=== PATIENT | male | born 1935 | race Caucasian/White ===

== ENCOUNTER → 2017-06-13 | Outpatient (RCR) | payer MEDICARE, OTHER | LOC: M PT 05-28 08:37 | PROVIDERS: ATTEND Orthopaedic Surgery | DX: M75.51 Bursitis of right shoulder (principal) | CPT/HCPCS: 97110; 97140; 97162; G8984; G8985 ==

== ENCOUNTER 2017-06-18 07:17 | Outpatient (RCR) | payer MEDICARE, OTHER | END 2017-07-14 | LOC: M PT 07:17 | DX: Z51.89 Encounter for other specified aftercare (principal); M75.51 Bursitis of right shoulder | CPT/HCPCS: 97110 ==

== ENCOUNTER 2017-07-10 11:36 | Emergency (ER) | payer MEDICARE, OTHER ==
[2017-07-10] MEDS: ONDANSETRON 4 MG ORAL DISINTEGRATING TAB (S0181) PO (12:18)
[2017-07-10] MEDS: ADACEL/BOOSTRIX VACCINE (DIPHTH/PERTUSS/ACELL/TETANUS)0.5ML SYR (90715) IM (12:19)
== END 2017-07-10 13:34 | disposition home or self-care (01) ==
LOC: M ED 11:36
DX: S00.93XA Contusion of unspecified part of head, initial encounter (principal); S00.91XA Abrasion of unspecified part of head, initial encounter; W10.9XXA Fall (on) (from) unspecified stairs and steps, initial encounter; Y92.099 Unspecified place in other non-institutional residence as the place of occurrence of the external cause; Y93.9 Activity, unspecified; I10 Essential (primary) hypertension; Z87.891 Personal history of nicotine dependence; Z79.899 Other long term (current) drug therapy; Z88.8 Allergy status to other drugs, medicaments and biological substances
CPT/HCPCS: 90715

== ENCOUNTER 2017-07-18 07:10 | Outpatient (RCR) | payer MEDICARE, OTHER | END 2017-08-14 | LOC: M PT 07:10 | DX: Z51.89 Encounter for other specified aftercare (principal); M75.51 Bursitis of right shoulder | CPT/HCPCS: 97110 ==

== ENCOUNTER 2017-08-15 07:21 | Outpatient (RCR) | payer MEDICARE, OTHER | END 2017-09-11 | LOC: M PT 07:21 | DX: M75.51 Bursitis of right shoulder (principal) | CPT/HCPCS: 97110 ==

== ENCOUNTER 2017-08-21 08:24 | Outpatient (RCR) | payer MEDICARE, OTHER | END 2017-09-11 | LOC: M PT 08:24 | DX: M75.41 Impingement syndrome of right shoulder (principal); M75.01 Adhesive capsulitis of right shoulder ==

== ENCOUNTER 2017-09-12 08:57 | Outpatient (RCR) | payer MEDICARE, OTHER | END 2017-10-12 | LOC: M PT 09-16 07:56 | DX: M75.41 Impingement syndrome of right shoulder (principal); M75.31 Calcific tendinitis of right shoulder | CPT/HCPCS: 97110 ==

== ENCOUNTER 2017-10-14 07:22 | Outpatient (RCR) | payer MEDICARE, OTHER | END 2017-11-11 | LOC: M PT 07:22 | DX: M75.41 Impingement syndrome of right shoulder (principal) | CPT/HCPCS: 97110 ==

== ENCOUNTER 2018-06-04 13:09 | Emergency (ER) | payer MEDICARE, OTHER ==
[2018-06-04] MEDS ORDERED: MORPHINE 2 MG/ML 1ML SYRINGE (J2270) IV (14:00)
[2018-06-04 14:44] LABS: KETONE, URINE AUTO RFX TRACE mg/dL (NEGATIVE); LEUKOCYTE ESTERASE UR AUTO RFX NEGATIVE (NEGATIVE); MUCUS, URINE RFX SMALL (NEGATIVE); NITRITE, URINE AUTO RFX NEGATIVE (NEGATIVE); RBC, URINE AUTO RFX 2 /HPF (0-3); SPECIFIC GRAVITY UR AUTO RFX 1.018 (1.002-1.035); SQUAM EPITHELIAL CELL UR AURFX 0 /HPF (0-6); WBC, URINE AUTO RFX 1 /HPF (0-3)
[2018-06-04] MEDS: NS 1,000 ML IV (15:12)
[2018-06-04] MEDS: GASTROGRAFIN SOLUTION 30ML PO ×2 (15:12→15:50)
[2018-06-04] MEDS: ONDANSETRON 4MG/2ML VIAL (J2405) IV (15:12)
[2018-06-04 15:17] LABS: BASO % 0.4 % (0.0-1.0); EOS # 0.1 10^3/uL (0.0-0.50); EOS % 1.3 % (0.0-3.0); HEMATOCRIT 42.7 % (42.0-52.0); HEMOGLOBIN 15.6 g/dl (13.5-17.5); LYMPH # 1.1 10^3/uL (1.5-4.5); MEAN CORPUSCULAR HEMOGLOBIN 35.5 pg (27.0-33.0); MEAN CORPUSCULAR HGB CONC 36.5 g/dl (32.0-36.5); MEAN CORPUSCULAR VOLUME 97.3 fl (80.0-96.0); MONO # 0.7 10^3/uL (0.0-0.8); MONO % 6.7 % (0.0-5.0); NEUTROPHILS # 7.9 10^3/uL (1.8-7.7); NEUTROPHILS % 79.6 % (36.0-66.0); PLATELET COUNT, AUTOMATED 274 10^3/uL (150-450); RED BLOOD COUNT 4.39 10^6/uL (4.30-6.10); RED CELL DISTRIBUTION WIDTH 11.5 % (11.5-14.5); WHITE BLOOD COUNT 9.9 10^3/uL (4.0-10.0)
[2018-06-04 15:44] LABS: LACTIC ACID SEPSIS PROTOCOL 1.3 MMOL/L (0.4-2.0)
[2018-06-04 15:46] LABS: ALBUMIN 3.4 GM/DL (3.2-5.2); ALBUMIN/GLOBULIN RATIO 0.83 (1.00-1.93); ALKALINE PHOSPHATASE 55 U/L (45-117); ALT/SGPT 21 U/L (12-78); ANION GAP 10 MEQ/L (8-16); AST/SGOT 18 U/L (7-37); BILIRUBIN,DIRECT 0.5 MG/DL (0.0-0.2); BILIRUBIN,TOTAL 1.2 MG/DL (0.2-1.0); BLOOD UREA NITROGEN 30 MG/DL (7-18); CALCIUM LEVEL 8.5 MG/DL (8.8-10.2); CARBON DIOXIDE LEVEL 23 MEQ/L (21-32); CHLORIDE LEVEL 100 MEQ/L (98-107); CREATININE FOR GFR 1.14 MG/DL (0.70-1.30); GLOMERULAR FILTRATION RATE > 60.0 (>35); GLUCOSE, FASTING 76 MG/DL (70-100); POTASSIUM SERUM 4.2 MEQ/L (3.5-5.1); SODIUM LEVEL 133 MEQ/L (136-145); TOTAL PROTEIN 7.5 GM/DL (6.4-8.2)
[2018-06-04] MEDS ORDERED: ISOVUE-370 76% 100ML VIAL (Q9967) As Ordered (15:51)
== END 2018-06-04 19:06 | disposition home or self-care (01) ==
LOC: M ED 13:09
DX: R33.9 Retention of urine, unspecified (principal); N40.1 Benign prostatic hyperplasia with lower urinary tract symptoms; I25.10 Atherosclerotic heart disease of native coronary artery without angina pectoris; I10 Essential (primary) hypertension; J44.9 Chronic obstructive pulmonary disease, unspecified; G89.29 Other chronic pain; M54.5 Low back pain; Z95.5 Presence of coronary angioplasty implant and graft; Z87.891 Personal history of nicotine dependence; K57.00 Diverticulitis of small intestine with perforation and abscess without bleeding; K76.9 Liver disease, unspecified; N28.9 Disorder of kidney and ureter, unspecified; K82.9 Disease of gallbladder, unspecified; Z79.82 Long term (current) use of aspirin; Z79.899 Other long term (current) drug therapy; Z88.8 Allergy status to other drugs, medicaments and biological substances
CPT/HCPCS: Q9963

== ENCOUNTER 2018-06-17 09:53 | Inpatient (IN) | payer MEDICARE, OTHER ==
[2018-06-17 11:14] LABS: HEMATOCRIT 43.7 % (42.0-52.0); HEMOGLOBIN 15.3 g/dl (13.5-17.5); MEAN CORPUSCULAR HEMOGLOBIN 34.3 pg (27.0-33.0); PLATELET COUNT, AUTOMATED 191 10^3/uL (150-450); RED BLOOD COUNT 4.46 10^6/uL (4.30-6.10); RED CELL DISTRIBUTION WIDTH 11.6 % (11.5-14.5); WHITE BLOOD COUNT 9.6 10^3/uL (4.0-10.0)
[2018-06-17 11:30] LABS: LACTIC ACID SEPSIS PROTOCOL 1.1 MMOL/L (0.4-2.0)
[2018-06-17 11:42] LABS: ALKALINE PHOSPHATASE 66 U/L (45-117); ALT/SGPT 22 U/L (12-78); AST/SGOT 17 U/L (7-37); BILIRUBIN,DIRECT 0.2 MG/DL (0.0-0.2); BILIRUBIN,TOTAL 0.6 MG/DL (0.2-1.0); TOTAL PROTEIN 7.7 GM/DL (6.4-8.2)
[2018-06-17 11:43] LABS: ALBUMIN 3.3 GM/DL (3.2-5.2); ALBUMIN/GLOBULIN RATIO 0.75 (1.00-1.93)
[2018-06-17 11:51] LABS: ANION GAP 10 MEQ/L (8-16); BLOOD UREA NITROGEN 19 MG/DL (7-18); CALCIUM LEVEL 8.2 MG/DL (8.8-10.2); CARBON DIOXIDE LEVEL 24 MEQ/L (21-32); CHLORIDE LEVEL 104 MEQ/L (98-107); CK-MB VALUE MASS < 1.0 NG/ML (<3.6); CPK CREATINE PHOSPHOKINASE 22 U/L (39-308); CREATININE FOR GFR 1.07 MG/DL (0.70-1.30); GLOMERULAR FILTRATION RATE > 60.0 (>35); GLUCOSE, FASTING 93 MG/DL (70-100); MB/CK RELATIVE INDEX 4.55 (< OR =4); POTASSIUM SERUM 3.9 MEQ/L (3.5-5.1); SODIUM LEVEL 138 MEQ/L (136-145); THYROID STIMULATING HORMONE 0.884 uIU/ML (0.358-3.740); TROPONIN I < 0.02 NG/ML (< 0.10)
[2018-06-17 12:11] LABS: OSMOLALITY SERUM 287 MOSM/KG (280-301)
[2018-06-17] MEDS: NS 500 ML IV (12:12)
[2018-06-17 12:26] LABS: VENOUS BASE EXCESS -0.1 (-2.0-2.0); VENOUS HCO3 25.1 MEQ/L (23.0-27.0); VENOUS O2 SATURATION 55.6 % (60.0-80.0); VENOUS PARTIAL PRESSURE CO2 42.6 mmHg (38.0-50.0); VENOUS PARTIAL PRESSURE O2 29.8 mmHg (30.0-50.0); VENOUS PH 7.388 UNITS (7.330-7.430); VENOUS STANDARD HCO3 23.3 MEQ/L; VENOUS TOTAL CO2 26.4 MEQ/L (24.0-28.0)
[2018-06-17 12:30] LABS: KETONE, URINE AUTO RFX NEGATIVE (NEGATIVE); MUCUS, URINE RFX SMALL (NEGATIVE); RBC, URINE AUTO RFX 14 /HPF (0-3); SPECIFIC GRAVITY UR AUTO RFX 1.011 (1.002-1.035); SQUAM EPITHELIAL CELL UR AURFX 0 /HPF (0-6)
[2018-06-17 12:31] LABS: LEUKOCYTE ESTERASE UR AUTO RFX 1+ (NEGATIVE); NITRITE, URINE AUTO RFX POSITIVE (NEGATIVE); WBC, URINE AUTO RFX 13 /HPF (0-3)
[2018-06-17 12:53] LABS: AMMONIA 16 uMOL/L (<32)
[2018-06-17] MEDS: cefTRIAXone SOD 1 GM in D5W MINI-BAG PLUS 50 ML IV (15:04)
[2018-06-17] MEDS ORDERED: ACETAMINOPHEN 325 MG TAB PO (20:45)
[2018-06-18 05:49] LABS: HEMATOCRIT 38.5 % (42.0-52.0); HEMOGLOBIN 13.5 g/dl (13.5-17.5); MEAN CORPUSCULAR HEMOGLOBIN 34.3 pg (27.0-33.0); MEAN CORPUSCULAR HGB CONC 35.1 g/dl (32.0-36.5); MEAN CORPUSCULAR VOLUME 97.7 fl (80.0-96.0); PLATELET COUNT, AUTOMATED 168 10^3/uL (150-450); RED BLOOD COUNT 3.94 10^6/uL (4.30-6.10); RED CELL DISTRIBUTION WIDTH 11.6 % (11.5-14.5); WHITE BLOOD COUNT 8.1 10^3/uL (4.0-10.0)
[2018-06-18] MEDS: HEPARIN SOD (PORCINE) 5000 UNITS/ML VIAL SC ×3 (05:50→21:34)
[2018-06-18 06:19] LABS: ANION GAP 7 MEQ/L (8-16); BLOOD UREA NITROGEN 15 MG/DL (7-18); CALCIUM LEVEL 8.5 MG/DL (8.8-10.2); CARBON DIOXIDE LEVEL 26 MEQ/L (21-32); CHLORIDE LEVEL 106 MEQ/L (98-107); CREATININE FOR GFR 1.02 MG/DL (0.70-1.30); GLOMERULAR FILTRATION RATE > 60.0 (>35); GLUCOSE, FASTING 89 MG/DL (70-100); SODIUM LEVEL 139 MEQ/L (136-145)
[2018-06-18] MEDS: FUROSEMIDE 20 MG TAB PO (09:14)
[2018-06-18] MEDS: VITAMIN D 1,000 INTERNATIONAL UNITS TABLET PO (09:14)
[2018-06-18] MEDS: MULTIVITAMINS/MINERALS THERAP 1 TAB PO (09:14)
[2018-06-18] MEDS: OMEPRAZOLE 20 MG CAP PO (09:14)
[2018-06-18] MEDS: ASPIRIN 81 MG ENTERIC TAB PO (09:14)
[2018-06-18] MEDS: ALLOPURINOL 100 MG TAB PO (09:14)
[2018-06-18] MEDS: TAMSULOSIN 0.4 MG CAP PO (09:14)
[2018-06-18] MEDS: amLODIPine 10 MG TAB PO (09:15)
[2018-06-18] MEDS ORDERED: ISOVUE-370 76% 100ML VIAL (Q9967) As Ordered (13:14)
[2018-06-18] MEDS: GASTROGRAFIN SOLUTION 30ML PO ×2 (13:50→14:06)
[2018-06-18] MEDS: cefTRIAXone SOD 1 GM in D5W MINI-BAG PLUS 50 ML IV (14:07)
[2018-06-18] MEDS: SENNA 8.6 MG TAB (SENOKOT) PO ×2 (14:31→21:34)
[2018-06-18] MEDS: NS 1,500 ML IV (17:30)
[2018-06-19] MEDS: HEPARIN SOD (PORCINE) 5000 UNITS/ML VIAL SC ×3 (05:16→20:16)
[2018-06-19] MEDS: NS 1,500 ML IV (05:30)
[2018-06-19 06:54] LABS: HEMATOCRIT 38.3 % (42.0-52.0); HEMOGLOBIN 13.4 g/dl (13.5-17.5); MEAN CORPUSCULAR HEMOGLOBIN 34.4 pg (27.0-33.0); MEAN CORPUSCULAR VOLUME 98.5 fl (80.0-96.0); PLATELET COUNT, AUTOMATED 165 10^3/uL (150-450); RED BLOOD COUNT 3.89 10^6/uL (4.30-6.10); RED CELL DISTRIBUTION WIDTH 11.9 % (11.5-14.5); WHITE BLOOD COUNT 7.4 10^3/uL (4.0-10.0)
[2018-06-19 07:20] LABS: ANION GAP 6 MEQ/L (8-16); BLOOD UREA NITROGEN 15 MG/DL (7-18); CARBON DIOXIDE LEVEL 26 MEQ/L (21-32); CHLORIDE LEVEL 108 MEQ/L (98-107); CREATININE FOR GFR 1.03 MG/DL (0.70-1.30); GLOMERULAR FILTRATION RATE > 60.0 (>35); GLUCOSE, FASTING 86 MG/DL (70-100); POTASSIUM SERUM 4.1 MEQ/L (3.5-5.1); SODIUM LEVEL 140 MEQ/L (136-145)
[2018-06-19] MEDS: OMEPRAZOLE 20 MG CAP PO (08:31)
[2018-06-19] MEDS: TAMSULOSIN 0.4 MG CAP PO (08:31)
[2018-06-19] MEDS: ALLOPURINOL 100 MG TAB PO (08:31)
[2018-06-19] MEDS: MULTIVITAMINS/MINERALS THERAP 1 TAB PO (08:31)
[2018-06-19] MEDS: VITAMIN D 1,000 INTERNATIONAL UNITS TABLET PO (08:31)
[2018-06-19] MEDS: ASPIRIN 81 MG ENTERIC TAB PO (08:31)
[2018-06-19] MEDS: SENNA 8.6 MG TAB (SENOKOT) PO ×2 (08:31→20:16)
[2018-06-19] MEDS: amLODIPine 10 MG TAB PO (08:32)
[2018-06-19 14:16] LABS: PSA TOTAL 1.3 ng/mL (0.0-4.0)
[2018-06-19] MEDS: cefTRIAXone SOD 1 GM in D5W MINI-BAG PLUS 50 ML IV (14:27)
[2018-06-20] MEDS: HEPARIN SOD (PORCINE) 5000 UNITS/ML VIAL SC ×3 (05:25→21:05)
[2018-06-20 06:45] LABS: HEMATOCRIT 39.4 % (42.0-52.0); HEMOGLOBIN 13.6 g/dl (13.5-17.5); MEAN CORPUSCULAR HEMOGLOBIN 33.7 pg (27.0-33.0); MEAN CORPUSCULAR HGB CONC 34.5 g/dl (32.0-36.5); MEAN CORPUSCULAR VOLUME 97.8 fl (80.0-96.0); PLATELET COUNT, AUTOMATED 175 10^3/uL (150-450); RED BLOOD COUNT 4.03 10^6/uL (4.30-6.10); RED CELL DISTRIBUTION WIDTH 11.9 % (11.5-14.5); WHITE BLOOD COUNT 7.5 10^3/uL (4.0-10.0)
[2018-06-20 07:03] LABS: ANION GAP 8 MEQ/L (8-16); BLOOD UREA NITROGEN 14 MG/DL (7-18); CALCIUM LEVEL 8.3 MG/DL (8.8-10.2); CARBON DIOXIDE LEVEL 24 MEQ/L (21-32); CHLORIDE LEVEL 107 MEQ/L (98-107); CREATININE FOR GFR 1.01 MG/DL (0.70-1.30); GLOMERULAR FILTRATION RATE > 60.0 (>35); GLUCOSE, FASTING 87 MG/DL (70-100); SODIUM LEVEL 139 MEQ/L (136-145)
[2018-06-20] MEDS: SENNA 8.6 MG TAB (SENOKOT) PO ×2 (08:49→21:04)
[2018-06-20] MEDS: ALLOPURINOL 100 MG TAB PO (08:49)
[2018-06-20] MEDS: MULTIVITAMINS/MINERALS THERAP 1 TAB PO (08:49)
[2018-06-20] MEDS: ASPIRIN 81 MG ENTERIC TAB PO (08:49)
[2018-06-20] MEDS: VITAMIN D 1,000 INTERNATIONAL UNITS TABLET PO (08:49)
[2018-06-20] MEDS: FUROSEMIDE 20 MG TAB PO (08:49)
[2018-06-20] MEDS: OMEPRAZOLE 20 MG CAP PO (08:49)
[2018-06-20] MEDS: TAMSULOSIN 0.4 MG CAP PO (08:49)
[2018-06-20] MEDS: amLODIPine 10 MG TAB PO (08:50)
[2018-06-20] MEDS: SENOKOT S TAB PO ×2 (11:33→21:02)
[2018-06-20] MEDS: cefTRIAXone SOD 1 GM in D5W MINI-BAG PLUS 50 ML IV (14:24)
[2018-06-21] MEDS: HEPARIN SOD (PORCINE) 5000 UNITS/ML VIAL SC ×3 (05:54→21:42)
[2018-06-21 06:48] LABS: HEMATOCRIT 39.6 % (42.0-52.0); HEMOGLOBIN 13.6 g/dl (13.5-17.5); MEAN CORPUSCULAR HEMOGLOBIN 34.3 pg (27.0-33.0); MEAN CORPUSCULAR HGB CONC 34.3 g/dl (32.0-36.5); MEAN CORPUSCULAR VOLUME 99.7 fl (80.0-96.0); PLATELET COUNT, AUTOMATED 174 10^3/uL (150-450); RED BLOOD COUNT 3.97 10^6/uL (4.30-6.10); WHITE BLOOD COUNT 7.4 10^3/uL (4.0-10.0)
[2018-06-21 07:07] LABS: ANION GAP 8 MEQ/L (8-16); BLOOD UREA NITROGEN 14 MG/DL (7-18); CALCIUM LEVEL 8.8 MG/DL (8.8-10.2); CARBON DIOXIDE LEVEL 24 MEQ/L (21-32); CHLORIDE LEVEL 107 MEQ/L (98-107); CREATININE FOR GFR 1.05 MG/DL (0.70-1.30); GLOMERULAR FILTRATION RATE > 60.0 (>35); GLUCOSE, FASTING 90 MG/DL (70-100); POTASSIUM SERUM 4.1 MEQ/L (3.5-5.1); SODIUM LEVEL 139 MEQ/L (136-145)
[2018-06-21] MEDS: FUROSEMIDE 20 MG TAB PO (08:23)
[2018-06-21] MEDS: ALLOPURINOL 100 MG TAB PO (08:23)
[2018-06-21] MEDS: TAMSULOSIN 0.4 MG CAP PO (08:23)
[2018-06-21] MEDS: VITAMIN D 1,000 INTERNATIONAL UNITS TABLET PO (08:23)
[2018-06-21] MEDS: MULTIVITAMINS/MINERALS THERAP 1 TAB PO (08:24)
[2018-06-21] MEDS: SENOKOT S TAB PO ×2 (08:24→21:41)
[2018-06-21] MEDS: SENNA 8.6 MG TAB (SENOKOT) PO ×2 (08:24→21:41)
[2018-06-21] MEDS: ASPIRIN 81 MG ENTERIC TAB PO (08:24)
[2018-06-21] MEDS: amLODIPine 10 MG TAB PO (08:24)
[2018-06-21] MEDS: OMEPRAZOLE 20 MG CAP PO (08:26)
[2018-06-21] MEDS: MOM 30ML SUSPENSION UDC PO ×2 (08:45→18:07)
[2018-06-21] MEDS: cefTRIAXone SOD 1 GM in D5W MINI-BAG PLUS 50 ML IV (14:19)
[2018-06-22] MEDS: HEPARIN SOD (PORCINE) 5000 UNITS/ML VIAL SC ×3 (06:07→21:10)
[2018-06-22 06:13] LABS: HEMATOCRIT 38.6 % (42.0-52.0); HEMOGLOBIN 13.2 g/dl (13.5-17.5); MEAN CORPUSCULAR HEMOGLOBIN 34.2 pg (27.0-33.0); MEAN CORPUSCULAR HGB CONC 34.2 g/dl (32.0-36.5); PLATELET COUNT, AUTOMATED 182 10^3/uL (150-450); RED BLOOD COUNT 3.86 10^6/uL (4.30-6.10); RED CELL DISTRIBUTION WIDTH 12.2 % (11.5-14.5); WHITE BLOOD COUNT 7.3 10^3/uL (4.0-10.0)
[2018-06-22 06:38] LABS: ANION GAP 7 MEQ/L (8-16); BLOOD UREA NITROGEN 15 MG/DL (7-18); CALCIUM LEVEL 8.2 MG/DL (8.8-10.2); CARBON DIOXIDE LEVEL 25 MEQ/L (21-32); CHLORIDE LEVEL 108 MEQ/L (98-107); GLOMERULAR FILTRATION RATE > 60.0 (>35); GLUCOSE, FASTING 80 MG/DL (70-100); SODIUM LEVEL 140 MEQ/L (136-145)
[2018-06-22] MEDS: VITAMIN D 1,000 INTERNATIONAL UNITS TABLET PO (08:41)
[2018-06-22] MEDS: OMEPRAZOLE 20 MG CAP PO (08:41)
[2018-06-22] MEDS: amLODIPine 10 MG TAB PO (08:43)
[2018-06-22] MEDS: ALLOPURINOL 100 MG TAB PO (08:43)
[2018-06-22] MEDS: TAMSULOSIN 0.4 MG CAP PO (08:44)
[2018-06-22] MEDS: FUROSEMIDE 20 MG TAB PO (08:44)
[2018-06-22] MEDS: MULTIVITAMINS/MINERALS THERAP 1 TAB PO (08:44)
[2018-06-22] MEDS: SENOKOT S TAB PO ×2 (08:44→21:11)
[2018-06-22] MEDS: SENNA 8.6 MG TAB (SENOKOT) PO ×2 (08:45→21:10)
[2018-06-22] MEDS: ASPIRIN 81 MG ENTERIC TAB PO (08:45)
[2018-06-22] MEDS: cefTRIAXone SOD 1 GM in D5W MINI-BAG PLUS 50 ML IV (15:41)
[2018-06-23 07:09] LABS: HEMATOCRIT 38.5 % (42.0-52.0); MEAN CORPUSCULAR HEMOGLOBIN 34.1 pg (27.0-33.0); MEAN CORPUSCULAR HGB CONC 33.8 g/dl (32.0-36.5); PLATELET COUNT, AUTOMATED 186 10^3/uL (150-450); RED BLOOD COUNT 3.81 10^6/uL (4.30-6.10); RED CELL DISTRIBUTION WIDTH 12.4 % (11.5-14.5); WHITE BLOOD COUNT 6.8 10^3/uL (4.0-10.0)
[2018-06-23 07:33] LABS: ANION GAP 7 MEQ/L (8-16); BLOOD UREA NITROGEN 14 MG/DL (7-18); CALCIUM LEVEL 8.2 MG/DL (8.8-10.2); CARBON DIOXIDE LEVEL 25 MEQ/L (21-32); CHLORIDE LEVEL 107 MEQ/L (98-107); CREATININE FOR GFR 1.08 MG/DL (0.70-1.30); GLOMERULAR FILTRATION RATE > 60.0 (>35); GLUCOSE, FASTING 84 MG/DL (70-100); POTASSIUM SERUM 4.1 MEQ/L (3.5-5.1); SODIUM LEVEL 139 MEQ/L (136-145)
[2018-06-23] MEDS: TAMSULOSIN 0.4 MG CAP PO (08:15)
[2018-06-23] MEDS: VITAMIN D 1,000 INTERNATIONAL UNITS TABLET PO (08:15)
[2018-06-23] MEDS: SENOKOT S TAB PO ×2 (08:15→20:02)
[2018-06-23] MEDS: ALLOPURINOL 100 MG TAB PO (08:15)
[2018-06-23] MEDS: amLODIPine 10 MG TAB PO (08:15)
[2018-06-23] MEDS: ASPIRIN 81 MG ENTERIC TAB PO (08:15)
[2018-06-23] MEDS: MULTIVITAMINS/MINERALS THERAP 1 TAB PO (08:15)
[2018-06-23] MEDS: OMEPRAZOLE 20 MG CAP PO (08:15)
[2018-06-23] MEDS: SENNA 8.6 MG TAB (SENOKOT) PO ×2 (08:15→20:02)
[2018-06-23] MEDS ORDERED: GENTAMICIN SULF INJ 80MG/2ML VIAL (J1580) IP (13:00)
[2018-06-23] MEDS: cefTRIAXone SOD 1 GM in D5W MINI-BAG PLUS 50 ML IV (15:30)
[2018-06-23 16:33] LABS: KETONE, URINE AUTO RFX NEGATIVE (NEGATIVE); LEUKOCYTE ESTERASE UR AUTO RFX NEGATIVE (NEGATIVE); MUCUS, URINE RFX SMALL (NEGATIVE); NITRITE, URINE AUTO RFX NEGATIVE (NEGATIVE); RBC, URINE AUTO RFX 10 /HPF (0-3); SPECIFIC GRAVITY UR AUTO RFX 1.015 (1.002-1.035); SQUAM EPITHELIAL CELL UR AURFX 0 /HPF (0-6); WBC, URINE AUTO RFX 2 /HPF (0-3)
[2018-06-24] MEDS: GENTAMICIN 80 MG in APPROPRIATE DILUENT 1 EA IV (06:24)
[2018-06-24 06:44] LABS: HEMATOCRIT 39.3 % (42.0-52.0); HEMOGLOBIN 13.6 g/dl (13.5-17.5); MEAN CORPUSCULAR HEMOGLOBIN 34.4 pg (27.0-33.0); MEAN CORPUSCULAR HGB CONC 34.6 g/dl (32.0-36.5); MEAN CORPUSCULAR VOLUME 99.5 fl (80.0-96.0); PLATELET COUNT, AUTOMATED 183 10^3/uL (150-450); RED BLOOD COUNT 3.95 10^6/uL (4.30-6.10); RED CELL DISTRIBUTION WIDTH 12.2 % (11.5-14.5); WHITE BLOOD COUNT 7.3 10^3/uL (4.0-10.0)
[2018-06-24 07:03] LABS: ANION GAP 8 MEQ/L (8-16); BLOOD UREA NITROGEN 12 MG/DL (7-18); CALCIUM LEVEL 8.4 MG/DL (8.8-10.2); CARBON DIOXIDE LEVEL 24 MEQ/L (21-32); CHLORIDE LEVEL 106 MEQ/L (98-107); CREATININE FOR GFR 0.98 MG/DL (0.70-1.30); GLOMERULAR FILTRATION RATE > 60.0 (>35); GLUCOSE, FASTING 87 MG/DL (70-100); POTASSIUM SERUM 4.3 MEQ/L (3.5-5.1); SODIUM LEVEL 138 MEQ/L (136-145)
[2018-06-24] MEDS: VITAMIN D 1,000 INTERNATIONAL UNITS TABLET PO (08:48)
[2018-06-24] MEDS: TAMSULOSIN 0.4 MG CAP PO (08:48)
[2018-06-24] MEDS: SENOKOT S TAB PO ×2 (08:48→20:13)
[2018-06-24] MEDS: MULTIVITAMINS/MINERALS THERAP 1 TAB PO (08:48)
[2018-06-24] MEDS: FUROSEMIDE 20 MG TAB PO (08:48)
[2018-06-24] MEDS: OMEPRAZOLE 20 MG CAP PO (08:48)
[2018-06-24] MEDS: ALLOPURINOL 100 MG TAB PO (08:48)
[2018-06-24] MEDS: SENNA 8.6 MG TAB (SENOKOT) PO ×2 (08:49→20:13)
[2018-06-24] MEDS: amLODIPine 10 MG TAB PO (08:49)
[2018-06-24] MEDS: ASPIRIN 81 MG ENTERIC TAB PO (08:49)
[2018-06-24] MEDS: cefTRIAXone SOD 1 GM in D5W MINI-BAG PLUS 50 ML IV (15:24)
[2018-06-24] MEDS: GENTAMICIN SULF INJ 80MG/2ML VIAL (J1580) As Ordered (17:33)
[2018-06-24] MEDS ORDERED: PROPOFOL 200 MG/20 ML VIAL As Ordered (17:53)
[2018-06-24] MEDS ORDERED: fentaNYL 100 MCG/2 ML INJECTION (J3010) As Ordered (17:53)
[2018-06-24] MEDS ORDERED: MIDAZOLAM INJ 2 MG/2 ML VIAL (J2250) As Ordered (17:53)
[2018-06-24] MEDS ORDERED: ONDANSETRON 4MG/2ML VIAL (J2405) As Ordered (17:53)
[2018-06-24] MEDS ORDERED: LIDOCAINE 2% INJ 100 MG/5 ML SDV (FOR ANES.) As Ordered (17:53)
[2018-06-24] MEDS ORDERED: fentaNYL 100 MCG/2 ML INJECTION (J3010) IV (18:30)
[2018-06-24] MEDS ORDERED: ONDANSETRON 4MG/2ML VIAL (J2405) IV (18:30)
[2018-06-24] MEDS: LR 1,000 ML IV (18:30)
[2018-06-24] MEDS ORDERED: NORCO, ANEXSIA 5/325MG TABLET (HYDROcodone/ACETAMINOPHEN) As Ordered (18:47)
[2018-06-24] MEDS: NORCO, ANEXSIA 5/325MG TABLET (HYDROcodone/ACETAMINOPHEN) PO (18:48)
[2018-06-25] MEDS: PERCOCET 5MG/325MG TAB PO ×2 (01:18→19:38)
[2018-06-25 09:11] LABS: HEMATOCRIT 37.2 % (42.0-52.0); HEMOGLOBIN 13.1 g/dl (13.5-17.5); MEAN CORPUSCULAR HEMOGLOBIN 34.7 pg (27.0-33.0); MEAN CORPUSCULAR HGB CONC 35.2 g/dl (32.0-36.5); MEAN CORPUSCULAR VOLUME 98.7 fl (80.0-96.0); PLATELET COUNT, AUTOMATED 181 10^3/uL (150-450); RED BLOOD COUNT 3.77 10^6/uL (4.30-6.10); RED CELL DISTRIBUTION WIDTH 12.5 % (11.5-14.5); WHITE BLOOD COUNT 8.4 10^3/uL (4.0-10.0)
[2018-06-25] MEDS: ASPIRIN 81 MG ENTERIC TAB PO (09:16)
[2018-06-25] MEDS: OMEPRAZOLE 20 MG CAP PO (09:17)
[2018-06-25] MEDS: MULTIVITAMINS/MINERALS THERAP 1 TAB PO (09:17)
[2018-06-25] MEDS: FUROSEMIDE 20 MG TAB PO (09:17)
[2018-06-25] MEDS: ALLOPURINOL 100 MG TAB PO (09:17)
[2018-06-25] MEDS: VITAMIN D 1,000 INTERNATIONAL UNITS TABLET PO (09:17)
[2018-06-25] MEDS: SENNA 8.6 MG TAB (SENOKOT) PO ×2 (09:17→20:59)
[2018-06-25] MEDS: amLODIPine 10 MG TAB PO (09:17)
[2018-06-25] MEDS: SENOKOT S TAB PO ×2 (09:18→21:00)
[2018-06-25] MEDS: TAMSULOSIN 0.4 MG CAP PO (09:18)
[2018-06-25 09:31] LABS: ANION GAP 8 MEQ/L (8-16); BLOOD UREA NITROGEN 14 MG/DL (7-18); CALCIUM LEVEL 8.6 MG/DL (8.8-10.2); CARBON DIOXIDE LEVEL 26 MEQ/L (21-32); CHLORIDE LEVEL 100 MEQ/L (98-107); CREATININE FOR GFR 1.16 MG/DL (0.70-1.30); GLOMERULAR FILTRATION RATE > 60.0 (>35); GLUCOSE, FASTING 116 MG/DL (70-100); POTASSIUM SERUM 4.2 MEQ/L (3.5-5.1); SODIUM LEVEL 134 MEQ/L (136-145)
[2018-06-25] MEDS: MOM 30ML SUSPENSION UDC PO (15:42)
[2018-06-26] MEDS: PERCOCET 5MG/325MG TAB PO ×3 (01:49→21:39)
[2018-06-26 06:04] LABS: HEMOGLOBIN 12.4 g/dl (13.5-17.5); MEAN CORPUSCULAR HEMOGLOBIN 33.8 pg (27.0-33.0); MEAN CORPUSCULAR HGB CONC 33.5 g/dl (32.0-36.5); MEAN CORPUSCULAR VOLUME 100.8 fl (80.0-96.0); PLATELET COUNT, AUTOMATED 163 10^3/uL (150-450); RED BLOOD COUNT 3.67 10^6/uL (4.30-6.10); RED CELL DISTRIBUTION WIDTH 12.4 % (11.5-14.5); WHITE BLOOD COUNT 7.4 10^3/uL (4.0-10.0)
[2018-06-26 06:31] LABS: ANION GAP 6 MEQ/L (8-16); BLOOD UREA NITROGEN 16 MG/DL (7-18); CALCIUM LEVEL 8.3 MG/DL (8.8-10.2); CARBON DIOXIDE LEVEL 28 MEQ/L (21-32); CHLORIDE LEVEL 103 MEQ/L (98-107); CREATININE FOR GFR 1.07 MG/DL (0.70-1.30); GLOMERULAR FILTRATION RATE > 60.0 (>35); GLUCOSE, FASTING 90 MG/DL (70-100); POTASSIUM SERUM 4.1 MEQ/L (3.5-5.1); SODIUM LEVEL 137 MEQ/L (136-145)
[2018-06-26] MEDS: FUROSEMIDE 20 MG TAB PO (08:56)
[2018-06-26] MEDS: ALLOPURINOL 100 MG TAB PO (08:56)
[2018-06-26] MEDS: SENNA 8.6 MG TAB (SENOKOT) PO ×2 (08:56→20:44)
[2018-06-26] MEDS: ASPIRIN 81 MG ENTERIC TAB PO (08:56)
[2018-06-26] MEDS: OMEPRAZOLE 20 MG CAP PO (08:57)
[2018-06-26] MEDS: MULTIVITAMINS/MINERALS THERAP 1 TAB PO (08:57)
[2018-06-26] MEDS: VITAMIN D 1,000 INTERNATIONAL UNITS TABLET PO (08:57)
[2018-06-26] MEDS: TAMSULOSIN 0.4 MG CAP PO (08:57)
[2018-06-26] MEDS: SENOKOT S TAB PO ×2 (08:57→20:44)
[2018-06-26] MEDS: amLODIPine 10 MG TAB PO (08:59)
[2018-06-27 06:57] LABS: HEMATOCRIT 38.7 % (42.0-52.0); HEMOGLOBIN 13.2 g/dl (13.5-17.5); MEAN CORPUSCULAR HEMOGLOBIN 33.9 pg (27.0-33.0); MEAN CORPUSCULAR HGB CONC 34.1 g/dl (32.0-36.5); MEAN CORPUSCULAR VOLUME 99.5 fl (80.0-96.0); PLATELET COUNT, AUTOMATED 191 10^3/uL (150-450); RED BLOOD COUNT 3.89 10^6/uL (4.30-6.10); RED CELL DISTRIBUTION WIDTH 12.6 % (11.5-14.5); WHITE BLOOD COUNT 7.3 10^3/uL (4.0-10.0)
[2018-06-27 07:15] LABS: ANION GAP 6 MEQ/L (8-16); BLOOD UREA NITROGEN 13 MG/DL (7-18); CALCIUM LEVEL 8.7 MG/DL (8.8-10.2); CARBON DIOXIDE LEVEL 27 MEQ/L (21-32); CHLORIDE LEVEL 103 MEQ/L (98-107); CREATININE FOR GFR 1.07 MG/DL (0.70-1.30); GLOMERULAR FILTRATION RATE > 60.0 (>35); GLUCOSE, FASTING 91 MG/DL (70-100); POTASSIUM SERUM 4.2 MEQ/L (3.5-5.1); SODIUM LEVEL 136 MEQ/L (136-145)
[2018-06-27] MEDS: amLODIPine 10 MG TAB PO (08:18)
[2018-06-27] MEDS: FUROSEMIDE 20 MG TAB PO (08:18)
[2018-06-27] MEDS: MULTIVITAMINS/MINERALS THERAP 1 TAB PO (08:18)
[2018-06-27] MEDS: MOM 30ML SUSPENSION UDC PO (08:18)
[2018-06-27] MEDS: OMEPRAZOLE 20 MG CAP PO (08:18)
[2018-06-27] MEDS: VITAMIN D 1,000 INTERNATIONAL UNITS TABLET PO (08:19)
[2018-06-27] MEDS: SENNA 8.6 MG TAB (SENOKOT) PO (08:19)
[2018-06-27] MEDS: TAMSULOSIN 0.4 MG CAP PO (08:19)
[2018-06-27] MEDS: ASPIRIN 81 MG ENTERIC TAB PO (08:19)
[2018-06-27] MEDS: ALLOPURINOL 100 MG TAB PO (08:19)
[2018-06-27] MEDS: SENOKOT S TAB PO (08:19)
[2018-06-27] MEDS: PERCOCET 5MG/325MG TAB PO (08:36)
== END 2018-06-27 16:10 | disposition home or self-care (01) | DRG 666 ==
LOC: M MS4PR 06-18 09:35 → M ED 09:53 → M ED INP 20:30
PROC: 0VT08ZZ Resection of Prostate, Via Natural or Artificial Opening Endoscopic (ICD-10-PCS; principal; 2018-06-24 17:22)
DX: N39.0 Urinary tract infection, site not specified (principal); J98.11 Atelectasis; N40.0 Benign prostatic hyperplasia without lower urinary tract symptoms; K21.9 Gastro-esophageal reflux disease without esophagitis; J44.9 Chronic obstructive pulmonary disease, unspecified; I25.10 Atherosclerotic heart disease of native coronary artery without angina pectoris; I10 Essential (primary) hypertension; M10.9 Gout, unspecified; B96.1 Klebsiella pneumoniae [K. pneumoniae] as the cause of diseases classified elsewhere; Z79.82 Long term (current) use of aspirin; Z79.899 Other long term (current) drug therapy; Z88.8 Allergy status to other drugs, medicaments and biological substances; J84.10 Pulmonary fibrosis, unspecified; E86.0 Dehydration; N28.1 Cyst of kidney, acquired; K76.89 Other specified diseases of liver; K80.20 Calculus of gallbladder without cholecystitis without obstruction; R33.9 Retention of urine, unspecified

== ENCOUNTER 2018-07-06 10:01 | Emergency (ER) | payer MEDICARE, OTHER ==
[~2018-07-06] VITALS: Ht 177.8 cm; Wt 89.1 kg
[~2018-07-06 10:01] MED LIST: ACET1TAB55 PO; ALLO100T PO; ASPI81TA85 PO; CELE1CAP4; DOK100TA PO; FELO10TA PO; FLOM0.4C39 PO; FURO20TA2 PO; GABA-843 PO; GUAIPOW; HYDR1CRE TOP; LIDO5DIS41 TD; OMEP20CA3 PO; PROAAER10 INH; SORE15LO MT; TRAM50TA2; VITA100066 PO; VITMTA PO
[2018-07-06 11:05] LABS: HEMATOCRIT 41.6 % (42.0-52.0); HEMOGLOBIN 14.4 g/dl (13.5-17.5); MEAN CORPUSCULAR HEMOGLOBIN 34.4 pg (27.0-33.0); MEAN CORPUSCULAR HGB CONC 34.6 g/dl (32.0-36.5); MEAN CORPUSCULAR VOLUME 99.3 fl (80.0-96.0); PLATELET COUNT, AUTOMATED 248 10^3/uL (150-450); RED BLOOD COUNT 4.19 10^6/uL (4.30-6.10)
[2018-07-06 11:25] LABS: BLOOD UREA NITROGEN 15 MG/DL (7-18); CALCIUM LEVEL 8.7 MG/DL (8.8-10.2); CARBON DIOXIDE LEVEL 23 MEQ/L (21-32); CHLORIDE LEVEL 104 MEQ/L (98-107); CREATININE FOR GFR 1.05 MG/DL (0.70-1.30); GLOMERULAR FILTRATION RATE > 60.0 (>35); GLUCOSE, FASTING 92 MG/DL (70-100); POTASSIUM SERUM 4.3 MEQ/L (3.5-5.1); SODIUM LEVEL 137 MEQ/L (136-145)
[2018-07-06] MEDS ORDERED: KEFL500C17 PO (12:42)
[2018-07-06 12:50] VITALS: BP 137/68
== END 2018-07-06 12:51 | disposition home or self-care (01) ==
LOC: M ED 10:01
DX: R31.9 Hematuria, unspecified (principal); K21.9 Gastro-esophageal reflux disease without esophagitis; Z79.899 Other long term (current) drug therapy; Z79.82 Long term (current) use of aspirin; Z88.8 Allergy status to other drugs, medicaments and biological substances; Z87.891 Personal history of nicotine dependence

== ENCOUNTER → 2018-07-11 | Outpatient (REF) | payer MEDICARE, OTHER ==
[~2018-07-11] MED LIST changes: +KEFL500C17 PO
[2018-07-11 13:26] LABS: APPEARANCE, URINE HAZY (CLEAR); BACTERIA, URINE AUTO NEGATIVE (NEGATIVE); BILIRUBIN, URINE AUTO NEGATIVE (NEGATIVE); BLOOD, URINE BLOOD 3+ (NEGATIVE); COLOR, URINE YELLOW (YELLOW); GLUCOSE, URINE (UA) AUTO NEGATIVE (NEGATIVE); KETONE, URINE AUTO NEGATIVE (NEGATIVE); LEUKOCYTE ESTERASE, URINE AUTO NEGATIVE (NEGATIVE); NITRITE, URINE AUTO NEGATIVE (NEGATIVE); PROTEIN, URINE AUTO NEGATIVE (NEGATIVE); RBC, URINE AUTO TNTC /HPF (0-3); SPECIFIC GRAVITY URINE AUTO 1.008 (1.002-1.035); SQUAMOUS EPITHELIAL CELL UR AU 0 /HPF (0-6); UROBILINOGEN, URINE AUTO 0.2 mg/dL (0.0-2.0); WBC, URINE AUTO 5 /HPF (0-3)
== END ==
LOC: M SMT 12:56
PROVIDERS: ATTEND Nurse Practitioner Women's Health
DX: N40.1 Benign prostatic hyperplasia with lower urinary tract symptoms (principal)

== ENCOUNTER 2018-08-12 07:42 | Outpatient (RCR) | payer MEDICARE, OTHER | END 2018-08-14 | LOC: M PT 07:42 | PROVIDERS: ATTEND Physician Assistant | DX: R53.1 Weakness (principal) | CPT/HCPCS: 97110; 97162; G8978; G8979 ==

== ENCOUNTER 2018-09-02 07:45 | Outpatient (RCR) | payer MEDICARE, OTHER | END 2018-09-11 | LOC: M PT 07:45 | PROVIDERS: ATTEND Physician Assistant | DX: R53.1 Weakness (principal) ==

== ENCOUNTER 2018-10-01 16:04 | Emergency (ER) | payer MEDICARE, OTHER ==
[~2018-10-01] VITALS: Ht 180.3 cm; Wt 91.8 kg
[2018-10-01] MEDS ORDERED: FURO20TA2 PO (16:12)
[2018-10-01] MEDS ORDERED: NS 1,000 ML IV ONE (16:45)
[2018-10-01] MEDS ORDERED: ACETAMINOPHEN TAB 650MG DOSE (2X325MG) PO ONE (16:45)
[2018-10-01] MEDS ORDERED: dexameTHASONE 20 MG/5 ML VIAL (J1100) IV ONE (16:45)
[2018-10-01] MEDS ORDERED: IPRATROPIUM 0.5MG/ALBUTEROL 2.5MG INH SOL UD 3ML (DUONEB)(J7620) NEB ONE (16:45)
[2018-10-01 16:53] LABS: BASO % 0.4 % (0.0-1.0); EOS # 0.1 10^3/uL (0.0-0.50); EOS % 1.2 % (0.0-3.0); HEMATOCRIT 42.5 % (42.0-52.0); HEMOGLOBIN 14.7 g/dl (13.5-17.5); LYMPH # 1.5 10^3/uL (1.5-4.5); LYMPH % 18.3 % (24.0-44.0); MEAN CORPUSCULAR HEMOGLOBIN 34.3 pg (27.0-33.0); MEAN CORPUSCULAR HGB CONC 34.6 g/dl (32.0-36.5); MEAN CORPUSCULAR VOLUME 99.1 fl (80.0-96.0); MONO # 0.9 10^3/uL (0.0-0.8); MONO % 10.8 % (0.0-5.0); NEUTROPHILS # 5.8 10^3/uL (1.8-7.7); NEUTROPHILS % 68.6 % (36.0-66.0); PLATELET COUNT, AUTOMATED 183 10^3/uL (150-450); RED BLOOD COUNT 4.29 10^6/uL (4.30-6.10); WHITE BLOOD COUNT 8.4 10^3/uL (4.0-10.0)
--- NOTE | 2018-10-01 16:58 | REP ---
CT Head without contrast HISTORY: Fall COMPARISON: 07/10/2017 Areas of decreased attenuation are present in the periventricular and subcortical white matter. This represents small-vessel ischemic list There is no intraparenchymal hemorrhage, acute infarct, mass or midline shift. The ventricular system and cortical sulci are dilated consistent with mild volume loss. There is no extra cerebral collection. There is no fracture. Mucosal thickening is present in the ethmoid sinuses. IMPRESSION: 1. Small vessel ischemic disease. 2. Mild volume loss. Electronically Signed by Leobardo Adames MD 10/01/2018 04:49 P
--- NOTE | 2018-10-01 17:05 | REP ---
Chest one-view HISTORY: Cough Comparison: 06/17/2018 An increase in interstitial markings is present in the lower lobes consistent with chronic interstitial fibrosis. Patchy density is present in the right lower lobe consistent with atelectasis or infiltrate. The heart is normal in size. The pulmonary vasculature is normal in appearance. Impression: 1. Chronic interstitial fibrosis. 2. Right lower lobe atelectasis or infiltrate. Electronically Signed by Leobardo Adames MD 10/01/2018 04:55 P
--- NOTE | 2018-10-01 17:08 | REP ---
Right ankle four views History: Pain There is a nondisplaced oblique fracture of the distal fibula. There is no dislocation. The joint space is normal in appearance. Soft tissue swelling is present. Impression: Nondisplaced fracture of the distal fibula. Electronically Signed by Leobardo Adames MD 10/01/2018 04:59 P
[2018-10-01 17:20] LABS: BLOOD UREA NITROGEN 25 MG/DL (7-18); CALCIUM LEVEL 8.6 MG/DL (8.8-10.2); CARBON DIOXIDE LEVEL 25 MEQ/L (21-32); CHLORIDE LEVEL 104 MEQ/L (98-107); CPK CREATINE PHOSPHOKINASE 42 U/L (39-308); CREATININE FOR GFR 1.37 MG/DL (0.70-1.30); GLOMERULAR FILTRATION RATE 52.7 (>35); GLUCOSE, FASTING 99 MG/DL (70-100); MB/CK RELATIVE INDEX 4.52 (< OR =4); POTASSIUM SERUM 4.5 MEQ/L (3.5-5.1); SODIUM LEVEL 136 MEQ/L (136-145); TROPONIN I < 0.02 NG/ML (< 0.10)
[2018-10-01 17:26] LABS: INFLUENZA A AMPLIFICATION NEGATIVE (NEGATIVE); INFLUENZA B AMPLIFICATION NEGATIVE (NEGATIVE)
[2018-10-01] MEDS ORDERED: LEVA1TAB2 PO (17:48)
[2018-10-01] MEDS ORDERED: MEDR4PAK PO (17:48)
[2018-10-01] MEDS ORDERED: LevoFLOXacin IV 500 MG in APPROPRIATE DILUENT 1 EA IV ONE (18:00)
[2018-10-01 18:45] VITALS: BP 148/72
--- NOTE | 2018-10-03 06:08 | ECGEPIP ---
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
== END 2018-10-01 19:05 | disposition home or self-care (01) ==
LOC: M ED 16:04
DX: S82.831A Other fracture of upper and lower end of right fibula, initial encounter for closed fracture (principal); Y92.018 Other place in single-family (private) house as the place of occurrence of the external cause; W18.39XA Other fall on same level, initial encounter; J18.9 Pneumonia, unspecified organism; E86.0 Dehydration; I10 Essential (primary) hypertension; J44.9 Chronic obstructive pulmonary disease, unspecified; M10.9 Gout, unspecified; K21.9 Gastro-esophageal reflux disease without esophagitis; I25.10 Atherosclerotic heart disease of native coronary artery without angina pectoris; N40.0 Benign prostatic hyperplasia without lower urinary tract symptoms; Z79.899 Other long term (current) drug therapy; Z79.82 Long term (current) use of aspirin; Z79.01 Long term (current) use of anticoagulants; Z88.8 Allergy status to other drugs, medicaments and biological substances; Z87.891 Personal history of nicotine dependence
CPT/HCPCS: 70450; 71045; 73610; 80048; 81001; 82550; 82553; 83605; 84484; 85025; 87040; 87077; 87502; 93005; 93041; 94640; 94760; 96374; 96375; 99285; J1100; J1956

== ENCOUNTER 2018-10-06 22:08 | Inpatient (IN) | payer MEDICARE, OTHER ==
[~2018-10-06] VITALS: Ht 177.8 cm; Wt 90.0 kg
[2018-10-06] MEDS: SENOKOT S TAB PO SCH (21:00)
[~2018-10-06 22:08] MED LIST changes: +LEVA1TAB2 PO; +MEDR4PAK PO
[2018-10-06] MEDS ORDERED: NS 1,000 ML IV SCH (22:45)
[2018-10-06] MEDS ORDERED: ONDANSETRON 4MG/2ML VIAL (J2405) IV ONE (22:45)
[2018-10-06] MEDS ORDERED: MORPHINE 4 MG/ML 1ML VIAL/SYRINGE (J2270) IV ONE ×2 (22:45→23:30)
[2018-10-06 23:33] LABS: HEMATOCRIT 43.4 % (42.0-52.0); HEMOGLOBIN 14.6 g/dl (13.5-17.5); MEAN CORPUSCULAR HEMOGLOBIN 33.6 pg (27.0-33.0); MEAN CORPUSCULAR HGB CONC 33.6 g/dl (32.0-36.5); PLATELET COUNT, AUTOMATED 223 10^3/uL (150-450); RED BLOOD COUNT 4.34 10^6/uL (4.30-6.10); WHITE BLOOD COUNT 11.8 10^3/uL (4.0-10.0)
[2018-10-06 23:55] LABS: INR 1.06; PROTHROMBIN TIME 13.9 SECONDS (12.1-14.4)
[2018-10-07 00:01] LABS: ALBUMIN 3.4 GM/DL (3.2-5.2); BILIRUBIN,DIRECT 0.1 MG/DL (0.0-0.2); BILIRUBIN,TOTAL 0.5 MG/DL (0.2-1.0); CALCIUM LEVEL 8.4 MG/DL (8.8-10.2); CREATININE FOR GFR 1.6 MG/DL (0.70-1.30); GLOMERULAR FILTRATION RATE 44.1 (>35); POTASSIUM SERUM 4.8 MEQ/L (3.5-5.1); TOTAL PROTEIN 7.1 GM/DL (6.4-8.2)
[2018-10-07] MEDS ORDERED: LEVA1TAB2 PO (00:24)
[2018-10-07] MEDS ORDERED: DOCU100C16 PO (00:24)
[2018-10-07] MEDS ORDERED: ALBU83IN INH (00:24)
[2018-10-07] MEDS ORDERED: ALLO10TA PO (00:24)
[2018-10-07] MEDS ORDERED: PROAAER10 INH (00:24)
[2018-10-07] MEDS ORDERED: MEDR4PAK PO (00:24)
[2018-10-07] MEDS: NS 1,000 ML IV SCH ×2 (00:46→10:46)
[2018-10-07] MEDS ORDERED: ONDANSETRON 4 MG TAB (S0181) PO PRN (01:00)
[2018-10-07 02:33] VITALS: BP 165/76
--- NOTE | 2018-10-07 03:09 | HPE ---
DATE OF PATIENT ENCOUNTER/ADMISSION: 10/07/2018 HISTORY OF PRESENT ILLNESS: The patient is an 83-year-old male who presented to the emergency room today after a fall at home. The patient says he became dizzy and fell in the shower on October 01, 2018 and came to the emergency room where he was diagnosed with a fractured right ankle as well as pneumonia. He was walking with the walking boot as instructed by orthopedic surgery. When he was walking to bed tonight he tripped over his pet dog and fell to the ground where he landed on his left side. The patient said he has been in excruciating pain ever since and he was brought to the emergency room. In the emergency room x-rays were performed and he was diagnosed with a left hip fracture. A CT has been ordered and orthopedic surgery had been contacted. The hospitalist service was called for admission onto our service as well as medical management and preoperative evaluation and optimization for the patient. In talking with the patient other than the left hip pain the patient is feeling otherwise well. He says his breathing has improved since his emergency room visit where he was diagnosed with pneumonia six days ago. The patient says he is otherwise feeling fine. PAST MEDICAL HISTORY: 1. Gout. 2. Acid reflux. 3. Hypertension. 4. The patient has coronary artery disease with stenting back in 2008. 5. The patient has a history of benign prostatic hyperplasia (BPH). PAST SURGICAL HISTORY: 1. Appendectomy. 2. Back surgery. 3. Cardiac stent placement in 2008. ALLERGIES: PROPOXYPHENE and TAMSULOSIN. HOME MEDICATIONS: - aspirin 81 mg daily - albuterol inhaler - albuterol nebulizers - allopurinol 100 mg - vitamin D 1000 units - docusate sodium 100 mg daily - felodipine ER 10 mg daily - levofloxacin 500 mg daily for pneumonia diagnosed on 10/01/2018 - Medrol Dosepak - this patient has one more dose remaining - multivitamin - omeprazole - furosemide FAMILY HISTORY: The patient says his mom had a history of hypertension. SOCIAL HISTORY: The patient is a former smoker. The patient drinks about 3 to 4 beers a week. Denies any drug use. The patient lives at home with his , daughter and granddaughter as well as their pet dog. 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 REVIEW OF SYSTEMS: GENERAL: The patient denies fevers and chills. HEENT: Patient denies headache. CARDIOVASCULAR: Patient denies any chest pain. RESPIRATORY: Patient denies shortness of breath or worsening cough. The patient does have a cough which he says is actually getting better. GASTROINTESTINAL (GI): The patient denies any abdominal pain, nausea, vomiting or diarrhea. GENITOURINARY (): Patient denies any pain or difficulty with urination. EXTREMITIES: The patient does have pain in his left hip and right ankle due to fractures in both of these places. NEUROLOGICAL: The patient denies any numbness or tingling in his extremities. DERMATOLOGIC: Patient denies any rashes. LYMPHATIC: Patient denies any new lumps or bumps in his neck, axilla, or groin. PHYSICAL EXAMINATION: VITAL SIGNS: Temperature of 97.3, pulse of 65, respiratory rate 18, blood pressure (BP) 118/59, pulse oximetry 94% on room air. GENERAL: Patient is an alert and oriented male who is lying very still in bed who did not appear to be in any acute distress while motionless. The patient would grimace in pain when he would move. HEENT: Normocephalic, atraumatic. Anicteric sclerae with moist mucous membranes. NECK: Supple. No lymphadenopathy. CARDIOVASCULAR: Regular rate and rhythm with no murmurs, rubs or gallops with a normal S1 and normal S2. RESPIRATORY: Clear to auscultation bilaterally. ABDOMEN: Soft, nontender to palpation with normoactive bowel sounds times four quadrants. EXTREMITIES: There was ecchymosis and swelling around the right ankle. There was no ecchymosis in the area of the left hip. The left hip was very tender to the touch as well as the right ankle. Pulses were 2/4 bilaterally in upper and lower extremities. NEUROLOGICAL: The patient was able to wiggle his toes on command and he had reports good sensation in his lower extremities bilaterally. The patient was able to move upper extremities without issue. The patient's cranial nerves III-XII are grossly intact bilaterally. LABORATORY DATA: White blood cell (WBC) 11.8, hemoglobin 14.6, hematocrit 43.4, platelet count 233. A comprehensive metabolic panel (CMP) shows a sodium 135, potassium 4.8, chloride 103, bicarbonate 26, BUN 28, creatinine 1.60, fasting glucose 107, calcium 8.4. Bilirubin 0.5, direct bilirubin 0.1, AST 21, ALT 21, alkaline phosphatase 78, total protein 7.1, albumin 3.4. PT 13.9 with an INR of 1.06. IMAGING: A chest x-ray, a left femur x-ray and a left hip and pelvis x-ray were performed. Reads by radiology are pending. Examining the studies myself the chest x-ray appears normal with no obvious infiltrates present. In talking with both the emergency room provider and the orthopedic surgeon there is a fracture and there is shortening of the femoral neck on the left side. A CT has been ordered and is pending to see how much displacement there is. ASSESSMENT AND PLAN: The patient is an 83-year-old male who presents after a fall at home with a fractured left femur who will be admitted into the hospital. 1. Left femur fracture. Orthopedic surgery has been consulted and I have personally spoken with Dr. Garcia. He has seen the patient in the emergency room and he will sign out to his colleague who will be covering the orthopedic service tomorrow about the patient. The patient has been medically optimized for surgical procedure. The patient will be held nothing by mouth. The patient's medications have been optimized with his diuretic being held for tomorrow. For hypotension I have spoke with Dr. Garcia and he said that it is okay to continue his 81 mg of aspirin. I will also continue his allopurinol as well as change his felodipine to amlodipine and we will continue to monitor the patient. The patient has morphine 2 mg every 2 hours as needed for the pain and the patient should be taken for surgery tomorrow. Based on the patient's risk factors the patient's Revised Cardiac Risk Index (RCRI), the patient's risk factor of history of ischemic heart disease gives the patient a 6.0% thirty-day risk for , myocardial infarction or cardiac arrest. The patient says he has not been diagnosed with sleep apnea and according to his STOP-Bang questionnaire he is only positive for his age being greater than 50 and his gender being a male. He is at lower risk for obstructive sleep apnea (SHANTANU). In talking with the the patient's says that she does not notice him snoring or have ever had apneic periods. I believe that the patient is a moderate risk for an adverse cardiac event during surgery; however, the patient did recently have a transurethral resection of the prostate (TURP) performed in June of 2018 and did fine with that procedure. 2. Hypertension. We can continue the patient's amlodipine preoperatively and postoperatively. The patient was on felodipine and I personally spoke with pharmacy who says the conversion should be 1-to-1 because felodipine ER is not on our hospital formulary here. 3. Pneumonia. We will continue the patient's levofloxacin; however, due to the patient's current creatinine clearance the dose would need to be changed to 500 mg every 48 hours. This was chosen over 250 mg every 24 hours because as the patient gets fluid resuscitation his creatinine clearance may improve to the point where he will need a 500 dose every 24 hours and this can be easily changed as we do not want a lapse in treatment for the patient's pneumonia. The patient will also be receiving one last dose of his Medrol Dosepak tomorrow morning. 4. Gastroesophageal reflux disease (GERD). The patient will be placed on omeprazole. We will continue his omeprazole daily. 5. Gout. We will continue with the patient's allopurinol. 6. Cardiovascular disease. We will continue with the patient's aspirin. 7. Right ankle fracture. In speaking with Dr. Garcia of orthopedic surgery he says that after his surgery the patient can be weight bearing as tolerated with the walking boot that he had been given previously on his right ankle. 8 Deep vein thrombosis (DVT) prophylaxis. Thromboembolic deterrent stockings (TEDs) and sequentials. Postoperatively the patient will most likely be placed on Xarelto by orthopedic surgery. 9. CODE STATUS: I spoke with the patient and the patient would like to be a FULL CODE. My preceptor for the patient encounter was Dr. Melinda Mcghee. The preceptor was physically present in the building during the encounter and was fully available as needed. All aspects of the patient interview, examination, medical decision-making process, and medical care plan development were reviewed and approved by the preceptor. The preceptor is aware and concurs with the plan as stated in the body of this note and will attest to such by his/her co-signature. DORIAN
[2018-10-07] MEDS: MORPHINE 4 MG/ML 1ML VIAL/SYRINGE (J2270) IV PRN ×4 (03:21→20:21)
--- NOTE | 2018-10-07 04:00 | REPVR ---
EXAM: CT Left Lower Extremity Without Contrast. Hip EXAM DATE/TIME: 10/07/2018 1:14 AM CLINICAL HISTORY: 83 years old, male; Injury or trauma; Fall; Initial encounter; Fracture, traumatic; Closed fracture; Hip; Left; Additional info: Left hip FX, ortho request TECHNIQUE: Imaging protocol: CT of the Left lower extremity without contrast was performed. Exam focused on the hip. Coronal and sagittal reformatted images were created and reviewed. Radiation optimization: All CT scans at this facility use at least one of these dose optimization techniques: automated exposure control; mA and/or kV adjustment per patient size (includes targeted exams where dose is matched to clinical indication); or iterative reconstruction. COMPARISON: CR Hip,AP,LAT to include Pelvis LEFT 10/06/2018 10:[address] ABD/PEL W/IV ORAL CONTRAS 06/04/2018 4:52:51 PM FINDINGS: Bones/joints: Fracture of the left femoral neck is identified with impaction and angulation of fracture fragments. This is new compared to the prior CT. Osteopenia. No dislocation of the left hip. Mild degenerative spurring of the left greater trochanter. Soft tissues: Soft tissue swelling/hematoma lateral to the left hip. CT is suboptimal for the evaluation of ligaments, tendons, and labrum. Vasculature: Atherosclerotic changes are visualized. Bowel: Colonic diverticula are visualized. Reproductive: The prostate is incompletely visualized. IMPRESSION: 1. Fracture of the left femoral neck with impaction and angulation of fracture fragments. This is new compared to the prior CT. 2. Soft tissue swelling/hematoma lateral to the left hip. 3. Additional findings described above. Electronically signed by: Ronaldo Mathis On 10/07/2018 03:59:37 AM
[2018-10-07 06:00] VITALS: BP 158/73
--- NOTE | 2018-10-07 06:51 | ECGEPIP ---
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
[2018-10-07] MEDS ORDERED: methylPREDNISolone 4 MG TAB PO ONE (09:00)
--- NOTE | 2018-10-07 09:15 | CR ---
DATE OF CONSULTATION: 10/07/2018 REASON FOR CONSULTATION: Left hip and right ankle fracture. CHIEF COMPLAINT: Left hip and right ankle pain. HISTORY OF PRESENT ILLNESS: Jeremy Mcmillan is an 83-year-old community ambulator with no assistive devices who has a significant recent history of a syncopal fall 5 days ago where he was discovered to have pneumonia and sustained a stable lateral malleolar fracture and was treated with weightbearing as tolerated and CAM boot. His pneumonia has been treated with Levaquin and he has been weightbearing as tolerated in his boot, however earlier today he sustained a mechanical fall while trying to step over his dog while wearing the CAM boot resulting in immediate left hip pain and an inability to bear weight. He presented to the emergency department, was found to have a subcapital femoral neck fracture. Orthopedics was consulted for further management. The patient localizes pain to the left hip. He denies any numbness, tingling or burning sensations distally about his left lower extremity and has no acute complaints. PAST MEDICAL HISTORY: Gastroesophageal reflux disease. Gout. Benign prostatic hypertrophy (BPH). ALLERGIES: 1. TAMSULOSIN. MEDICATIONS: Colace, felodipine, omeprazole, allopurinol, furosemide, baby aspirin daily, vitamin D supplementation, and multivitamin. PAST SURGICAL HISTORY: Cardiac stents placed approximately 10 years ago. FAMILY HISTORY: Noncontributory. 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 He does not smoke or use illicit drugs. He lives independently with his and is independent in all activities of daily living. REVIEW OF SYSTEMS: 14-point review of systems reviewed and is unremarkable. PHYSICAL EXAMINATION: Vital signs: Heart rate 65, respiratory rate 18, blood pressure 180/59, pulse oximetry 94% on room air. General: This is a well-nourished male, appears his stated age, in no acute distress. Neurologic: He is awake and oriented to person, place and time. He has intact sensory and motor function in the bilateral lower extremity femoral tibial, sural, saphenous, superficial peroneal, deep peroneal nerve distributions. Cardiovascular: He has a bilateral 2+ DP and PT pulses. Brisk capillary refill all digits of bilateral lower extremities. Musculoskeletal: Exam of the right lower extremity demonstrates diffuse ecchymosis about the right ankle and foot with minimal soft tissue swelling. The patient is able to actively dorsiflex and plantar flex the ankle. He has 5/5 motor strength with ankle plantar flexion, dorsiflexion, inversion and eversion. He is maximally tender about the distal fibula. Examination of the left lower extremity demonstrates no open wounds or abrasions. At the left hip there is maximal tenderness about the left hip. There is no knee, ankle or foot tenderness. The patient is sensory and motor intact in the left lower extremity femoral tibial, sural, saphenous, superficial and deep peroneal nerve distributions. He has 2+ DP/PT pulses and brisk capillary refill of all digits of the left lower extremity. RADIOGRAPHS: Plain radiographs of the right ankle demonstrate a minimally displaced distal fibula fracture with no significant medial clear space widening. Plain radiographs of the hip and pelvis demonstrate a minimally displaced subcapital femoral neck fracture. ASSESSMENT: This is a 83-year-old male with a stable right ankle fracture and a minimally displaced subcapital femoral neck fracture. PLAN: I discussed with the patient the nature of his injuries. Given that he is ambulatory on his right ankle for last 5 days and there is no evidence of further displacement or medial clear space widening, this appears to be a stable fracture pattern and likely does not require surgical management. He may continue with weightbearing as tolerated in the CAM walker boot and transition to an ankle brace as he feels comfortable, as the CAM walker boot may increase fall risk. Regarding the left hip, I would like to obtain a CT scan to evaluate whether or not the fracture pattern would be more amenable to percutaneous screw fixation versus hemiarthroplasty. This was explained to the patient. He will remain n.p.o., receive CT scan and likely will proceed to the operating room when there is time available. I discussed the patient's case with the hospitalist. The patient appears to be medically optimized for surgery. The patient expressed understanding and agreed with the plan. All questions were answered. DORIAN
--- NOTE | 2018-10-07 09:27 | REP ---
CHEST, SINGLE VIEW: Single view of the chest is performed and compared to prior study of 10/01/2018. There is no acute infiltrate. Cardiac silhouette is slightly prominent. There is calcification of the thoracic aorta. Mediastinal silhouette is unchanged. There are degenerative changes of the spine. IMPRESSION: No acute infiltrate. Electronically Signed by Oswald Larson MD 10/08/2018 10:03 A
--- NOTE | 2018-10-07 09:29 | REP ---
PELVIS AND LEFT HIP: AP view of the pelvis and AP and cross table lateral views of the left hip are performed. There is an impacted fracture of the left femoral neck. I see no other evidence of acute fracture or dislocation. There are scattered vascular calcifications and phleboliths in the pelvis. IMPRESSION: Impacted fracture left femoral neck. Electronically Signed by Oswald Larson MD 10/08/2018 10:03 A
[2018-10-07] MEDS: VITAMIN D 1,000 INTERNATIONAL UNITS TABLET PO SCH (09:30)
[2018-10-07] MEDS: OMEPRAZOLE 20 MG CAP PO SCH (09:30)
[2018-10-07] MEDS: ALLOPURINOL 100 MG TAB PO SCH (09:30)
[2018-10-07] MEDS: amLODIPine 10 MG TAB PO SCH (09:31)
--- NOTE | 2018-10-07 09:31 | REP ---
LEFT FEMUR, AP AND LATERAL: AP and lateral views of the left femur were performed. There is an impacted fracture of the left femoral neck. No other fracture of the left femoral neck. No other fracture or dislocation is seen. There are diffuse vascular calcifications in the soft tissues. IMPRESSION: Impacted fracture of the left femoral neck. Electronically Signed by Oswald Larson MD 10/08/2018 10:03 A
[2018-10-07] MEDS: DOCUSATE SODIUM 100 MG CAP PO SCH (09:38)
[2018-10-07] MEDS: SENOKOT S TAB PO SCH ×2 (09:38→20:21)
[2018-10-07] MEDS: MULTIVITAMINS/MINERALS THERAP 1 TAB PO SCH (09:38)
[2018-10-07] MEDS: ASPIRIN 81 MG ENTERIC TAB PO SCH (09:38)
[2018-10-07] MEDS ORDERED: ceFAZolin 1GM INJ (J0690 PER 500MG) As Ordered ONE (13:40)
[2018-10-07 14:00] VITALS: BP 154/79
[2018-10-07] MEDS ORDERED: MIDAZOLAM INJ 2 MG/2 ML VIAL (J2250) As Ordered ONE (14:33)
[2018-10-07] MEDS ORDERED: PROPOFOL 200 MG/20 ML VIAL As Ordered ONE (14:33)
[2018-10-07] MEDS ORDERED: fentaNYL 100 MCG/2 ML INJECTION (J3010) As Ordered ONE (14:34)
[2018-10-07 16:08] LABS: ABG BASE EXCESS -2.1 (-2.0-2.0); ABG HCO3 21.5 MEQ/L (22.0-26.0); ABG O2 SATURATION 96.7 % (95.0-99.0); ABG PARTIAL PRESSURE CO2 33.3 mmHg (35.0-45.0); ABG PARTIAL PRESSURE O2 88.2 mmHg (75.0-100.0); ABG STANDARD HCO3 22.8 MEQ/L (22.0-26.0); ABG TOTAL CO2 22.5 MEQ/L (23.0-31.0); ABG pH (ARTERIAL) 7.427 UNITS (7.350-7.450)
[2018-10-07] MEDS ORDERED: ONDANSETRON 4MG/2ML VIAL (J2405) As Ordered ONE (16:17)
[2018-10-07 16:26] LABS: HEMATOCRIT 41.3 % (42.0-52.0); HEMOGLOBIN 14.1 g/dl (13.5-17.5); MEAN CORPUSCULAR HEMOGLOBIN 34.6 pg (27.0-33.0); MEAN CORPUSCULAR HGB CONC 34.1 g/dl (32.0-36.5); MEAN CORPUSCULAR VOLUME 101.5 fl (80.0-96.0); PLATELET COUNT, AUTOMATED 205 10^3/uL (150-450); RED BLOOD COUNT 4.07 10^6/uL (4.30-6.10); WHITE BLOOD COUNT 11.7 10^3/uL (4.0-10.0)
[2018-10-07 16:52] LABS: BLOOD UREA NITROGEN 28 MG/DL (7-18); C REACTIVE PROTEIN QUANTITATIV 5.26 MG/DL (0.00-0.30); CALCIUM LEVEL 8.2 MG/DL (8.8-10.2); CARBON DIOXIDE LEVEL 24 MEQ/L (21-32); CHLORIDE LEVEL 105 MEQ/L (98-107); GLOMERULAR FILTRATION RATE > 60.0 (>35); GLUCOSE, FASTING 99 MG/DL (70-100); MAGNESIUM LEVEL 2.2 MG/DL (1.8-2.4); NT-PRO BNP 867 PG/ML (<450); POTASSIUM SERUM 5.1 MEQ/L (3.5-5.1); SODIUM LEVEL 133 MEQ/L (136-145)
[2018-10-07] MEDS ORDERED: ISOVUE-370 76% 125ML VIAL (Q9967 PER ML) As Ordered ONE (17:17)
[2018-10-07 17:23] LABS: ERYTHROCYTE SEDIMENTATION RATE 1 mm/hr (0-20)
--- NOTE | 2018-10-07 17:51 | REP ---
Clinical: Acute respiratory distress. Technique: Axial contrast enhanced images from the thoracic inlet to the upper abdomen using 100 ml Isovue 370 intravenous contrast material with coronal and sagittal re-formations. Findings: Satisfactory enhancement of the pulmonary vasculature is achieved and no filling defects are identified to suggest pulmonary embolus. Lung christensen demonstrate chronic COPD/emphysematous changes. Superimposed bibasilar atelectasis and small areas of consolidation are appreciated. No effusion. No pneumothorax. Tracheobronchial tree is patent. No significant adenopathy. Extensive atherosclerotic changes to the thoracic aorta and coronary arteries noted without aortic aneurysm or significant cardiomegaly. No pericardial effusion. Osseous structures demonstrate age-related degenerative changes along with old compression deformity at L1. Impression: 1. No pulmonary embolus. 2. Moderate bibasilar atelectasis and small areas of consolidation. 3. Chronic COPD/emphysematous changes. Electronically Signed by Noah Stoddard MD 10/07/2018 05:43 P
--- NOTE | 2018-10-07 21:10 | IPN ---
DATE: 10/07/2018 SUBJECTIVE: The patient is seen and examined in the room multiple times today. Today, the patient is seen preoperatively in his room. The patient denies any acute complaints. Denies any fevers or chills. Denies any shortness of breath or chest pain. While the patient was waiting in the preoperative area, the patient was noted to have oxygen saturations around 80% so surgery was canceled and the patient was moved back to his room. The patient was placed on the nonrebreather. The patient does have a history of chronic obstructive pulmonary disease (COPD), but at baseline does not use any oxygen. The patient denies any history of congestive heart failure (CHF). He has a history of cardiac stent placement. According to the patient and family, a few days ago the patient seemed to have productive sputum and intermittent cough. PHYSICAL EXAMINATION: VITAL SIGNS: Temperature is 98.5, pulse 82, respirations 19, blood pressure 154/79, pulse oximetry is 95% on room air. GENERAL: The patient is alert and awake, mild distress secondary to persistent shortness of breath. HEENT: Normocephalic, atraumatic. Extraocular movements are grossly intact. CARDIOVASCULAR: Positive S1, S2. Regular rate. LUNGS: Positive crackles in the right lower base. No significant wheeze appreciated. ABDOMEN: Soft, nontender, nondistended. Bowel sounds present. EXTREMITIES: Ecchymosis noted on the right ankle area. Mild discomfort to palpation. LABORATORY DATA: WBC is 11.8, hemoglobin 14.6, hematocrit 43.4, platelet count is 223. Sodium is 135, potassium 4.8, chloride 103, carbon dioxide 26, BUN 28, creatinine 1.6, GFR is 44.1, fasting glucose 107, calcium 8.4, total bilirubin 0.5, direct bilirubin 0.1, AST 21, ALT 21, alkaline phosphatase 178, total protein 7.1, albumin 3.4. ASSESSMENT AND PLAN: 1. Acute respiratory distress before surgery. Surgery was canceled. We will look for a reason for the patient's respiratory distress. On admission, the patient did have a chest x-ray that demonstrated no acute infiltrate. Follow with CT angiogram of the chest. Followup with new laboratories. The patient does have a history of chronic obstructive pulmonary disease (COPD). The patient does not seem to have COPD exacerbation. The patient's previous imaging was reviewed. On the prior chest x-ray, the patient is noted to have chronic interstitial fibrosis. Previously, the patient was also diagnosed with community acquired pneumonia. Followup with repeat imaging studies. The patient is currently on empiric antibiotic. Follow with sputum cultures. 2. Left hip fracture. Currently, we will try to address the patient's respiratory distress. Hip replacement is on hold. 3. Gout. On allopurinol. 4. Hypertension. On Norvasc. 5. Coronary artery disease, status post cardiac stent in 2008. On aspirin. 6. History of right ankle fracture. The patient has a walking boot. 7. Deep vein thrombosis (DVT) prophylaxis. On thromboembolic compression stockings (TEDS) and compressions.
[2018-10-07 22:00] VITALS: BP 150/73
[2018-10-08] MEDS: MORPHINE 4 MG/ML 1ML VIAL/SYRINGE (J2270) IV PRN ×3 (01:17→21:13)
[2018-10-08 06:00] VITALS: BP 126/77
[2018-10-08] MEDS ORDERED: ceFAZolin SOD 1 GM in D5W MINI-BAG PLUS 50 ML IV ONE (06:00)
[2018-10-08 07:17] LABS: BASO # 0.1 10^3/uL (0.0-0.2); BASO % 0.5 % (0.0-1.0); EOS # 0.7 10^3/uL (0.0-0.50); HEMATOCRIT 38.2 % (42.0-52.0); LYMPH # 0.9 10^3/uL (1.5-4.5); LYMPH % 8.2 % (24.0-44.0); NEUTROPHILS # 7.6 10^3/uL (1.8-7.7); NEUTROPHILS % 73.2 % (36.0-66.0); PLATELET COUNT, AUTOMATED 187 10^3/uL (150-450); RED BLOOD COUNT 3.82 10^6/uL (4.30-6.10); WHITE BLOOD COUNT 10.4 10^3/uL (4.0-10.0)
[2018-10-08 07:42] LABS: BLOOD UREA NITROGEN 24 MG/DL (7-18); CARBON DIOXIDE LEVEL 26 MEQ/L (21-32); CHLORIDE LEVEL 105 MEQ/L (98-107); CREATININE FOR GFR 1.04 MG/DL (0.70-1.30); GLOMERULAR FILTRATION RATE > 60.0 (>35); GLUCOSE, FASTING 87 MG/DL (70-100); MAGNESIUM LEVEL 2.2 MG/DL (1.8-2.4); POTASSIUM SERUM 4.3 MEQ/L (3.5-5.1); SODIUM LEVEL 135 MEQ/L (136-145)
[2018-10-08 08:03] LABS: NT-PRO BNP 857 PG/ML (<450)
[2018-10-08] MEDS: ASPIRIN 81 MG ENTERIC TAB PO SCH (10:09)
[2018-10-08] MEDS: ACETAMINOPHEN TAB 650MG DOSE (2X325MG) PO PRN ×2 (10:09→21:14)
[2018-10-08] MEDS: amLODIPine 10 MG TAB PO SCH (10:14)
[2018-10-08] MEDS: VITAMIN D 1,000 INTERNATIONAL UNITS TABLET PO SCH (10:14)
[2018-10-08] MEDS: DOCUSATE SODIUM 100 MG CAP PO SCH (10:14)
[2018-10-08] MEDS: OMEPRAZOLE 20 MG CAP PO SCH (10:14)
[2018-10-08] MEDS: LevoFLOXacin 500 MG TABLET PO SCH (10:14)
[2018-10-08] MEDS: SENOKOT S TAB PO SCH ×2 (10:14→21:14)
[2018-10-08] MEDS: ALLOPURINOL 100 MG TAB PO SCH (10:14)
[2018-10-08] MEDS: MULTIVITAMINS/MINERALS THERAP 1 TAB PO SCH (10:14)
[2018-10-08] MEDS: NS 1,000 ML IV SCH ×2 (11:17→11:20)
[2018-10-08 14:00] VITALS: BP 130/60
[2018-10-08] MEDS: ALBUTEROL SULFATE 2.5 MG/0.5 ML INH NEB SOLN INH PRN (16:17)
--- NOTE | 2018-10-08 18:13 | IPNPDOC ---
Text Note Date of Service The patient was seen on 10/08/18. NOTE SUBJECTIVE: The patient states is seen and examined in the room. He feels his breathing may be improving. He has intermittent cough with sputum production. No wheeze. No fever or chill. PHYSICAL EXAMINATION: VITAL SIGNS: Listed below. GENERAL: The patient is alert and awake, mild distress secondary to persistent shortness of breath. HEENT: Normocephalic, atraumatic. Extraocular movements are grossly intact. CARDIOVASCULAR: Positive S1, S2. Regular rate. LUNGS: Positive crackles in the right lower base. No significant wheeze appreciated. ABDOMEN: Soft, nontender, nondistended. Bowel sounds present. EXTREMITIES: Ecchymosis noted on the right ankle area. Mild discomfort to palpation. LABORATORY DATA: Listed below. ASSESSMENT AND PLAN: #. Acute respiratory distress before surgery. - ABG reviewed. CT angiogram demonstrates moderate bibasilar atelectasis and small areas of consolidation. Chronic COPD/emphysematous changes. No PE. - Follow up sputum culture. On empirical antibiotics. EzPAP for atelectasis. #. Left hip fracture. - Currently, we are continuing to optimize pulmonary function. Hip replacement is on hold. #. Gout. On allopurinol. #. Hypertension. On Norvasc. #. Coronary artery disease, status post cardiac stent in 2008. On aspirin. #. History of right ankle fracture. The patient has a walking boot. #. Deep vein thrombosis (DVT) prophylaxis. - On thromboembolic compression stockings (TEDS) and compressions. VS,Fishbone, I+O VS, Fishbone, I+O Laboratory Tests 10/08/18 06:53 Red Blood Count 3.82 L, Mean Corpuscular Volume 100.0 H, Mean Corpuscular Hemoglobin 34.0 H, Mean Corpuscular Hemoglobin Concent 34.0, Red Cell Distribution Width 12.1, Neutrophils (%) (Auto) 73.2 H, Lymphocytes (%) (Auto) 8.2 L, Monocytes (%) (Auto) 10.0 H, Eosinophils (%) (Auto) 7.0 H, Basophils (%) (Auto) 0.5, Neutrophils # (Auto) 7.6, Lymphocytes # (Auto) 0.9 L, Monocytes # (Auto) 1.0 H, Eosinophils # (Auto) 0.7 H, Basophils # (Auto) 0.1, Calcium Level 8.0 L Vital Signs Date Time Temp Pulse Resp B/P (MAP) Pulse Ox O2 Delivery O2 Flow Rate FiO2 10/08/18 14:00 100.1 87 24 130/60 (83) 90 6.0 10/07/18 02:27 Room Air I&O- Last 24 Hours up to 6 AM 10/08/18 06:00 Intake Total 120 ml Output Total 1850 ml Balance -1730 ml VONDA CARSON DO Oct 08, 2018 18:12
[2018-10-08 22:00] VITALS: BP 149/77
[2018-10-09] VITALS (8 sets, daily range): BP systolic 143–161; BP diastolic 70–85
--- NOTE | 2018-10-09 06:31 | ECHO ---
DATE OF PROCEDURE: 10/08/2018 DATE OF : 1935 AGE: 83. REFERRING PROVIDER: Dr. Albina Rendon PATIENT LOCATION: Room 5743 REASON FOR THE ECHOCARDIOGRAM: Shortness of breath. 2D MEASUREMENTS: IVS: 1.1 cm LV: 4.6 cm LVPW: 1.1 cm LA: 3.5 cm Aorta: 3.2 cm IVC: 2.5 cm DOPPLER MEASUREMENTS: Peak velocity across the aortic valve: 0.98 m/s Peak velocity across the LVOT: 0.98 m/s Mitral E: 0.65 Mitral A: 1.1 Ratio: 0.6 Maximum tricuspid valve velocity: 2.5 m/s 2D COMMENTS: 1. Normal left ventricular size, wall thickness and normal global left ventricular systolic function. The estimated left ventricular systolic ejection fraction is 60-65%. 2. Normal left atrium. The right atrium appeared to be mildly enlarged in limited views. The right ventricle appeared to be mildly enlarged, but was romero well. 3. The atrial septum was not well visualized, but appeared to be normal without evidence of defect or shunt. 4. Normal aortic root. 5. No pericardial effusion seen. 6. Mildly calcified aortic valve with normal leaflet excursion. Mildly calcified mitral annulus with normal anterior mitral valve leaflet motion. Normal tricuspid valve. The pulmonic valve and proximal pulmonary artery branches were not well visualized. 7. The inferior vena cava was mildly enlarged, central venous pressure might be elevated. DOPPLER: It detects mild to moderate tricuspid regurgitation. The calculated pulmonary artery systolic pressure varied between 40-50 mmHg. Abnormal relaxation pattern was noted across the mitral valve leaflet as well as the mitral valve annulus consistent with a delayed relaxation. IMPRESSION: 1. Normal global left ventricular systolic function. There are some features of left ventricular diastolic dysfunction, grade 1. 2. Aortic valve sclerosis without stenosis or aortic regurgitation. 3. mitral annulus calcification. No evidence of mitral regurgitation or mitral stenosis. 4. Moderate tricuspid regurgitation with moderate pulmonary hypertension and the right atrium appeared to be mildly enlarged. 5. There are features of elevated central venous pressure, the inferior vena cava was mildly enlarged. 6. Not mentioned above, the study was technically limited due to poor acoustic window.
[2018-10-09 06:51] LABS: BASO # 0.1 10^3/uL (0.0-0.2); BASO % 0.5 % (0.0-1.0); EOS # 0.8 10^3/uL (0.0-0.50); EOS % 8.2 % (0.0-3.0); HEMATOCRIT 37.6 % (42.0-52.0); LYMPH % 10.3 % (24.0-44.0); MEAN CORPUSCULAR HEMOGLOBIN 33.9 pg (27.0-33.0); MEAN CORPUSCULAR HGB CONC 34.6 g/dl (32.0-36.5); MEAN CORPUSCULAR VOLUME 97.9 fl (80.0-96.0); MONO # 1.2 10^3/uL (0.0-0.8); MONO % 12.3 % (0.0-5.0); NEUTROPHILS # 6.4 10^3/uL (1.8-7.7); NEUTROPHILS % 67.7 % (36.0-66.0); PLATELET COUNT, AUTOMATED 176 10^3/uL (150-450); RED BLOOD COUNT 3.84 10^6/uL (4.30-6.10); WHITE BLOOD COUNT 9.4 10^3/uL (4.0-10.0)
[2018-10-09 07:26] LABS: BLOOD UREA NITROGEN 19 MG/DL (7-18); CALCIUM LEVEL 8.2 MG/DL (8.8-10.2); CARBON DIOXIDE LEVEL 24 MEQ/L (21-32); CHLORIDE LEVEL 105 MEQ/L (98-107); CREATININE FOR GFR 0.93 MG/DL (0.70-1.30); GLOMERULAR FILTRATION RATE > 60.0 (>35); GLUCOSE, FASTING 88 MG/DL (70-100); NT-PRO BNP 806 PG/ML (<450); SODIUM LEVEL 137 MEQ/L (136-145)
[2018-10-09] MEDS: ALBUTEROL SULFATE 2.5 MG/0.5 ML INH NEB SOLN NEB SCH ×2 (08:14→14:54)
[2018-10-09] MEDS: MORPHINE 4 MG/ML 1ML VIAL/SYRINGE (J2270) IV PRN ×3 (08:38→21:24)
[2018-10-09] MEDS: DOCUSATE SODIUM 100 MG CAP PO SCH (08:56)
[2018-10-09] MEDS: ASPIRIN 81 MG ENTERIC TAB PO SCH (08:56)
[2018-10-09] MEDS: OMEPRAZOLE 20 MG CAP PO SCH (08:57)
[2018-10-09] MEDS: VITAMIN D 1,000 INTERNATIONAL UNITS TABLET PO SCH (08:57)
[2018-10-09] MEDS: amLODIPine 10 MG TAB PO SCH (08:57)
[2018-10-09] MEDS: MULTIVITAMINS/MINERALS THERAP 1 TAB PO SCH (08:57)
[2018-10-09] MEDS: SENOKOT S TAB PO SCH ×2 (08:57→19:59)
[2018-10-09] MEDS: ALLOPURINOL 100 MG TAB PO SCH (08:57)
[2018-10-09] MEDS ORDERED: ceFAZolin 1GM INJ (J0690 PER 500MG) As Ordered ONE (14:58)
[2018-10-09] MEDS ORDERED: EPINEPHrine INJ 1 MG/ML 1ML AMP As Ordered ONE (15:06)
[2018-10-09] MEDS ORDERED: ceFAZolin 2 GM/D5W 50 ML IV BAG (J0690 PER 500MG) As Ordered ONE (15:33)
[2018-10-09] MEDS ORDERED: fentaNYL 100 MCG/2 ML INJECTION (J3010) As Ordered ONE (17:35)
[2018-10-09] MEDS ORDERED: MIDAZOLAM INJ 2 MG/2 ML VIAL (J2250) As Ordered ONE (17:35)
[2018-10-09] MEDS ORDERED: LIDOCAINE 2% INJ 100 MG/5 ML SDV (FOR ANES.) As Ordered ONE (17:35)
[2018-10-09] MEDS ORDERED: KETAMINE HCL 200 MG/20 ML VIAL As Ordered ONE (17:35)
[2018-10-09] MEDS ORDERED: PROPOFOL 200 MG/20 ML VIAL As Ordered ONE (17:35)
[2018-10-09] MEDS ORDERED: PHENYLephrine HCL 500 MCG/5 ML (100MCG/ML) SYRINGE (J2370) As Ordered ONE (17:35)
[2018-10-09] MEDS ORDERED: ONDANSETRON 4MG/2ML VIAL (J2405) As Ordered ONE (17:35)
[2018-10-09] MEDS ORDERED: ePHEDrine SULFATE 25 MG/5 ML(5MG/ML) SYRINGE As Ordered ONE (17:35)
[2018-10-09] MEDS ORDERED: MORPHINE 10 MG/ML 1ML VIAL (J2270) IV PRN (18:15)
[2018-10-09] MEDS ORDERED: ONDANSETRON 4MG/2ML VIAL (J2405) IV PRN (18:15)
[2018-10-09] MEDS ORDERED: fentaNYL 100 MCG/2 ML INJECTION (J3010) IV PRN (18:15)
[2018-10-09] MEDS: ACETAMINOPHEN TAB 650MG DOSE (2X325MG) PO PRN (18:56)
[2018-10-09] MEDS: LR 1,000 ML IV SCH (19:00)
--- NOTE | 2018-10-09 19:31 | REP ---
Clinical: Trauma. Technique: AP, lateral, bilateral oblique views of the right ankle. Findings: Subtle nondisplaced oblique fracture of the distal fibular metaphysis is appreciated with overlying soft tissue swelling. Underlying chronic age-related degenerative changes and peripheral vascular disease noted. Impression: Subtle nondisplaced oblique fracture of the distal fibular metaphysis. Electronically Signed by Noah Stoddard MD 10/09/2018 07:23 P
--- NOTE | 2018-10-09 19:33 | REP ---
Clinical: Status post arthroplasty. Technique: AP and cross-table lateral views. Findings: The patient is status post left hip replacement with normal positioning and appearance to the femoral and acetabular components. Overlying postsurgical changes appreciated. Impression: Satisfactory left hip replacement radiographs. Electronically Signed by Noah Stoddard MD 10/09/2018 07:25 P
[2018-10-09] MEDS: ALBUTEROL SULFATE 2.5 MG/0.5 ML INH NEB SOLN INH PRN (19:59)
--- NOTE | 2018-10-09 21:41 | IPN ---
DATE: 10/09/2018 SUBJECTIVE: The patient is seen and examined multiples times in the room today. Patient stated his breathing has been improving. He refilled the EzPAP and incentive spirometry has been helping with his shortness of breath. Denies any fever or chills. OBJECTIVE: VITAL SIGNS: Temperature 97.9, pulse is 77, respirations 22, blood pressure is 134/63, pulse oximetry is 92% with three liters nasal cannula. GENERAL: Patient is alert and awake, comfortable. HEENT: Normocephalic, atraumatic. Extraocular motor grossly intact. CARDIOVASCULAR: Positive S1, S2, regular rate. LUNGS: Positive crackles right lower lobe. No significant wheeze is appreciated. Decreased breath sounds. ABDOMEN: Soft, nontender, nondistended. Bowel sounds present. EXTREMITIES: Ecchymosis noted on the right ankle area, improving. No significant lower extremity edema appreciated. LABORATORY DATA: WBC is 9.4, hemoglobin 13, hematocrit 37.6, platelet count is 176. Sodium is 137, potassium 4, chloride is 105, carbon dioxide 24, BUN 19, creatinine 0.93, GFR greater than 60, fasting glucose is 88, calcium 8.2, magnesium 2, pro-BNP is 806, procalcitonin is 0.07. ASSESSMENT AND PLAN: 1. Acute respiratory distress. Previously the patient was found to have desaturation while the patient was waiting in the preop area; then, imaging study and diagnostic workup performed. Patient was found to have moderate bibasilar atelectasis and small area of consolidation. Since admission, the patient has been on antibiotics. Patient was given EzPAP and incentive spirometry for the atelectasis. Patient's respiratory status has been improving. At baseline, patient has chronic obstructive pulmonary disease (COPD)/emphysematous change and also interstitial . At this moment, patient's respiratory status has been improving. The patient is medically optimized for the surgery. Patient will have a hip replacement on 10/09/2018. Prior to surgery, risks and benefits were explained to the patient and patient's family members. They are aware of the potential risks and they agreed to proceed with surgery. 2. Left hip fracture. Hip replacement on 10/09/2018. Patient has been nothing by mouth. 3. Chronic obstructive pulmonary disease. At baseline, patient does not require any oxygen. No significant wheeze is appreciated during physical exam. Continue the breathing treatments. 4. Hypertension. Continue Norvasc. 5. Coronary artery disease, status post cardiac stent in 2008. On aspirin. 6. History of right ankle fracture. Orthopedics consulted. 7. Deep vein thrombosis (DVT) prophylaxis. On thromboembolism deterrent (ALEXANDER) compression.
[2018-10-10] MEDS: ACETAMINOPHEN TAB 650MG DOSE (2X325MG) PO PRN (02:13)
[2018-10-10] MEDS: MORPHINE 4 MG/ML 1ML VIAL/SYRINGE (J2270) IV PRN (02:14)
[2018-10-10 06:00] VITALS: BP 148/79
[2018-10-10] MEDS ORDERED: traMADol 50 MG TAB PO PRN ×2 (06:00→09:15)
[2018-10-10 06:10] LABS: BASO % 0.3 % (0.0-1.0); EOS # 0.3 10^3/uL (0.0-0.50); HEMATOCRIT 33.2 % (42.0-52.0); HEMOGLOBIN 11.4 g/dl (13.5-17.5); LYMPH # 0.8 10^3/uL (1.5-4.5); LYMPH % 9.5 % (24.0-44.0); MEAN CORPUSCULAR HEMOGLOBIN 33.9 pg (27.0-33.0); MEAN CORPUSCULAR HGB CONC 34.3 g/dl (32.0-36.5); MEAN CORPUSCULAR VOLUME 98.8 fl (80.0-96.0); MONO # 1.1 10^3/uL (0.0-0.8); NEUTROPHILS # 6.5 10^3/uL (1.8-7.7); NEUTROPHILS % 73.4 % (36.0-66.0); PLATELET COUNT, AUTOMATED 185 10^3/uL (150-450); RED BLOOD COUNT 3.36 10^6/uL (4.30-6.10); WHITE BLOOD COUNT 8.8 10^3/uL (4.0-10.0)
[2018-10-10] MEDS: ACETAMINOPHEN 500 MG TAB PO SCH ×2 (06:22→13:49)
[2018-10-10 06:34] LABS: BLOOD UREA NITROGEN 23 MG/DL (7-18); CALCIUM LEVEL 7.9 MG/DL (8.8-10.2); CARBON DIOXIDE LEVEL 24 MEQ/L (21-32); CHLORIDE LEVEL 103 MEQ/L (98-107); CREATININE FOR GFR 1.02 MG/DL (0.70-1.30); GLOMERULAR FILTRATION RATE > 60.0 (>35); GLUCOSE, FASTING 89 MG/DL (70-100); MAGNESIUM LEVEL 2.2 MG/DL (1.8-2.4); POTASSIUM SERUM 4.4 MEQ/L (3.5-5.1); SODIUM LEVEL 136 MEQ/L (136-145)
[2018-10-10] MEDS: ALBUTEROL SULFATE 2.5 MG/0.5 ML INH NEB SOLN NEB SCH ×2 (07:51)
[2018-10-10] MEDS ORDERED: RIVAROXABAN 10 MG TAB (XARELTO) PO SCH ×2 (08:00→18:00)
[2018-10-10] MEDS: MULTIVITAMINS/MINERALS THERAP 1 TAB PO SCH (08:23)
[2018-10-10] MEDS: ASPIRIN 81 MG ENTERIC TAB PO SCH (08:23)
[2018-10-10] MEDS: SENOKOT S TAB PO SCH (08:23)
[2018-10-10] MEDS: ALLOPURINOL 100 MG TAB PO SCH (08:23)
[2018-10-10] MEDS: LevoFLOXacin 500 MG TABLET PO SCH (08:23)
[2018-10-10] MEDS: OMEPRAZOLE 20 MG CAP PO SCH (08:23)
[2018-10-10 08:26] VITALS: BP 143/70
[2018-10-10] MEDS: amLODIPine 10 MG TAB PO SCH (08:26)
[2018-10-10] MEDS: DOCUSATE SODIUM 100 MG CAP PO SCH (08:27)
[2018-10-10] MEDS: VITAMIN D 1,000 INTERNATIONAL UNITS TABLET PO SCH (08:30)
[2018-10-10] MEDS: LR 1,000 ML IV SCH (08:31)
[2018-10-10] MEDS ORDERED: MIRALAX *UNIT DOSE* 17GM PACKET PO SCH (09:00)
[2018-10-10] MEDS ORDERED: traMADol 50 MG TAB PO ONE (09:15)
[2018-10-10 10:00] VITALS: BP 147/65
[2018-10-10] MEDS ORDERED: XARE10TA PO (13:11)
[2018-10-10] MEDS ORDERED: TRAM50TA2 PO (13:11)
--- NOTE | 2018-10-10 13:16 | RO ---
DATE OF PROCEDURE: 10/09/2018 PREPROCEDURE DIAGNOSIS: Left femoral neck fracture. POSTPROCEDURE DIAGNOSIS: Left femoral neck fracture. PROCEDURE: Left hip hemiarthroplasty using size 8 Bethel standard off-set stem with a -3 neck and a 51 mm head. SURGEON: Dr. Humble Jacob. MACHINE TAILER: Dr. Alex Sequeira, ANESTHESIA: Spinal ESTIMATED BLOOD LOSS: 150 mL. SPECIMEN: Femoral head and fracture site. COMPLICATIONS: None. FINDINGS: He had a high proximal femoral neck fracture was quite comminuted. DESCRIPTION OF PROCEDURE: Antibiotics were given intravenously preoperatively. Then a successful spinal anesthetic was induced. He was transferred to the operating room table and Dunn Loring hip positioner was utilized and the left hip area was carefully prepped and draped in the usual sterile fashion after a Cary catheter had been placed. After an appropriate time-out, a longitudinal incision was made for a direct anterolateral approach to the hip. Bovie cautery was used to coagulate the crossing vessels. Noteworthy, there was a significant subdermal hematoma tissue grape jelly in consistency and it did also extend down under the tensor fascia. We split the gluteus medius, anterior one-third, posterior two-third junction divided the underlying gluteus minimus and anterior hip capsule and carefully dissected distally reflecting tissues anteriorly as we externally rotated the hip and eventually, we were able to dislocate the hip anteriorly along with the fracture. The fracture was noted to be very comminuted and very proximal. It was likely it would not have been amenable to screw fixation. The starter reamer was placed in the pyriformis fossa followed by the canal finding reamer and we began reaming eventually to a size 8. It is noteworthy that a very capacious or widened proximal metaphysis of the femur. There was some retroversion of his femoral neck and head. The template was placed and we did do a saw osteotomy and the entire fracture site and the rest of the femoral neck was removed. We then began broaching up to a size 8 broach. He had very good distal fixation. Proximally, the metaphyseal flare showed some gaping around the stem but there was excellent rotational stability. The calcar planar was utilized. We copiously pulsatile lavaged irrigated off the canal site. The head sizer was utilized to measure for between a 51 and 52 erred on the of small, so we trialled with a 51. The -3 was placed because we were using the Bethel stem for a better uncemented fixation. because he appeared on radiographs preoperatively to have excellent cortices, we felt he would be an excellent candidate for uncemented fixation. The canal was placed and prior to reducing, we dis remove the excess bony debris within the depths of the acetabulum carefully. Palpated and irrigated to be sure there was no remaining bony fracture fragments. Then a large portion of the anterior capsule was reflected out of the way with a Jessie to allow us to reduce the hip. It reduced nicely and it was very stable to flexion, internal rotation, and extension external rotation. There was no telescoping. Thus we felt this would be the appropriate size for him. Thus we dislocated the hip, removed the trial components, copiously irrigated out both the acetabulum and the femoral canal. We placed the real #8 Bethel standard off-set stem, dried the trunion, placed the -3 neck, collar and then the 51 ball, then reduced the hip again after irrigating. Again he was very stable to flexion, internal rotation and extension and external rotation. We then closed the wound by first closing the gluteus minimus back anatomically to its tendon insertion over the base of the trochanter. We then closed the gluteus medius back with several interrupted #1 PDS sutures, irrigating between layers. Then we closed the tensor fascia with a combination of #1 PDS sutures in a running Stratafix. Subdermal tissues were closed with interrupted #2-0 Vicryl and then antonietta and a skin covered by an Optifoam dry sterile bulky dressing. He was then turned supine on the table and transferred to the his bed and to the recovery room in stable condition. The Cary catheter was removed at the end of the case. Dr. Sequeira was very critical to the success of this difficult surgery with helping with appropriate soft tissue retraction, helping to manipulate the wound and helped to close the incisions, dislocate and relocate the hip several times throughout the operating amongst many other tasks. ADDENDUM: The acetabulum and femoral head showed no evidence of any osteoarthritis. edited: 10/12/2018 1440 tkf MTDD
[2018-10-10] MEDS ORDERED: oxyCODONE 10 MG CR TAB PO ONE (14:00)
--- NOTE | 2018-10-10 21:36 | DSES ---
DATE OF ADMISSION: 10/07/2018 DATE OF DISCHARGE: 10/10/2018 CONSULTANTS: Orthopedic surgery. PROCEDURES: Left femora neck fracture repair. DISCHARGE DIAGNOSES: 1. Acute respiratory distress. 2. Left lower lobe pneumonia. 3. Moderate atelectasis. 4. Left femoral neck fracture, status post repair. 5. Chronic obstructive pulmonary disease (COPD). 6. Hypertension. 7. Coronary artery disease. 8. History of right ankle fracture. HOSPITALIZATION COURSE: Patient is 83-year-old male presented to [facility] on October 07, 2018 after a fall. Patient was found to have new femoral neck fracture. Prior to admission, patient had a fall on September 2018. Patient was found to have a right ankle fracture as well as pneumonia. Orthopedic team consulted. When patient was waiting in the preoperative area October 07, 2018, the patient was found to have oxygen saturation around 80s and surgery was cancelled. Further workup initiated. Patient was found to have moderate basilar atelectasis and small area of consolidation. Patient's antibiotics has been continued since admission. Patient's breathing treatments also started for the patient with incentive spirometry and EzPAP and continued antibiotic treatment. Patient demonstrated improvement of the respiratory status. Later patient is optimized for surgery and patient had a left femoral neck fracture repair on October 09, 2018. Patient tolerated the surgery and patient monitored closely after surgery. Patient is being evaluated by physical therapy. On October 10, 2018, patient determined medically stable and patient is transferred to acute rehabilitation unit to continue rehabilitation. OBJECTIVE: VITAL SIGNS ON DAY OF DISCHARGE: Temperature 98.9, pulse is 79, respirations 18, blood pressure 147/65, pulse ox is 92% with liter oxygen. LABORATORY DATA ON THE DAY OF DISCHARGE: WBC 8.8, hemoglobin 11.4, hematocrit 33.2, platelet count is 185. Sodium is 136, potassium 4.4, chloride is 103, carbon dioxide 24, BUN 23, creatinine 1.02. GFR is greater than 60, fasting glucose 89. Calcium is 7.9. Magnesium 2.2. Microbiology: Sputum culture from October 08, 2018 showed normal andrea (patient has started on the antibiotics prior to admission. Will interpret sputum culture result with caution). Blood culture from October 10, 2018 shows on growth after 24 hours times two sets. IMAGING STUDIES: Left hip x-ray demonstrating impacted fracture left femoral neck. Chest x-ray October 06, 2018 showed no acute infiltrate. CT of the left hip without contrast on October 07, 2018 demonstrated fracture of the left femoral neck with impaction and angulation of the fracture fragments. Soft tissue swelling/hematoma lateral to the left hip. CT angiogram of the chest on October 07, 2018 showed no pulmonary embolism. Moderate bibasilar atelectasis and small area of consolidation. Chronic COPD/emphysematous changes. DISCHARGE MEDICATIONS; - Xarelto 10 mg by mouth every daily - tramadol 50 mg by mouth every 6 hours as needed - albuterol 2 puffs inhalation every 4 hour as needed - allopurinol 100 mg by mouth daily - aspirin 81 mg by mouth daily - vitamin D 1000 units by mouth daily - docusate sodium 100 mg by mouth daily - felodipine 10 mg by mouth daily - Lasix 20 mg by mouth daily - Levaquin 500 mg by mouth daily - Medrol Dosepak - multivitamin 1 tablet by mouth daily - omeprazole 20 mg by mouth daily DISCHARGE INSTRUCTIONS: Discontinue lines. Discharge patient to acute rehabilitation unit. Activity per rehabilitation instructions. Low salt diet as tolerated. Patient should continue using incentive spirometry as tolerated. Patient should finish course of antibiotics. DISCHARGE TIME: Greater than 30 minutes. DISCHARGE CONDITION: Fair.
== END 2018-10-10 14:45 | DRG 469 ==
LOC: EDBD 22:08 → M ED 22:08 → M ED INP 10-07 01:25 → M MS5PR 10-07 02:40
PROVIDERS: ADMIT Internal Medicine; ATTEND Internal Medicine
PROC: 0SRS0JA Replacement of Left Hip Joint, Femoral Surface with Synthetic Substitute, Uncemented, Open Approach (ICD-10-PCS; principal; 2018-10-09 08:09)
DX: S72.002A Fracture of unspecified part of neck of left femur, initial encounter for closed fracture (principal); J18.9 Pneumonia, unspecified organism; J44.0 Chronic obstructive pulmonary disease with (acute) lower respiratory infection; J98.11 Atelectasis; S82.61XA Displaced fracture of lateral malleolus of right fibula, initial encounter for closed fracture; I10 Essential (primary) hypertension; I25.10 Atherosclerotic heart disease of native coronary artery without angina pectoris; W18.30XA Fall on same level, unspecified, initial encounter; Y92.009 Unspecified place in unspecified non-institutional (private) residence as the place of occurrence of the external cause; Z79.82 Long term (current) use of aspirin; Z79.899 Other long term (current) drug therapy; M10.9 Gout, unspecified; K21.9 Gastro-esophageal reflux disease without esophagitis; Z95.2 Presence of prosthetic heart valve; Z88.8 Allergy status to other drugs, medicaments and biological substances; N40.0 Benign prostatic hyperplasia without lower urinary tract symptoms; R06.03 Acute respiratory distress

== ENCOUNTER 2018-10-10 14:50 | Inpatient (IN) | payer MEDICARE, OTHER ==
[~2018-10-10] VITALS: Ht 177.8 cm; Wt 89.7 kg
[~2018-10-10 14:50] MED LIST changes: +ALBU83IN INH; +ALLO10TA PO; +DOCU100C16 PO; +TRAM50TA2 PO; +XARE10TA PO
[2018-10-10 15:00] VITALS: BP 136/65
[2018-10-10] MEDS ORDERED: ONDANSETRON 4 MG TAB (S0181) PO PRN (17:45)
[2018-10-10] MEDS ORDERED: ALBUTEROL SULFATE 2.5 MG/0.5 ML INH NEB SOLN NEB PRN (17:45)
[2018-10-10] MEDS ORDERED: BISACODYL 10 MG SUPP PR PRN (17:45)
[2018-10-10] MEDS ORDERED: ACETAMINOPHEN TAB 650MG DOSE (2X325MG) PO PRN (17:45)
--- NOTE | 2018-10-10 18:07 | HPEPDOC ---
[employer] Position Clerk Note DATE OF ADMISSION: Oct 10, 2018 at 14:50 SOURCE OF ADMISSION INFORMATION: patient and [facility] records CHIEF COMPLAINT: left hip fracture HISTORY OF PRESENT ILLNESS: 83 pmh HTN, CAD s/p stenting 2009, GERD, BPH, gout who fell at home on the 10/01/18 onto his right side who fractured his right ankle and returned home with a boot when he then proceeded to trip over his dog and fell onto his left side, presenting to [facility] ED on 10/06/18 complaining of left lower extremity pain. Hip X-ray showed, Impacted fracture left femoral neck and CT lower extremity showed, . Fracture of the left femoral neck with impaction and angulation of fracture fragments Soft tissue swelling/hematoma lateral to the left hip. He had an episode of acute respiratory distress on 10/07/18 for which CTA Chest showed, No pulmonary embolus Moderate bibasilar atelectasis and small areas of consolidationChronic COPD/emphysematous changes. He was started on empiric antibiotics for presumed pneumonia and underwent an ECHO on 10/08/18 showing, Normal global left ventricular systolic function. There are some features of left ventricular diastolic dysfunction, grade 1 and moderate pulmonary hypertension. His breathing improved and he underwent a left hip hemiarthroplasty on 10/09/18 without complication. He was found to have gait and ADL deficits and deemed medically appropriate for discharge to ARU on 10/10/18. REVIEW OF SYSTEMS: The following is a completed review of systems and has been reviewed. Review of systems otherwise unremarkable. PAIN: Patient self reports no pain at rest EYES: Negative for recent vision changes EARS, NOSE, & THROAT: denied dysphagia, rhinorrhea, or throat pain CARDIOVASCULAR: denies chest pin or palpitations PULMONARY: Negative. Denies shortness of breath, +cough GASTROINTESTINAL: Negative for diarrhea/constipation GENITOURINARY: Negative for dysuria MUSCULOSKELETAL: right ankle fracture and left hip fracture NEUROLOGICAL: no tremor or seizure activity HEMATOLOGICAL: Negative SKIN: left hip incision PSYCHIATRIC: Unremarkable All other review of systems found to be negative. PAST MEDICAL HISTORY: as per HPI PAST SURGICAL HISTORY: Appendectomy, Back surgery, Cardiac stent placement in 2008. ALLERGIES: Please see below. MEDICATIONS: Please see below. 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 GENERAL: Pleasant and cooperative. No acute distress. HEENT: PERRL. Extraocular movements intact. Clear conjunctiva CARDIOVASCULAR: Regular rate and rhythm. No murmurs, rubs, or gallops LUNGS: mostly clear to auscultation bilaterally. No wheezes. scattered rhonchi ABDOMEN: Soft, nontender, nondistended. Positive bowel sounds. NEUROLOGICAL: Alert and oriented times three. Cranial nerves II through XII grossly intact. Sensation grossly intact EXTREMITIES: 5\5 strength bilateral upper extremities. 5\5 strength right lower extremity. 5/5 strength in left ankle DH and EHL (limited due to surgery) negative Milli's bilat SKIN: left hip incision c/d/i IMAGING: Imaging documentation personally reviewed by record FUNCTIONAL STATUS: Premorbid: Independent with all activities of daily life as well as mobility On Admission: Max assist for functional transfers, min assist for stairs, total assist for lower body dressing GOALS: Mod-I for ambulation with RW community distances, Mod-I stairs, dressing, bathing, toileting, medical optimization, pain control, family training, assess for DMEs. ASSESSMENT:83-year-old M with past medical history of HTN who presents status post fall with left hip fracture in setting of recent right ankle fracture and pneumonia. PLAN: 1. Rehab: PT/OT, [employer] assess for DMEs 2. Ortho: s/p left hip beto-arthroplasty WBAt with hip precautions, recent right ankle fracture c/u boot and PWB-ortho consulted 3. CArdio: pmh HTN c/u amlodipine, pmh AD with stent c/u ASA 4. resp: recent pneumonia in setting of COPD c/u Levaquin and breathing treatments, encourage incentive spirometry 5. Rheum: pmh gout- c/u Allopurinol 6. GI ppx: omperazole 7. DVT ppx: Xarelto 8. Pain: long acting oxycontin 10 mg BID and oxycodone q4h prn, tylenol, will attempt to taper opiods prior to discharge 9. : f/u admission UA and Ucx, monitor PVRs POST ADMISSION PHYSICIAN EVALUATION: Medical and functional status: Description of medical status, medical assessment: As above. Rehabilitation diagnosis and current and prior cold morbid medical conditions as above. Risk of complications and plans to mitigate them as above. Description of functional status current status is as above. Prior status as above. Status compared to preadmission: There are no clinically significant differences between the patient's current status and the information described on the pread mission screening document. Treatment plan anticipated: Treatment plan is as described above. Required disciplines including physical therapy, occupational therapy, others as noted above Intensity of services: 3 hours a day, 6 days a week. Special considerations: There are no specific special or safety considerations that would likely preclude immediate implementation of an intensive rehabilitation program or subsequently influence the plan of care. ATTESTATION: Considering all the information above, it is my best judgment that this patient requires intensive rehabilitation therapy as described above and an inpatient hospital environment due to the complexity of nursing, medical, and rehabilitation needs required by the patient. Furthermore, this patient can reasonably be expected to participate in an benefit from an inpatient rehabilitation stay with an interdisciplinary team approach to the delivery of rehabilitation care under the direction and supervision of rehabilitation physician. PROGNOSIS: Excellent ESTIMATED LENGTH OF STAY:14-18 days. PROJECTED DISCHARGE DESTINATION: Home with family support and any durable medical equipment required to increase functional safety and mobility. TIME SPENT COUNSELING AND COORDINATING INITIAL CARE: Greater than 70 minutes. Vital Signs Vital Sign - Last 24 Hours 10/10/18 15:00 Temp 99.1 Pulse 94 Resp 18 B/P (MAP) 136/65 (88) Pulse Ox 93 O2 Flow Rate 3.0 Home Medications Scheduled Allopurinol (Allopurinol) 100 Mg Tab, 100 MG PO DAILY, (Reported) Aspirin (Aspir-81) 81 Mg Tab, 81 MG PO DAILY, (Reported) Cholecalciferol (Vitamin D) 1,000 Unit Tab, 1,000 UNIT PO DAILY, (Reported) Docusate Sodium (Docusate Sodium) 100 Mg Cap, 100 MG PO DAILY, (Reported) Felodipine (Felodipine ER) 10 Mg Tab, 10 MG PO DAILY, (Reported) Furosemide (Furosemide) 20 Mg Tab, 20 MG PO DAILY, (Reported) Levofloxacin Hemihydrate (Levaquin) 500 Mg Tab, 500 MG PO DAILY, (Reported) Methylprednisolone (Medrol Dosepak) 4 Mg Adan, 4 MG PO ASDIRECTED, (Reported) NEXT DOSE IS THE FINAL DOSE: 1 TABLET BEFORE BREAKFAST Multivitamins *[facility] STOCKED* (Thera M Plus *[facility] STOCKED*) 1 Tab Tab, 1 TAB PO DAILY, (Reported) Omeprazole (Omeprazole) 20 Mg Cap, 20 MG PO DAILY, (Reported) Rivaroxaban (Xarelto) 10 Mg Tab, 10 MG PO DAILY@1800 Scheduled PRN Albuterol Sulfate (Proair Hfa) 108 Mcg/Act Aer, 2 PUFF INH Q4H PRN for SHORTNESS OF BREATH, (Reported) Albuterol Sulfate (Albuterol Sulfate) 2.5 Mg/3 Ml Nebu, 2.5 MG INH QID PRN for SHORTNESS OF BREATH, (Reported) Tramadol HCl (Tramadol HCl) 50 Mg Tab, 50 MG PO Q6HP PRN for MODERATE PAIN (PS 5-7) Allergies Coded Allergies: tamsulosin (Verified Allergy, Mild, Rash, 10/08/18) propoxyphene (Verified Allergy, Unknown, 10/08/18) ELVA MCKENNA MD Oct 10, 2018 18:07
[2018-10-10] MEDS: RIVAROXABAN 10 MG TAB (XARELTO) PO SCH (19:01)
[2018-10-10 20:00] VITALS: BP 157/74
[2018-10-10] MEDS: oxyCODONE 10 MG CR TAB PO SCH (20:55)
[2018-10-10] MEDS: SENNA 8.6 MG TAB (SENOKOT) PO SCH (20:56)
[2018-10-10] MEDS: ACETAMINOPHEN 500 MG TAB PO SCH (20:56)
[2018-10-10] MEDS: DOCUSATE SODIUM 100 MG CAP PO SCH (20:56)
[2018-10-10 21:35] LABS: AMORPHOUS SEDIMENT SMALL (NEGATIVE); APPEARANCE, URINE HAZY (CLEAR); BACTERIA, URINE AUTO NEGATIVE (NEGATIVE); BILIRUBIN, URINE AUTO NEGATIVE (NEGATIVE); BLOOD, URINE BLOOD 1+ (NEGATIVE); COLOR, URINE AMBER (YELLOW); GLUCOSE, URINE (UA) AUTO NEGATIVE (NEGATIVE); KETONE, URINE AUTO TRACE mg/dL (NEGATIVE); LEUKOCYTE ESTERASE, URINE AUTO NEGATIVE (NEGATIVE); MUCUS, URINE SMALL (NEGATIVE); NITRITE, URINE AUTO NEGATIVE (NEGATIVE); PROTEIN, URINE AUTO 1+ mg/dL (NEGATIVE); RBC, URINE AUTO 15 /HPF (0-3); SPECIFIC GRAVITY URINE AUTO 1.031 (1.002-1.035); SQUAMOUS EPITHELIAL CELL UR AU 0 /HPF (0-6); WBC, URINE AUTO 4 /HPF (0-3)
[2018-10-11 06:00] VITALS: BP 155/72
[2018-10-11 07:13] LABS: BASO % 0.3 % (0.0-1.0); EOS # 0.5 10^3/uL (0.0-0.50); EOS % 4.8 % (0.0-3.0); HEMATOCRIT 33.4 % (42.0-52.0); HEMOGLOBIN 11.3 g/dl (13.5-17.5); LYMPH # 0.7 10^3/uL (1.5-4.5); LYMPH % 6.6 % (24.0-44.0); MEAN CORPUSCULAR HEMOGLOBIN 34.7 pg (27.0-33.0); MEAN CORPUSCULAR HGB CONC 33.8 g/dl (32.0-36.5); MEAN CORPUSCULAR VOLUME 102.5 fl (80.0-96.0); MONO # 1.2 10^3/uL (0.0-0.8); NEUTROPHILS # 7.6 10^3/uL (1.8-7.7); NEUTROPHILS % 75.3 % (36.0-66.0); PLATELET COUNT, AUTOMATED 188 10^3/uL (150-450); RED BLOOD COUNT 3.26 10^6/uL (4.30-6.10); WHITE BLOOD COUNT 10.1 10^3/uL (4.0-10.0)
[2018-10-11 07:34] LABS: ALBUMIN 2.4 GM/DL (3.2-5.2); ALT/SGPT 14 U/L (12-78); BILIRUBIN,TOTAL 0.9 MG/DL (0.2-1.0); BLOOD UREA NITROGEN 28 MG/DL (7-18); CALCIUM LEVEL 8.1 MG/DL (8.8-10.2); CARBON DIOXIDE LEVEL 25 MEQ/L (21-32); CHLORIDE LEVEL 103 MEQ/L (98-107); CREATININE FOR GFR 1.09 MG/DL (0.70-1.30); GLOMERULAR FILTRATION RATE > 60.0 (>35); GLUCOSE, FASTING 81 MG/DL (70-100); POTASSIUM SERUM 4.2 MEQ/L (3.5-5.1); SODIUM LEVEL 136 MEQ/L (136-145); TOTAL PROTEIN 6.9 GM/DL (6.4-8.2)
[2018-10-11] MEDS: ALBUTEROL SULFATE 2.5 MG/0.5 ML INH NEB SOLN NEB SCH ×4 (07:50→23:04)
[2018-10-11] MEDS: VITAMIN D 1,000 INTERNATIONAL UNITS TABLET PO SCH (09:03)
[2018-10-11] MEDS: DOCUSATE SODIUM 100 MG CAP PO SCH ×2 (09:03→20:00)
[2018-10-11] MEDS: MULTIVITAMINS/MINERALS THERAP 1 TAB PO SCH (09:03)
[2018-10-11] MEDS: ALLOPURINOL 100 MG TAB PO SCH (09:03)
[2018-10-11] MEDS: ASPIRIN 81 MG CHEW TABLET PO SCH (09:04)
[2018-10-11] MEDS: amLODIPine 10 MG TAB PO SCH (09:04)
[2018-10-11] MEDS: oxyCODONE 10 MG CR TAB PO SCH ×2 (09:04→20:01)
[2018-10-11] MEDS: OMEPRAZOLE 20 MG CAP PO SCH (09:04)
[2018-10-11] MEDS: ACETAMINOPHEN 500 MG TAB PO SCH ×3 (09:05→20:01)
[2018-10-11 14:00] VITALS: BP 138/65
--- NOTE | 2018-10-11 15:33 | IPNPDOC ---
Text Note Date of Service The patient was seen on 10/11/18. NOTE SUBJECTIVE: The patient is seen and examined in the room today. Patient denies worsening of breathing or cough. Patient denies fever or chill. OBJECTIVE: VITAL SIGNS: Listed below. GENERAL: Alert, awake and comfortable. HEENT: Normocephalic, atraumatic. Extraocular motor grossly intact. CARDIOVASCULAR: Positive S1, S2, regular rate. LUNGS: Mild positive crackles right lower lobe. No significant wheeze is appreciated. Decreased breath sounds. ABDOMEN: Soft, nontender, nondistended. Bowel sounds present. EXTREMITIES: No significant lower extremity edema appreciated. LABORATORY DATA: Listed below. ASSESSMENT AND PLAN: #. Left hip fracture and right ankle fracture. - CT hip on 10/07/18 demonstrated fracture of the left femoral neck with impaction and angulation of fracture fragments. Right ankle XR on 10/01/18 demonstrated Nondisplaced fracture of the distal fibula. - Hip replacement on 10/09/2018. Activity level per ARU instructions. #. Acute respiratory distress. - CT chest on 10/07/18 demonstrated moderate bibasilar atelectasis and small areas of consolidation. At baseline, patient has COPD. - On antibiotic for PNA. On incentive spirometry for atelectasis. Trial of EzPAP. #. Chronic obstructive pulmonary disease. - At baseline, patient does not require any oxygen. Continue PRN breathing treatment. #. Hypertension. - Continue Norvasc. #. Coronary artery disease, - status post cardiac stent in 2008. On aspirin. #. Deep vein thrombosis (DVT) prophylaxis. Anticoagulation per ARU. VS,Fishbone, I+O VS, Fishbone, I+O Laboratory Tests 10/11/18 06:57 Red Blood Count 3.26 L, Mean Corpuscular Volume 102.5 H, Mean Corpuscular Hemoglobin 34.7 H, Mean Corpuscular Hemoglobin Concent 33.8, Red Cell Dis tribution Width 12.2, Neutrophils (%) (Auto) 75.3 H, Lymphocytes (%) (Auto) 6.6 L, Monocytes (%) (Auto) 12.0 H, Eosinophils (%) (Auto) 4.8 H, Basophils (%) (Auto) 0.3, Neutrophils # (Auto) 7.6, Lymphocytes # (Auto) 0.7 L, Monocytes # (Auto) 1.2 H, Eosinophils # (Auto) 0.5, Basophils # (Auto) 0.0, Calcium Level 8.1 L, Aspartate Amino Transf (AST/SGOT) 25, Alanine Aminotransferase (ALT/SGPT) 14, Alkaline Phosphatase 61, Total Bilirubin 0.9, Total Protein 6.9, Albumin 2.4 L Vital Signs Date Time Temp Pulse Resp B/P (MAP) Pulse Ox O2 Delivery O2 Flow Rate FiO2 10/11/18 14:00 97.8 82 18 138/65 (89) 92 3.0 I&O- Last 24 Hours up to 6 AM 10/11/18 06:00 Intake Total 120 ml Output Total 450 ml Balance -330 ml VONDA CARSON DO Oct 11, 2018 15:33
[2018-10-11] MEDS: RIVAROXABAN 10 MG TAB (XARELTO) PO SCH (17:57)
[2018-10-11 20:00] VITALS: BP 145/66
[2018-10-11] MEDS: SENNA 8.6 MG TAB (SENOKOT) PO SCH (20:00)
[2018-10-12] MEDS: oxyCODONE 5MG TAB PO PRN (02:29)
[2018-10-12] MEDS: LevoFLOXacin 500 MG TABLET PO SCH (05:17)
[2018-10-12 06:00] VITALS: BP 158/72
[2018-10-12] MEDS: MOM 30ML SUSPENSION UDC PO PRN (06:08)
[2018-10-12] MEDS: ALBUTEROL SULFATE 2.5 MG/0.5 ML INH NEB SOLN NEB SCH ×3 (08:01→23:53)
[2018-10-12] MEDS: ASPIRIN 81 MG CHEW TABLET PO SCH (09:43)
[2018-10-12] MEDS: DOCUSATE SODIUM 100 MG CAP PO SCH ×2 (09:43→20:54)
[2018-10-12] MEDS: ALLOPURINOL 100 MG TAB PO SCH (09:44)
[2018-10-12] MEDS: MULTIVITAMINS/MINERALS THERAP 1 TAB PO SCH (09:44)
[2018-10-12] MEDS: ACETAMINOPHEN 500 MG TAB PO SCH ×3 (09:44→20:54)
[2018-10-12] MEDS: VITAMIN D 1,000 INTERNATIONAL UNITS TABLET PO SCH (09:44)
[2018-10-12] MEDS: amLODIPine 10 MG TAB PO SCH (09:45)
[2018-10-12] MEDS: OMEPRAZOLE 20 MG CAP PO SCH (09:46)
[2018-10-12] MEDS: oxyCODONE 10 MG CR TAB PO SCH ×2 (09:46→20:55)
[2018-10-12 14:00] VITALS: BP 120/59
[2018-10-12] MEDS: RIVAROXABAN 10 MG TAB (XARELTO) PO SCH (18:13)
--- NOTE | 2018-10-12 18:17 | IPNPDOC ---
Text Note Date of Service The patient was seen on 10/12/18. NOTE SUBJECTIVE: The patient is seen and examined in the room today. Patient states his breathing is improving. He continues using incentive spirometry twice daily. Patient denies fever or chill. OBJECTIVE: VITAL SIGNS: Listed below. GENERAL: Alert, awake and comfortable. HEENT: Normocephalic, atraumatic. Extraocular motor grossly intact. CARDIOVASCULAR: Positive S1, S2, regular rate. LUNGS: Mild positive crackles right lower lobe. No significant wheeze is appreciated. Decreased breath sounds. ABDOMEN: Soft, nontender, nondistended. Bowel sounds present. EXTREMITIES: No significant lower extremity edema appreciated. LABORATORY DATA: Listed below. ASSESSMENT AND PLAN: #. Left hip fracture and right ankle fracture. - CT hip on 10/07/18 demonstrated fracture of the left femoral neck with impaction and angulation of fracture fragments. Right ankle XR on 10/01/18 demonstrated Nondisplaced fracture of the distal fibula. - Hip replacement on 10/09/2018. Activity level per ARU instructions. #. Acute respiratory distress. - CT chest on 10/07/18 demonstrated moderate bibasilar atelectasis and small areas of consolidation. At baseline, patient has COPD. - On antibiotic for PNA. On incentive spirometry for atelectasis. Trial of EzPAP. Breathing is improving. #. Chronic obstructive pulmonary disease. - At baseline, patient does not require any oxygen. Continue PRN breathing treatment. #. Hypertension. - Continue Norvasc. #. Coronary artery disease, - status post cardiac stent in 2008. On aspirin. #. Deep vein thrombosis (DVT) prophylaxis. Anticoagulation per ARU. VS,Fishbone, I+O VS, Fishbone, I+O Vital Signs Date Time Temp Pulse Resp B/P (MAP) Pulse Ox O2 Delivery O2 Flow Rate FiO2 10/12/18 14:00 98.1 90 20 120/59 (79) 95 2.0 I&O- Last 24 Hours up to 6 AM 10/12/18 06:00 Intake Total 960 ml Output Total 775 ml Balance 185 ml VONDA CARSON DO Oct 12, 2018 18:17
[2018-10-12 20:13] VITALS: BP 143/65
[2018-10-12] MEDS: SENNA 8.6 MG TAB (SENOKOT) PO SCH (20:54)
[2018-10-13 06:00] VITALS: BP 155/70
[2018-10-13 07:02] LABS: HEMATOCRIT 27.6 % (42.0-52.0); HEMOGLOBIN 9.5 g/dl (13.5-17.5); MEAN CORPUSCULAR HEMOGLOBIN 34.1 pg (27.0-33.0); MEAN CORPUSCULAR HGB CONC 34.4 g/dl (32.0-36.5); MEAN CORPUSCULAR VOLUME 98.9 fl (80.0-96.0); PLATELET COUNT, AUTOMATED 220 10^3/uL (150-450); RED BLOOD COUNT 2.79 10^6/uL (4.30-6.10)
[2018-10-13 07:26] LABS: BLOOD UREA NITROGEN 31 MG/DL (7-18); CALCIUM LEVEL 7.6 MG/DL (8.8-10.2); CARBON DIOXIDE LEVEL 25 MEQ/L (21-32); CHLORIDE LEVEL 103 MEQ/L (98-107); CREATININE FOR GFR 0.93 MG/DL (0.70-1.30); GLOMERULAR FILTRATION RATE > 60.0 (>35); GLUCOSE, FASTING 84 MG/DL (70-100); POTASSIUM SERUM 4.3 MEQ/L (3.5-5.1); SODIUM LEVEL 135 MEQ/L (136-145)
[2018-10-13] MEDS: ALBUTEROL SULFATE 2.5 MG/0.5 ML INH NEB SOLN NEB SCH ×2 (08:10→16:19)
[2018-10-13] MEDS: ACETAMINOPHEN 500 MG TAB PO SCH ×3 (09:13→20:21)
[2018-10-13] MEDS: MULTIVITAMINS/MINERALS THERAP 1 TAB PO SCH (09:13)
[2018-10-13] MEDS: DOCUSATE SODIUM 100 MG CAP PO SCH ×2 (09:13→20:20)
[2018-10-13] MEDS: VITAMIN D 1,000 INTERNATIONAL UNITS TABLET PO SCH (09:13)
[2018-10-13] MEDS: OMEPRAZOLE 20 MG CAP PO SCH (09:13)
[2018-10-13] MEDS: ASPIRIN 81 MG CHEW TABLET PO SCH (09:13)
[2018-10-13] MEDS: ALLOPURINOL 100 MG TAB PO SCH (09:13)
[2018-10-13] MEDS: oxyCODONE 10 MG CR TAB PO SCH ×2 (09:14→20:22)
[2018-10-13] MEDS: amLODIPine 10 MG TAB PO SCH (09:14)
--- NOTE | 2018-10-13 12:10 | NUR ---
Pt oropharyngeal swallow fxn appears wnl on bedside exam. Recommend regular solids, thin liquids. No dysphagia tx. Addendum: 10/13/18 at 1211 by [facility] Amended: Links added.
[2018-10-13 14:00] VITALS: BP 159/68
--- NOTE | 2018-10-13 14:06 | NUR ---
Pt w/ mild cognitive impairment. However, this is his baseline status per family. Pt's cognition is not limiting OT/PT progress. Therefore, cognitive tx not recommended at this time. Please contact CONTACT CENTER DIRECTOR w/ any future questions/concerns. Addendum: 10/13/[address] [facility] Amended: Links added.
[2018-10-13] MEDS: FUROSEMIDE 20 MG TAB PO SCH (14:08)
--- NOTE | 2018-10-13 15:07 | IPNPDOC ---
PM&R Progress Note DATE OF SERVICE: Oct 13, 2018 [employer] Floor[employer] Progress Note Subjective: Patient reports he has been coughing, but unable to expectorate and has been irritated by this. Otherwise he denies significant pain in his limbs and is tole rating therapy. REVIEW OF SYSTEMS: The following is a completed review of systems and has been reviewed. Review of systems otherwise unremarkable. PAIN: Patient self reports no pain at rest EYES: Negative for recent vision changes EARS, NOSE, & THROAT: denied dysphagia, rhinorrhea, or throat pain CARDIOVASCULAR: denies chest pin or palpitations PULMONARY: Negative. Denies shortness of breath, +cough GASTROINTESTINAL: Negative for diarrhea/constipation GENITOURINARY: Negative for dysuria MUSCULOSKELETAL: right ankle fracture and left hip fracture NEUROLOGICAL: no tremor or seizure activity HEMATOLOGICAL: Negative SKIN: left hip incision PSYCHIATRIC: Unremarkable All other review of systems found to be negative. PHYSICAL EXAMINATION: VITAL SIGNS: Please see below. GENERAL: Pleasant and cooperative. No acute distress. HEENT: PERRL. Extraocular movements intact. Clear conjunctiva CARDIOVASCULAR: Regular rate and rhythm. No murmurs, rubs, or gallops LUNGS: mostly clear to auscultation bilaterally. No wheezes. ABDOMEN: Soft, nontender, nondistended. Positive bowel sounds. NEUROLOGICAL: Alert and oriented times three. Cranial nerves II through XII grossly intact. Sensation grossly intact EXTREMITIES: 5\5 strength bilateral upper extremities. 5\5 strength right lower extremity. 5/5 strength in left ankle DH and EHL (limited due to surgery) negative Milli's bilat SKIN: left hip incision c/d/i ASSESSMENT:83-year-old M with past medical history of HTN who presents status post fall with left hip fracture in setting of recent right ankle fracture and pneumonia. PLAN: 1. Rehab: PT/OT, BUTT TRIMMER assess for DMEs 2. Ortho: s/p left hip beto-arthroplasty WBAt with hip precautions, recent right ankle fracture c/u boot and PWB-ortho consulted 3. CArdio: pmh HTN c/u amlodipine, pmh AD with stent c/u ASA, c/u lasix-medicine consulted 4. resp: recent pneumonia in setting of COPD c/u Levaquin and breathing treatments, encourage incentive spirometry, will add back home dose of lasix and start Guaifenaisin 5. Rheum: pmh gout- c/u Allopurinol 6. GI ppx: omperazole 7. DVT ppx: Xarelto 8. Pain: will taper long acting oxycontin from 10 to 5mg BID and oxycodone q4h prn, tylenol, will attempt to taper opiods prior to discharge 9. :admission UA and Ucx negative, monitor PVRs 10. Dispo: TBD 11. DNR Allergies Coded Allergies: tamsulosin (Verified Allergy, Mild, Rash, 10/08/18) propoxyphene (Verified Allergy, Unknown, 10/08/18) Vital Signs Vital Signs Date Time Temp Pulse Resp B/P (MAP) Pulse Ox O2 Delivery O2 Flow Rate FiO2 10/13/18 14:00 98.4 88 20 159/68 (98) 95 10/13/18 09:00 1.0 Laboratory Data CBC/BMP Laboratory Tests 10/13/18 06:43 Red Blood Count 2.79 L, Mean Corpuscular Volume 98.9 H, Mean Corpuscular Hemoglobin 34.1 H, Mean Corpuscular Hemoglobin Concent 34.4, Red Cell Distribution Width 11.9, Calcium Level 7.6 L Labs 24H Laboratory Tests 2 10/13/18 06:43: Nucleated Red Blood Cells % (auto) 0.0, Anion Gap 7L, Glomerular Filtration Rate > 60.0, Blood Urea Nitrogen 31H, Creatinine 0.93, Sodium Level 135L, Potassium Level 4.3, Chloride Level 103, Carbon Dioxide Level 25, Calcium Level 7.6L Microbiology Microbiology 10/10/18 Urine Culture - Final, Complete Current Medications Current Medications Current Medications Acetaminophen (Tylenol Tab) 650 mg DAILYPRN PRN PO fever/MILD PAIN (PS 1-4); Start 10/10/18 at 17:45 Acetaminophen (Tylenol Tab) 1,000 mg TID PO Last administered on 10/13/18at 09:13; Start 10/10/18 at 21:00 Albuterol Sulfate (Proventil Neb) 2.5 mg Q4HP PRN NEB SOB/WHEEZING; Start 10/10/18 at 17:45 Albuterol Sulfate (Proventil Neb) 2.5 mg RQ8H NEB Last administered on 10/13/18at 08:10; Start 10/11/18 at 00:00 Allopurinol (Zyloprim) 100 mg DAILY PO Last administered on 10/13/18 09:13; Start 10/11/18 at 09:00 Amlodipine Besylate (Norvasc) 10 mg DAILY PO Last administered on 10/13/18 09:14; Start 10/11/18 at 09:00 Aspirin (Aspirin Chewable) 81 mg DAILY PO Last administered on 10/13/18 09:13; Start 10/11/18 at 09:00 Bisacodyl (Dulcolax Suppository) 10 mg DAILYPRN PRN [place] CONSTIPATION; Start 10/10/18 at 17:45 Docusate Sodium (Colace) 100 mg BID PO Last administered on 10/13/18 09:13; Start 10/10/18 at 21:00 Furosemide (Lasix) 20 mg DAILY PO Last administered on 10/13/18 14:08; Start 10/13/18 at 09:00 Guaifenesin (Robitussin Tab) 400 mg TID PO ; Start 10/13/18 at 16:00 Levofloxacin (Levaquin) 500 mg Q48H PO Last administered on 10/12/18 05:17; Start 10/12/18 at 06:00; Stop 10/19/18 at 05:59 Magnesium Hydroxide (Milk Of Magnesia) 30 ml DAILYPRN PRN [place] CONSTIPATION Last administered on 10/12/18 06:08; Start 10/10/18 at 17:45 Multivitamins (Theragram-M) 1 tab DAILY PO Last administered on 10/13/18 09:13; Start 10/11/18 at 09:00 Omeprazole (PriLOSEC) 20 mg DAILY PO Last administered on 10/13/18 09:13; Start 10/11/18 at 09:00 Ondansetron HCl (Zofran) 4 mg Q6HP PRN PO NAUSEA; Start 10/10/18 at 17:45 Oxycodone HCl (OxyCONTIN) 10 mg BID PO Last administered on 10/13/18 09:14; Start 10/10/18 at 21:00 Oxycodone HCl (Roxicodone, Oxyir) 5 mg Q4HP PRN PO PAIN Last administered on 10/12/18 02:29; Start 10/10/18 at 17:45 Rivaroxaban (Xarelto) 10 mg DAILY@18 PO Last administered on 10/12/18at 18:13; Start 10/10/18 at 18:00 Senna (Senokot) 1 tab QHS PO Last administered on 10/12/18at 20:54; Start 10/10/18 at 21:00 Vitamin D (Vitamin D) 1,000 units DAILY PO Last administered on 10/13/18at 09:13; Start 10/11/18 at 09:00 ELVA MCKENNA MD Oct 13, 2018 15:07
--- NOTE | 2018-10-13 16:54 | IPNPDOC ---
Text Note Date of Service The patient was seen on 10/13/18. NOTE SUBJECTIVE: The patient is seen and examined in the room today. Patient states his breathing is improving. He feels he may not need oxygen anymore. OBJECTIVE: VITAL SIGNS: Listed below. GENERAL: Alert, awake and comfortable. HEENT: Normocephalic, atraumatic. Extraocular motor grossly intact. CARDIOVASCULAR: Positive S1, S2, regular rate. LUNGS: Mild positive crackles right lower lobe. No significant wheeze is appreciated. Decreased breath sounds. ABDOMEN: Soft, nontender, nondistended. Bowel sounds present. EXTREMITIES: No significant lower extremity edema appreciated. LABORATORY DATA: Listed below. ASSESSMENT AND PLAN: #. Left hip fracture and right ankle fracture. - CT hip on 10/07/18 demonstrated fracture of the left femoral neck with impaction and angulation of fracture fragments. Right ankle XR on 10/01/18 demonstrated Nondisplaced fracture of the distal fibula. - Hip replacement on 10/09/2018. Activity level per ARU instructions. #. Acute respiratory distress. - CT chest on 10/07/18 demonstrated moderate bibasilar atelectasis and small areas of consolidation. At baseline, patient has COPD. - On antibiotic for PNA. On incentive spirometry for atelectasis. Trial of EzPAP. Titrating oxygen as tolerated. #. Chronic obstructive pulmonary disease. - At baseline, patient does not require any oxygen. Continue PRN breathing treatment. Continue PNA treatment. #. Hypertension. - Continue Norvasc. #. Coronary artery disease, - status post cardiac stent in 2008. On aspirin. #. Deep vein thrombosis (DVT) prophylaxis. Anticoagulation per ARU. VS,Fishbone, I+O VS, Fishbone, I+O Laboratory Tests 10/13/18 06:43 Red Blood Count 2.79 L, Mean Corpuscular Volume 98.9 H, Mean Corpuscular Hemoglobin 34.1 H, Mean Corpuscular Hemoglobin Concent 34.4, Red Cell Distribution Width 11.9, Calcium Level 7.6 L Vital Signs Date Time Temp Pulse Resp B/P (MAP) Pulse Ox O2 Delivery O2 Flow Rate FiO2 10/13/18 14:00 98.4 88 20 159/68 (98) 95 10/13/18 09:00 1.0 I&O- Last 24 Hours up to 6 AM 10/13/18 06:00 Intake Total 780 ml Output Total 1075 ml Balance -295 ml VONDA CARSON DO Oct 13, 2018 16:54
[2018-10-13] MEDS: RIVAROXABAN 10 MG TAB (XARELTO) PO SCH (17:39)
[2018-10-13] MEDS: guaiFENesin 200 MG TAB PO SCH ×2 (17:39→20:21)
[2018-10-13 20:00] VITALS: BP 136/63
[2018-10-13] MEDS: SENNA 8.6 MG TAB (SENOKOT) PO SCH (20:21)
[2018-10-14] MEDS: LevoFLOXacin 500 MG TABLET PO SCH (05:10)
[2018-10-14 06:00] VITALS: BP 164/72
[2018-10-14] MEDS: ALBUTEROL SULFATE 2.5 MG/0.5 ML INH NEB SOLN NEB SCH ×3 (07:39→15:36)
[2018-10-14] MEDS: DOCUSATE SODIUM 100 MG CAP PO SCH ×2 (08:52→20:13)
[2018-10-14] MEDS: MULTIVITAMINS/MINERALS THERAP 1 TAB PO SCH (08:52)
[2018-10-14] MEDS: FUROSEMIDE 20 MG TAB PO SCH (08:53)
[2018-10-14] MEDS: ALLOPURINOL 100 MG TAB PO SCH (08:53)
[2018-10-14] MEDS: VITAMIN D 1,000 INTERNATIONAL UNITS TABLET PO SCH (08:53)
[2018-10-14] MEDS: ASPIRIN 81 MG CHEW TABLET PO SCH (08:53)
[2018-10-14] MEDS: amLODIPine 10 MG TAB PO SCH (08:53)
[2018-10-14] MEDS: ACETAMINOPHEN 500 MG TAB PO SCH ×3 (08:53→20:17)
[2018-10-14] MEDS: OMEPRAZOLE 20 MG CAP PO SCH (08:54)
[2018-10-14] MEDS: oxyCODONE 10 MG CR TAB PO SCH ×2 (08:54→20:16)
[2018-10-14] MEDS: guaiFENesin 200 MG TAB PO SCH ×3 (08:54→20:14)
--- NOTE | 2018-10-14 10:38 | IPNPDOC ---
PM&R Progress Note DATE OF SERVICE: Oct 14, 2018 [employer] Progress Note Subjective: Patient reports his coughing is a little better, denies fever or chills, had a bowel movement. REVIEW OF SYSTEMS: The following is a completed review of systems and has been reviewed. Review of systems otherwise unremarkable. PAIN: Patient self reports no pain at rest EYES: Negative for recent vision changes EARS, NOSE, & THROAT: denied dysphagia, rhinorrhea, or throat pain CARDIOVASCULAR: denies chest pin or palpitations PULMONARY: Negative. Denies shortness of breath, +cough GASTROINTESTINAL: Negative for diarrhea/constipation GENITOURINARY: Negative for dysuria MUSCULOSKELETAL: right ankle fracture and left hip fracture NEUROLOGICAL: no tremor or seizure activity HEMATOLOGICAL: Negative SKIN: left hip incision PSYCHIATRIC: Unremarkable All other review of systems found to be negative. PHYSICAL EXAMINATION: VITAL SIGNS: Please see below. GENERAL: Pleasant and cooperative. No acute distress. HEENT: PERRL. Extraocular movements intact. Clear conjunctiva CARDIOVASCULAR: Regular rate and rhythm. No murmurs, rubs, or gallops LUNGS: mostly clear to auscultation bilaterally. No wheezes. ABDOMEN: Soft, nontender, nondistended. Positive bowel sounds. NEUROLOGICAL: Alert and oriented times three. Cranial nerves II through XII grossly intact. Sensation grossly intact EXTREMITIES: 5\5 strength bilateral upper extremities. 5\5 strength right lower extremity. 5/5 strength in left ankle DH and EHL (limited due to surgery) negative Milli's bilat SKIN: left hip incision c/d/i ASSESSMENT:83-year-old M with past medical history of HTN who presents status post fall with left hip fracture in setting of recent right ankle fracture and pneumonia. PLAN: 1. Rehab: PT/OT, HEMATOLOGIST ONCOLOGIST assess for DMEs 2. Ortho: s/p left hip beto-arthroplasty WBAt with hip precautions, recent right ankle fracture c/u boot and PWB-ortho consulted 3. CArdio: pmh HTN c/u amlodipine, pmh AD with stent c/u ASA, c/u lasix-medicine consulted 4. resp: recent pneumonia in setting of COPD c/u Levaquin and breathing treatments, encourage incentive spirometry, will add back home dose of lasix and c c/u Guaifenaisin 5. Rheum: pmh gout- c/u Allopurinol 6. GI ppx: omperazole, FOBT negative 7. DVT ppx: Xarelto 8. Pain: will taper long acting oxycontin from 10 to 5mg BID and oxycodone q4h prn, tylenol, will attempt to taper opiods prior to discharge 9. Heme: blood loss anemia, will transfuse if Hgb <8, FOT negative, will start i jia 9. :admission UA and Ucx negative, monitor PVRs 10. Dispo: TBD 11. DNR Allergies Coded Allergies: tamsulosin (Verified Allergy, Mild, Rash, 10/08/18) propoxyphene (Verified Allergy, Unknown, 10/08/18) Vital Signs Vital Signs Date Time Temp Pulse Resp B/P (MAP) Pulse Ox O2 Delivery O2 Flow Rate FiO2 10/14/18 09:00 1.0 10/14/18 08:54 18 10/14/18 08:53 87 164/72 10/14/18 06:00 98.8 92 Microbiology Microbiology 10/13/18 Stool Occult Blood ([facility]) - Final, Complete 10/10/18 Urine Culture - Final, Complete Current Medications Current Medications Current Medications Acetaminophen (Tylenol Tab) 650 mg DAILYPRN PRN PO fever/MILD PAIN (PS 1-4); Start 10/10/18 at 17:45 Acetaminophen (Tylenol Tab) 1,000 mg TID PO Last administered on 10/14/18 08:53; Start 10/10/18 at 21:00 Albuterol Sulfate (Proventil Neb) 2.5 mg Q4HP PRN NEB SOB/WHEEZING; Start 10/10/18 at 17:45 Albuterol Sulfate (Proventil Neb) 2.5 mg RQ8H NEB Last administered on 10/14/18at 07:39; Start 10/11/18 at 00:00 Allopurinol (Zyloprim) 100 mg DAILY PO Last administered on 10/14/18 08:53; Start 10/11/18 at 09:00 Amlodipine Besylate (Norvasc) 10 mg DAILY PO Last administered on 10/14/18 08:53; Start 10/11/18 at 09:00 Aspirin (Aspirin Chewable) 81 mg DAILY PO Last administered on 10/14/18 08:53; Start 10/11/18 at 09:00 Bisacodyl (Dulcolax Suppository) 10 mg DAILYPRN PRN [place] CONSTIPATION; Start 10/10/18 at 17:45 Docusate Sodium (Colace) 100 mg BID PO Last administered on 10/14/18 08:52; Start 10/10/18 at 21:00 Furosemide (Lasix) 20 mg DAILY PO Last administered on 10/14/18 08:53; Start 10/13/18 at 09:00 Guaifenesin (Robitussin Tab) 400 mg TID PO Last administered on 10/14/18 08:54; Start 10/13/18 at 16:00 Levofloxacin (Levaquin) 500 mg Q48H PO Last administered on 10/14/18 05:10; Start 10/12/18 at 06:00; Stop 10/19/18 at 05:59 Magnesium Hydroxide (Milk Of Magnesia) 30 ml DAILYPRN PRN PO CONSTIPATION Last administered on 10/12/18 06:08; Start 10/10/18 at 17:45 Multivitamins (Theragram-M) 1 tab DAILY PO Last administered on 10/14/18 08:52; Start 10/11/18 at 09:00 Omeprazole (PriLOSEC) 20 mg DAILY PO Last administered on 10/14/18 08:54; Start 10/11/18 at 09:00 Ondansetron HCl (Zofran) 4 mg Q6HP PRN PO NAUSEA; Start 10/10/18 at 17:45 Oxycodone HCl (OxyCONTIN) 10 mg BID PO Last administered on 10/14/18 08:54; Start 10/10/18 at 21:00 Oxycodone HCl (Roxicodone, Oxyir) 5 mg Q4HP PRN PO PAIN Last administered on 10/12/18 02:29; Start 10/10/18 at 17:45 Rivaroxaban (Xarelto) 10 mg DAILY@18 PO Last administered on 10/13/18 17:39; Start 10/10/18 at 18:00 Senna (Senokot) 1 tab QHS PO Last administered on 10/13/18 20:21; Start 10/10/18 at 21:00 Vitamin D (Vitamin D) 1,000 units DAILY PO Last administered on 10/14/18 08:53; Start 10/11/18 at 09:00 ELVA MCKENNA MD Oct 14, 2018 10:38
[2018-10-14 11:09] LABS: BASO % 0.3 % (0.0-1.0); EOS # 0.1 10^3/uL (0.0-0.50); EOS % 0.8 % (0.0-3.0); HEMATOCRIT 27.7 % (42.0-52.0); HEMOGLOBIN 9.4 g/dl (13.5-17.5); LYMPH # 0.5 10^3/uL (1.5-4.5); LYMPH % 4.5 % (24.0-44.0); MEAN CORPUSCULAR HEMOGLOBIN 34.1 pg (27.0-33.0); MEAN CORPUSCULAR HGB CONC 33.9 g/dl (32.0-36.5); MEAN CORPUSCULAR VOLUME 100.4 fl (80.0-96.0); MONO # 0.9 10^3/uL (0.0-0.8); MONO % 7.7 % (0.0-5.0); NEUTROPHILS # 10.4 10^3/uL (1.8-7.7); PLATELET COUNT, AUTOMATED 232 10^3/uL (150-450); RED BLOOD COUNT 2.76 10^6/uL (4.30-6.10); WHITE BLOOD COUNT 12.1 10^3/uL (4.0-10.0)
[2018-10-14 11:35] LABS: BLOOD UREA NITROGEN 28 MG/DL (7-18); CALCIUM LEVEL 7.3 MG/DL (8.8-10.2); CARBON DIOXIDE LEVEL 23 MEQ/L (21-32); CHLORIDE LEVEL 106 MEQ/L (98-107); CREATININE FOR GFR 0.97 MG/DL (0.70-1.30); GLOMERULAR FILTRATION RATE > 60.0 (>35); GLUCOSE, FASTING 93 MG/DL (70-100); POTASSIUM SERUM 4.7 MEQ/L (3.5-5.1); SODIUM LEVEL 137 MEQ/L (136-145)
[2018-10-14 14:00] VITALS: BP 130/63
[2018-10-14] MEDS: RIVAROXABAN 10 MG TAB (XARELTO) PO SCH (18:07)
--- NOTE | 2018-10-14 18:55 | IPNPDOC ---
Subjective Date Seen The patient was seen on 10/14/18. Subjective Chief Complaint/HPI Left hip fracture and right ankle fracture Events since last encounter The patient reports that his appetite has not been good 700 with a sodium restriction and his diet. He has been able to work with therapydoes continue to have some left hip and right ankle pain but the pain appears controlled on oral pain meds. Denies impulsive chest pain or shortness of breath. No nausea or vomiting. Denies any constipationhad good bowel movements yesterday. Denies any problems with urination. Objective Physical Examination General Exam: Positive: Alert, Cooperative, No Acute Distress Chest Exam: Positive: Clear to auscultation Heart Exam: Positive: Other (S1, S2 heard, no rubs or gallops.) Abdomen Exam: Positive: Soft, Other (nontender) Neuro Exam: Positive: Other (Awake, alert, oriented. ) Assessment /Plan Assessment Left hip and right ankle fracture status post hip replacement on 10/09/18: -Continue PT/OT -When necessary pain meds Acute respiratory distress in setting of COPD and possible pneumonia: -Continue levofloxacin - to end 10/19/18 -Encouraged incentive spirometry -Currently on 1 L/min by [place] Acute blood loss anemia secondary to postoperative blood loss: -Monitor -No indication for transfusion COPD, not in exacerbation: -Continue when necessary nebs Hypertension: -Ct Norvasc CAD: -Ct ASA DVT prophylaxis: -Rivaroxaban Plan/VTE VTE Prophylaxis Ordered?: Yes VS, I&O, 24H, Fishbone Vital Signs/I&O Vital Signs Date Time Temp Pulse Resp B/P (MAP) Pulse Ox O2 Delivery O2 Flow Rate FiO2 10/14/18 14:00 97.7 86 20 130/63 (85) 95 1.0 I&O- Last 24 Hours up to 6 AM 10/14/18 06:00 Intake Total 940 ml Output Total 200 ml Balance 740 ml Laboratory Data 24H LABS Laboratory Tests 2 10/14/18 10:48: Immature Granulocyte % (Auto) 0.7, White Blood Count 12.1H, Red Blood Count 2.76L, Hemoglobin 9.4L, Hematocrit 27.7L, Mean Corpuscular Volume 100.4H, Mean C orpuscular Hemoglobin 34.1H, Mean Corpuscular Hemoglobin Concent 33.9, Red Cell Distribution Width 12.2, Platelet Count 232, Neutrophils (%) (Auto) 86.0H, Lymphocytes (%) (Auto) 4.5L, Monocytes (%) (Auto) 7.7H, Eosinophils (%) (Auto) 0.8, Basophils (%) (Auto) 0.3, Neutrophils # (Auto) 10.4H, Lymphocytes # (Auto) 0.5L, Monocytes # (Auto) 0.9H, Eosinophils # (Auto) 0.1, Basophils # (Auto) 0.0, Nucleated Red Blood Cells % (auto) 0.0, Anion Gap 8, Glomerular Filtration Rate > 60.0, Blood Urea Nitrogen 28H, Creatinine 0.97, Sodium Level 137, Potassium Level 4.7, Chloride Level 106, Carbon Dioxide Level 23, Calcium Level 7.3L CBC/BMP Laboratory Tests 10/14/18 10:48 Red Blood Count 2.76 L, Mean Corpuscular Volume 100.4 H, Mean Corpuscular Hemoglobin 34.1 H, Mean Corpuscular Hemoglobin Concent 33.9, Red Cell Distribution Width 12.2, Neutrophils (%) (Auto) 86.0 H, Lymphocytes (%) (Auto) 4.5 L, Monocytes (%) (Auto) 7.7 H, Eosinophils (%) (Auto) 0.8, Basophils (%) (Auto) 0.3, Neutrophils # (Auto) 10.4 H, Lymphocytes # (Auto) 0.5 L, Monocytes # (Auto) 0.9 H, Eosinophils # (Auto) 0.1, Basophils # (Auto) 0.0, Calcium Level 7.3 L Microbiology Microbiology 10/13/18 Stool Occult Blood ([facility]) - Final, Complete 10/10/18 Urine Culture - Final, Complete PABLO HART MD Oct 14, 2018 18:55
[2018-10-14 20:00] VITALS: BP 136/61
[2018-10-14] MEDS: SENNA 8.6 MG TAB (SENOKOT) PO SCH (20:13)
[2018-10-15 06:00] VITALS: BP 138/65
[2018-10-15] MEDS: oxyCODONE 5MG TAB PO PRN (07:53)
[2018-10-15] MEDS: FUROSEMIDE 20 MG TAB PO SCH (08:53)
[2018-10-15] MEDS: guaiFENesin 200 MG TAB PO SCH ×3 (08:53→20:14)
[2018-10-15] MEDS: oxyCODONE 10 MG CR TAB PO SCH ×2 (08:53→20:14)
[2018-10-15] MEDS: MULTIVITAMINS/MINERALS THERAP 1 TAB PO SCH (08:53)
[2018-10-15] MEDS: ALLOPURINOL 100 MG TAB PO SCH (08:53)
[2018-10-15] MEDS: VITAMIN D 1,000 INTERNATIONAL UNITS TABLET PO SCH (08:53)
[2018-10-15] MEDS: ASPIRIN 81 MG CHEW TABLET PO SCH (08:53)
[2018-10-15] MEDS: DOCUSATE SODIUM 100 MG CAP PO SCH ×2 (08:53→20:15)
[2018-10-15] MEDS: ACETAMINOPHEN 500 MG TAB PO SCH ×3 (08:54→20:14)
[2018-10-15] MEDS: OMEPRAZOLE 20 MG CAP PO SCH (08:54)
[2018-10-15] MEDS: amLODIPine 10 MG TAB PO SCH (08:57)
[2018-10-15] MEDS: ALBUTEROL SULFATE 2.5 MG/0.5 ML INH NEB SOLN NEB SCH ×4 (09:36→23:31)
--- NOTE | 2018-10-15 12:46 | IPNPDOC ---
PM&R Progress Note DATE OF SERVICE: Oct 15, 2018 [employer] Progress Note Subjective: Patient found to have serous drainage from left hip incision. REVIEW OF SYSTEMS: The following is a completed review of systems and has been reviewed. Review of systems otherwise unremarkable. PAIN: Patient self reports no pain at rest EYES: Negative for recent vision changes EARS, NOSE, & THROAT: denied dysphagia, rhinorrhea, or throat pain CARDIOVASCULAR: denies chest pin or palpitations PULMONARY: Negative. Denies shortness of breath, +cough GASTROINTESTINAL: Negative for diarrhea/constipation GENITOURINARY: Negative for dysuria MUSCULOSKELETAL: right ankle fracture and left hip fracture NEUROLOGICAL: no tremor or seizure activity HEMATOLOGICAL: Negative SKIN: left hip incision PSYCHIATRIC: Unremarkable All other review of systems found to be negative. PHYSICAL EXAMINATION: VITAL SIGNS: Please see below. GENERAL: Pleasant and cooperative. No acute distress. HEENT: PERRL. Extraocular movements intact. Clear conjunctiva CARDIOVASCULAR: Regular rate and rhythm. No murmurs, rubs, or gallops LUNGS: mostly clear to auscultation bilaterally. No wheezes. ABDOMEN: Soft, nontender, nondistended. Positive bowel sounds. NEUROLOGICAL: Alert and oriented times three. Cranial nerves II through XII grossly intact. Sensation grossly intact EXTREMITIES: 5\5 strength bilateral upper extremities. 5\5 strength right lower extremity. 5/5 strength in left ankle DH and EHL (limited due to surgery) negative Milli's bilat SKIN: left hip incision with serous drainage, +ecchymosis ASSESSMENT:83-year-old M with past medical history of HTN who presents status post fall with left hip fracture in setting of recent right ankle fracture and pneumonia. PLAN: 1. 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 Ortho: s/p left hip beto-arthroplasty WBAt with hip precautions, recent right ankle fracture c/u boot and PWB-ortho consulted 3. CArdio: pmh HTN c/u amlodipine, pmh AD with stent c/u ASA, c/u lasix-medicine consulted 4. resp: recent pneumonia in setting of COPD c/u Levaquin and breathing treat ments, encourage incentive spirometry, will add back home dose of lasix and c c/u Guaifenaisin 5. Rheum: pmh gout- c/u Allopurinol 6. GI ppx: omperazole, FOBT negative 7. DVT ppx: Xarelto 8. Pain: will taper long acting oxycontin from 10 to 5mg BID and oxycodone q4h prn, tylenol, will attempt to taper opiods prior to discharge 9. Heme: blood loss anemia, will transfuse if Hgb <8, FOT negative, will start iron 9. :admission UA and Ucx negative, monitor PVRs 10. Skin: will change dressing to silver optifoam 10. Dispo: TBD 11. DNR Allergies Coded Allergies: tamsulosin (Verified Allergy, Mild, Rash, 10/08/18) propoxyphene (Verified Allergy, Unknown, 10/08/18) Vital Signs Vital Signs Date Time Temp Pulse Resp B/P (MAP) Pulse Ox O2 Delivery O2 Flow Rate FiO2 10/15/18 09:00 1.0 10/15/18 08:57 85 142/65 10/15/18 08:53 18 10/15/18 06:00 98.0 94 Microbiology Microbiology 10/13/18 Stool Occult Blood ([facility]) - Final, Complete 10/10/18 Urine Culture - Final, Complete Current Medications Current Medications Current Medications Acetaminophen (Tylenol Tab) 650 mg DAILYPRN PRN PO fever/MILD PAIN (PS 1-4); Start 10/10/18 at 17:45 Acetaminophen (Tylenol Tab) 1,000 mg TID PO Last administered on 10/15/18 08:54; Start 10/10/18 at 21:00 Albuterol Sulfate (Proventil Neb) 2.5 mg Q4HP PRN NEB SOB/WHEEZING; Start 10/10/18 at 17:45 Albuterol Sulfate (Proventil Neb) 2.5 mg RQ8H NEB Last administered on 10/14/18 15:36; Start 10/11/18 at 00:00 Allopurinol (Zyloprim) 100 mg DAILY PO Last administered on 10/15/18 08:53; Start 10/11/18 at 09:00 Amlodipine Besylate (Norvasc) 10 mg DAILY PO Last administered on 10/15/18 08:57; Start 10/11/18 at 09:00 Aspirin (Aspirin Chewable) 81 mg DAILY PO Last administered on 10/15/18 08:53; Start 10/11/18 at 09:00 Bisacodyl (Dulcolax Suppository) 10 mg DAILYPRN PRN [place] CONSTIPATION; Start 10/10/18 at 17:45 Docusate Sodium (Colace) 100 mg BID PO Last administered on 10/15/18 08:53; Start 10/10/18 at 21:00 Furosemide (Lasix) 20 mg DAILY PO Last administered on 10/15/18 08:53; Start 10/13/18 at 09:00 Guaifenesin (Robitussin Tab) 400 mg TID PO Last administered on 10/15/18 08:53; Start 10/13/18 at 16:00 Levofloxacin (Levaquin) 500 mg Q48H PO Last administered on 10/14/18 05:10; Start 10/12/18 at 06:00; Stop 10/19/18 at 05:59 Magnesium Hydroxide (Milk Of Magnesia) 30 ml DAILYPRN PRN PO CONSTIPATION Last administered on 10/12/18 06:08; Start 10/10/18 at 17:45 Multivitamins (Theragram-M) 1 tab DAILY PO Last administered on 10/15/18 08:53; Start 10/11/18 at 09:00 Omeprazole (PriLOSEC) 20 mg DAILY PO Last administered on 10/15/18 08:54; Start 10/11/18 at 09:00 Ondansetron HCl (Zofran) 4 mg Q6HP PRN PO NAUSEA; Start 10/10/18 at 17:45 Oxycodone HCl (OxyCONTIN) 10 mg BID PO Last administered on 10/15/18 08:53; Start 10/10/18 at 21:00 Oxycodone HCl (Roxicodone, Oxyir) 5 mg Q4HP PRN PO PAIN Last administered on 10/15/18 07:53; Start 10/10/18 at 17:45 Rivaroxaban (Xarelto) 10 mg DAILY@18 PO Last administered on 10/14/18 18:07; Start 10/10/18 at 18:00 Senna (Senokot) 1 tab QHS PO Last administered on 10/14/18 20:13; Start 10/10/18 at 21:00 Vitamin D (Vitamin D) 1,000 units DAILY PO Last administered on 10/15/18at 08:53; Start 10/11/18 at 09:00 ELVA MCKENNA MD Oct 15, 2018 12:46
[2018-10-15] MEDS: FERROUS SULFATE 325MG TAB PO SCH ×2 (13:04→20:14)
[2018-10-15 14:00] VITALS: BP 140/63
[2018-10-15] MEDS: BOUDREAUX'S BUTT PASTE 4OZ TOP SCH ×2 (16:06→20:15)
[2018-10-15] MEDS: RIVAROXABAN 10 MG TAB (XARELTO) PO SCH (17:18)
--- NOTE | 2018-10-15 18:51 | IPNPDOC ---
Subjective Date Seen The patient was seen on 10/15/18. Subjective Chief Complaint/HPI Left hip and right ankle fracture Events since last encounter The patient reports his appetite is bettertolerating oral intake well. No nausea or vomiting. Denies any chest pain or shortness of breath. No abdominal pain. Denies any problems with his bladder/bowel habits. Objective Physical Examination General Exam: Positive: Alert, No Acute Distress, Other (lying in bed) Chest Exam: Positive: Clear to auscultation; Negative: Rales, Rhonchi, Wheezing Heart Exam: Positive: Other (S1, S2 heard, no rubs or gallops.) Abdomen Exam: Positive: Soft, Other (nontender) Neuro Exam: Positive: Other (Awake, alert, oriented. Answering questions appropriately) Assessment /Plan Assessment Left hip and right ankle fracture status post hip replacement on 10/09/18: -Continue PT/OT -When necessary pain meds Acute respiratory distress in setting of COPD and possible pneumonia: -Continue levofloxacin - to end 10/19/18 -Encouraged incentive spirometry -Currently on 1 L/min by [place] Acute blood loss anemia secondary to postoperative blood loss: -Monitor -No indication for transfusion - hemoglobin 9.4 today COPD, not in exacerbation: -Continue when necessary nebs Hypertension: -Ct Norvasc CAD: -Ct ASA DVT prophylaxis: -Rivaroxaban Plan/VTE VTE Prophylaxis Ordered?: Yes VS, I&O, 24H, Fishbone Vital Signs/I&O Vital Signs Date Time Temp Pulse Resp B/P (MAP) Pulse Ox O2 Delivery O2 Flow Rate FiO2 10/15/18 14:00 97.5 75 18 140/63 (88) 95 1.0 I&O- Last 24 Hours up to 6 AM 10/15/18 06:00 Intake Total 1080 ml Output Total 875 ml Balance 205 ml Laboratory Data Microbiology Microbiology 10/13/18 Stool Occult Blood ([facility]) - Final, Complete 10/10/18 Urine Culture - Final, Complete PABLO HART MD Oct 15, 2018 18:51
[2018-10-15 20:00] VITALS: BP 147/66
[2018-10-15] MEDS: SENNA 8.6 MG TAB (SENOKOT) PO SCH (20:14)
[2018-10-16 06:00] VITALS: BP 151/68
[2018-10-16] MEDS: LevoFLOXacin 500 MG TABLET PO SCH (06:03)
[2018-10-16] MEDS: oxyCODONE 5MG TAB PO PRN ×2 (06:03→20:37)
[2018-10-16 07:32] LABS: BASO # 0.1 10^3/uL (0.0-0.2); BASO % 0.6 % (0.0-1.0); EOS # 0.6 10^3/uL (0.0-0.50); EOS % 8.1 % (0.0-3.0); HEMATOCRIT 29.4 % (42.0-52.0); HEMOGLOBIN 9.7 g/dl (13.5-17.5); LYMPH # 0.8 10^3/uL (1.5-4.5); LYMPH % 10.1 % (24.0-44.0); MEAN CORPUSCULAR HEMOGLOBIN 33.6 pg (27.0-33.0); MEAN CORPUSCULAR VOLUME 101.7 fl (80.0-96.0); MONO # 0.7 10^3/uL (0.0-0.8); MONO % 8.8 % (0.0-5.0); NEUTROPHILS # 5.7 10^3/uL (1.8-7.7); NEUTROPHILS % 71.5 % (36.0-66.0); PLATELET COUNT, AUTOMATED 313 10^3/uL (150-450); RED BLOOD COUNT 2.89 10^6/uL (4.30-6.10); WHITE BLOOD COUNT 7.9 10^3/uL (4.0-10.0)
[2018-10-16 07:54] LABS: BLOOD UREA NITROGEN 20 MG/DL (7-18); CALCIUM LEVEL 8.1 MG/DL (8.8-10.2); CARBON DIOXIDE LEVEL 25 MEQ/L (21-32); CHLORIDE LEVEL 105 MEQ/L (98-107); CREATININE FOR GFR 0.88 MG/DL (0.70-1.30); GLOMERULAR FILTRATION RATE > 60.0 (>35); GLUCOSE, FASTING 89 MG/DL (70-100); MAGNESIUM LEVEL 2.3 MG/DL (1.8-2.4); PHOSPHORUS LEVEL 3.1 MG/DL (2.5-4.9); SODIUM LEVEL 137 MEQ/L (136-145)
[2018-10-16] MEDS: ALBUTEROL SULFATE 2.5 MG/0.5 ML INH NEB SOLN NEB SCH ×2 (08:00→15:58)
[2018-10-16] MEDS: BOUDREAUX'S BUTT PASTE 4OZ TOP SCH ×3 (09:00→20:38)
[2018-10-16] MEDS: VITAMIN D 1,000 INTERNATIONAL UNITS TABLET PO SCH (09:01)
[2018-10-16] MEDS: ASPIRIN 81 MG CHEW TABLET PO SCH (09:01)
[2018-10-16] MEDS: OMEPRAZOLE 20 MG CAP PO SCH ×2 (09:01→20:38)
[2018-10-16] MEDS: DOCUSATE SODIUM 100 MG CAP PO SCH ×2 (09:01→20:37)
[2018-10-16] MEDS: FERROUS SULFATE 325MG TAB PO SCH ×2 (09:01→20:38)
[2018-10-16] MEDS: amLODIPine 10 MG TAB PO SCH (09:02)
[2018-10-16] MEDS: ALLOPURINOL 100 MG TAB PO SCH (09:02)
[2018-10-16] MEDS: FUROSEMIDE 20 MG TAB PO SCH (09:02)
[2018-10-16] MEDS: guaiFENesin 200 MG TAB PO SCH ×3 (09:02→20:37)
[2018-10-16] MEDS: MULTIVITAMINS/MINERALS THERAP 1 TAB PO SCH (09:02)
[2018-10-16] MEDS: oxyCODONE 10 MG CR TAB PO SCH (09:03)
[2018-10-16] MEDS: ACETAMINOPHEN 500 MG TAB PO SCH ×3 (09:03→20:38)
--- NOTE | 2018-10-16 12:48 | IPNPDOC ---
PM&R Progress Note DATE OF SERVICE: Oct 16, 2018 [employer] Progress Note Subjective: Patient complaining of left ankle swelling, no pain, or recent injury. He is irritated that he still has a cough and would like to try a steroid taper. REVIEW OF SYSTEMS: The following is a completed review of systems and has been reviewed. Review of systems otherwise unremarkable. PAIN: Patient self reports no pain at rest EYES: Negative for recent vision changes EARS, NOSE, & THROAT: denied dysphagia, rhinorrhea, or throat pain CARDIOVASCULAR: denies chest pin or palpitations PULMONARY: Negative. Denies shortness of breath, +cough GASTROINTESTINAL: Negative for diarrhea/constipation GENITOURINARY: Negative for dysuria MUSCULOSKELETAL: right ankle fracture and left hip fracture NEUROLOGICAL: no tremor or seizure activity HEMATOLOGICAL: Negative SKIN: left hip incision PSYCHIATRIC: Unremarkable All other review of systems found to be negative. PHYSICAL EXAMINATION: VITAL SIGNS: Please see below. GENERAL: Pleasant and cooperative. No acute distress. HEENT: PERRL. Extraocular movements intact. Clear conjunctiva CARDIOVASCULAR: Regular rate and rhythm. No murmurs, rubs, or gallops LUNGS: clear to auscultation bilaterally. No wheezes/rhonchi ABDOMEN: Soft, nontender, nondistended. Positive bowel sounds. NEUROLOGICAL: Alert and oriented times three. Cranial nerves II through XII grossly intact. Sensation grossly intact EXTREMITIES: 5\5 strength bilateral upper extremities. 5\5 strength right lower extremity. 5/5 strength in left ankle DH and EHL (limited due to surgery) negative Milli's bilat SKIN: left hip incision with serous drainage, +ecchymosis, left annkle swelling (appears dependent) ASSESSMENT:83-year-old M with past medical history of HTN who presents status post fall with left hip fracture in setting of recent right ankle fracture and pneumonia. PLAN: 1. 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 Ortho: s/p left hip beto-arthroplasty WBAt with hip precautions, recent right ankle fracture c/u boot and PWB-ortho consulted 3. CArdio: pmh HTN c/u amlodipine, pmh AD with stent c/u ASA, c/u lasix-medicine consulted 4. resp: recent pneumonia in setting of COPD c/u Levaquin and breathing treatments, encourage incentive spirometry, c/u home dose of lasix and c c/u Guaifenaisin -will start Medrol dose pack 5. Rheum: pmh gout- c/u Allopurinol 6. GI ppx: omperazole, FOBT negative 7. DVT ppx: Xarelto 8. Pain: c/u long acting oxycontin 5mg BID and oxycodone q4h prn, tylenol, will c/u to taper opioids prior to discharge 9. Heme: blood loss anemia, will transfuse if Hgb <8, FOT negative, c/u iron 9. :admission UA and Ucx negative, monitor PVRs 10. Skin: will change dressing to optilock for better absorption, acewrap to left ankle and elevate when in bed 10. Dispo: 10/31/18 to home 11. DNR Allergies Coded Allergies: tamsulosin (Verified Allergy, Mild, Rash, 10/08/18) propoxyphene (Verified Allergy, Unknown, 10/08/18) Vital Signs Vital Signs Date Time Temp Pulse Resp B/P (MAP) Pulse Ox O2 Delivery O2 Flow Rate FiO2 10/16/18 09:03 16 10/16/18 09:02 73 151/68 10/16/18 09:00 1.0 10/16/18 06:00 98.5 93 Laboratory Data CBC/BMP Laboratory Tests 10/16/18 07:02 Red Blood Count 2.89 L, Mean Corpuscular Volume 101.7 H, Mean Corpuscular Hemoglobin 33.6 H, Mean Corpuscular Hemoglobin Concent 33.0, Red Cell Distribution Width 12.1, Neutrophils (%) (Auto) 71.5 H, Lymphocytes (%) (Auto) 10.1 L, Monocytes (%) (Auto) 8.8 H, Eosinophils (%) (Auto) 8.1 H, Basophils (%) (Auto) 0.6, Neutrophils # (Auto) 5.7, Lymphocytes # (Auto) 0.8 L, Monocytes # (Auto) 0.7, Eosinophils # (Auto) 0.6 H, Basophils # (Auto) 0.1, Calcium Level 8.1 L Labs 24H Laboratory Tests 2 10/16/18 07:02: Immature Granulocyte % (Auto) 0.9, White Blood Count 7.9, Red Blood Count 2.89L, Hemoglobin 9.7L, Hematocrit 29.4L, Mean Corpuscular Volume 101.7H, Mean Corpuscular Hemoglobin 33.6H, Mean Corpuscular Hemoglobin Concent 33.0, Red Cell Distribution Width 12.1, Platelet Count 313, Neutrophils (%) (Auto) 71.5H, Lymphocytes (%) (Auto) 10.1L, Monocytes (%) (Auto) 8.8H, Eosinophils (%) (Auto) 8.1H, Basophils (%) (Auto) 0.6, Neutrophils # (Auto) 5.7, Lymphocytes # (Auto) 0.8L, Monocytes # (Auto) 0.7, Eosinophils # (Auto) 0.6H, Basophils # (Auto) 0.1, Nucleated Red Blood Cells % (auto) 0.0, Anion Gap 7L, Glomerular Filtration Rate > 60.0, Blood Urea Nitrogen 20H, Creatinine 0.88, Sodium Level 137, Potassium Level 4.0, Chloride Level 105, Carbon Dioxide Level 25, Calcium Level 8.1L, Phosphorus Level 3.1, Magnesium Level 2.3 Microbiology Microbiology 10/13/18 Stool Occult Blood ([facility]) - Final, Complete 10/10/18 Urine Culture - Final, Complete Current Medications Current Medications Current Medications Acetaminophen (Tylenol Tab) 650 mg DAILYPRN PRN PO fever/MILD PAIN (PS 1-4); Start 10/10/18 at 17:45 Acetaminophen (Tylenol Tab) 1,000 mg TID PO Last administered on 10/16/18 09:03; Start 10/10/18 at 21:00 Albuterol Sulfate (Proventil Neb) 2.5 mg Q4HP PRN NEB SOB/WHEEZING; Start 10/10/18 at 17:45 Albuterol Sulfate (Proventil Neb) 2.5 mg RQ8H NEB Last administered on 10/15/18 15:13; Start 10/11/18 at 00:00 Allopurinol (Zyloprim) 100 mg DAILY PO Last administered on 10/16/18 09:02; Start 10/11/18 at 09:00 Amlodipine Besylate (Norvasc) 10 mg DAILY PO Last administered on 10/16/18 09:02; Start 10/11/18 at 09:00 Aspirin (Aspirin Chewable) 81 mg DAILY PO Last administered on 10/16/18 09:01; Start 10/11/18 at 09:00 Bisacodyl (Dulcolax Suppository) 10 mg DAILYPRN PRN [place] CONSTIPATION; Start 10/10/18 at 17:45 Docusate Sodium (Colace) 100 mg BID PO Last administered on 10/16/18 09:01; Start 10/10/18 at 21:00 Ferrous Sulfate (Ferrous Sulfate) 325 mg BID PO Last administered on 10/16/18 09:01; Start 10/15/18 at 09:00 Furosemide (Lasix) 20 mg DAILY PO Last administered on 10/16/18 09:02; Start 10/13/18 at 09:00 Guaifenesin (Robitussin Tab) 400 mg TID PO Last administered on 10/16/18 09:02; Start 10/13/18 at 16:00 Levofloxacin (Levaquin) 500 mg Q48H PO Last administered on 10/16/18 06:03; Start 10/12/18 at 06:00; Stop 10/19/18 at 05:59 Magnesium Hydroxide (Milk Of Magnesia) 30 ml DAILYPRN PRN PO CONSTIPATION Last administered on 10/12/18 06:08; Start 10/10/18 at 17:45 Multivitamins (Theragram-M) 1 tab DAILY PO Last administered on 10/16/18 09:02; Start 10/11/18 at 09:00 Omeprazole (PriLOSEC) 20 mg DAILY PO Last administered on 10/16/18 09:01; Start 10/11/18 at 09:00 Ondansetron HCl (Zofran) 4 mg Q6HP PRN PO NAUSEA; Start 10/10/18 at 17:45 Oxycodone HCl (OxyCONTIN) 10 mg BID PO Last administered on 10/16/18 09:03; Start 10/10/18 at 21:00 Oxycodone HCl (Roxicodone, Oxyir) 5 mg Q4HP PRN PO PAIN Last administered on 10/16/18 06:03; Start 10/10/18 at 17:45 Rivaroxaban (Xarelto) 10 mg DAILY@18 PO Last administered on 10/15/18 17:18; Start 10/10/18 at 18:00 Senna (Senokot) 1 tab QHS PO Last administered on 10/15/18at 20:14; Start 09/13 04/02 at 21:00 Vitamin D (Vitamin D) 1,000 units DAILY PO Last administered on 10/16/18 09:01; Start 10/11/18 at 09:00 Zinc Oxide (Boudreauxs Butt Paste) 1 oz TID TOP Last administered on 10/16/18 09:00; Start 10/15/18 at 16:00 ELVA MCKENNA MD Oct 16, 2018 12:48
[2018-10-16 14:00] VITALS: BP 159/70
[2018-10-16] MEDS: methylPREDNISolone 4 MG TAB PO SCH ×2 (15:20→20:38)
[2018-10-16] MEDS: RIVAROXABAN 10 MG TAB (XARELTO) PO SCH (17:17)
[2018-10-16 20:00] VITALS: BP 134/64
--- NOTE | 2018-10-16 20:26 | IPNPDOC ---
Subjective Date Seen The patient was seen on 10/16/18. Subjective Chief Complaint/HPI Left hip and right ankle fracture Events since last encounter Reports the left hip is bothering him a little bit today. Reports some slight cough. No associated chest pain/fevers/chills or sweats. No nausea or vomiting. Tolerating oral intake. No problems of bladder/bowel habits Objective Physical Examination General Exam: Positive: Alert, No Acute Distress, Other (sitting up in chair) Chest Exam: Positive: Clear to auscultation; Negative: Rales, Rhonchi, Wheezing Heart Exam: Positive: Other (S1, S2 heard, no rubs or gallops.) Abdomen Exam: Positive: Soft, Other (nontender) Neuro Exam: Positive: Other (Awake, alert, oriented. Answering questions appropriately) Assessment /Plan Assessment Left hip and right ankle fracture status post hip replacement on 10/09/18: -Continue PT/OT -Oxycontin + prn oxycodone Acute respiratory distress in setting of COPD and possible pneumonia: -Continue levofloxacin - to end 10/19/18 -Clinically, pneumonia has improvedlungs sound clear. -Encouraged incentive spirometry -Currently on 1 L/min by [place] Acute blood loss anemia secondary to postoperative blood loss: -Monitor -No indication for transfusion - hemoglobin 9.7 today COPD, not in exacerbation: -Continue when necessary nebs Hypertension: -Ct Norvasc CAD: -Ct ASA DVT prophylaxis: -Rivaroxaban Plan/VTE VTE Prophylaxis Ordered?: Yes VS, I&O, 24H, Fishbone Vital Signs/I&O Vital Signs Date Time Temp Pulse Resp B/P (MAP) Pulse Ox O2 Delivery O2 Flow Rate FiO2 10/16/18 14:00 98.5 74 18 159/70 (99) 96 1.0 I&O- Last 24 Hours up to 6 AM 10/16/18 06:00 Intake Total 1440 ml Output Total 850 ml Balance 590 ml Laboratory Data 24H LABS Laboratory Tests 2 10/16/18 07:02: Immature Granulocyte % (Auto) 0.9, White Blood Count 7.9, Red Blood Count 2.89L, Hemoglobin 9.7L, Hematocrit 29.4L, Mean Corpuscular Volume 101.7H, Mean Corpuscular Hemoglobin 33.6H, Mean Corpuscular Hemoglobin Concent 33.0, Red Cell Distribution Width 12.1, Platelet Count 313, Neutrophils (%) (Auto) 71.5H, Lymphocytes (%) (Auto) 10.1L, Monocytes (%) (Auto) 8.8H, Eosinophils (%) (Auto) 8.1H, Basophils (%) (Auto) 0.6, Neutrophils # (Auto) 5.7, Lymphocytes # (Auto) 0.8L, Monocytes # (Auto) 0.7, Eosinophils # (Auto) 0.6H, Basophils # (Auto) 0.1, Nucleated Red Blood Cells % (auto) 0.0, Anion Gap 7L, Glomerular Filtration Rate > 60.0, Blood Urea Nitrogen 20H, Creatinine 0.88, Sodium Level 137, Potassium Level 4.0, Chloride Level 105, Carbon Dioxide Level 25, Calcium Level 8.1L, Phosphorus Level 3.1, Magnesium Level 2.3 CBC/BMP Laboratory Tests 10/16/18 07:02 Red Blood Count 2.89 L, Mean Corpuscular Volume 101.7 H, Mean Corpuscular Hemoglobin 33.6 H, Mean Corpuscular Hemoglobin Concent 33.0, Red Cell Distribution Width 12.1, Neutrophils (%) (Auto) 71.5 H, Lymphocytes (%) (Auto) 10.1 L, Monocytes (%) (Auto) 8.8 H, Eosinophils (%) (Auto) 8.1 H, Basophils (%) (Auto) 0.6, Neutrophils # (Auto) 5.7, Lymphocytes # (Auto) 0.8 L, Monocytes # (Auto) 0.7, Eosinophils # (Auto) 0.6 H, Basophils # (Auto) 0.1, Calcium Level 8.1 L Microbiology Microbiology 10/13/18 Stool Occult Blood ([facility]) - Final, Complete 10/10/18 Urine Culture - Final, Complete PABLO HART MD Oct 16, 2018 20:26
[2018-10-16] MEDS: SENNA 8.6 MG TAB (SENOKOT) PO SCH (20:37)
[2018-10-17] MEDS: oxyCODONE 5MG TAB PO PRN ×2 (05:42→13:46)
[2018-10-17 06:08] VITALS: BP 161/75
[2018-10-17 06:54] LABS: BASO % 0.1 % (0.0-1.0); HEMATOCRIT 28.6 % (42.0-52.0); HEMOGLOBIN 9.6 g/dl (13.5-17.5); LYMPH # 0.7 10^3/uL (1.5-4.5); LYMPH % 9.6 % (24.0-44.0); MEAN CORPUSCULAR HEMOGLOBIN 33.8 pg (27.0-33.0); MEAN CORPUSCULAR HGB CONC 33.6 g/dl (32.0-36.5); MEAN CORPUSCULAR VOLUME 100.7 fl (80.0-96.0); MONO # 0.5 10^3/uL (0.0-0.8); MONO % 6.4 % (0.0-5.0); NEUTROPHILS # 5.9 10^3/uL (1.8-7.7); NEUTROPHILS % 82.6 % (36.0-66.0); PLATELET COUNT, AUTOMATED 322 10^3/uL (150-450); RED BLOOD COUNT 2.84 10^6/uL (4.30-6.10); WHITE BLOOD COUNT 7.2 10^3/uL (4.0-10.0)
[2018-10-17 07:27] LABS: BLOOD UREA NITROGEN 19 MG/DL (7-18); CALCIUM LEVEL 8.3 MG/DL (8.8-10.2); CARBON DIOXIDE LEVEL 24 MEQ/L (21-32); CHLORIDE LEVEL 106 MEQ/L (98-107); CREATININE FOR GFR 0.83 MG/DL (0.70-1.30); GLOMERULAR FILTRATION RATE > 60.0 (>35); GLUCOSE, FASTING 113 MG/DL (70-100); POTASSIUM SERUM 4.5 MEQ/L (3.5-5.1); SODIUM LEVEL 136 MEQ/L (136-145)
[2018-10-17] MEDS: ALBUTEROL SULFATE 2.5 MG/0.5 ML INH NEB SOLN NEB SCH ×3 (08:49→23:11)
[2018-10-17] MEDS: BOUDREAUX'S BUTT PASTE 4OZ TOP SCH ×3 (09:00→20:04)
[2018-10-17] MEDS: methylPREDNISolone 4 MG TAB PO SCH ×2 (09:06→20:01)
[2018-10-17] MEDS: MULTIVITAMINS/MINERALS THERAP 1 TAB PO SCH (09:06)
[2018-10-17] MEDS: guaiFENesin 200 MG TAB PO SCH ×3 (09:06→20:01)
[2018-10-17] MEDS: ACETAMINOPHEN 500 MG TAB PO SCH ×3 (09:06→20:02)
[2018-10-17] MEDS: OMEPRAZOLE 20 MG CAP PO SCH ×2 (09:06→20:02)
[2018-10-17] MEDS: DOCUSATE SODIUM 100 MG CAP PO SCH ×2 (09:06→20:01)
[2018-10-17] MEDS: VITAMIN D 1,000 INTERNATIONAL UNITS TABLET PO SCH (09:07)
[2018-10-17] MEDS: FUROSEMIDE 20 MG TAB PO SCH (09:07)
[2018-10-17] MEDS: FERROUS SULFATE 325MG TAB PO SCH ×2 (09:07→20:02)
[2018-10-17] MEDS: ALLOPURINOL 100 MG TAB PO SCH (09:07)
[2018-10-17] MEDS: ASPIRIN 81 MG CHEW TABLET PO SCH (09:07)
[2018-10-17] MEDS: amLODIPine 10 MG TAB PO SCH (09:07)
[2018-10-17 14:00] VITALS: BP 145/67
--- NOTE | 2018-10-17 15:22 | IPNPDOC ---
Subjective Date Seen The patient was seen on 10/17/18. Subjective Chief Complaint/HPI Left hip fracture and right ankle fracture Events since last encounter Reports the pain in his left hip is better today. Not much pain in his right ankle. Denies any problems with chest pain or shortness of breath. Slight cough. No associated fevers/chills/sweats. No nausea or vomiting. Tolerating oral intake. Bowel movements okay and urinating. Objective Physical Examination General Exam: Positive: Alert, No Acute Distress, Other Chest Exam: Positive: Clear to auscultation Heart Exam: Positive: Other (S1, S2 heard, no rubs or gallops.) Abdomen Exam: Positive: Soft, Other (nontender) Neuro Exam: Positive: Other (awake, alert, answering questions appropriately) Assessment /Plan Assessment Left hip and right ankle fracture status post hip replacement on 10/09/18: -Continue PT/OT -Ct Oxycontin + prn oxycodone Acute respiratory distress in setting of COPD and possible pneumonia: -Continue levofloxacin - to end 10/19/18 -Encouraged incentive spirometry -On room air today Acute blood loss anemia secondary to postoperative blood loss: -Monitor -No indication for transfusion - hemoglobin 9.6 today COPD, not in exacerbation: -Continue when necessary nebs Hypertension: -Ct Norvasc CAD: -Ct ASA DVT prophylaxis: -Rivaroxaban Plan/VTE VTE Prophylaxis Ordered?: Yes VS, I&O, 24H, Fishbone Vital Signs/I&O Vital Signs Date Time Temp Pulse Resp B/P (MAP) Pulse Ox O2 Delivery O2 Flow Rate FiO2 10/17/18 14:16 20 10/17/18 14:00 98.2 73 145/67 (93) 86 10/17/18 09:00 1.0 I&O- Last 24 Hours up to 6 AM 10/17/18 06:00 Intake Total 1720 ml Output Total 700 ml Balance 1020 ml Laboratory Data 24H LABS Laboratory Tests 2 10/17/18 06:45: Immature Granulocyte % (Auto) 1.3, White Blood Count 7.2, Red Blood Count 2.84L, Hemoglobin 9.6L, Hematocrit 28.6L, Mean Corpuscular Volume 100.7H, Mean Corpuscular Hemoglobin 33.8H, Mean Corpuscular Hemoglobin Concent 33.6, Red Cell Distribution Width 12.1, Platelet Count 322, Neutrophils (%) (Auto) 82.6H, Lymp hocytes (%) (Auto) 9.6L, Monocytes (%) (Auto) 6.4H, Eosinophils (%) (Auto) 0.0, Basophils (%) (Auto) 0.1, Neutrophils # (Auto) 5.9, Lymphocytes # (Auto) 0.7L, Monocytes # (Auto) 0.5, Eosinophils # (Auto) 0.0, Basophils # (Auto) 0.0, Nucleated Red Blood Cells % (auto) 0.0, Anion Gap 6L, Glomerular Filtration Rate > 60.0, Blood Urea Nitrogen 19H, Creatinine 0.83, Sodium Level 136, Potassium Level 4.5, Chloride Level 106, Carbon Dioxide Level 24, Calcium Level 8.3L CBC/BMP Laboratory Tests 10/17/18 06:45 Red Blood Count 2.84 L, Mean Corpuscular Volume 100.7 H, Mean Corpuscular Hemoglobin 33.8 H, Mean Corpuscular Hemoglobin Concent 33.6, Red Cell Distribution Width 12.1, Neutrophils (%) (Auto) 82.6 H, Lymphocytes (%) (Auto) 9.6 L, Monocytes (%) (Auto) 6.4 H, Eosinophils (%) (Auto) 0.0, Basophils (%) (Auto) 0.1, Neutrophils # (Auto) 5.9, Lymphocytes # (Auto) 0.7 L, Monocytes # (Auto) 0.5, Eosinophils # (Auto) 0.0, Basophils # (Auto) 0.0, Calcium Level 8.3 L Microbiology Microbiology 10/13/18 Stool Occult Blood ([facility]) - Final, Complete 10/10/18 Urine Culture - Final, Complete PABLO HART MD Oct 17, 2018 15:22
[2018-10-17] MEDS: RIVAROXABAN 10 MG TAB (XARELTO) PO SCH (17:23)
[2018-10-17 20:00] VITALS: BP 132/63
[2018-10-17] MEDS: MOM 30ML SUSPENSION UDC PO PRN (20:01)
[2018-10-17] MEDS: SENNA 8.6 MG TAB (SENOKOT) PO SCH (20:01)
[2018-10-18] MEDS: LevoFLOXacin 500 MG TABLET PO SCH (05:37)
[2018-10-18 06:00] VITALS: BP 152/73
[2018-10-18] MEDS: ALBUTEROL SULFATE 2.5 MG/0.5 ML INH NEB SOLN NEB SCH ×2 (07:54→15:21)
[2018-10-18] MEDS: DOCUSATE SODIUM 100 MG CAP PO SCH ×2 (08:53→20:27)
[2018-10-18] MEDS: ALLOPURINOL 100 MG TAB PO SCH (08:53)
[2018-10-18] MEDS: ASPIRIN 81 MG CHEW TABLET PO SCH (08:53)
[2018-10-18] MEDS: VITAMIN D 1,000 INTERNATIONAL UNITS TABLET PO SCH (08:54)
[2018-10-18] MEDS: amLODIPine 10 MG TAB PO SCH (08:54)
[2018-10-18] MEDS: ACETAMINOPHEN 500 MG TAB PO SCH ×3 (08:54→20:28)
[2018-10-18] MEDS: OMEPRAZOLE 20 MG CAP PO SCH ×2 (08:54→20:27)
[2018-10-18] MEDS: FERROUS SULFATE 325MG TAB PO SCH ×2 (08:54→20:27)
[2018-10-18] MEDS: FUROSEMIDE 20 MG TAB PO SCH (08:54)
[2018-10-18] MEDS: MULTIVITAMINS/MINERALS THERAP 1 TAB PO SCH (08:54)
[2018-10-18] MEDS: methylPREDNISolone 4 MG TAB PO SCH ×2 (08:55→20:27)
[2018-10-18] MEDS: BOUDREAUX'S BUTT PASTE 4OZ TOP SCH ×3 (08:55→20:30)
[2018-10-18] MEDS: guaiFENesin 200 MG TAB PO SCH ×3 (08:55→20:27)
[2018-10-18] MEDS: oxyCODONE 5MG TAB PO PRN (12:33)
[2018-10-18 14:00] VITALS: BP 140/68
--- NOTE | 2018-10-18 16:57 | IPNPDOC ---
Subjective Date Seen The patient was seen on 10/18/18. Subjective Chief Complaint/HPI Patient seen and examined at the bedside. Denies any acute complaints at this time. Continues to progress with physical therapy. Objective Physical Examination General Exam: Positive: Alert, Cooperative, No Acute Distress ENT Exam: Positive: Atraumatic, Mucous membr. moist/pink Neck Exam: Negative: JVD Chest Exam: Positive: Diminished Heart Exam: Positive: Rate Normal, Normal S1, Normal S2 Abdomen Exam: Positive: Soft; Negative: Tenderness Extremity Exam: Positive: Other (Left Hip joint with some limited ROM 2/2 recent surgery. Extremity neurovascularly intact distally.); Negative: Swelling Neuro Exam: Positive: Other (awake, alert, answering questions appropriately) Psych Exam: Positive: Oriented x 3 Assessment /Plan Plan/VTE VTE Prophylaxis Ordered?: Yes Plan Left hip fracture 2/2 Mechanical Fall Status post hip replacement on 10/09/18 Continue PT/OT as per ARU Right ankle minimally displaced distal fibula fracture Cont conservative treatment as per Ortho Acute respiratory distress in setting of COPD and possible pneumonia: s/p completion of levofloxacin course Patient on a tapering dose of Medrol Cont Albuterol as ordered We will cont to monitor Acute blood loss anemia secondary to postoperative blood loss: No indication for transfusion - H&H remains stable Diastolic Congestive Heart Failure, compensated Grade 1 DD noted on ECHO from 10/08/2018 Cont Lasix Gout Continue Allopurinol HTN Continue Amlodipine CAD s/p stents: Continue ASA GERD Cont PPI DVT Prophylaxis On Xarelto as per Ortho VS, I&O, 24H, Fishbone Vital Signs/I&O Vital Signs Date Time Temp Pulse Resp B/P (MAP) Pulse Ox O2 Delivery O2 Flow Rate FiO2 10/18/18 14:00 98.0 73 18 140/68 (92) 92 10/18/18 09:00 1.0 I&O- Last 24 Hours up to 6 AM 10/18/18 06:00 Intake Total 1560 ml Output Total 2100 ml Balance -540 ml Laboratory Data Microbiology Microbiology 10/13/18 Stool Occult Blood ([facility]) - Final, Complete 10/10/18 Urine Culture - Final, Complete UCHE MARTIN MD Oct 18, 2018 16:57
[2018-10-18] MEDS: RIVAROXABAN 10 MG TAB (XARELTO) PO SCH (17:46)
[2018-10-18 20:00] VITALS: BP 158/67
[2018-10-18] MEDS: SENNA 8.6 MG TAB (SENOKOT) PO SCH (20:27)
[2018-10-19 06:00] VITALS: BP 167/78
[2018-10-19] MEDS: ALBUTEROL SULFATE 2.5 MG/0.5 ML INH NEB SOLN NEB SCH ×3 (07:50→23:46)
[2018-10-19] MEDS: ASPIRIN 81 MG CHEW TABLET PO SCH (08:36)
[2018-10-19] MEDS: oxyCODONE 5MG TAB PO PRN ×2 (08:36→20:21)
[2018-10-19] MEDS: FERROUS SULFATE 325MG TAB PO SCH ×2 (08:37→20:21)
[2018-10-19] MEDS: FUROSEMIDE 20 MG TAB PO SCH (08:37)
[2018-10-19] MEDS: OMEPRAZOLE 20 MG CAP PO SCH ×2 (08:37→20:22)
[2018-10-19] MEDS: methylPREDNISolone 4 MG TAB PO SCH (08:37)
[2018-10-19] MEDS: MULTIVITAMINS/MINERALS THERAP 1 TAB PO SCH (08:37)
[2018-10-19] MEDS: DOCUSATE SODIUM 100 MG CAP PO SCH ×2 (08:37→20:21)
[2018-10-19] MEDS: ACETAMINOPHEN 500 MG TAB PO SCH ×3 (08:37→20:22)
[2018-10-19] MEDS: VITAMIN D 1,000 INTERNATIONAL UNITS TABLET PO SCH (08:38)
[2018-10-19] MEDS: BOUDREAUX'S BUTT PASTE 4OZ TOP SCH ×3 (08:38→20:22)
[2018-10-19] MEDS: ALLOPURINOL 100 MG TAB PO SCH (08:38)
[2018-10-19] MEDS: amLODIPine 10 MG TAB PO SCH (08:38)
[2018-10-19] MEDS: guaiFENesin 200 MG TAB PO SCH ×3 (08:38→20:21)
[2018-10-19 14:00] VITALS: BP 156/72
--- NOTE | 2018-10-19 16:53 | IPNPDOC ---
Subjective Date Seen The patient was seen on 10/19/18. Subjective Chief Complaint/HPI Patient seen and examined at the bedside. States that he has not had a bowel movement in several days. He denies any nausea/vomiting or any complaints of abdominal pain. Reports that he is passing flatus. He endorses that he has a bowel movement every 2-3 days at baseline. His bowel care regimen has been optimized. Objective Physical Examination General Exam: Positive: Alert, Cooperative, No Acute Distress ENT Exam: Positive: Atraumatic, Mucous membr. moist/pink Neck Exam: Negative: JVD Chest Exam: Positive: Diminished Heart Exam: Positive: Rate Normal, Normal S1, Normal S2 Abdomen Exam: Positive: Soft; Negative: Tenderness Extremity Exam: Positive: Other (Left Hip joint with some limited ROM 2/2 recent surgery. Extremity neurovascularly intact distally.); Negative: Swelling Neuro Exam: Positive: Other (awake, alert, answering questions appropriately) Psych Exam: Positive: Oriented x 3 Assessment /Plan Plan/VTE VTE Prophylaxis Ordered?: Yes Plan Left hip fracture 2/2 Mechanical Fall Status post hip replacement on 10/09/18 Continue PT/OT as per ARU Right ankle minimally displaced distal fibula fracture Cont conservative treatment as per Ortho Constipation Patient reports that he has not had a BM in several days Denies abdominal pain, reports passing flatus Bowel regimen optimized We will continue to monitor Acute respiratory distress in setting of COPD and possible pneumonia: s/p completion of levofloxacin course Patient on a tapering dose of Medrol Cont Albuterol as ordered We will cont to monitor Acute blood loss anemia secondary to postoperative blood loss: No indication for transfusion - H&H remains stable Diastolic Congestive Heart Failure, compensated Grade 1 DD noted on ECHO from 10/08/2018 Cont Lasix Gout Continue Allopurinol HTN Continue Amlodipine CAD s/p stents: Continue ASA GERD Cont PPI DVT Prophylaxis On Xarelto as per Ortho VS, I&O, 24H, Fishbone Vital Signs/I&O Vital Signs Date Time Temp Pulse Resp B/P (MAP) Pulse Ox O2 Delivery O2 Flow Rate FiO2 10/19/18 14:00 97.4 75 18 156/72 (100) 95 10/18/18 09:00 1.0 I&O- Last 24 Hours up to 6 AM 10/19/18 06:00 Intake Total 1200 ml Output Total 2300 ml Balance -1100 ml Laboratory Data Microbiology Microbiology 10/13/18 Stool Occult Blood ([facility]) - Final, Complete 10/10/18 Urine Culture - Final, Complete UCHE MARTIN MD Oct 19, 2018 16:53
[2018-10-19] MEDS: RIVAROXABAN 10 MG TAB (XARELTO) PO SCH (17:15)
[2018-10-19] MEDS ORDERED: MAGNESIUM CITRATE 300 ML BTL PO ONE (18:00)
[2018-10-19 20:00] VITALS: BP 147/67
[2018-10-19] MEDS: SENNA 8.6 MG TAB (SENOKOT) PO SCH (20:21)
[2018-10-20 06:00] VITALS: BP 151/67
[2018-10-20 06:30] LABS: BASO # 0.1 10^3/uL (0.0-0.2); BASO % 0.6 % (0.0-1.0); EOS # 0.5 10^3/uL (0.0-0.50); HEMATOCRIT 30.2 % (42.0-52.0); HEMOGLOBIN 9.9 g/dl (13.5-17.5); LYMPH # 1.5 10^3/uL (1.5-4.5); LYMPH % 18.7 % (24.0-44.0); MEAN CORPUSCULAR HEMOGLOBIN 33.7 pg (27.0-33.0); MEAN CORPUSCULAR HGB CONC 32.8 g/dl (32.0-36.5); MEAN CORPUSCULAR VOLUME 102.7 fl (80.0-96.0); MONO # 0.9 10^3/uL (0.0-0.8); NEUTROPHILS # 4.9 10^3/uL (1.8-7.7); NEUTROPHILS % 61.2 % (36.0-66.0); PLATELET COUNT, AUTOMATED 417 10^3/uL (150-450); RED BLOOD COUNT 2.94 10^6/uL (4.30-6.10)
[2018-10-20 06:56] LABS: BLOOD UREA NITROGEN 27 MG/DL (7-18); CALCIUM LEVEL 8.2 MG/DL (8.8-10.2); CARBON DIOXIDE LEVEL 26 MEQ/L (21-32); CHLORIDE LEVEL 109 MEQ/L (98-107); CREATININE FOR GFR 0.96 MG/DL (0.70-1.30); GLOMERULAR FILTRATION RATE > 60.0 (>35); GLUCOSE, FASTING 94 MG/DL (70-100); POTASSIUM SERUM 4.1 MEQ/L (3.5-5.1); SODIUM LEVEL 140 MEQ/L (136-145)
[2018-10-20] MEDS: ALBUTEROL SULFATE 2.5 MG/0.5 ML INH NEB SOLN NEB SCH ×3 (07:39→23:54)
[2018-10-20] MEDS: ALLOPURINOL 100 MG TAB PO SCH (08:44)
[2018-10-20] MEDS: methylPREDNISolone 4 MG TAB PO SCH (08:44)
[2018-10-20] MEDS: ACETAMINOPHEN 500 MG TAB PO SCH ×3 (08:44→20:23)
[2018-10-20] MEDS: MOM 30ML SUSPENSION UDC PO PRN (08:44)
[2018-10-20] MEDS: ASPIRIN 81 MG CHEW TABLET PO SCH (08:44)
[2018-10-20] MEDS: VITAMIN D 1,000 INTERNATIONAL UNITS TABLET PO SCH (08:44)
[2018-10-20] MEDS: FERROUS SULFATE 325MG TAB PO SCH ×2 (08:44→20:23)
[2018-10-20] MEDS: amLODIPine 10 MG TAB PO SCH (08:44)
[2018-10-20] MEDS: guaiFENesin 200 MG TAB PO SCH ×3 (08:44→20:23)
[2018-10-20] MEDS: OMEPRAZOLE 20 MG CAP PO SCH ×2 (08:45→20:22)
[2018-10-20] MEDS: MULTIVITAMINS/MINERALS THERAP 1 TAB PO SCH (08:45)
[2018-10-20] MEDS: BOUDREAUX'S BUTT PASTE 4OZ TOP SCH ×3 (08:45→20:23)
[2018-10-20] MEDS: FUROSEMIDE 20 MG TAB PO SCH (08:45)
[2018-10-20] MEDS: DOCUSATE SODIUM 100 MG CAP PO SCH ×2 (08:45→20:22)
[2018-10-20] MEDS ORDERED: FLEET ENEMA PR PRN (11:30)
--- NOTE | 2018-10-20 13:44 | IPNPDOC ---
Subjective Date Seen The patient was seen on 10/20/18. Subjective Chief Complaint/HPI Patient seen and examined at the bedside today. States that he has still yet to have a bowel movement. He does endorse some crampy abdominal pain which is alleviated by passing flatus. Denies any nausea or vomiting. Denies any other acute complaints at this time. Objective Physical Examination General Exam: Positive: Alert, Cooperative, No Acute Distress ENT Exam: Positive: Atraumatic, Mucous membr. moist/pink Neck Exam: Negative: JVD Chest Exam: Positive: Diminished Heart Exam: Positive: Rate Normal, Normal S1, Normal S2 Abdomen Exam: Positive: Soft, Tenderness (mild tenderness to deep palpation in the lower abdominal quadrants. No rebound tenderness, guarding, or rigidity. Bowel sounds positive.) Extremity Exam: Positive: Other (Left Hip joint with some limited ROM 2/2 recent surgery. Extremity neurovascularly intact distally.); Negative: Swelling Neuro Exam: Positive: Other (awake, alert, answering questions appropriately) Psych Exam: Positive: Oriented x 3 Assessment /Plan Plan/VTE VTE Prophylaxis Ordered?: Yes Plan Left hip fracture 2/2 Mechanical Fall Status post hip replacement on 10/09/18 Continue PT/OT as per ARU Right ankle minimally displaced distal fibula fracture Cont conservative treatment as per Ortho Constipation Patient reports that he has not had a BM in several days Reports passing flatus Bowel regimen optimized--we will add a fleet enema this morning We will continue to monitor Acute respiratory distress in setting of COPD and possible pneumonia: s/p completion of levofloxacin course Patient on a tapering dose of Medrol Cont Albuterol as ordered We will cont to monitor Acute blood loss anemia secondary to postoperative blood loss: No indication for transfusion - H&H remains stable Diastolic Congestive Heart Failure, compensated Grade 1 DD noted on ECHO from 10/08/2018 Cont Lasix Gout Continue Allopurinol HTN Continue Amlodipine CAD s/p stents: Continue ASA GERD Cont PPI DVT Prophylaxis On Xarelto as per Ortho VS, I&O, 24H, Fishbone Vital Signs/I&O Vital Signs Date Time Temp Pulse Resp B/P (MAP) Pulse Ox O2 Delivery O2 Flow Rate FiO2 10/20/18 08:44 69 151/67 10/20/18 06:00 97.5 19 97 1.0 I&O- Last 24 Hours up to 6 AM 10/20/18 06:00 Intake Total 1560 ml Output Total 1525 ml Balance 35 ml Laboratory Data 24H LABS Laboratory Tests 2 10/20/18 06:13: Immature Granulocyte % (Auto) 2.5, White Blood Count 8.0, Red Blood Count 2.94L, Hemoglobin 9.9L, Hematocrit 30.2L, Mean Corpuscular Volume 102.7H, Mean Corpuscular Hemoglobin 33.7H, Mean Corpuscular Hemoglobin Concent 32.8, Red Cell Distribution Width 13.1, Platelet Count 417, Neutrophils (%) (Auto) 61.2, Lymphocytes (%) (Auto) 18.7L, Monocytes (%) (Auto) 11.0H, Eosinophils (%) (Auto) 6.0H, Basophils (%) (Auto) 0.6, Neutrophils # (Auto) 4.9, Lymphocytes # (Auto) 1.5, Monocytes # (Auto) 0.9H, Eosinophils # (Auto) 0.5, Basophils # (Auto) 0.1, Nucleated Red Blood Cells % (auto) 0.0, Anion Gap 5L, Glomerular Filtration Rate > 60.0, Blood Urea Nitrogen 27H, Creatinine 0.96, Sodium Level 140, Potassium Level 4.1, Chloride Level 109H, Carbon Dioxide Level 26, Calcium Level 8.2L CBC/BMP Laboratory Tests 10/20/18 06:13 Red Blood Count 2.94 L, Mean Corpuscular Volume 102.7 H, Mean Corpuscular Hemoglobin 33.7 H, Mean Corpuscular Hemoglobin Concent 32.8, Red Cell Distribution Width 13.1, Neutrophils (%) (Auto) 61.2, Lymphocytes (%) (Auto) 18.7 L, Monocytes (%) (Auto) 11.0 H, Eosinophils (%) (Auto) 6.0 H, Basophils (%) (Auto) 0.6, Neutrophils # (Auto) 4.9, Lymphocytes # (Auto) 1.5, Monocytes # (Auto) 0.9 H, Eosinophils # (Auto) 0.5, Basophils # (Auto) 0.1, Calcium Level 8.2 L Microbiology Microbiology 10/13/18 Stool Occult Blood ([facility]) - Final, Complete 10/10/18 Urine Culture - Final, Complete UCHE MARTIN MD Oct 20, 2018 13:44
[2018-10-20 14:00] VITALS: BP 140/64
[2018-10-20] MEDS: RIVAROXABAN 10 MG TAB (XARELTO) PO SCH (17:29)
[2018-10-20 20:00] VITALS: BP 143/65
--- NOTE | 2018-10-20 20:12 | IPNPDOC ---
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 He had a bowel movement tonight. REVIEW OF SYSTEMS: The following is a completed review of systems and has been reviewed. Review of systems otherwise unremarkable. PAIN: Patient self reports no pain at rest EYES: Negative for recent vision changes EARS, NOSE, & THROAT: denied dysphagia, rhinorrhea, or throat pain CARDIOVASCULAR: denies chest pin or palpitations PULMONARY: Negative. Denies shortness of breath, +cough (improving) GASTROINTESTINAL: Negative for diarrhea/constipation GENITOURINARY: Negative for dysuria MUSCULOSKELETAL: right ankle fracture and left hip fracture NEUROLOGICAL: no tremor or seizure activity HEMATOLOGICAL: Negative SKIN: left hip incision PSYCHIATRIC: Unremarkable All other review of systems found to be negative. PHYSICAL EXAMINATION: VITAL SIGNS: Please see below. GENERAL: Pleasant and cooperative. No acute distress. HEENT: PERRL. Extraocular movements intact. Clear conjunctiva CARDIOVASCULAR: Regular rate and rhythm. No murmurs, rubs, or gallops LUNGS: clear to auscultation bilaterally. No wheezes/rhonchi ABDOMEN: Soft, nontender, nondistended. Positive bowel sounds. NEUROLOGICAL: Alert and oriented times three. Cranial nerves II through XII grossly intact. Sensation grossly intact EXTREMITIES: 5\5 strength bilateral upper extremities. 5\5 strength right lower extremity. 5/5 strength in left ankle DH and EHL (limited due to surgery) negative Milli's bilat SKIN: left hip incision without drainage, +ecchymosis, left ankle swelling improved ASSESSMENT:83-year-old M with past medical history of HTN who presents status post fall with left hip fracture in setting of recent right ankle fracture and pneumonia. PLAN: 1. 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 Ortho: s/p left hip beto-arthroplasty WBAt with hip precautions, recent right ankle fracture c/u boot and PWB-ortho consulted 3. CArdio: pmh HTN c/u amlodipine, pmh AD with stent c/u ASA, c/u lasix-medicine consulted 4. resp: recent pneumonia in setting of COPD c/u Levaquin and breathing stephanie atments, encourage incentive spirometry, c/u home dose of lasix and c c/u Guaifenaisin -c/u Medrol taper 5. Rheum: pmh gout- c/u Allopurinol 6. GI ppx: omperazole, FOBT negative 7. DVT ppx: c/u Xarelto 8. Pain: c/u long acting oxycontin 5mg BID and oxycodone q4h prn, tylenol, will c/u to taper opioids prior to discharge 9. Heme: blood loss anemia, will transfuse if Hgb <8, FOT negative, c/u iron 9. :admission UA and Ucx negative, monitor PVRs 10. Skin: will change dressing to optilock for better absorption, acewrap to left ankle and elevate when in bed-swelling improving 10. Dispo: 10/28/18 to home 11. DNR Allergies Coded Allergies: tamsulosin (Verified Allergy, Mild, Rash, 10/08/18) propoxyphene (Verified Allergy, Unknown, 10/08/18) Vital Signs Vital Signs Date Time Temp Pulse Resp B/P (MAP) Pulse Ox O2 Delivery O2 Flow Rate FiO2 10/20/18 14:00 97.6 80 20 140/64 (89) 95 10/20/18 06:00 1.0 Laboratory Data CBC/BMP Laboratory Tests 10/20/18 06:13 Red Blood Count 2.94 L, Mean Corpuscular Volume 102.7 H, Mean Corpuscular Hemoglobin 33.7 H, Mean Corpuscular Hemoglobin Concent 32.8, Red Cell Distribution Width 13.1, Neutrophils (%) (Auto) 61.2, Lymphocytes (%) (Auto) 18.7 L, Monocytes (%) (Auto) 11.0 H, Eosinophils (%) (Auto) 6.0 H, Basophils (%) (Auto) 0.6, Neutrophils # (Auto) 4.9, Lymphocytes # (Auto) 1.5, Monocytes # (Auto) 0.9 H, Eosinophils # (Auto) 0.5, Basophils # (Auto) 0.1, Calcium Level 8.2 L Labs 24H Laboratory Tests 2 10/20/18 06:13: Immature Granulocyte % (Auto) 2.5, White Blood Count 8.0, Red Blood Count 2.94L, Hemoglobin 9.9L, Hematocrit 30.2L, Mean Corpuscular Volume 102.7H, Mean Corpuscular Hemoglobin 33.7H, Mean Corpuscular Hemoglobin Concent 32.8, Red Cell Distribution Width 13.1, Platelet Count 417, Neutrophils (%) (Auto) 61.2, Lymphocytes (%) (Auto) 18.7L, Monocytes (%) (Auto) 11.0H, Eosinophils (%) (Auto) 6.0H, Basophils (%) (Auto) 0.6, Neutrophils # (Auto) 4.9, Lymphocytes # (Auto) 1.5, Monocytes # (Auto) 0.9H, Eosinophils # (Auto) 0.5, Basophils # (Auto) 0.1, Nucleated Red Blood Cells % (auto) 0.0, Anion Gap 5L, Glomerular Filtration Rate > 60.0, Blood Urea Nitrogen 27H, Creatinine 0.96, Sodium Level 140, Potassium Level 4.1, Chloride Level 109H, Carbon Dioxide Level 26, Calcium Level 8.2L Microbiology Microbiology 10/13/18 Stool Occult Blood ([facility]) - Final, Complete 10/10/18 Urine Culture - Final, Complete Current Medications Current Medications Current Medications Acetaminophen (Tylenol Tab) 650 mg DAILYPRN PRN PO fever/MILD PAIN (PS 1-4); Start 10/10/18 at 17:45 Acetaminophen (Tylenol Tab) 1,000 mg TID PO Last administered on 10/20/18 16:05; Start 10/10/18 at 21:00 Albuterol Sulfate (Proventil Neb) 2.5 mg Q4HP PRN NEB SOB/WHEEZING; Start 10/10/18 at 17:45 Albuterol Sulfate (Proventil Neb) 2.5 mg RQ8H NEB Last administered on 10/20/18at 16:48; Start 10/11/18 at 00:00 Allopurinol (Zyloprim) 100 mg DAILY PO Last administered on 10/20/18 08:44; Start 10/11/18 at 09:00 Amlodipine Besylate (Norvasc) 10 mg DAILY PO Last administered on 10/20/18 08:44; Start 10/11/18 at 09:00 Aspirin (Aspirin Chewable) 81 mg DAILY PO Last administered on 10/20/18 08:44; Start 10/11/18 at 09:00 Bisacodyl (Dulcolax Suppository) 10 mg DAILYPRN PRN [place] CONSTIPATION Last administered on 10/20/18 08:44; Start 10/10/18 at 17:45 Docusate Sodium (Colace) 100 mg BID PO Last administered on 10/20/18 08:45; Start 10/10/18 at 21:00 Ferrous Sulfate (Ferrous Sulfate) 325 mg BID PO Last administered on 10/20/18 08:44; Start 10/15/18 at 09:00 Furosemide (Lasix) 20 mg DAILY PO Last administered on 10/20/18 08:45; Start 10/13/18 at 09:00 Guaifenesin (Robitussin Tab) 400 mg TID PO Last administered on 10/20/18 16:05; Start 10/13/18 at 16:00 Levofloxacin (Levaquin) 500 mg Q48H PO Last administered on 10/18/18 05:37; Start 10/12/18 at 06:00; Stop 10/19/18 at 05:59; Status DC Magnesium Hydroxide (Milk Of Magnesia) 30 ml DAILYPRN PRN PO CONSTIPATION Last administered on 10/20/18 08:44; Start 10/10/18 at 17:45 Methylprednisolone (Medrol) 4 mg DAILY PO ; Start 10/22/18 at 09:00; Stop 10/24/18 at 23:00 Methylprednisolone (Medrol) 8 mg BID PO Last administered on 10/18/18 20:27; Start 10/16/18 at 13:00; Stop 10/18/18 at 23:00; Status DC Methylprednisolone (Medrol) 8 mg DAILY PO Last administered on 10/20/18 08:44; Start 10/19/18 at 09:00; Stop 10/21/18 at 23:00 Multivitamins (Theragram-M) 1 tab DAILY PO Last administered on 10/20/18 08:45; Start 10/11/18 at 09:00 Omeprazole (PriLOSEC) 20 mg BID PO Last administered on 10/20/18 08:45; Start 10/16/18 at 21:00 Omeprazole (PriLOSEC) 20 mg DAILY PO Last administered on 10/16/18 09:01; Start 10/11/18 at 09:00; Stop 10/16/18 at 12:50; Status DC Ondansetron HCl (Zofran) 4 mg Q6HP PRN PO NAUSEA; Start 10/10/18 at 17:45 Oxycodone HCl (OxyCONTIN) 10 mg BID PO Last administered on 10/16/18 09:03; Start 10/10/18 at 21:00; Stop 10/16/18 at 12:49; Status DC Oxycodone HCl (Roxicodone, Oxyir) 5 mg Q4HP PRN PO PAIN Last administered on 10/19/18 20:21; Start 10/10/18 at 17:45 Rivaroxaban (Xarelto) 10 mg DAILY@18 PO Last administered on 10/20/18 17:29; Start 10/10/18 at 18:00 Senna (Senokot) 1 tab QHS PO Last administered on 10/19/18 20:21; Start 10/10/18 at 21:00 Sodium Biphosphate/ Sodium Phosphate (Fleet Enema) 1 ea DAILYPRN PRN [place] CONSTIPATION Last administered on 10/20/18 12:07; Start 10/20/18 at 11:30 Vitamin D (Vitamin D) 1,000 units DAILY PO Last administered on 10/20/18 08:44; Start 10/11/18 at 09:00 Zinc Oxide (Boudreauxs Butt Paste) 1 oz TID TOP Last administered on 10/20/18 16:06; Start 10/15/18 at 16:00 ELVA MCKENNA MD Oct 20, 2018 20:12
[2018-10-20] MEDS: SENNA 8.6 MG TAB (SENOKOT) PO SCH (20:22)
[2018-10-20] MEDS: oxyCODONE 5MG TAB PO PRN (20:23)
[2018-10-21 06:00] VITALS: BP 145/65
[2018-10-21] MEDS: ALBUTEROL SULFATE 2.5 MG/0.5 ML INH NEB SOLN NEB SCH ×3 (07:17→23:30)
[2018-10-21] MEDS: OMEPRAZOLE 20 MG CAP PO SCH ×2 (08:57→20:13)
[2018-10-21] MEDS: guaiFENesin 200 MG TAB PO SCH ×3 (08:57→20:14)
[2018-10-21] MEDS: ACETAMINOPHEN 500 MG TAB PO SCH ×3 (08:58→20:14)
[2018-10-21] MEDS: MULTIVITAMINS/MINERALS THERAP 1 TAB PO SCH (08:58)
[2018-10-21] MEDS: DOCUSATE SODIUM 100 MG CAP PO SCH ×2 (08:58→20:13)
[2018-10-21] MEDS: ASPIRIN 81 MG CHEW TABLET PO SCH (08:58)
[2018-10-21] MEDS: methylPREDNISolone 4 MG TAB PO SCH (08:58)
[2018-10-21] MEDS: FERROUS SULFATE 325MG TAB PO SCH ×2 (08:58→20:13)
[2018-10-21] MEDS: VITAMIN D 1,000 INTERNATIONAL UNITS TABLET PO SCH (08:58)
[2018-10-21] MEDS: FUROSEMIDE 20 MG TAB PO SCH (08:58)
[2018-10-21] MEDS: ALLOPURINOL 100 MG TAB PO SCH (08:58)
[2018-10-21] MEDS: amLODIPine 10 MG TAB PO SCH (08:59)
[2018-10-21] MEDS: BOUDREAUX'S BUTT PASTE 4OZ TOP SCH ×3 (08:59→20:16)
[2018-10-21 14:00] VITALS: BP 150/66
--- NOTE | 2018-10-21 14:13 | IPNPDOC ---
PM&R Progress Note DATE OF SERVICE: Oct 21, 2018 Etl Analyst Progress Note Subjective: Patient reports he is feeling much better after having a bowel movement and is ready to go home sooner than anticipated. REVIEW OF SYSTEMS: The following is a completed review of systems and has been reviewed. Review of systems otherwise unremarkable. PAIN: Patient self reports no pain at rest EYES: Negative for recent vision changes EARS, NOSE, & THROAT: denied dysphagia, rhinorrhea, or throat pain CARDIOVASCULAR: denies chest pin or palpitations PULMONARY: Negative. Denies shortness of breath, +cough GASTROINTESTINAL: Negative for diarrhea/constipation GENITOURINARY: Negative for dysuria MUSCULOSKELETAL: right ankle fracture and left hip fracture NEUROLOGICAL: no tremor or seizure activity HEMATOLOGICAL: Negative SKIN: left hip incision PSYCHIATRIC: Unremarkable All other review of systems found to be negative. PHYSICAL EXAMINATION: VITAL SIGNS: Please see below. GENERAL: Pleasant and cooperative. No acute distress. HEENT: PERRL. Extraocular movements intact. Clear conjunctiva CARDIOVASCULAR: Regular rate and rhythm. No murmurs, rubs, or gallops LUNGS: clear to auscultation bilaterally. No wheezes/rhonchi ABDOMEN: Soft, nontender, nondistended. Positive bowel sounds. NEUROLOGICAL: Alert and oriented times three. Cranial nerves II through XII grossly intact. Sensation grossly intact EXTREMITIES: 5\5 strength bilateral upper extremities. 5\5 strength right lower extremity. 5/5 strength in left ankle DH and EHL (limited due to surgery) negative Milli's bilat SKIN: left hip incision without drainage, +ecchymosis, left ankle swelling improved ASSESSMENT:83-year-old M with past medical history of HTN who presents status post fall with left hip fracture in setting of recent right ankle fracture and pneumonia. PLAN: 1. 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 Ortho: s/p left hip beto-arthroplasty WBAt with hip precautions, recent right ankle fracture c/u boot and PWB-ortho consulted 3. CArdio: pmh HTN c/u amlodipine, pmh AD with stent c/u ASA, c/u lasix-medicine consulted 4. resp: recent pneumonia in setting of COPD c/u Levaquin and breathing treatments, encourage incentive spirometry, c/u home dose of lasix and c c/u Guaifenaisin -c/u Medrol taper 5. Rheum: pmh gout- c/u Allopurinol 6. GI ppx: c/u increased omperazole to 20mg BID while on XArelto and steroids, FOBT negative 7. DVT ppx: c/u Xarelto 8. Pain: c/u oxycodone q4h prn, tylenol, will c/u to tapered off the long-acting 9. Heme: blood loss anemia, will transfuse if Hgb <8, FOT negative, c/u iron- stable 9. :admission UA and Ucx negative, monitor PVRs 10. Skin: will change dressing to optilock for better absorption, acewrap to left ankle and elevate when in bed-swelling improving 10. Dispo: 10/28/18 to home, quickly progressing towards goals 11. DNR Allergies Coded Allergies: tamsulosin (Verified Allergy, Mild, Rash, 10/08/18) propoxyphene (Verified Allergy, Unknown, 10/08/18) Vital Signs Vital Signs Date Time Temp Pulse Resp B/P (MAP) Pulse Ox O2 Delivery O2 Flow Rate FiO2 10/21/18 08:59 71 145/65 10/21/18 06:00 97.9 18 92 10/20/18 21:00 0.0 Microbiology Microbiology 10/13/18 Stool Occult Blood ([facility]) - Final, Complete Current Medications Current Medications Current Medications Acetaminophen (Tylenol Tab) 650 mg DAILYPRN PRN PO fever/MILD PAIN (PS 1-4); Start 10/10/18 at 17:45 Acetaminophen (Tylenol Tab) 1,000 mg TID PO Last administered on 10/21/18at 08:58; Start 10/10/18 at 21:00 Albuterol Sulfate (Proventil Neb) 2.5 mg Q4HP PRN NEB SOB/WHEEZING; Start 10/10/18 at 17:45 Albuterol Sulfate (Proventil Neb) 2.5 mg RQ8H NEB Last administered on 10/20/18at 23:54; Start 10/11/18 at 00:00 Allopurinol (Zyloprim) 100 mg DAILY PO Last administered on 10/21/18at 08:58; S tart 10/11/18 at 09:00 Amlodipine Besylate (Norvasc) 10 mg DAILY PO Last administered on 10/21/18 08:59; Start 10/11/18 at 09:00 Aspirin (Aspirin Chewable) 81 mg DAILY PO Last administered on 10/21/18 08:58; Start 10/11/18 at 09:00 Bisacodyl (Dulcolax Suppository) 10 mg DAILYPRN PRN [place] CONSTIPATION Last administered on 10/20/18 08:44; Start 10/10/18 at 17:45 Docusate Sodium (Colace) 100 mg BID PO Last administered on 10/21/18 08:58; Start 10/10/18 at 21:00 Ferrous Sulfate (Ferrous Sulfate) 325 mg BID PO Last administered on 10/21/18 08:58; Start 10/15/18 at 09:00 Furosemide (Lasix) 20 mg DAILY PO Last administered on 10/21/18 08:58; Start 10/13/18 at 09:00 Guaifenesin (Robitussin Tab) 400 mg TID PO Last administered on 10/21/18 08:57; Start 10/13/18 at 16:00 Levofloxacin (Levaquin) 500 mg Q48H PO Last administered on 10/18/18 05:37; Start 10/12/18 at 06:00; Stop 10/19/18 at 05:59; Status DC Magnesium Hydroxide (Milk Of Magnesia) 30 ml DAILYPRN PRN PO CONSTIPATION Last administered on 10/20/18 08:44; Start 10/10/18 at 17:45 Methylprednisolone (Medrol) 4 mg DAILY PO ; Start 10/22/18 at 09:00; Stop 10/24/18 at 23:00 Methylprednisolone (Medrol) 8 mg BID PO Last administered on 10/18/18 20:27; Start 10/16/18 at 13:00; Stop 10/18/18 at 23:00; Status DC Methylprednisolone (Medrol) 8 mg DAILY PO Last administered on 10/21/18 08:58; Start 10/19/18 at 09:00; Stop 10/21/18 at 23:00 Multivitamins (Theragram-M) 1 tab DAILY PO Last administered on 10/21/18 08:58; Start 10/11/18 at 09:00 Omeprazole (PriLOSEC) 20 mg BID PO Last administered on 10/21/18 08:57; Start 10/16/18 at 21:00 Omeprazole (PriLOSEC) 20 mg DAILY PO Last administered on 10/16/18 09:01; Start 10/11/18 at 09:00; Stop 10/16/18 at 12:50; Status DC Ondansetron HCl (Zofran) 4 mg Q6HP PRN PO NAUSEA; Start 10/10/18 at 17:45 Oxycodone HCl (OxyCONTIN) 10 mg BID PO Last administered on 10/16/18 09:03; Start 10/10/18 at 21:00; Stop 10/16/18 at 12:49; Status DC Oxycodone HCl (Roxicodone, Oxyir) 5 mg Q4HP PRN PO PAIN Last administered on 10/20/18 20:23; Start 10/10/18 at 17:45 Rivaroxaban (Xarelto) 10 mg DAILY@18 PO Last administered on 10/20/18 17:29; Start 10/10/18 at 18:00 Senna (Senokot) 1 tab QHS PO Last administered on 10/20/18 20:22; Start 10/10/18 at 21:00 Sodium Biphosphate/ Sodium Phosphate (Fleet Enema) 1 ea DAILYPRN PRN [place] CONSTIPATION Last administered on 10/20/18 12:07; Start 10/20/18 at 11:30 Vitamin D (Vitamin D) 1,000 units DAILY PO Last administered on 10/21/18 08:58; Start 10/11/18 at 09:00 Zinc Oxide (Boudreauxs Butt Paste) 1 oz TID TOP Last administered on 10/21/18 08:59; Start 10/15/18 at 16:00 ELVA MCKENNA MD Oct 21, 2018 14:13
--- NOTE | 2018-10-21 16:30 | IPN ---
DATE: 10/21/2018 SUBJECTIVE: The patient is seen and examined in the room today. The patient denies any acute complaints. The patient denies respiratory distress. OBJECTIVE: VITAL SIGNS: Temperature is 97.9, pulse is 71, respiratory rate 18, blood pressure 145/65, pulse oximetry is 92% in room air. GENERAL: The patient is alert and awake, comfortable. HEENT: Normocephalic, atraumatic. Extraocular motor grossly intact. CARDIOVASCULAR: Positive S1, S2, regular rate. LUNGS: Clear to auscultation bilaterally. ABDOMEN: Soft. Mild discomfort to palpation of the lower abdomen. Bowel sounds present. EXTREMITIES: No significant lower extremity swelling. LABORATORY DATA: From 10/20/2018, showed WBC 8, hemoglobin 9.9, hematocrit 30.2, platelet count is 417. Sodium is 140, potassium 4.1, chloride 109, carbon dioxide 26, BUN 27, creatinine is 0.96, GFR greater than 60, fasting glucose 94, calcium 8.2. ASSESSMENT AND PLAN: 1. Left hip fracture, status post left hip replacement on 10/09/2018. The patient is continued with physical therapy (PT) and occupational therapy (OT) per acute rehabilitation unit (ARU) instruction. Refer the diet, activity level and anticoagulation per ARU. 2. Distal fibula fracture. Continue with physical therapy. 3. Acute respiratory distress. Previously, the patient was treated for a pneumonia, atelectasis, and chronic obstructive pulmonary disease (COPD) exacerbation. The patient is on a tapering dose of steroids. Finish the course of Levaquin. Continue nebulizer as needed. 4. Constipation. The patient has magnesium citrate and Fleet enema. The patient had a bowel movement in the last 24 hours. Continue to monitor. 5. Diastolic dysfunction. Echocardiogram performed on 10/08/2018. Continue to monitor fluid status. No sign of gross overload, on Lasix. 6. Gout, on allopurinol. 7. Hypertension, on Norvasc and Lasix. 8. Coronary artery disease, status post stent placement, on aspirin. 9. Gastroesophageal reflux disease, on Prilosec. 10. Deep vein thrombosis (DVT) prophylaxis, on Xarelto per orthopedics.
[2018-10-21] MEDS: RIVAROXABAN 10 MG TAB (XARELTO) PO SCH (17:49)
[2018-10-21 20:00] VITALS: BP 159/73
[2018-10-21] MEDS: SENNA 8.6 MG TAB (SENOKOT) PO SCH (20:13)
[2018-10-21] MEDS: oxyCODONE 5MG TAB PO PRN (20:13)
[2018-10-22 06:00] VITALS: BP 161/72
[2018-10-22] MEDS: ALBUTEROL SULFATE 2.5 MG/0.5 ML INH NEB SOLN NEB SCH ×2 (07:27→23:54)
[2018-10-22] MEDS: MULTIVITAMINS/MINERALS THERAP 1 TAB PO SCH (09:05)
[2018-10-22] MEDS: ASPIRIN 81 MG CHEW TABLET PO SCH (09:05)
[2018-10-22] MEDS: VITAMIN D 1,000 INTERNATIONAL UNITS TABLET PO SCH (09:05)
[2018-10-22] MEDS: guaiFENesin 200 MG TAB PO SCH ×3 (09:05→20:37)
[2018-10-22] MEDS: OMEPRAZOLE 20 MG CAP PO SCH ×2 (09:05→20:37)
[2018-10-22] MEDS: FERROUS SULFATE 325MG TAB PO SCH ×2 (09:05→20:37)
[2018-10-22] MEDS: methylPREDNISolone 4 MG TAB PO SCH (09:06)
[2018-10-22] MEDS: ACETAMINOPHEN 500 MG TAB PO SCH ×3 (09:06→20:38)
[2018-10-22] MEDS: ALLOPURINOL 100 MG TAB PO SCH (09:06)
[2018-10-22] MEDS: FUROSEMIDE 20 MG TAB PO SCH (09:06)
[2018-10-22] MEDS: amLODIPine 10 MG TAB PO SCH (09:06)
[2018-10-22] MEDS: BOUDREAUX'S BUTT PASTE 4OZ TOP SCH ×3 (09:07→20:38)
[2018-10-22] MEDS: DOCUSATE SODIUM 100 MG CAP PO SCH ×2 (09:09→20:37)
[2018-10-22 14:00] VITALS: BP 148/65
[2018-10-22] MEDS: RIVAROXABAN 10 MG TAB (XARELTO) PO SCH (17:25)
--- NOTE | 2018-10-22 17:39 | IPNPDOC ---
Text Note Date of Service The patient was seen on 10/22/18. NOTE SUBJECTIVE: The patient is seen and examined in the room today. The patient is resting comfortably in bed before the encounter. Denies shortness of breath. Denies any acute complaint. OBJECTIVE: VITAL SIGNS: Listed below. GENERAL: The patient is alert and awake, comfortable. HEENT: Normocephalic, atraumatic. Extraocular motor grossly intact. CARDIOVASCULAR: Positive S1, S2, regular rate. LUNGS: Clear to auscultation bilaterally. ABDOMEN: Soft. Bowel sounds present. EXTREMITIES: Mild left lower extremity swelling. LABORATORY DATA: From 10/20/2018, showed WBC 8, hemoglobin 9.9, hematocrit 30.2, platelet count is 417. Sodium is 140, potassium 4.1, chloride 109, carbon dioxide 26, BUN 27, creatinine is 0.96, GFR greater than 60, fasting glucose 94, calcium 8.2. ASSESSMENT AND PLAN: #. Left hip fracture, - status post left hip replacement on 10/09/2018. The patient is continued with physical therapy (PT) and occupational therapy (OT) per acute rehabilitation unit (ARU) instruction. Refer the diet, activity level and anticoagulation per ARU. #. Distal fibula fracture. - Continue ankle brace during ambulation. Continue with physical therapy. Follow up with orthopedic team at scheduled time. #. Acute respiratory distress. - S/P treatment for pneumonia, atelectasis, and chronic obstructive pulmonary disease (COPD) exacerbation. The patient is on a tapering dose of steroids. Finish the course of Levaquin. Continue nebulizer as needed. #. Constipation. - The patient had a bowel movement in the last 24 hours. Continue to monitor. #. Diastolic dysfunction. - Echocardiogram performed on 10/08/2018. Continue to monitor fluid status. No sign of gross overload, on Lasix. #. Gout, on allopurinol. #. Hypertension, on Norvasc and Lasix. #. Coronary artery disease, status post stent placement, on aspirin. #. Gastroesophageal reflux disease, on Prilosec. #. Deep vein thrombosis (DVT) prophylaxis, on Xarelto per orthopedics. VS,Fishbone, I+O VS, Fishbone, I+O Vital Signs Date Time Temp Pulse Resp B/P (MAP) Pulse Ox O2 Delivery O2 Flow Rate FiO2 10/22/18 14:00 98.7 75 20 148/65 (04) 19 95.0 I&O- Last 24 Hours up to 6 AM 10/22/18 06:00 Intake Total 1080 ml Output Total 1100 ml Balance -20 ml VONDA CARSON DO Oct 22, 2018 17:39
[2018-10-22 20:00] VITALS: BP 152/73
[2018-10-22] MEDS: SENNA 8.6 MG TAB (SENOKOT) PO SCH (20:37)
[2018-10-23 06:00] VITALS: BP 158/72
[2018-10-23 06:37] LABS: BASO # 0.1 10^3/uL (0.0-0.2); BASO % 0.6 % (0.0-1.0); EOS # 0.7 10^3/uL (0.0-0.50); EOS % 8.6 % (0.0-3.0); HEMATOCRIT 32.7 % (42.0-52.0); HEMOGLOBIN 10.7 g/dl (13.5-17.5); LYMPH # 1.4 10^3/uL (1.5-4.5); LYMPH % 17.3 % (24.0-44.0); MEAN CORPUSCULAR HGB CONC 32.7 g/dl (32.0-36.5); MEAN CORPUSCULAR VOLUME 100.9 fl (80.0-96.0); MONO # 0.7 10^3/uL (0.0-0.8); MONO % 8.7 % (0.0-5.0); NEUTROPHILS % 62.9 % (36.0-66.0); PLATELET COUNT, AUTOMATED 427 10^3/uL (150-450); RED BLOOD COUNT 3.24 10^6/uL (4.30-6.10); WHITE BLOOD COUNT 7.9 10^3/uL (4.0-10.0)
[2018-10-23 07:02] LABS: BLOOD UREA NITROGEN 19 MG/DL (7-18); CALCIUM LEVEL 8.4 MG/DL (8.8-10.2); CARBON DIOXIDE LEVEL 24 MEQ/L (21-32); CHLORIDE LEVEL 108 MEQ/L (98-107); GLOMERULAR FILTRATION RATE > 60.0 (>35); GLUCOSE, FASTING 85 MG/DL (70-100); POTASSIUM SERUM 4.2 MEQ/L (3.5-5.1); SODIUM LEVEL 137 MEQ/L (136-145)
[2018-10-23] MEDS: ALBUTEROL SULFATE 2.5 MG/0.5 ML INH NEB SOLN NEB SCH ×3 (08:00→23:32)
[2018-10-23] MEDS: BOUDREAUX'S BUTT PASTE 4OZ TOP SCH ×3 (09:00→21:04)
[2018-10-23] MEDS: guaiFENesin 200 MG TAB PO SCH ×3 (09:00→21:04)
[2018-10-23] MEDS: FUROSEMIDE 20 MG TAB PO SCH (09:20)
[2018-10-23] MEDS: amLODIPine 10 MG TAB PO SCH (09:20)
[2018-10-23] MEDS: FERROUS SULFATE 325MG TAB PO SCH ×2 (09:20→21:03)
[2018-10-23] MEDS: VITAMIN D 1,000 INTERNATIONAL UNITS TABLET PO SCH (09:20)
[2018-10-23] MEDS: ASPIRIN 81 MG CHEW TABLET PO SCH (09:21)
[2018-10-23] MEDS: MULTIVITAMINS/MINERALS THERAP 1 TAB PO SCH (09:21)
[2018-10-23] MEDS: OMEPRAZOLE 20 MG CAP PO SCH ×2 (09:21→21:03)
[2018-10-23] MEDS: ALLOPURINOL 100 MG TAB PO SCH (09:22)
[2018-10-23] MEDS: methylPREDNISolone 4 MG TAB PO SCH (09:22)
[2018-10-23] MEDS: DOCUSATE SODIUM 100 MG CAP PO SCH ×2 (09:22→21:03)
[2018-10-23] MEDS: ACETAMINOPHEN 500 MG TAB PO SCH ×3 (09:22→21:04)
--- NOTE | 2018-10-23 11:36 | IPNPDOC ---
PM&R Progress Note DATE OF SERVICE: Oct 23, 2018 Manager Protein Progress Note Subjective: Patient ready for discharge tomorrow and would like to manage his pain at home only on Tylenol. REVIEW OF SYSTEMS: The following is a completed review of systems and has been reviewed. Review of systems otherwise unremarkable. PAIN: Patient self reports no pain at rest EYES: Negative for recent vision changes EARS, NOSE, & THROAT: denied dysphagia, rhinorrhea, or throat pain CARDIOVASCULAR: denies chest pin or palpitations PULMONARY: Negative. Denies shortness of breath, +cough GASTROINTESTINAL: Negative for diarrhea/constipation GENITOURINARY: Negative for dysuria MUSCULOSKELETAL: right ankle fracture and left hip fracture NEUROLOGICAL: no tremor or seizure activity HEMATOLOGICAL: Negative SKIN: left hip incision PSYCHIATRIC: Unremarkable All other review of systems found to be negative. PHYSICAL EXAMINATION: VITAL SIGNS: Please see below. GENERAL: Pleasant and cooperative. No acute distress. HEENT: PERRL. Extraocular movements intact. Clear conjunctiva CARDIOVASCULAR: Regular rate and rhythm. No murmurs, rubs, or gallops LUNGS: clear to auscultation bilaterally. No wheezes/rhonchi ABDOMEN: Soft, nontender, nondistended. Positive bowel sounds. NEUROLOGICAL: Alert and oriented times three. Cranial nerves II through XII grossly intact. Sensation grossly intact EXTREMITIES: 5\5 strength bilateral upper extremities. 5\5 strength right lower extremity. 5/5 strength in left ankle DH and EHL (limited due to surgery) negative Milli's bilat SKIN: left hip incision without drainage, +ecchymosis, left ankle swelling improved ASSESSMENT:83-year-old M with past medical history of HTN who presents status post fall with left hip fracture in setting of recent right ankle fracture and pneumonia. PLAN: 1. 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 Ortho: s/p left hip beto-arthroplasty WBAt with hip precautions, recent right ankle fracture c/u boot and PWB-ortho consulted, antonietta to be removed tomorrow 3. CArdio: pmh HTN c/u amlodipine, pmh AD with stent c/u ASA, c/u lasix-medicine consulted 4. resp: recent pneumonia in setting of COPD c/u Levaquin and breathing treatments, encourage incentive spirometry, c/u home dose of lasix and c c/u Guaifenaisin -c/u Medrol taper 5. Rheum: pmh gout- c/u Allopurinol 6. GI ppx: c/u increased omperazole to 20mg BID while on XArelto and steroids, FOBT negative 7. DVT ppx: c/u Xarelto 8. Pain: c/u oxycodone q4h prn, tylenol, will c/u to tapered off the [id number] reporting he will not take oxycodone at home, so will not write script 9. Heme: blood loss anemia, will transfuse if Hgb <8, FOT negative, c/u iron- stable 9. :admission UA and Ucx negative, monitor PVRs 10. Skin: will change dressing to optilock for better absorption, acewrap to left ankle and elevate when in bed-swelling improving 10. Dispo: 10/24/18 to home, quickly progressing towards goals 11. DNR Allergies Coded Allergies: tamsulosin (Verified Allergy, Mild, Rash, 10/08/18) propoxyphene (Verified Allergy, Unknown, 10/08/18) Vital Signs Vital Signs Date Time Temp Pulse Resp B/P (MAP) Pulse Ox O2 Delivery O2 Flow Rate FiO2 10/23/18 09:20 72 158/72 10/23/18 06:00 97.6 18 92 10/22/18 14:00 95.0 Laboratory Data CBC/BMP Laboratory Tests 10/23/18 06:13 Red Blood Count 3.24 L, Mean Corpuscular Volume 100.9 H, Mean Corpuscular Hemoglobin 33.0, Mean Corpuscular Hemoglobin Concent 32.7, Red Cell Distribution Width 13.3, Neutrophils (%) (Auto) 62.9, Lymphocytes (%) (Auto) 17.3 L, Monocytes (%) (Auto) 8.7 H, Eosinophils (%) (Auto) 8.6 H, Basophils (%) (Auto) 0.6, Neutrophils # (Auto) 5.0, Lymphocytes # (Auto) 1.4 L, Monocytes # (Auto) 0.7, Eosinophils # (Auto) 0.7 H, Basophils # (Auto) 0.1, Calcium Level 8.4 L Labs 24H Laboratory Tests 2 10/23/18 06:13: Immature Granulocyte % (Auto) 1.9, White Blood Count 7.9, Red Blood Count 3.24L, Hemoglobin 10.7L, Hematocrit 32.7L, Mean Corpuscular Volume 100.9H, Mean Corpuscular Hemoglobin 33.0, Mean Corpuscular Hemoglobin Concent 32.7, Red Cell Distribution Width 13.3, Platelet Count 427, Neutrophils (%) (Auto) 62.9, Lymphocytes (%) (Auto) 17.3L, Monocytes (%) (Auto) 8.7H, Eosinophils (%) (Auto) 8.6H, Basophils (%) (Auto) 0.6, Neutrophils # (Auto) 5.0, Lymphocytes # (Auto) 1.4L, Monocytes # (Auto) 0.7, Eosinophils # (Auto) 0.7H, Basophils # (Auto) 0.1, Nucleated Red Blood Cells % (auto) 0.0, Anion Gap 5L, Glomerular Filtration Rate > 60.0, Blood Urea Nitrogen 19H, Creatinine 1.00, Sodium Level 137, Potassium Level 4.2, Chloride Level 108H, Carbon Dioxide Level 24, Calcium Level 8.4L Microbiology Microbiology 10/13/18 Stool Occult Blood ([facility]) - Final, Complete Current Medications Current Medications Current Medications Acetaminophen (Tylenol Tab) 650 mg DAILYPRN PRN PO fever/MILD PAIN (PS 1-4); Start 10/10/18 at 17:45 Acetaminophen (Tylenol Tab) 1,000 mg TID PO Last administered on 10/23/18 09:22; Start 10/10/18 at 21:00 Albuterol Sulfate (Proventil Neb) 2.5 mg Q4HP PRN NEB SOB/WHEEZING; Start at 17:45 Albuterol Sulfate (Proventil Neb) 2.5 mg RQ8H NEB Last administered on 10/22/18at 23:54; Start 10/11/18 at 00:00 Allopurinol (Zyloprim) 100 mg DAILY PO Last administered on 10/23/18 09:22; Start 10/11/18 at 09:00 Amlodipine Besylate (Norvasc) 10 mg DAILY PO Last administered on 10/23/18 09:20; Start 10/11/18 at 09:00 Aspirin (Aspirin Chewable) 81 mg DAILY PO Last administered on 10/23/18 09:21; Start 10/11/18 at 09:00 Bisacodyl (Dulcolax Suppository) 10 mg DAILYPRN PRN [place] CONSTIPATION Last administered on 10/20/18 08:44; Start 10/10/18 at 17:45 Docusate Sodium (Colace) 100 mg BID PO Last administered on 10/23/18 09:22; Start 10/10/18 at 21:00 Ferrous Sulfate (Ferrous Sulfate) 325 mg BID PO Last administered on 10/23/18 09:20; Start 10/15/18 at 09:00 Furosemide (Lasix) 20 mg DAILY PO Last administered on 10/23/18 09:20; Start 10/13/18 at 09:00 Guaifenesin (Robitussin Tab) 400 mg TID PO Last administered on 10/22/18 20:37; Start 10/13/18 at 16:00 Levofloxacin (Levaquin) 500 mg Q48H PO Last administered on 10/18/18 05:37; Start 10/12/18 at 06:00; Stop 10/19/18 at 05:59; Status DC Magnesium Hydroxide (Milk Of Magnesia) 30 ml DAILYPRN PRN PO CONSTIPATION Last administered on 10/20/18 08:44; Start 10/10/18 at 17:45 Methylprednisolone (Medrol) 4 mg DAILY PO Last administered on 10/23/18 09:22; Start 10/22/18 at 09:00; Stop 10/24/18 at 23:00 Methylprednisolone (Medrol) 8 mg BID PO Last administered on 10/18/18 20:27; Start 10/16/18 at 13:00; Stop 10/18/18 at 23:00; Status DC Methylprednisolone (Medrol) 8 mg DAILY PO Last administered on 10/21/18 08:58; Start 10/19/18 at 09:00; Stop 10/21/18 at 23:00; Status DC Miscellaneous (Unresolved Clarification Entry) SEE LABEL COMMENTS DAILY XX ; Start 10/22/18 at 09:00; Stop 10/22/18 at 14:23; Status DC Multivitamins (Theragram-M) 1 tab DAILY PO Last administered on 10/23/18 09:21; Start 10/11/18 at 09:00 Omeprazole (PriLOSEC) 20 mg BID PO Last administered on 10/23/18 09:21; Start 10/16/18 at 21:00 Omeprazole (PriLOSEC) 20 mg DAILY PO Last administered on 10/16/18 09:01; Start 10/11/18 at 09:00; Stop 10/16/18 at 12:50; Status DC Ondansetron HCl (Zofran) 4 mg Q6HP PRN PO NAUSEA; Start 10/10/18 at 17:45 Oxycodone HCl (OxyCONTIN) 10 mg BID PO Last administered on 10/16/18 09:03; Start 10/10/18 at 21:00; Stop 10/16/18 at 12:49; Status DC Oxycodone HCl (Roxicodone, Oxyir) 5 mg Q4HP PRN PO PAIN Last administered on 10/21/18 20:13; Start 10/10/18 at 17:45 Rivaroxaban (Xarelto) 10 mg DAILY@18 PO Last administered on 10/22/18 17:25; Start 10/10/18 at 18:00 Senna (Senokot) 1 tab QHS PO Last administered on 10/22/18 20:37; Start 10/10/18 at 21:00 Sodium Biphosphate/ Sodium Phosphate (Fleet Enema) 1 ea DAILYPRN PRN [place] CONSTIPATION Last administered on 10/20/18 12:07; Start 10/20/18 at 11:30 Vitamin D (Vitamin D) 1,000 units DAILY PO Last administered on 10/23/18 09:20; Start 10/11/18 at 09:00 Zinc Oxide (Boudreauxs Butt Paste) 1 oz TID TOP Last administered on 10/23/18 09:00; Start 10/15/18 at 16:00 ELVA MCKENNA MD Oct 23, 2018 11:36
--- NOTE | 2018-10-23 11:36 | IPNPDOC ---
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 REVIEW OF SYSTEMS: The following is a completed review of systems and has been reviewed. Review of systems otherwise unremarkable. PAIN: Patient self reports no pain at rest EYES: Negative for recent vision changes EARS, NOSE, & THROAT: denied dysphagia, rhinorrhea, or throat pain CARDIOVASCULAR: denies chest pin or palpitations PULMONARY: Negative. Denies shortness of breath, +cough GASTROINTESTINAL: Negative for diarrhea/constipation GENITOURINARY: Negative for dysuria MUSCULOSKELETAL: right ankle fracture and left hip fracture NEUROLOGICAL: no tremor or seizure activity HEMATOLOGICAL: Negative SKIN: left hip incision PSYCHIATRIC: Unremarkable All other review of systems found to be negative. PHYSICAL EXAMINATION: VITAL SIGNS: Please see below. GENERAL: Pleasant and cooperative. No acute distress. HEENT: PERRL. Extraocular movements intact. Clear conjunctiva CARDIOVASCULAR: Regular rate and rhythm. No murmurs, rubs, or gallops LUNGS: clear to auscultation bilaterally. No wheezes/rhonchi ABDOMEN: Soft, nontender, nondistended. Positive bowel sounds. NEUROLOGICAL: Alert and oriented times three. Cranial nerves II through XII grossly intact. Sensation grossly intact EXTREMITIES: 5\5 strength bilateral upper extremities. 5\5 strength right lower extremity. 5/5 strength in left ankle DH and EHL (limited due to surgery) negative Milli's bilat SKIN: left hip incision without drainage, +ecchymosis, left ankle swelling improved ASSESSMENT:83-year-old M with past medical history of HTN who presents status post fall with left hip fracture in setting of recent right ankle fracture and pneumonia. PLAN: 1. Rehab: PT/OT, [employer] assess for DMEs, ambulating well with RW and able to negotiate stairs 2. Ortho: s/p left hip beto-arthroplasty WBAt with hip precautions, recent right ankle fracture c/u boot and PWB-ortho consulted, antonietta to be removed tomorrow 3. CArdio: pmh HTN c/u amlodipine, pmh AD with stent c/u ASA, c/u lasix-medicine consulted 4. resp: recent pneumonia in setting of COPD c/u Levaquin and breathing treatments, encourage incentive spirometry, c/u home dose of lasix and c c/u Guaifenaisin -c/u Medrol taper 5. Rheum: pmh gout- c/u Allopurinol 6. GI ppx: c/u increased omperazole to 20mg BID while on XArelto and steroids, FOBT negative 7. DVT ppx: c/u Xarelto 8. Pain: c/u oxycodone q4h prn, tylenol, will c/u to tapered off the long-acting 9. Heme: blood loss anemia, will transfuse if Hgb <8, FOT negative, c/u iron- stable 9. :admission UA and Ucx negative, monitor PVRs 10. Skin: will change dressing to optilock for better absorption, acewrap to left ankle and elevate when in bed-swelling improving 10. Dispo: 10/28/18 to home, quickly progressing towards goals 11. DNR Allergies Coded Allergies: tamsulosin (Verified Allergy, Mild, Rash, 10/08/18) propoxyphene (Verified Allergy, Unknown, 10/08/18) Vital Signs Vital Signs Date Time Temp Pulse Resp B/P (MAP) Pulse Ox O2 Delivery O2 Flow Rate FiO2 10/23/18 09:20 72 158/72 10/23/18 06:00 97.6 18 92 10/22/18 14:00 95.0 Laboratory Data CBC/BMP Laboratory Tests 10/23/18 06:13 Red Blood Count 3.24 L, Mean Corpuscular Volume 100.9 H, Mean Corpuscular Hemoglobin 33.0, Mean Corpuscular Hemoglobin Concent 32.7, Red Cell Distribution Width 13.3, Neutrophils (%) (Auto) 62.9, Lymphocytes (%) (Auto) 17.3 L, Mo nocytes (%) (Auto) 8.7 H, Eosinophils (%) (Auto) 8.6 H, Basophils (%) (Auto) 0.6, Neutrophils # (Auto) 5.0, Lymphocytes # (Auto) 1.4 L, Monocytes # (Auto) 0.7, Eosinophils # (Auto) 0.7 H, Basophils # (Auto) 0.1, Calcium Level 8.4 L Labs 24H Laboratory Tests 2 10/23/18 06:13: Immature Granulocyte % (Auto) 1.9, White Blood Count 7.9, Red Blood Count 3.24L, Hemoglobin 10.7L, Hematocrit 32.7L, Mean Corpuscular Volume 100.9H, Mean Corpuscular Hemoglobin 33.0, Mean Corpuscular Hemoglobin Concent 32.7, Red Cell Distribution Width 13.3, Platelet Count 427, Neutrophils (%) (Auto) 62.9, Lymphocytes (%) (Auto) 17.3L, Monocytes (%) (Auto) 8.7H, Eosinophils (%) (Auto) 8.6H, Basophils (%) (Auto) 0.6, Neutrophils # (Auto) 5.0, Lymphocytes # (Auto) 1.4L, Monocytes # (Auto) 0.7, Eosinophils # (Auto) 0.7H, Basophils # (Auto) 0.1, Nucleated Red Blood Cells % (auto) 0.0, Anion Gap 5L, Glomerular Filtration Rate > 60.0, Blood Urea Nitrogen 19H, Creatinine 1.00, Sodium Level 137, Potassium Level 4.2, Chloride Level 108H, Carbon Dioxide Level 24, Calcium Level 8.4L Microbiology Microbiology 10/13/18 Stool Occult Blood ([facility]) - Final, Complete Current Medications Current Medications Current Medications Acetaminophen (Tylenol Tab) 650 mg DAILYPRN PRN PO fever/MILD PAIN (PS 1-4); Start 10/10/18 at 17:45 Acetaminophen (Tylenol Tab) 1,000 mg TID PO Last administered on 10/23/18 09:22; Start 10/10/18 at 21:00 Albuterol Sulfate (Proventil Neb) 2.5 mg Q4HP PRN NEB SOB/WHEEZING; Start 10/10/18 at 17:45 Albuterol Sulfate (Proventil Neb) 2.5 mg RQ8H NEB Last administered on 10/22/18at 23:54; Start 10/11/18 at 00:00 Allopurinol (Zyloprim) 100 mg DAILY PO Last administered on 10/23/18 09:22; Start 10/11/18 at 09:00 Amlodipine Besylate (Norvasc) 10 mg DAILY PO Last administered on 10/23/18 09:20; Start 10/11/18 at 09:00 Aspirin (Aspirin Chewable) 81 mg DAILY PO Last administered on 10/23/18 09:21; Start 10/11/18 at 09:00 Bisacodyl (Dulcolax Suppository) 10 mg DAILYPRN PRN [place] CONSTIPATION Last administered on 10/20/18 08:44; Start 10/10/18 at 17:45 Docusate Sodium (Colace) 100 mg BID PO Last administered on 10/23/18 09:22; Start 10/10/18 at 21:00 Ferrous Sulfate (Ferrous Sulfate) 325 mg BID PO Last administered on 10/23/18 09:20; Start 10/15/18 at 09:00 Furosemide (Lasix) 20 mg DAILY PO Last administered on 10/23/18 09:20; Start 10/13/18 at 09:00 Guaifenesin (Robitussin Tab) 400 mg TID PO Last administered on 10/22/18 20:37; Start 10/13/18 at 16:00 Levofloxacin (Levaquin) 500 mg Q48H PO Last administered on 10/18/18 05:37; Start 10/12/18 at 06:00; Stop 10/19/18 at 05:59; Status DC Magnesium Hydroxide (Milk Of Magnesia) 30 ml DAILYPRN PRN PO CONSTIPATION Last administered on 10/20/18 08:44; Start 10/10/18 at 17:45 Methylprednisolone (Medrol) 4 mg DAILY PO Last administered on 10/23/18 09:22; Start 10/22/18 at 09:00; Stop 10/24/18 at 23:00 Methylprednisolone (Medrol) 8 mg BID PO Last administered on 10/18/18 20:27; Start 10/16/18 at 13:00; Stop 10/18/18 at 23:00; Status DC Methylprednisolone (Medrol) 8 mg DAILY PO Last administered on 10/21/18 08:58; Start 10/19/18 at 09:00; Stop 10/21/18 at 23:00; Status DC Miscellaneous (Unresolved Clarification Entry) SEE LABEL COMMENTS DAILY XX ; Start 10/22/18 at 09:00; Stop 10/22/18 at 14:23; Status DC Multivitamins (Theragram-M) 1 tab DAILY PO Last administered on 10/23/18 09:2 1; Start 10/11/18 at 09:00 Omeprazole (PriLOSEC) 20 mg BID PO Last administered on 10/23/18 09:21; Start 10/16/18 at 21:00 Omeprazole (PriLOSEC) 20 mg DAILY PO Last administered on 10/16/18 09:01; Start 10/11/18 at 09:00; Stop 10/16/18 at 12:50; Status DC Ondansetron HCl (Zofran) 4 mg Q6HP PRN PO NAUSEA; Start 10/10/18 at 17:45 Oxycodone HCl (OxyCONTIN) 10 mg BID PO Last administered on 10/16/18 09:03; Start 10/10/18 at 21:00; Stop 10/16/18 at 12:49; Status DC Oxycodone HCl (Roxicodone, Oxyir) 5 mg Q4HP PRN PO PAIN Last administered on 10/21/18 20:13; Start 10/10/18 at 17:45 Rivaroxaban (Xarelto) 10 mg DAILY@18 PO Last administered on 10/22/18 17:25; Start 10/10/18 at 18:00 Senna (Senokot) 1 tab QHS PO Last administered on 10/22/18 20:37; Start 10/10/18 at 21:00 Sodium Biphosphate/ Sodium Phosphate (Fleet Enema) 1 ea DAILYPRN PRN [place] CONSTIPATION Last administered on 10/20/18 12:07; Start 10/20/18 at 11:30 Vitamin D (Vitamin D) 1,000 units DAILY PO Last administered on 10/23/18 09:20; Start 10/11/18 at 09:00 Zinc Oxide (Boudreauxs Butt Paste) 1 oz TID TOP Last administered on 10/23/18 09:00; Start 10/15/18 at 16:00 ELVA MCKENNA MD Oct 23, 2018 11:36
[2018-10-23 14:00] VITALS: BP 138/64
--- NOTE | 2018-10-23 16:36 | IPNPDOC ---
Text Note Date of Service The patient was seen on 10/23/18. NOTE SUBJECTIVE: The patient is seen and examined in the room today. The patient denies fever or chill. Denies cough or wheeze. The left hip pain is under control. His right ankle is not bothering him. Denies any acute complaint. OBJECTIVE: VITAL SIGNS: Listed below. GENERAL: The patient is alert and awake, comfortable. HEENT: Normocephalic, atraumatic. Extraocular motor grossly intact. CARDIOVASCULAR: Positive S1, S2, regular rate. LUNGS: Clear to auscultation bilaterally. ABDOMEN: Soft. Bowel sounds present. EXTREMITIES: Mild left lower extremity swelling. LABORATORY DATA: Listed below. ASSESSMENT AND PLAN: #. Left hip fracture, - status post left hip replacement on 10/09/2018. The patient is continued with physical therapy (PT) and occupational therapy (OT) per acute rehabilitation unit (ARU) instruction. Refer the diet, activity level and anticoagulation per ARU. #. Distal fibula fracture. - Continue ankle brace during ambulation. Continue with physical therapy. Follow up with orthopedic team at scheduled time. #. Acute respiratory distress. - S/P treatment for pneumonia, atelectasis, and chronic obstructive pulmonary disease (COPD) exacerbation. The patient is on a tapering dose of steroids. Finish the course of Levaquin. Continue nebulizer as needed. Continue incentive spirometry as tolerated. #. Constipation. - Patient is on bowel regimen. The patient had a bowel movement in the last 24 hours. Continue to monitor. #. Diastolic dysfunction. - Echocardiogram performed on 10/08/2018. Continue to monitor fluid status. No sign of gross overload, on Lasix. #. Gout, on allopurinol. #. Hypertension, on Norvasc and Lasix. #. Coronary artery disease, status post stent placement, on aspirin. #. Gastroesophageal reflux disease, on Prilosec. #. Deep vein thrombosis (DVT) prophylaxis, on Xarelto per orthopedics. VS,Fishbone, I+O VS, Fishbone, I+O Laboratory Tests 10/23/18 06:13 Red Blood Count 3.24 L, Mean Corpuscular Volume 100.9 H, Mean Corpuscular Hemoglobin 33.0, Mean Corpuscular Hemoglobin Concent 32.7, Red Cell Distribution Width 13.3, Neutrophils (%) (Auto) 62.9, Lymphocytes (%) (Auto) 17.3 L, Monocytes (%) (Auto) 8.7 H, Eosinophils (%) (Auto) 8.6 H, Basophils (%) (Auto) 0.6, Neutrophils # (Auto) 5.0, Lymphocytes # (Auto) 1.4 L, Monocytes # (Auto) 0.7, Eosinophils # (Auto) 0.7 H, Basophils # (Auto) 0.1, Calcium Level 8.4 L Vital Signs Date Time Temp Pulse Resp B/P (MAP) Pulse Ox O2 Delivery O2 Flow Rate FiO2 10/23/18 14:00 97.8 85 18 138/64 (88) 96 10/22/18 14:00 95.0 I&O- Last 24 Hours up to 6 AM 10/23/18 06:00 Intake Total 1560 ml Output Total 1550 ml Balance 10 ml VONDA CARSON DO Oct 23, 2018 16:36
[2018-10-23] MEDS: RIVAROXABAN 10 MG TAB (XARELTO) PO SCH (17:08)
[2018-10-23] MEDS ORDERED: LACTULOSE 20 GM/30 ML SYRUP UD PO ONE (18:00)
[2018-10-23 20:00] VITALS: BP 153/70
[2018-10-23] MEDS ORDERED: BISACODYL 10 MG SUPP PR ONE (20:00)
[2018-10-23] MEDS: SENNA 8.6 MG TAB (SENOKOT) PO SCH (21:02)
[2018-10-23] MEDS: MOM 30ML SUSPENSION UDC PO PRN (21:05)
[2018-10-24 06:00] VITALS: BP 169/75
[2018-10-24] MEDS: ALBUTEROL SULFATE 2.5 MG/0.5 ML INH NEB SOLN NEB SCH (08:32)
[2018-10-24] MEDS: ASPIRIN 81 MG CHEW TABLET PO SCH (08:37)
[2018-10-24] MEDS: guaiFENesin 200 MG TAB PO SCH (08:37)
[2018-10-24] MEDS: ACETAMINOPHEN 500 MG TAB PO SCH (08:37)
[2018-10-24 08:38] VITALS: BP 169/75
[2018-10-24] MEDS: VITAMIN D 1,000 INTERNATIONAL UNITS TABLET PO SCH (08:38)
[2018-10-24] MEDS: FERROUS SULFATE 325MG TAB PO SCH (08:38)
[2018-10-24] MEDS: FUROSEMIDE 20 MG TAB PO SCH (08:38)
[2018-10-24] MEDS: MULTIVITAMINS/MINERALS THERAP 1 TAB PO SCH (08:38)
[2018-10-24] MEDS: amLODIPine 10 MG TAB PO SCH (08:38)
[2018-10-24] MEDS: OMEPRAZOLE 20 MG CAP PO SCH (08:38)
[2018-10-24] MEDS: ALLOPURINOL 100 MG TAB PO SCH (08:38)
[2018-10-24] MEDS: methylPREDNISolone 4 MG TAB PO SCH (08:38)
[2018-10-24] MEDS: DOCUSATE SODIUM 100 MG CAP PO SCH (08:38)
[2018-10-24] MEDS: BOUDREAUX'S BUTT PASTE 4OZ TOP SCH (08:39)
[2018-10-24] MEDS ORDERED: FERR325T18 PO (10:00)
[2018-10-24] MEDS ORDERED: COLA100C5 PO (10:00)
[2018-10-24] MEDS ORDERED: XARE10TA PO (10:00)
[2018-10-24] MEDS ORDERED: SENN18TA PO (10:00)
[2018-10-24] MEDS ORDERED: FURO20TA2 PO (10:00)
[2018-10-24] MEDS ORDERED: ASPI81CH8 PO (10:00)
[2018-10-24] MEDS ORDERED: GUAI20TA PO (10:00)
[2018-10-24] MEDS ORDERED: ALLO10TA PO (10:00)
[2018-10-24] MEDS ORDERED: BISA10SU2 PR (10:00)
[2018-10-24] MEDS ORDERED: OMEP-218 PO (10:00)
[2018-10-24 14:00] VITALS: BP 139/64
--- NOTE | 2018-10-24 16:21 | PMRDS ---
DATE OF ADMISSION: 10/10/2018 DATE OF DISCHARGE: 10/24/2018 CHIEF COMPLAINT/DISCHARGE DIAGNOSIS: Left hip fracture and right ankle fracture. HISTORY OF PRESENT ILLNESS: This is an 83-year-old male with a past medical history of hypertension, coronary artery disease (CAD) status post stenting in 2008, gastroesophageal reflux disease (GERD), benign prostatic hypertrophy (BPH), gout who fell at home on 10/01/2018 onto his right side and fractured his right ankle, returned home with a boot and then proceeded to trip over his dog, falling onto his left side, presenting to [facility] Emergency Department (ED) on 10/06/2018 complaining of left lower extremity pain. Hip x-ray showed "impacted fracture of left femoral neck." CT lower extremity showed "fracture of the left femoral neck with impaction, angulation of fracture fragment, soft tissue swelling/hematoma lateral to the left hip." He had an episode of acute respiratory distress on 10/07/[address] angiogram of the chest showed "no pulmonary embolus, moderate bibasilar atelectasis and small areas of consolidation, chronic COPD/emphysematous changes." He was started on empiric antibiotics for a presumed pneumonia and underwent an echocardiogram on 10/08/2018 showing "normal global left ventricular systolic function, there are some features of left ventricular diastolic function, grade 1, and moderate pulmonary hypertension." His breathing improved and he underwent a left hip hemiarthroplasty on 10/09/2018 without complications. He was found to have gait and activity of daily living (ADL) deficits and deemed medically appropriate for that to acute rehabilitation unit (ARU) on 10/10/2018. PAST MEDICAL HISTORY: As per history of present illness (HPI). HOSPITAL COURSE: The patient was admitted and enrolled in a comprehensive physical therapy (PT), occupational therapy (OT) program. During his hospital course, he received 24-hour nursing supervision and weekly team meetings were held to discuss his progress. The patient maintained hip precautions and was weightbearing as tolerated for his left hip hemiarthroplasty and he maintained partial weightbearing status while wearing a controlled ankle motion (CAM) boot for his right ankle fracture. He was continued on Lasix and his blood pressure medications and finished up a course of Levaquin for his recently diagnosed pneumonia. The patient continued to complain of cough, difficulty breathing, and was placed on a steroid taper with improvement in his overall symptoms. He was maintained on Xarelto for deep vein thrombosis (DVT) prophylaxis and omeprazole for gastrointestinal (GI) prophylaxis, fecal occult blood test (FOBT) was negative. Initially, the patient's pain was controlled with long-acting oxycodone in addition to short-acting oxycodone. However, this was tapered prior to his discharge. Admission urinalysis (UA) and urine culture was negative. He was voiding well. His left hip incision initially had copious serous drainage requiring multiple dressing changes. However, this diminished over time and his left ankle was wrapped for dependent edema which also resolved over time. The patient performed very well in his hospital course and was deemed functionally and medically stable to return to home with outpatient services. DISCHARGE MEDICATIONS: - allopurinol 100 daily - aspirin 81 daily - bisacodyl suppository - Colace 100 twice a day - iron 325 by mouth twice a day - Lasix 20 mg daily - guaifenesin 400 mg three times a day - omeprazole 20 mg twice a day - Xarelto 10 mg daily - senna one tablet by mouth at bedtime - albuterol FUNCTIONAL HISTORY: Upon discharge, the patient was modified independent for all functional transfers, able to ambulate 200 feet, at a modified independent level without loss of balance or safety concerns. He was able to negotiate six stairs and in occupational therapy, he was modified independent for bathing and upper body dressing, requiring standby assist for lower body dressing while donning the right CAM boot.
--- NOTE | 2018-10-24 16:58 | IPNPDOC ---
Text Note Date of Service The patient was seen on 10/24/18. NOTE SUBJECTIVE: The patient is seen and examined in the room today before discharge. Patient denies chest pain or shortness of breath. Patient states his left hip pain is under control. He already has scheduled appointment with orthopedic surgery for his left hip repair and right ankle fracture follow up. OBJECTIVE: VITAL SIGNS: Listed below. GENERAL: The patient is alert and awake, comfortable. HEENT: Normocephalic, atraumatic. Extraocular motor grossly intact. CARDIOVASCULAR: Positive S1, S2, regular rate. LUNGS: Clear to auscultation bilaterally. ABDOMEN: Soft. Bowel sounds present. EXTREMITIES: Mild left lower lower extremity swelling. LABORATORY DATA: Listed below. ASSESSMENT AND PLAN: #. Left hip fracture, - status post left hip replacement on 10/09/2018. Patient is being discharged home from ARU. Discharge medication reviewed. Recommend following up with orthopedic team at scheduled time for his left hip repair and right fibular fracture followup. Recommend following up with primary care provider in 1-2 weeks. Instructions were given to the patient. #. Distal fibular fracture. - Continue ankle brace during ambulation. Follow up with orthopedic team at scheduled time. #. Acute respiratory distress. - S/P treatment for pneumonia, atelectasis, and chronic obstructive pulmonary disease (COPD) exacerbation. Finish the course of Levaquin. Continue nebulizer as needed. Finished course of tapering steroid. Continue incentive spirometry as tolerated. - Resolved. #. Constipation. - Patient is on bowel regimen. Continue to monitor. #. Diastolic dysfunction. - Echocardiogram performed on 10/08/2018. Continue to monitor fluid status. No significant sign of fluid overload. Continue Lasix. #. Gout, on allopurinol. #. Hypertension, on Norvasc and Lasix. #. Coronary artery disease, status post stent placement, on aspirin. #. Gastroesophageal reflux disease, on Prilosec. VS,Fishbone, I+O VS, Fishbone, I+O Vital Signs Date Time Temp Pulse Resp B/P (MAP) Pulse Ox O2 Delivery O2 Flow Rate FiO2 10/24/18 14:00 97.6 76 20 139/64 (89) 97 10/22/18 14:00 95.0 I&O- Last 24 Hours up to 6 AM 10/24/18 06:00 Intake Total 1880 ml Output Total 900 ml Balance 980 ml VONDA CARSON DO Oct 24, 2018 16:58
== END 2018-10-24 14:54 | disposition home or self-care (01) | DRG 560 ==
LOC: M PM&R 14:50
PROVIDERS: ADMIT Physical Medicine & Rehabilitation; ATTEND Physical Medicine & Rehabilitation
DX: Z47.89 Encounter for other orthopedic aftercare (principal); D62 Acute posthemorrhagic anemia; I50.32 Chronic diastolic (congestive) heart failure; S72.002D Fracture of unspecified part of neck of left femur, subsequent encounter for closed fracture with routine healing; S82.61XD Displaced fracture of lateral malleolus of right fibula, subsequent encounter for closed fracture with routine healing; I11.0 Hypertensive heart disease with heart failure; I25.10 Atherosclerotic heart disease of native coronary artery without angina pectoris; Z95.2 Presence of prosthetic heart valve; K21.9 Gastro-esophageal reflux disease without esophagitis; N40.0 Benign prostatic hyperplasia without lower urinary tract symptoms; M10.9 Gout, unspecified; J44.9 Chronic obstructive pulmonary disease, unspecified; Z79.82 Long term (current) use of aspirin; Z79.899 Other long term (current) drug therapy; W18.30XD Fall on same level, unspecified, subsequent encounter; Y92.009 Unspecified place in unspecified non-institutional (private) residence as the place of occurrence of the external cause; Z87.891 Personal history of nicotine dependence; Z88.8 Allergy status to other drugs, medicaments and biological substances; Z66 Do not resuscitate; K59.00 Constipation, unspecified

== ENCOUNTER → 2018-11-11 | Outpatient (RCR) | payer MEDICARE, OTHER ==
[~2018-11-11] MED LIST changes: +ASPI81CH8 PO; +BISA10SU2 PR; +COLA100C5 PO; +FERR325T18 PO; +GUAI20TA PO; +OMEP-218 PO; +SENN18TA PO
== END ==
LOC: M PT 10-28 12:28
PROVIDERS: ATTEND Orthopaedic Surgery
DX: R26.89 Other abnormalities of gait and mobility (principal)

== ENCOUNTER 2018-12-11 07:00 | Outpatient (RCR) | payer MEDICARE, OTHER | END 2018-12-12 | LOC: M PT 07:00 | PROVIDERS: ATTEND Orthopaedic Surgery | DX: R26.89 Other abnormalities of gait and mobility (principal) ==

== ENCOUNTER 2019-01-08 07:00 | Outpatient (RCR) | payer MEDICARE, OTHER | END 2019-01-11 | LOC: M PT 07:00 | PROVIDERS: ATTEND Orthopaedic Surgery | DX: S72.92XD Unspecified fracture of left femur, subsequent encounter for closed fracture with routine healing (principal); X58.XXXD Exposure to other specified factors, subsequent encounter ==

== ENCOUNTER 2019-01-21 07:00 | Outpatient (RCR) | payer MEDICARE, OTHER ==
[~2019-01-21 07:00] MED LIST changes: -BISA10SU2 PR; +BISA10SU20 PR; -OMEP20CA3 PO; +OMEP20CA4 PO
== END 2019-02-11 ==
LOC: M PT 07:00
PROVIDERS: ATTEND Orthopaedic Surgery
DX: S72.92XD Unspecified fracture of left femur, subsequent encounter for closed fracture with routine healing (principal)

== ENCOUNTER → 2019-04-13 | Outpatient (RCR) | payer MEDICARE, OTHER | END | disposition home or self-care (01) | LOC: M PT 04-06 07:09 | PROVIDERS: ATTEND Physician Assistant | DX: Z47.89 Encounter for other orthopedic aftercare (principal); S72.092D Other fracture of head and neck of left femur, subsequent encounter for closed fracture with routine healing; S82.61XD Displaced fracture of lateral malleolus of right fibula, subsequent encounter for closed fracture with routine healing ==

== ENCOUNTER 2019-05-06 17:47 | Inpatient (IN) | payer MEDICARE, OTHER ==
[~2019-05-06] VITALS: Ht 177.8 cm; Wt 86.0 kg
[2019-05-06] MEDS ORDERED: TRIA25CR TOP (17:55)
--- NOTE | 2019-05-06 20:22 | REPVR ---
PROCEDURE INFORMATION: Exam: CT Lumbar Spine Without Contrast Exam date and time: 05/06/2019 7:31 PM Clinical history: 83 years old, male; Low back pain TECHNIQUE: Imaging protocol: Computed tomography images of the lumbar spine without contrast. Radiation optimization: All CT scans at this facility use at least one of these dose optimization techniques: automated exposure control; mA and/or kV adjustment per patient size (includes targeted exams where dose is matched to clinical indication); or iterative reconstruction. COMPARISON: MRI-Spine, L.S. without con 03/10/2018 4:22 PM FINDINGS: Vertebrae: L3 mild acute compression fracture. L1 chronic fracture with vertebral augmentation. Superior S1 endplate mild fracture. Mild S-shaped scoliosis. Maintained alignment. Discs/Spinal canal/Neural foramina: Diffuse degenerative disc space loss, facet arthropathy and ligamentum flavum thickening, and scattered disc bulge/protrusions cause up to moderate foraminal and spinal stenosis. Stomach and bowel: Mild colonic diverticulosis without evidence for acute diverticulitis. Soft tissues: Unremarkable. IMPRESSION: 1. L3 mild acute compression fracture. 2. Superior S1 endplate mild fracture. Electronically signed by: Luisito Haque On 05/06/2019 20:22:36 PM
[2019-05-06] MEDS ORDERED: traMADol ER 100MG TABLET (ULTRAM ER) PO SCH (21:00)
[2019-05-06] MEDS ORDERED: MORPHINE 2 MG/ML 1ML VIAL (J2270) IV ONE (21:15)
[2019-05-06] MEDS ORDERED: ONDANSETRON 4MG/2ML VIAL (J2405) IV ONE (21:15)
[2019-05-06] MEDS ORDERED: MELO7.5T35 (21:36)
[2019-05-06] MEDS ORDERED: VITMTA PO (22:12)
[2019-05-06] MEDS ORDERED: CALC600T66 PO (22:12)
[2019-05-06] MEDS ORDERED: ASPI-161 PO (22:12)
--- NOTE | 2019-05-06 23:04 | HPEPDOC ---
[facility] Medical History & Physical Date of Admission May 06, 2019 Date of Service: May 06, 2019 Primary Care Physician: A Other Provider unknown PCP Attending Physician: GINNA BIRCH MD History and Physical TIME OF SERVICE: 11:23 PM CHIEF COMPLAINT: Back Pain HISTORY OF PRESENT ILLNESS: This is an 83-year-old male who presented with complaints of acute worsening of his chronic lower back pain. Today the pain was sharp, 8 /10 in severity, shoots down to his legs, was made worse by movement and alleviated by staying still. He denies falling, denies lifting heavy objects, denies sustaining any trauma to his back, denies having urinary or fecal incontinence, denies having paresthesias, denies having fevers, and denies having chills. He received morphine which he feels didn't help the pain much. Per discussion with the ED provider, Dr. Reardon (Ortho) who said that he can follow-up with the patient on an outpatient basis if he is not admitted. The patient felt that his pain was too severe for him to go home, therefore admission for pain control has been requested. REVIEW OF SYSTEMS: 12 point review of systems negative except as listed in HPI PAST MEDICAL/ SURGICAL HISTORY: Chronic CAD, status post placement of 2 stents Chronic hypertension. Chronic COPD Chronic back pain Status post hip surgery is attending therapy at [facility] an outpatient basis SOCIAL HISTORY: Former smoker FAMILY HISTORY: Patient reports he does not family history ALLERGIES: Please see below. HOME MEDICATIONS: Please see below. PHYSICAL EXAMINATION: VITAL SIGNS: Please see below. GENERAL APPEARANCE: Well-nourished, well-developed, not in apparent distress HEENT: Normocephalic, atraumatic, mucous membranes moist and pink CARDIOVASCULAR: Regular rate and rhythm. No murmurs, rubs or gallops LUNGS: Clear to auscultation bilaterally on room air MUSCULOSKELETAL: Range of motion intact in all 4 extremities. The patient is complaining of a worsening back pain when lifting his left lower extremity. NEUROLOGICAL: Strength is 5 out of 5 in all extremities PSYCHIATRIC: Alert and oriented, able to understand and follow commands LABORATORY DATA: Pending IMAGING: CT of the lumbar spine " IMPRESSION: 1. L3 mild acute compression fracture. 2. Superior S1 endplate mild fracture. " ASSESSMENT: Mr. Mcmillan is an 88 yr old M with a past medical history of chronic CAD, chronic hypertension, chronic COPD, and chronic back pain who will be admitted for management of pain related to L3 and superior S1 fracture. PLAN: 1. Nontraumatic L3 mild acute compression fracture & S1 superior endplate mild fracture Likely secondary to age-related osteoporosis. Plan: Admit to general medical floor for pain control/pain control with tramadol and acetaminophen/fall precautions/orthotic consult/physical therapy consult / he will need workup to rule out secondary causes of osteoporosis ( including DEXA, TSH, Calcium, 25-OH Vitamin D, Urine calcium) which can be done on outpatient basis prior to selecting medications / calcium and vitamin D supp lement 2. Chronic CAD Plan: Resume home meds 3 Chronic hypertension Plan: Resume home meds 4. Chronic COPD Stable. Plan: Resume home meds [place] Early Screen for Discharge Plan = 20 points = Case management consult for home health aide and pending PT recs possible temporary placement for rehab [place] Prediction Score to determine need for AC in hospitalized pts = 4 points Pharmacologic Prophylaxis IS indicated. = Heparin Vital Signs Vital Signs Date Time Temp Pulse Resp B/P (MAP) Pulse Ox O2 Delivery O2 Flow Rate FiO2 05/06/19 22:31 18 05/06/19 20:55 05/06/19 17:47 99.1 70 95 Home Medications Scheduled Acetaminophen (Acetaminophen 8 Hour) 650 Mg Tablet.er, 1 TAB PO TID Alendronate Sodium (Alendronate Sodium) 35 Mg Tablet, 70 MG PO Fr@0600 Allopurinol (Allopurinol) 100 Mg Tab, 100 MG PO DAILY Aspirin (Aspirin EC) 81 Mg Tablet.dr, 81 MG PO DAILY Calcium Carbonate/Vitamin D3 (Calcium 600 + Vit D Tablet) 1 Each Tablet, 1 EACH PO DAILY Docusate Sodium (Docusate Sodium) 100 Mg Cap, 100 MG PO DAILY Felodipine (Felodipine ER) 10 Mg Tab, 10 MG PO DAILY Furosemide (Furosemide) 20 Mg Tab, 20 MG PO DAILY Multivitamins (Thera M Plus Tablet) 1 Each Tablet, 1 TAB PO DAILY Omeprazole (Omeprazole) 20 Mg Cap, 20 MG PO DAILY Scheduled PRN Albuterol Sulf (Albuterol Sulfate) 2.5 Mg/3 Ml Nebu, 2.5 MG INH QID PRN for SHORTNESS OF BREATH Albuterol Sulfate (Proair Hfa) 108 Mcg/Act Aer, 2 PUFF INH Q4H PRN for SHORTNESS OF BREATH Tramadol HCl (Tramadol HCl) 50 Mg Tablet, 50 MG PO Q6HP PRN for pain Allergies Coded Allergies: tamsulosin (Verified Allergy, Mild, Rash, 10/08/18) propoxyphene (Verified Allergy, Unknown, 10/08/18) A-FIB/CHADSVASC A-FIB History Current/History of A-Fib/PAF?: No Current PO Anticoag Therapy: No GINNA BIRCH MD May 06, 2019 23:04
[2019-05-07] MEDS: ACETAMINOPHEN 650MG ER TAB (TYLENOL ARTHRITIS) PO SCH ×3 (01:20→16:06)
[2019-05-07] MEDS ORDERED: CALCIUM CARBONATE 500 MG CHEW U/D PO PRN (04:00)
[2019-05-07] MEDS ORDERED: ALBUTEROL 90 MCG/ACT 8GM HFA INHALER INH PRN (04:00)
[2019-05-07] MEDS ORDERED: ALBUTEROL SULFATE 2.5 MG/0.5 ML INH NEB SOLN INH PRN (04:00)
[2019-05-07 06:59] LABS: BASO # 0.1 10^3/uL (0.0-0.2); BASO % 0.8 % (0.0-1.0); EOS # 0.6 10^3/uL (0.0-0.5); HEMATOCRIT 39.6 % (42.0-52.0); HEMOGLOBIN 13.3 g/dl (13.5-17.5); LYMPH # 1.5 10^3/uL (1.5-5.0); LYMPH % 23.7 % (24.0-44.0); MEAN CORPUSCULAR HEMOGLOBIN 33.9 pg (27.0-33.0); MEAN CORPUSCULAR HGB CONC 33.6 g/dl (32.0-36.5); MONO # 0.7 10^3/uL (0.0-0.8); MONO % 10.8 % (0.0-5.0); NEUTROPHILS # 3.5 10^3/uL (1.5-8.5); NEUTROPHILS % 54.2 % (36.0-66.0); PLATELET COUNT, AUTOMATED 192 10^3/uL (150-450); RED BLOOD COUNT 3.92 10^6/uL (4.30-6.10); WHITE BLOOD COUNT 6.4 10^3/uL (4.0-10.0)
[2019-05-07 07:10] LABS: INR 1.13; PROTHROMBIN TIME 14.2 SECONDS (11.8-14.0)
[2019-05-07 07:35] LABS: ALT/SGPT 34 U/L (12-78); BILIRUBIN,TOTAL 0.5 MG/DL (0.2-1.0); BLOOD UREA NITROGEN 16 MG/DL (7-18); CALCIUM LEVEL 8.6 MG/DL (8.8-10.2); CARBON DIOXIDE LEVEL 26 MEQ/L (21-32); CHLORIDE LEVEL 109 MEQ/L (98-107); CREATININE FOR GFR 1.04 MG/DL (0.70-1.30); GLOMERULAR FILTRATION RATE > 60.0 (>35); GLUCOSE, FASTING 80 MG/DL (70-100); POTASSIUM SERUM 4.1 MEQ/L (3.5-5.1); SODIUM LEVEL 140 MEQ/L (136-145); TOTAL PROTEIN 7.6 GM/DL (6.4-8.2); TROPONIN I < 0.02 NG/ML (< 0.10)
[2019-05-07] MEDS: DOCUSATE SODIUM 100 MG CAP PO SCH (08:31)
[2019-05-07] MEDS: HEPARIN SOD (PORCINE) 5000 UNITS/ML VIAL SQ SCH ×2 (08:31→20:45)
[2019-05-07] MEDS: OMEPRAZOLE 20 MG CAP PO SCH (08:31)
[2019-05-07] MEDS: ASPIRIN 81 MG ENTERIC TAB PO SCH (08:31)
[2019-05-07] MEDS: ALLOPURINOL 100 MG TAB PO SCH (08:31)
[2019-05-07] MEDS: FUROSEMIDE 20 MG TAB PO SCH (08:31)
[2019-05-07] MEDS: VITAMIN D 1,000 INTERNATIONAL UNITS TABLET PO SCH (08:31)
[2019-05-07] MEDS: MULTIVITAMINS/MINERALS THERAP 1 TAB PO SCH (08:31)
--- NOTE | 2019-05-07 11:08 | CR ---
DATE OF CONSULTATION: 05/07/2019 CHIEF COMPLAINT: Back pain. HISTORY OF PRESENT ILLNESS: Jeremy Mcmillan is a pleasant, 83-year-old gentleman with a history of chronic back pain, but developed worsening back pain over the last two days. It became so severe that he presented to the emergency room. He has known foraminal and spinal stenosis and is seen [facility] for lumbar epidural steroid injections. He is also status post a procedure by Dr. Taylor five years ago or so which he thinks was a L1 kyphoplasty. The patient denies any recent falls. He did have a fairly significant fall at the beginning of the year where he broke his ankle and hip. He is unclear if he happened to have any compression fractures in his back at that time. The pain is really at his lower back in the region of the S1 region. He denies any urinary or fecal incontinence, paresthesias or weakness in his legs. PAST MEDICAL HISTORY: 1. Chronic coronary artery disease (CAD) status post placement of two stents. 2. Hypertension. 3. Chronic obstructive pulmonary disease (COPD). 4. Chronic back pain. 5. Left total hip arthroplasty. SOCIAL HISTORY: The patient is a former smoker. He is here today with his daughter. HOME MEDICATIONS: - allopurinol - aspirin - calcium docusate - felodipine - furosemide - multivitamin - omeprazole ALLERGIES: - TAMSULOSIN - PROPOXYPHENE PHYSICAL EXAMINATION: Vital Signs: Temperature 99.1. Pulse 70, respiratory rate 18, pulse oxygen 95%. General: Well appearing, alert and oriented, and answers questions appropriately. Cardiovascular: Regular rate and rhythm. Abdomen: Soft. Nontender. Musculoskeletal: The patient has no tenderness along his neck, thoracic spine or upper L-spine. Pain is primarily in the region of the S1 vertebrae. He has 5/5 strength in his iliopsoas, quads, tibialis anterior, extensor hallucis longus, and gastrocnemius. He has normal sensation to light touch in the L3 through S1 distribution. IMAGING: CT scan performed yesterday is reviewed. This does show a mild compression fracture at L3 and also at S1. There is chronic foraminal and spinal stenosis. No significant canal compromise. Prior procedure to L1 evident. IMPRESSION: L3 and S1 compression fractures of unknown age or mechanism, possibly due to patient's osteoporosis. PLAN: The patent is neurovascularly intact. He can use a lumbar corset for comfort. He is admitted to medicine service for pain control. I would ambulate with a walker or cane or other device for support. He should followup at [facility] upon discharge for repeat x-rays to ensure stability of the fractures before he gets started with continued therapy. He can see Joss Pappas or Jose M Li. If he starts to have any neurological issues, orthopedics needs to be notified right away. At this point, given the mild case of the fractures, we can hold off on the MRI unless his symptoms start worsening. All his questions were answered and he was in agreement with this plan.
[2019-05-07] MEDS ORDERED: traMADol ER 100MG TABLET (ULTRAM ER) PO ONE (14:00)
[2019-05-07 14:20] VITALS: BP 138/66
[2019-05-07] MEDS: traMADol 50 MG TAB PO PRN (17:15)
--- NOTE | 2019-05-07 19:34 | IPNPDOC ---
Text Note Date of Service The patient was seen on 05/07/19. NOTE Subjective: Patient continues to have lower back pain, which subsided with pain management. Patient denies fever, chills, nausea, vomiting, palpitations, shortness of breath, diarrhea or dysuria Objective: General: NAD Cardiovascular: Regular rate and rhythm. Lungs: CTA Abdomen: Soft. Nontender, nondistended Musculoskeletal: Tenderness over lumbar and sacral area Neuro: Nonfocal, reflexes +2, cranial nerves intact, no weakness of lower extremities, no numbness Assessment and plan: Patient is 83 years old male with past medical history of chronic back pain, secondary to spinal stenosis, on steroid injection was admitted with back pain, he was found to have L3 and S1 compression fractures most likely due to patient's osteoporosis Back pain secondary to L3/S1 compression fracture Conservative treatment with corset for comfort per ortho team Pain management Continue vitamin D, I initiated Fosamax Patient will need DEXA scan in the outpatient settings PT/OT Chronic coronary artery disease (CAD) status post placement of two stents Continue home cardioprotective medication Hypertension Blood pressures under control Chronic obstructive pulmonary disease (COPD). Not in acute exacerbation Continue inhalers VS,Fishbone, I+O VS, Fishbone, I+O Laboratory Tests 05/07/19 06:47 Vital Signs Date Time Temp Pulse Resp B/P (MAP) Pulse Ox O2 Delivery O2 Flow Rate FiO2 05/07/19 17:45 18 05/07/19 14:20 96.4 64 138/66 (90) 90 Room Air TANNER ESCOBEDO DO May 07, 2019 19:34
[2019-05-07 20:32] VITALS: BP 147/70
[2019-05-08] MEDS: ACETAMINOPHEN 650MG ER TAB (TYLENOL ARTHRITIS) PO SCH ×2 (00:25→08:34)
[2019-05-08 06:00] VITALS: BP 156/73
[2019-05-08] MEDS ORDERED: ALENDRONATE 35MG TABLET PO SCH (06:00)
[2019-05-08] MEDS: traMADol 50 MG TAB PO PRN (06:19)
[2019-05-08] MEDS: DOCUSATE SODIUM 100 MG CAP PO SCH (08:34)
[2019-05-08] MEDS: FUROSEMIDE 20 MG TAB PO SCH (08:34)
[2019-05-08] MEDS: MULTIVITAMINS/MINERALS THERAP 1 TAB PO SCH (08:34)
[2019-05-08] MEDS: VITAMIN D 1,000 INTERNATIONAL UNITS TABLET PO SCH (08:34)
[2019-05-08] MEDS: ASPIRIN 81 MG ENTERIC TAB PO SCH (08:34)
[2019-05-08] MEDS: ALLOPURINOL 100 MG TAB PO SCH (08:34)
[2019-05-08] MEDS: OMEPRAZOLE 20 MG CAP PO SCH (08:36)
[2019-05-08] MEDS: HEPARIN SOD (PORCINE) 5000 UNITS/ML VIAL SQ SCH (08:38)
[2019-05-08] MEDS ORDERED: PREVNAR 13 VACCINE SYRINGE (CPT CODE:90670) IM ONE (09:00)
[2019-05-08] MEDS ORDERED: QC A650T3 PO (11:32)
[2019-05-08] MEDS ORDERED: ALEN35TA6 PO (11:32)
[2019-05-08] MEDS ORDERED: TRAM50TA2 PO (11:52)
--- NOTE | 2019-05-08 20:16 | DS.PDOC ---
Discharge Summary General Date of Admission May 06, 2019 at 23:04 Date of Discharge 05/08/19 Discharge Summary PROCEDURES PERFORMED DURING STAY: None ADMITTING DIAGNOSES: Back pain secondary to L3/S1 compression fracture Chronic coronary artery disease (CAD) status post placement of two stents Hypertension Chronic obstructive pulmonary disease (COPD DISCHARGE DIAGNOSES: Back pain secondary to L3/S1 compression fracture Chronic coronary artery disease (CAD) status post placement of two stents Hypertension Chronic obstructive pulmonary disease (COPD COMPLICATIONS/CHIEF COMPLAINT: Age Related Osteoporosis, Nontraumatic Compression. HISTORY OF PRESENT ILLNESS: Jeremy Mcmillan is a pleasant, 83-year-old gentleman with a history of chronic back pain, but developed worsening back pain over the last two days. It became so severe that he presented to the emergency room. He has known foraminal and spinal stenosis and is seen [facility] ([facility] for lumbar epidural steroid injections. He is also status post a procedure by Dr. Taylor five years ago or so which he thinks was a L1 kyphoplasty. The patient denies any recent falls. He did have a fairly significant fall at the beginning of the year where he broke his ankle and hip. He is unclear if he happened to have any compression fractures in his back at that time. The pain is really at his lower back in the region of the S1 region. He denies any urinary or fecal incontinence, paresthesias or weakness in his legs. The patent is neurovascularly intact. He can use a lumbar corset for comfort. He is admitted to medicine service for pain control. I would ambulate with a walker or cane or other device for support. He should followup at [facility] upon discharge for repeat x-rays to ensure stability of the fractures before he gets started with continued therapy. He can see Joss Pappas or Jose M Li. If he starts to have any neurological issues, orthopedics needs to be notified right away. At this point, given the mild case of the fractures, we can hold off on the MRI unless his symptoms start worsening HOSPITAL COURSE: During hospital stay the following issue addressed Back pain secondary to L3/S1 compression fracture Conservative treatment with corset for comfort per ortho team Pain management Continue vitamin D, I initiated Fosamax Patient will need DEXA scan in the outpatient settings PT/OT Chronic coronary artery disease (CAD) status post placement of two stents Continue home cardioprotective medication Hypertension Blood pressures under control Chronic obstructive pulmonary disease (COPD). Not in acute exacerbation Continue inhalers DISCHARGE MEDICATIONS: Please see below. ALLERGIES: Please see below. PHYSICAL EXAMINATION ON DISCHARGE: VITAL SIGNS: Please see below. General: NAD Cardiovascular: Regular rate and rhythm. Lungs: CTA Abdomen: Soft. Nontender, nondistended Musculoskeletal: Tenderness over lumbar and sacral area Neuro: Nonfocal, reflexes +2, cranial nerves intact, no weakness of lower extremities, no numbness LABORATORY DATA: Please see below. IMAGING: See abovePROCEDURE INFORMATION: Exam: CT Lumbar Spine Without Contrast Exam date and time: 05/06/2019 7:31 PM Clinical history: 83 years old, male; Low back pain TECHNIQUE: Imaging protocol: Computed tomography images of the lumbar spine without contrast. Radiation optimization: All CT scans at this facility use at least one of these dose optimization techniques: automated exposure control; mA and/or kV adjustment per patient size (includes targeted exams where dose is matched to clinical indication); or iterative reconstruction. COMPARISON: MRI-Spine, L.S. without con 03/10/2018 4:22 PM FINDINGS: Vertebrae: L3 mild acute compression fracture. L1 chronic fracture with vertebral augmentation. Superior S1 endplate mild fracture. Mild S-shaped scoliosis. Maintained alignment. Discs/Spinal canal/Neural foramina: Diffuse degenerative disc space loss, facet arthropathy and ligamentum flavum thickening, and scattered disc bulge/protrusions cause up to moderate foraminal and spinal stenosis. Stomach and bowel: Mild colonic diverticulosis without evidence for acute diverticulitis. Soft tissues: Unremarkable. IMPRESSION: 1. L3 mild acute compression fracture. 2. Superior S1 endplate mild fracture. PROGNOSIS: Favorable ACTIVITY: As tolerated DIET: Cardiac DISCHARGE PLAN: Home DISPOSITION: 01 Home, Self-Care. DISCHARGE INSTRUCTIONS: Continue physical therapy DISCHARGE CONDITION: Stable. TIME SPENT ON DISCHARGE: Greater than 20 minutes. Vital Signs/I&Os Vital Signs Date Time Temp Pulse Resp B/P (MAP) Pulse Ox O2 Delivery O2 Flow Rate FiO2 05/08/19 06:53 17 05/08/19 06:00 98.9 58 156/73 (100) 92 Room Air I&O- Last 24 Hours up to 6 AM 05/08/19 06:00 Intake Total 660 ml Output Total 1250 ml Balance -590 ml Discharge Medications Scheduled Acetaminophen (Acetaminophen 8 Hour) 650 Mg Tablet.er, 1 TAB PO TID Alendronate Sodium (Alendronate Sodium) 35 Mg Tablet, 70 MG PO Fr@0600 Allopurinol (Allopurinol) 100 Mg Tab, 100 MG PO DAILY, (Reported) Aspirin (Aspirin EC) 81 Mg Tablet.dr, 81 MG PO DAILY, (Reported) Calcium Carbonate/Vitamin D3 (Calcium 600 + Vit D Tablet) 1 Each Tablet, 1 EACH PO DAILY, (Reported) Docusate Sodium (Docusate Sodium) 100 Mg Cap, 100 MG PO DAILY, (Reported) Felodipine (Felodipine ER) 10 Mg Tab, 10 MG PO DAILY, (Reported) Furosemide (Furosemide) 20 Mg Tab, 20 MG PO DAILY, (Reported) Multivitamins (Thera M Plus Tablet) 1 Each Tablet, 1 TAB PO DAILY, (Reported) Omeprazole (Omeprazole) 20 Mg Cap, 20 MG PO DAILY, (Reported) Scheduled PRN Albuterol Sulf (Albuterol Sulfate) 2.5 Mg/3 Ml Nebu, 2.5 MG INH QID PRN for SHORTNESS OF BREATH, (Reported) Albuterol Sulfate (Proair Hfa) 108 Mcg/Act Aer, 2 PUFF INH Q4H PRN for SHORTNESS OF BREATH, (Reported) Tramadol HCl (Tramadol HCl) 50 Mg Tablet, 50 MG PO Q6HP PRN for pain Allergies Coded Allergies: tamsulosin (Verified Allergy, Mild, Rash, 10/08/18) propoxyphene (Verified Allergy, Unknown, 10/08/18) TANNER ESCOBEDO DO May 08, 2019 20:16
== END 2019-05-08 13:40 | disposition home or self-care (01) | DRG 560 ==
LOC: M ED 17:47 → M ED INP 23:04 → M MS5PR 05-07 14:26
PROVIDERS: ADMIT Internal Medicine; ATTEND Internal Medicine
DX: M80.08XD Age-related osteoporosis with current pathological fracture, vertebra(e), subsequent encounter for fracture with routine healing (principal); I50.32 Chronic diastolic (congestive) heart failure; I11.0 Hypertensive heart disease with heart failure; J44.9 Chronic obstructive pulmonary disease, unspecified; I25.10 Atherosclerotic heart disease of native coronary artery without angina pectoris; Z95.2 Presence of prosthetic heart valve; Z79.899 Other long term (current) drug therapy; Z79.82 Long term (current) use of aspirin; Z88.8 Allergy status to other drugs, medicaments and biological substances; Z87.891 Personal history of nicotine dependence; Z96.642 Presence of left artificial hip joint

== ENCOUNTER 2019-05-12 07:45 | Outpatient (RCR) | payer MEDICARE, OTHER ==
[~2019-05-12 07:45] MED LIST changes: +ALEN35TA6 PO; +ASPI-161 PO; +CALC600T66 PO; +MELO7.5T35; +QC A650T3 PO; +TRIA25CR TOP
== END 2019-05-14 ==
LOC: M PT 07:45
PROVIDERS: ATTEND Physician Assistant
DX: S72.092D Other fracture of head and neck of left femur, subsequent encounter for closed fracture with routine healing (principal); S82.61XD Displaced fracture of lateral malleolus of right fibula, subsequent encounter for closed fracture with routine healing

== ENCOUNTER 2019-05-28 07:00 | Outpatient (RCR) | payer MEDICARE, OTHER | END 2019-06-13 | LOC: M PT 07:00 | PROVIDERS: ATTEND Physician Assistant | DX: S72.092D Other fracture of head and neck of left femur, subsequent encounter for closed fracture with routine healing (principal); S82.61XD Displaced fracture of lateral malleolus of right fibula, subsequent encounter for closed fracture with routine healing; X58.XXXD Exposure to other specified factors, subsequent encounter; Y92.9 Unspecified place or not applicable; Y93.9 Activity, unspecified; Y99.9 Unspecified external cause status ==

== ENCOUNTER → 2019-07-24 | Outpatient (CLI) | payer MEDICARE, OTHER ==
[~2019-07-24] MED LIST changes: -FELO10TA PO; +FELO10TA28 PO; +OMEP1CAP73 PO; -OMEP20CA4 PO
--- NOTE | 2019-07-29 13:18 | DEXA ---
AP SPINE L1 - L4 1.226 0.3 0.7 LT FEMUR TOTAL Left hip replacement. LT NECK Left hip replacement. RT FEMUR TOTAL 0.758 -2.0 -1.0 RT NECK 0.688 -2.5 -1.2 TOTAL BODY TOTAL OTHER COMMENTS: Normal bone densitometry of the spine. There is low bone density of the right hip. The density of the right hip has decreased 10.0% since 03/06/2013. No priors. Left hip replacement. FOLLOW-UP: Recommendation for the next bone density exam: 2 years. DORIAN
== END ==
LOC: M WHC 08:35
PROVIDERS: ATTEND Family Medicine
DX: Z13.820 Encounter for screening for osteoporosis (principal); M85.851 Other specified disorders of bone density and structure, right thigh; Z96.642 Presence of left artificial hip joint

== ENCOUNTER 2019-08-11 07:43 | Outpatient (RCR) | payer MEDICARE, OTHER | END 2019-08-14 | LOC: M PT 07:43 | PROVIDERS: ATTEND Physician Assistant | DX: M51.36 Other intervertebral disc degeneration, lumbar region (principal); M47.816 Spondylosis without myelopathy or radiculopathy, lumbar region ==

== ENCOUNTER 2019-09-01 07:19 | Outpatient (RCR) | payer MEDICARE, OTHER | END 2019-09-12 | LOC: M PT 07:19 | PROVIDERS: ATTEND Physician Assistant | DX: Z96.642 Presence of left artificial hip joint (principal); M51.36 Other intervertebral disc degeneration, lumbar region; M47.816 Spondylosis without myelopathy or radiculopathy, lumbar region ==

== ENCOUNTER 2019-10-01 07:45 | Outpatient (RCR) | payer MEDICARE, OTHER | END 2019-10-13 | LOC: M PT 07:45 | PROVIDERS: ATTEND Physician Assistant | DX: Z51.89 Encounter for other specified aftercare (principal); M47.9 Spondylosis, unspecified ==

== ENCOUNTER → 2020-04-13 | Outpatient (RCR) | payer MEDICARE, OTHER ==
[~2020-04-13] MED LIST changes: +ALEN35TA54 PO; -ALEN35TA6 PO; -ASPI81TA85 PO; +ASPI81TA86 PO
== END ==
LOC: M PT 03-28 07:30
PROVIDERS: ATTEND Internal Medicine
DX: M25.552 Pain in left hip (principal); M54.9 Dorsalgia, unspecified

== ENCOUNTER 2020-05-12 07:39 | Outpatient (RCR) | payer MEDICARE, OTHER | END 2020-05-14 | LOC: M PT 07:39 | PROVIDERS: ATTEND Internal Medicine | DX: M25.552 Pain in left hip (principal); M54.9 Dorsalgia, unspecified ==

== ENCOUNTER 2020-05-26 07:45 | Outpatient (RCR) | payer MEDICARE, OTHER ==
[~2020-05-26 07:45] MED LIST changes: -DOK100TA PO; +DOK100TA2 PO
== END 2020-06-13 ==
LOC: M PT 07:45
PROVIDERS: ATTEND Internal Medicine
DX: M25.552 Pain in left hip (principal); M54.9 Dorsalgia, unspecified

== ENCOUNTER 2020-08-11 07:30 | Outpatient (RCR) | payer MEDICARE, OTHER ==
[~2020-08-11 07:30] MED LIST changes: +GABA-282 PO; -GABA-843 PO
== END 2020-08-14 ==
LOC: M PT 07:30
PROVIDERS: ATTEND Anesthesiology Pain Medicine
DX: M54.5 Low back pain (principal)

== ENCOUNTER 2020-08-30 07:45 | Outpatient (RCR) | payer MEDICARE, OTHER | END 2020-09-11 | LOC: M PT 07:45 | PROVIDERS: ATTEND Anesthesiology Pain Medicine | DX: M54.5 Low back pain (principal) ==

== ENCOUNTER 2020-10-11 07:00 | Outpatient (RCR) | payer MEDICARE, OTHER | END 2020-10-12 | LOC: M PT 07:00 | PROVIDERS: ATTEND Anesthesiology Pain Medicine | DX: M54.5 Low back pain (principal) ==

== ENCOUNTER 2020-11-10 07:45 | Outpatient (RCR) | payer MEDICARE, OTHER | END 2020-11-11 | LOC: M PT 07:45 | PROVIDERS: ATTEND Anesthesiology Pain Medicine | DX: M54.5 Low back pain (principal) ==

== ENCOUNTER 2020-11-24 07:45 | Outpatient (RCR) | payer MEDICARE, OTHER | END 2020-12-12 | LOC: M PT 07:45 | PROVIDERS: ATTEND Anesthesiology Pain Medicine | DX: M54.5 Low back pain (principal) ==

== ENCOUNTER 2021-12-11 14:45 | Inpatient (IN) | payer MEDICARE, OTHER ==
[~2021-12-11] VITALS: Ht 175.3 cm; Wt 88.7 kg
[~2021-12-11 14:45] MED LIST changes: +ALBU2.5V10 INH; -ALBU83IN INH; -ALEN35TA54 PO; +ALEN35TA56 PO; +OMEP-173 PO; -OMEP-218 PO
[2021-12-11] MEDS ORDERED: PERCOCET 5MG/325MG TAB PO ONE (15:35)
[2021-12-11] MEDS ORDERED: MORPHINE 4 MG/ML 1ML VIAL/SYRINGE IV ONE (16:40)
[2021-12-11 17:09] LABS: HEMATOCRIT 45.5 % (42.0-52.0); HEMOGLOBIN 15.6 g/dl (13.5-17.5); MEAN CORPUSCULAR HEMOGLOBIN 35.1 pg (27.0-33.0); MEAN CORPUSCULAR HGB CONC 34.3 g/dl (32.0-36.5); MEAN CORPUSCULAR VOLUME 102.2 fl (80.0-96.0); PLATELET COUNT, AUTOMATED 183 10^3/uL (150-450); RED BLOOD COUNT 4.45 10^6/uL (4.30-6.10); WHITE BLOOD COUNT 9.8 10^3/uL (4.0-10.0)
[2021-12-11 17:31] LABS: CALCIUM LEVEL 8.4 MG/DL (8.8-10.2); CREATININE FOR GFR 1.3 MG/DL (0.70-1.30); GLOMERULAR FILTRATION RATE 55.6 (>35); POTASSIUM SERUM 4.4 MEQ/L (3.5-5.1)
[2021-12-11 17:41] LABS: RSV AMPLIFICATION NEGATIVE (NEGATIVE)
[2021-12-11] MEDS ORDERED: MOM 30ML SUSPENSION UDC PO PRN (18:35)
[2021-12-11] MEDS ORDERED: GABA-282 PO (19:14)
[2021-12-11] MEDS ORDERED: ALEN70TA82 PO (19:14)
[2021-12-11] MEDS ORDERED: BUDE10.7 IH (19:14)
[2021-12-11] MEDS ORDERED: HOME MED LIST COMPLETE! XX SCH (19:20)
[2021-12-11 19:48] LABS: INR 1.04
[2021-12-11] MEDS: ADVAIR HFA 115/21MCG INHALER INH SCH (20:00)
[2021-12-11 21:31] VITALS: BP 160/89
[2021-12-11 22:19] VITALS: BP 160/74
[2021-12-11] MEDS ORDERED: amLODIPine 5 MG TAB PO ONE (22:30)
[2021-12-11] MEDS ORDERED: atenoloL 25 MG TAB PO ONE (23:00)
[2021-12-11 23:10] LABS: APPEARANCE, URINE HAZY (CLEAR); BACTERIA, URINE AUTO NEGATIVE (NEGATIVE); BILIRUBIN, URINE AUTO NEGATIVE (NEGATIVE); BLOOD, URINE BLOOD NEGATIVE (NEGATIVE); COLOR, URINE YELLOW (YELLOW); GLUCOSE, URINE (UA) AUTO NEGATIVE (NEGATIVE); KETONE, URINE AUTO NEGATIVE (NEGATIVE); LEUKOCYTE ESTERASE, URINE AUTO NEGATIVE (NEGATIVE); NITRITE, URINE AUTO NEGATIVE (NEGATIVE); PROTEIN, URINE AUTO 1+ mg/dL (NEGATIVE); RBC, URINE AUTO 1 /HPF (0-3); SPECIFIC GRAVITY URINE AUTO 1.015 (1.002-1.035); SQUAMOUS EPITHELIAL CELL UR AU 0 /HPF (0-6); WBC, URINE AUTO 1 /HPF (0-3)
[2021-12-11] MEDS ORDERED: FUROSEMIDE 20 MG TAB PO ONE (23:10)
[2021-12-11] MEDS: GABAPENTIN 300 MG CAP PO SCH (23:13)
[2021-12-11 23:14] VITALS: BP 149/70
[2021-12-12] VITALS (13 sets, daily range): BP systolic 128–151; BP diastolic 53–71; O2SAT 77–90
[2021-12-12] MEDS: ACETAMINOPHEN TAB 650MG DOSE (2X325MG) PO PRN ×2 (05:33→15:54)
[2021-12-12 06:58] LABS: HEMATOCRIT 42.4 % (42.0-52.0); HEMOGLOBIN 14.5 g/dl (13.5-17.5); MEAN CORPUSCULAR HEMOGLOBIN 34.9 pg (27.0-33.0); MEAN CORPUSCULAR HGB CONC 34.2 g/dl (32.0-36.5); MEAN CORPUSCULAR VOLUME 102.2 fl (80.0-96.0); PLATELET COUNT, AUTOMATED 169 10^3/uL (150-450); RED BLOOD COUNT 4.15 10^6/uL (4.30-6.10); WHITE BLOOD COUNT 9.1 10^3/uL (4.0-10.0)
[2021-12-12 07:17] LABS: CALCIUM LEVEL 7.9 MG/DL (8.8-10.2); CREATININE FOR GFR 1.61 MG/DL (0.70-1.30); GLOMERULAR FILTRATION RATE 43.4 (>35); INR 1.07; POTASSIUM SERUM 4.4 MEQ/L (3.5-5.1); PROTHROMBIN TIME 14.3 SECONDS (12.7-14.5)
[2021-12-12] MEDS: ADVAIR HFA 115/21MCG INHALER INH SCH ×2 (07:50→20:27)
[2021-12-12] MEDS: allopurinoL 100 MG TAB PO SCH (08:31)
[2021-12-12] MEDS: GABAPENTIN 300 MG CAP PO SCH ×3 (08:31→21:20)
[2021-12-12] MEDS: OMEPRAZOLE 20MG CAP PO SCH (08:31)
[2021-12-12] MEDS: DOCUSATE SODIUM 100MG CAPSULE PO SCH (08:31)
[2021-12-12] MEDS ORDERED: ENOXAPARIN 40MG/0.4ML SYRINGE (J1650 PER 10MG) SC SCH (09:00)
[2021-12-12] MEDS ORDERED: FUROSEMIDE 20 MG TAB PO SCH (09:00)
[2021-12-12] MEDS ORDERED: NS 1,000 ML IV SCH (09:40)
[2021-12-12] MEDS ORDERED: fentaNYL 100 MCG/2 ML INJECTION As Ordered ONE (11:10)
[2021-12-12] MEDS ORDERED: MIDAZOLAM INJ 2MG/2ML VIAL (J2250 PER 1MG) As Ordered ONE (11:10)
[2021-12-12] MEDS ORDERED: propofoL 200 MG/20 ML VIAL As Ordered ONE (11:10)
[2021-12-12] MEDS ORDERED: TRANEXAMIC ACID 100 MG/ML 10ML VIAL As Ordered ONE ×2 (11:10→11:12)
[2021-12-12] MEDS ORDERED: LIDOCAINE 2% 100MG/5ML SDV (FOR ANES.) As Ordered ONE (11:10)
[2021-12-12] MEDS ORDERED: VANCOMYCIN 1000MG/20ML VIAL As Ordered ONE (11:11)
[2021-12-12] MEDS ORDERED: BUPIVACAINE HCL 0.25% 10ML VIAL As Ordered ONE (11:11)
[2021-12-12] MEDS ORDERED: BUPIVACAINE LIPOSOME/PF 1.3% 20ML VIAL (13.3MG/ML)(EXPAREL) As Ordered ONE (11:11)
[2021-12-12] MEDS ORDERED: ceFAZolin 1GM VIAL (J0690 PER 500MG) As Ordered ONE (11:28)
[2021-12-12] MEDS ORDERED: ACETAMINOPHEN 1000MG 100ML IV BTL (OFIRMEV) (J0131 PER 10MG) As Ordered ONE (12:20)
[2021-12-12] MEDS ORDERED: ONDANSETRON 4MG/2ML VIAL As Ordered ONE (12:27)
[2021-12-12] MEDS ORDERED: ONDANSETRON 4MG/2ML VIAL IV PRN (13:10)
[2021-12-12] MEDS ORDERED: fentaNYL 100 MCG/2 ML INJECTION IV PRN (13:10)
[2021-12-12] MEDS ORDERED: oxyCODONE 5MG TAB PO PRN (13:10)
[2021-12-12] MEDS ORDERED: LR 1,000 ML IV SCH (13:10)
[2021-12-12] MEDS: TIOTROPIUM INHALER/CAPSULE (SPIRIVA) INH SCH (13:35)
[2021-12-12] MEDS: PERCOCET 5MG/325MG TAB PO PRN (18:36)
[2021-12-12] MEDS: ceFAZolin SOD 2 GM in IV 1 EA IV SCH (19:39)
[2021-12-12] MEDS: MORPHINE 4 MG/ML 1ML VIAL/SYRINGE IV PRN (19:40)
[2021-12-12] MEDS: ACETAMINOPHEN 500 MG TAB PO SCH (21:20)
[2021-12-12] MEDS ORDERED: FUROSEMIDE 20MG/2ML VIAL (J1940) IV ONE (22:00)
[2021-12-12] MEDS ORDERED: IPRATROPIUM 0.5MG/ALBUTEROL 2.5MG INH SOL UD 3ML (DUONEB) NEB PRN (22:00)
[2021-12-12 22:32] LABS: ABG BASE EXCESS -0.9 (-2.0-2.0); ABG HCO3 22.9 MEQ/L (22.0-26.0); ABG O2 SATURATION 91.4 % (95.0-99.0); ABG PARTIAL PRESSURE CO2 35.2 mmHg (35.0-45.0); ABG PARTIAL PRESSURE O2 59.9 mmHg (75.0-100.0); ABG STANDARD HCO3 23.6 MEQ/L (22.0-26.0); ABG pH (ARTERIAL) 7.431 UNITS (7.350-7.450)
[2021-12-13 02:00] VITALS: BP 139/79
[2021-12-13] MEDS: ceFAZolin SOD 2 GM in IV 1 EA IV SCH (04:06)
[2021-12-13] MEDS: ACETAMINOPHEN 500 MG TAB PO SCH ×3 (05:45→21:28)
[2021-12-13 06:00] VITALS: BP 166/71
[2021-12-13 06:12] LABS: BASO % 0.5 % (0.0-1.0); EOS # 0.4 10^3/uL (0.0-0.5); EOS % 4.3 % (0.0-3.0); HEMATOCRIT 41.9 % (42.0-52.0); HEMOGLOBIN 13.9 g/dl (13.5-17.5); LYMPH # 1.2 10^3/uL (1.5-5.0); LYMPH % 14.8 % (24.0-44.0); MEAN CORPUSCULAR HEMOGLOBIN 34.8 pg (27.0-33.0); MEAN CORPUSCULAR HGB CONC 33.2 g/dl (32.0-36.5); MEAN CORPUSCULAR VOLUME 104.8 fl (80.0-96.0); MONO # 0.9 10^3/uL (0.0-0.8); MONO % 11.6 % (2.0-8.0); NEUTROPHILS # 5.5 10^3/uL (1.5-8.5); NEUTROPHILS % 68.3 % (36.0-66.0); PLATELET COUNT, AUTOMATED 155 10^3/uL (150-450); WHITE BLOOD COUNT 8.1 10^3/uL (4.0-10.0)
[2021-12-13 07:07] LABS: ALBUMIN 2.7 GM/DL (3.2-5.2); BILIRUBIN,TOTAL 1.1 MG/DL (0.2-1.0); CALCIUM LEVEL 7.4 MG/DL (8.8-10.2); CREATININE FOR GFR 1.81 MG/DL (0.70-1.30); GLOMERULAR FILTRATION RATE 37.9 (>35); POTASSIUM SERUM 4.4 MEQ/L (3.5-5.1); TOTAL PROTEIN 7.6 GM/DL (6.4-8.2)
[2021-12-13] MEDS: TIOTROPIUM INHALER/CAPSULE (SPIRIVA) INH SCH (08:47)
[2021-12-13] MEDS: ADVAIR HFA 115/21MCG INHALER INH SCH ×2 (08:47→19:24)
[2021-12-13] MEDS: GABAPENTIN 300 MG CAP PO SCH ×3 (09:01→21:25)
[2021-12-13] MEDS: allopurinoL 100 MG TAB PO SCH (09:01)
[2021-12-13] MEDS: DOCUSATE SODIUM 100MG CAPSULE PO SCH (09:01)
[2021-12-13] MEDS: OMEPRAZOLE 20MG CAP PO SCH (09:01)
[2021-12-13] MEDS: PERCOCET 5MG/325MG TAB PO PRN (09:01)
[2021-12-13 10:02] VITALS: BP 132/48
[2021-12-13] MEDS: NS 1,000 ML IV SCH ×2 (12:29→21:26)
[2021-12-13 12:53] LABS: CARBOXYHEMOGLOBIN 2.8 % (0.0-1.5); METHEMOGLOBIN 0.3 % (0.0-2.0)
[2021-12-13 13:09] LABS: ABG BASE EXCESS -1.2 (-2.0-2.0); ABG HCO3 23.3 MEQ/L (22.0-26.0); ABG O2 SATURATION 84.5 % (95.0-99.0); ABG PARTIAL PRESSURE CO2 38.4 mmHg (35.0-45.0); ABG STANDARD HCO3 23.2 MEQ/L (22.0-26.0); ABG TOTAL CO2 24.5 MEQ/L (23.0-31.0); ABG pH (ARTERIAL) 7.401 UNITS (7.350-7.450)
[2021-12-13 13:11] LABS: ABG PARTIAL PRESSURE O2 48.6 mmHg (75.0-100.0)
[2021-12-13 14:17] VITALS: BP 136/51
[2021-12-13 18:00] VITALS: BP 139/51
[2021-12-13] MEDS ORDERED: RIVAROXABAN 10 MG TAB (XARELTO) PO SCH (18:00)
[2021-12-13 18:06] LABS: CALCIUM LEVEL 7.8 MG/DL (8.8-10.2); CREATININE FOR GFR 1.53 MG/DL (0.70-1.30); GLOMERULAR FILTRATION RATE 46.1 (>35); POTASSIUM SERUM 4.2 MEQ/L (3.5-5.1)
[2021-12-13] MEDS ORDERED: RIVAROXABAN 10 MG TAB (XARELTO) PO ONE (19:20)
[2021-12-13] MEDS: MORPHINE 4 MG/ML 1ML VIAL/SYRINGE IV PRN (21:49)
[2021-12-13 22:00] VITALS: BP 144/54
[2021-12-14 02:00] VITALS: BP 147/67
[2021-12-14] MEDS: ADVAIR HFA 115/21MCG INHALER INH SCH ×2 (05:33→20:47)
[2021-12-14] MEDS: TIOTROPIUM INHALER/CAPSULE (SPIRIVA) INH SCH (05:33)
[2021-12-14 06:00] VITALS: BP 106/59
[2021-12-14] MEDS ORDERED: HEPARIN DRIP 25,000 UNITS in IV 1 EA IV SCH (06:00)
[2021-12-14] MEDS ORDERED: HEPARIN SOD (PORCINE) 5000UNITS/ML 1ML VIAL/SYRINGE IV PRN (06:00)
[2021-12-14] MEDS: ACETAMINOPHEN 500 MG TAB PO SCH ×3 (06:06→21:07)
[2021-12-14] MEDS: DOCUSATE SODIUM 100MG CAPSULE PO SCH (08:09)
[2021-12-14] MEDS: OMEPRAZOLE 20MG CAP PO SCH (08:09)
[2021-12-14] MEDS: allopurinoL 100 MG TAB PO SCH (08:09)
[2021-12-14] MEDS: GABAPENTIN 300 MG CAP PO SCH ×3 (08:09→21:07)
[2021-12-14 08:49] LABS: HEMATOCRIT 35.5 % (42.0-52.0); HEMOGLOBIN 12.2 g/dl (13.5-17.5); MEAN CORPUSCULAR HEMOGLOBIN 36.1 pg (27.0-33.0); MEAN CORPUSCULAR HGB CONC 34.4 g/dl (32.0-36.5); PLATELET COUNT, AUTOMATED 134 10^3/uL (150-450); RED BLOOD COUNT 3.38 10^6/uL (4.30-6.10); WHITE BLOOD COUNT 7.8 10^3/uL (4.0-10.0)
[2021-12-14] MEDS ORDERED: predniSONE 20 MG TAB PO SCH (09:00)
[2021-12-14 09:47] LABS: BLOOD UREA NITROGEN 25 MG/DL (7-18); CALCIUM LEVEL 7.6 MG/DL (8.8-10.2); CARBON DIOXIDE LEVEL 24 MEQ/L (21-32); CHLORIDE LEVEL 106 MEQ/L (98-107); CREATININE FOR GFR 1.21 MG/DL (0.70-1.30); GLOMERULAR FILTRATION RATE > 60.0 (>35); GLUCOSE, FASTING 119 MG/DL (70-100); POTASSIUM SERUM 4.5 MEQ/L (3.5-5.1); SODIUM LEVEL 136 MEQ/L (136-145)
[2021-12-14 10:00] VITALS: BP 128/58
[2021-12-14] MEDS ORDERED: ISOVUE-370 76% 100ML VIAL As Ordered ONE (11:15)
[2021-12-14 14:00] VITALS: BP 117/72
[2021-12-14] MEDS ORDERED: RIVAROXABAN 10 MG TAB (XARELTO) PO SCH (14:00)
[2021-12-14] MEDS: NS 1,000 ML IV SCH ×3 (15:18→22:53)
[2021-12-14 18:00] VITALS: BP 142/61
[2021-12-14 20:55] VITALS: BP 141/62
[2021-12-15 02:00] VITALS: BP 135/62
[2021-12-15] MEDS: ACETAMINOPHEN 500 MG TAB PO SCH (05:26)
[2021-12-15 06:00] VITALS: BP 131/63
[2021-12-15] MEDS: TIOTROPIUM INHALER/CAPSULE (SPIRIVA) INH SCH (07:08)
[2021-12-15] MEDS: ADVAIR HFA 115/21MCG INHALER INH SCH (07:09)
[2021-12-15] MEDS: DOCUSATE SODIUM 100MG CAPSULE PO SCH (08:15)
[2021-12-15] MEDS: OMEPRAZOLE 20MG CAP PO SCH (08:15)
[2021-12-15] MEDS: GABAPENTIN 300 MG CAP PO SCH (08:15)
[2021-12-15] MEDS: allopurinoL 100 MG TAB PO SCH (08:16)
[2021-12-15] MEDS ORDERED: PERCOCET PO (09:42)
[2021-12-15] MEDS ORDERED: IPRA0.00 NEB (09:42)
[2021-12-15] MEDS ORDERED: TIOT18INH INH (09:42)
[2021-12-15] MEDS ORDERED: ACET-683 PO (09:42)
[2021-12-15] MEDS ORDERED: XARE10TA PO (09:42)
[2021-12-15] MEDS ORDERED: ASPI-551 PO (09:42)
[2021-12-15 10:05] VITALS: BP 139/54
[2021-12-27] MEDS ORDERED: ASPIRIN 81MG ENTERIC TABLET PO SCH (09:00)
== END 2021-12-15 12:35 | DRG 521 ==
LOC: M ED 14:45 → M ED INP 18:35 → ENRESERV 19:57 → M MS5PR 21:17
PROVIDERS: ADMIT Internal Medicine; ATTEND Internal Medicine
PROC: 0SRR0JZ Replacement of Right Hip Joint, Femoral Surface with Synthetic Substitute, Open Approach (ICD-10-PCS; principal; 2021-12-12 09:30)
DX: S72.001A Fracture of unspecified part of neck of right femur, initial encounter for closed fracture (principal); J96.01 Acute respiratory failure with hypoxia; N17.9 Acute kidney failure, unspecified; J44.9 Chronic obstructive pulmonary disease, unspecified; I10 Essential (primary) hypertension; I25.10 Atherosclerotic heart disease of native coronary artery without angina pectoris; M10.9 Gout, unspecified; W18.30XA Fall on same level, unspecified, initial encounter; Z79.899 Other long term (current) drug therapy; Z79.82 Long term (current) use of aspirin; Z88.8 Allergy status to other drugs, medicaments and biological substances; Z95.2 Presence of prosthetic heart valve; F10.10 Alcohol abuse, uncomplicated; Y92.29 Other specified public building as the place of occurrence of the external cause

== ENCOUNTER 2021-12-15 09:22 | Inpatient (IN) | payer MEDICARE, OTHER ==
[~2021-12-15] VITALS: Ht 175.3 cm; Wt 86.1 kg
[~2021-12-15 09:22] MED LIST changes: +ALEN70TA82 PO; +BUDE10.7 IH
[2021-12-15] MEDS ORDERED: ACET-683 PO (09:42)
[2021-12-15] MEDS ORDERED: IPRA0.00 NEB (09:42)
[2021-12-15] MEDS ORDERED: TIOT18INH INH (09:42)
[2021-12-15] MEDS ORDERED: XARE10TA PO (09:42)
[2021-12-15] MEDS ORDERED: ASPI-551 PO (09:42)
[2021-12-15] MEDS ORDERED: PERCOCET PO (09:42)
[2021-12-15] MEDS ORDERED: oxyCODONE 5MG TAB PO PRN (11:50)
[2021-12-15] MEDS ORDERED: BISACODYL 5 MG TAB PO PRN (11:50)
[2021-12-15] MEDS: COMBIVENT RESPIMAT 100-20MCG INHALER 4GM INH SCH ×3 (12:00→19:59)
[2021-12-15 13:00] VITALS: BP 170/84
[2021-12-15 14:30] VITALS: BP 164/74
[2021-12-15] MEDS: GABAPENTIN 300 MG CAP PO SCH ×2 (15:09→21:39)
[2021-12-15] MEDS: ACETAMINOPHEN 500 MG TAB PO SCH ×2 (15:10→21:40)
[2021-12-15] MEDS: **hydrALAZINE HCL** 25 MG TAB PO SCH ×2 (15:10→21:39)
[2021-12-15] MEDS ORDERED: FLEET ENEMA PR ONE (15:45)
[2021-12-15] MEDS: REMEDY PHYTOPLEX Z-GUARD PASTE 113GM TUBE (FROM STOREROOM PRODUCT) TOP SCH ×2 (16:00→21:00)
[2021-12-15] MEDS: RIVAROXABAN 10MG TAB (XARELTO) PO SCH (17:40)
[2021-12-15] MEDS: SUCRALFATE 1 GM TAB PO SCH ×2 (17:40→21:39)
[2021-12-15] MEDS: ASPIRIN 81MG ENTERIC TABLET PO SCH (17:40)
[2021-12-15] MEDS: ADVAIR HFA 115/21MCG INHALER INH SCH (19:59)
[2021-12-15 20:00] VITALS: BP 150/74
[2021-12-15] MEDS: SENNA 8.6 MG TAB (SENOKOT) PO SCH (21:39)
[2021-12-15] MEDS: DOCUSATE SODIUM 100MG CAPSULE PO SCH (21:39)
[2021-12-16] MEDS: **hydrALAZINE HCL** 25 MG TAB PO SCH ×3 (05:44→20:45)
[2021-12-16 06:00] VITALS: BP 170/78
[2021-12-16 06:40] LABS: BASO # 0.1 10^3/uL (0.0-0.2); BASO % 0.8 % (0.0-1.0); EOS # 0.8 10^3/uL (0.0-0.5); EOS % 12.5 % (0.0-3.0); HEMATOCRIT 33.5 % (42.0-52.0); HEMOGLOBIN 11.5 g/dl (13.5-17.5); LYMPH # 0.9 10^3/uL (1.5-5.0); LYMPH % 13.8 % (24.0-44.0); MEAN CORPUSCULAR HEMOGLOBIN 35.1 pg (27.0-33.0); MEAN CORPUSCULAR HGB CONC 34.3 g/dl (32.0-36.5); MEAN CORPUSCULAR VOLUME 102.1 fl (80.0-96.0); MONO # 0.8 10^3/uL (0.0-0.8); MONO % 11.7 % (2.0-8.0); NEUTROPHILS # 3.9 10^3/uL (1.5-8.5); NEUTROPHILS % 60.4 % (36.0-66.0); PLATELET COUNT, AUTOMATED 158 10^3/uL (150-450); RED BLOOD COUNT 3.28 10^6/uL (4.30-6.10); WHITE BLOOD COUNT 6.5 10^3/uL (4.0-10.0)
[2021-12-16 06:46] VITALS: BP 172/84
[2021-12-16 07:15] LABS: ALT/SGPT 40 U/L (12-78); BILIRUBIN,TOTAL 0.6 MG/DL (0.2-1.0); BLOOD UREA NITROGEN 19 MG/DL (7-18); CALCIUM LEVEL 7.3 MG/DL (8.8-10.2); CARBON DIOXIDE LEVEL 25 MEQ/L (21-32); CHLORIDE LEVEL 110 MEQ/L (98-107); CREATININE FOR GFR 0.99 MG/DL (0.70-1.30); GLOMERULAR FILTRATION RATE > 60.0 (>35); GLUCOSE, FASTING 82 MG/DL (70-100); POTASSIUM SERUM 4.3 MEQ/L (3.5-5.1); SODIUM LEVEL 140 MEQ/L (136-145); TOTAL PROTEIN 6.5 GM/DL (6.4-8.2)
[2021-12-16] MEDS: COMBIVENT RESPIMAT 100-20MCG INHALER 4GM INH SCH ×4 (08:00→20:00)
[2021-12-16] MEDS: TIOTROPIUM INHALER/CAPSULE (SPIRIVA) INH SCH (08:53)
[2021-12-16] MEDS: ADVAIR HFA 115/21MCG INHALER INH SCH ×2 (08:53→20:22)
[2021-12-16] MEDS: REMEDY PHYTOPLEX Z-GUARD PASTE 113GM TUBE (FROM STOREROOM PRODUCT) TOP SCH ×3 (09:00→20:45)
[2021-12-16] MEDS: OMEPRAZOLE 20MG CAP PO SCH (09:36)
[2021-12-16] MEDS: DOCUSATE SODIUM 100MG CAPSULE PO SCH ×2 (09:36→20:44)
[2021-12-16] MEDS: ASPIRIN 81MG ENTERIC TABLET PO SCH (09:36)
[2021-12-16] MEDS: ACETAMINOPHEN 500 MG TAB PO SCH ×3 (09:36→20:45)
[2021-12-16] MEDS: GABAPENTIN 300 MG CAP PO SCH ×3 (09:36→20:44)
[2021-12-16] MEDS: allopurinoL 100 MG TAB PO SCH (09:37)
[2021-12-16] MEDS: amLODIPine 5 MG TAB PO SCH (09:41)
[2021-12-16] MEDS: SUCRALFATE 1 GM TAB PO SCH ×4 (09:42→20:44)
[2021-12-16 14:00] VITALS: BP 153/70
[2021-12-16 16:07] VITALS: BP 147/68
[2021-12-16] MEDS: RIVAROXABAN 10MG TAB (XARELTO) PO SCH (18:22)
[2021-12-16 20:00] VITALS: BP 156/72
[2021-12-16] MEDS: SENNA 8.6 MG TAB (SENOKOT) PO SCH (20:45)
[2021-12-17 06:00] VITALS: BP 122/78
[2021-12-17] MEDS: ALENDRONATE 35MG TABLET PO SCH (06:21)
[2021-12-17] MEDS: TIOTROPIUM INHALER/CAPSULE (SPIRIVA) INH SCH (07:09)
[2021-12-17] MEDS: COMBIVENT RESPIMAT 100-20MCG INHALER 4GM INH SCH ×4 (07:10→19:25)
[2021-12-17] MEDS: ADVAIR HFA 115/21MCG INHALER INH SCH ×2 (07:10→19:25)
[2021-12-17] MEDS: SUCRALFATE 1 GM TAB PO SCH ×4 (07:47→20:51)
[2021-12-17] MEDS: **hydrALAZINE HCL** 25 MG TAB PO SCH ×3 (07:48→20:52)
[2021-12-17] MEDS: DOCUSATE SODIUM 100MG CAPSULE PO SCH ×2 (07:48→20:51)
[2021-12-17] MEDS: ASPIRIN 81MG ENTERIC TABLET PO SCH (07:48)
[2021-12-17] MEDS: GABAPENTIN 300 MG CAP PO SCH ×3 (07:48→20:51)
[2021-12-17] MEDS: OMEPRAZOLE 20MG CAP PO SCH (07:49)
[2021-12-17] MEDS: amLODIPine 5 MG TAB PO SCH (07:49)
[2021-12-17] MEDS: ACETAMINOPHEN 500 MG TAB PO SCH ×3 (07:50→20:51)
[2021-12-17] MEDS: allopurinoL 100 MG TAB PO SCH (07:50)
[2021-12-17] MEDS: REMEDY PHYTOPLEX Z-GUARD PASTE 113GM TUBE (FROM STOREROOM PRODUCT) TOP SCH ×3 (07:50→20:52)
[2021-12-17] MEDS ORDERED: HOME MED LIST COMPLETE! XX SCH (08:10)
[2021-12-17 14:00] VITALS: BP 175/79
[2021-12-17] MEDS: RIVAROXABAN 10MG TAB (XARELTO) PO SCH (17:31)
[2021-12-17 20:00] VITALS: BP 140/70
[2021-12-17] MEDS: SENNA 8.6 MG TAB (SENOKOT) PO SCH (20:51)
[2021-12-18 06:00] VITALS: BP 144/70
[2021-12-18] MEDS: COMBIVENT RESPIMAT 100-20MCG INHALER 4GM INH SCH ×4 (07:46→20:21)
[2021-12-18] MEDS: ADVAIR HFA 115/21MCG INHALER INH SCH ×2 (07:46→20:21)
[2021-12-18] MEDS: TIOTROPIUM INHALER/CAPSULE (SPIRIVA) INH SCH (07:46)
[2021-12-18] MEDS: DOCUSATE SODIUM 100MG CAPSULE PO SCH ×2 (08:03→21:12)
[2021-12-18] MEDS: GABAPENTIN 300 MG CAP PO SCH ×3 (08:03→21:11)
[2021-12-18] MEDS: ASPIRIN 81MG ENTERIC TABLET PO SCH (08:05)
[2021-12-18] MEDS: ACETAMINOPHEN 500 MG TAB PO SCH ×3 (08:05→21:11)
[2021-12-18] MEDS: SUCRALFATE 1 GM TAB PO SCH ×4 (08:05→21:12)
[2021-12-18] MEDS: amLODIPine 5 MG TAB PO SCH (08:06)
[2021-12-18] MEDS: OMEPRAZOLE 20MG CAP PO SCH (08:06)
[2021-12-18] MEDS: **hydrALAZINE HCL** 25 MG TAB PO SCH ×3 (08:06→21:12)
[2021-12-18] MEDS: allopurinoL 100 MG TAB PO SCH (08:07)
[2021-12-18] MEDS: REMEDY PHYTOPLEX Z-GUARD PASTE 113GM TUBE (FROM STOREROOM PRODUCT) TOP SCH ×3 (08:08→21:00)
[2021-12-18 11:21] LABS: BASO # 0.1 10^3/uL (0.0-0.2); BASO % 0.5 % (0.0-1.0); EOS # 0.7 10^3/uL (0.0-0.5); EOS % 6.6 % (0.0-3.0); HEMATOCRIT 40.5 % (42.0-52.0); HEMOGLOBIN 13.4 g/dl (13.5-17.5); LYMPH # 1.6 10^3/uL (1.5-5.0); LYMPH % 14.7 % (24.0-44.0); MEAN CORPUSCULAR HEMOGLOBIN 34.5 pg (27.0-33.0); MEAN CORPUSCULAR HGB CONC 33.1 g/dl (32.0-36.5); MEAN CORPUSCULAR VOLUME 104.4 fl (80.0-96.0); MONO % 9.1 % (2.0-8.0); NEUTROPHILS # 7.6 10^3/uL (1.5-8.5); NEUTROPHILS % 67.8 % (36.0-66.0); PLATELET COUNT, AUTOMATED 247 10^3/uL (150-450); RED BLOOD COUNT 3.88 10^6/uL (4.30-6.10); WHITE BLOOD COUNT 11.1 10^3/uL (4.0-10.0)
[2021-12-18 12:33] LABS: CALCIUM LEVEL 8.6 MG/DL (8.8-10.2); CREATININE FOR GFR 1.22 MG/DL (0.70-1.30); GLOMERULAR FILTRATION RATE 59.8 (>35); POTASSIUM SERUM 4.5 MEQ/L (3.5-5.1)
[2021-12-18 14:00] VITALS: BP 149/71
[2021-12-18] MEDS: RIVAROXABAN 10MG TAB (XARELTO) PO SCH (17:55)
[2021-12-18 19:17] VITALS: BP 167/72
[2021-12-18] MEDS: SENNA 8.6 MG TAB (SENOKOT) PO SCH (21:12)
[2021-12-19 05:00] VITALS: BP 161/75
[2021-12-19 06:35] LABS: BASO # 0.1 10^3/uL (0.0-0.2); BASO % 0.7 % (0.0-1.0); EOS # 0.8 10^3/uL (0.0-0.5); EOS % 8.8 % (0.0-3.0); HEMATOCRIT 37.1 % (42.0-52.0); HEMOGLOBIN 12.3 g/dl (13.5-17.5); LYMPH # 1.3 10^3/uL (1.5-5.0); LYMPH % 14.8 % (24.0-44.0); MEAN CORPUSCULAR HEMOGLOBIN 34.4 pg (27.0-33.0); MEAN CORPUSCULAR HGB CONC 33.2 g/dl (32.0-36.5); MEAN CORPUSCULAR VOLUME 103.6 fl (80.0-96.0); MONO # 0.8 10^3/uL (0.0-0.8); MONO % 9.5 % (2.0-8.0); NEUTROPHILS # 5.7 10^3/uL (1.5-8.5); NEUTROPHILS % 64.4 % (36.0-66.0); PLATELET COUNT, AUTOMATED 250 10^3/uL (150-450); RED BLOOD COUNT 3.58 10^6/uL (4.30-6.10); WHITE BLOOD COUNT 8.8 10^3/uL (4.0-10.0)
[2021-12-19] MEDS: ADVAIR HFA 115/21MCG INHALER INH SCH ×2 (07:37→20:26)
[2021-12-19] MEDS: TIOTROPIUM INHALER/CAPSULE (SPIRIVA) INH SCH (07:37)
[2021-12-19] MEDS: COMBIVENT RESPIMAT 100-20MCG INHALER 4GM INH SCH ×4 (07:38→20:00)
[2021-12-19] MEDS: GABAPENTIN 300 MG CAP PO SCH ×3 (08:56→20:50)
[2021-12-19] MEDS: DOCUSATE SODIUM 100MG CAPSULE PO SCH ×2 (08:56→20:50)
[2021-12-19] MEDS: OMEPRAZOLE 20MG CAP PO SCH (08:56)
[2021-12-19] MEDS: ASPIRIN 81MG ENTERIC TABLET PO SCH (08:57)
[2021-12-19] MEDS: **hydrALAZINE HCL** 25 MG TAB PO SCH ×4 (08:57→20:50)
[2021-12-19] MEDS: amLODIPine 5 MG TAB PO SCH (08:57)
[2021-12-19] MEDS: SUCRALFATE 1 GM TAB PO SCH ×4 (08:57→20:51)
[2021-12-19] MEDS: allopurinoL 100 MG TAB PO SCH (08:58)
[2021-12-19] MEDS: ACETAMINOPHEN 500 MG TAB PO SCH ×3 (08:58→20:49)
[2021-12-19] MEDS: REMEDY PHYTOPLEX Z-GUARD PASTE 113GM TUBE (FROM STOREROOM PRODUCT) TOP SCH ×3 (08:59→20:52)
[2021-12-19] MEDS: MIRALAX *UNIT DOSE* 17GM PACKET PO PRN (09:02)
[2021-12-19] MEDS: FUROSEMIDE 20 MG TAB PO SCH (11:17)
[2021-12-19 14:00] VITALS: BP 154/66
[2021-12-19] MEDS: RIVAROXABAN 10MG TAB (XARELTO) PO SCH (17:08)
[2021-12-19 20:00] VITALS: BP 151/67
[2021-12-19] MEDS: SENNA 8.6 MG TAB (SENOKOT) PO SCH (20:51)
[2021-12-20 06:00] VITALS: BP 140/76
[2021-12-20 06:48] LABS: BASO # 0.1 10^3/uL (0.0-0.2); EOS # 0.8 10^3/uL (0.0-0.5); EOS % 9.8 % (0.0-3.0); HEMATOCRIT 36.8 % (42.0-52.0); HEMOGLOBIN 12.5 g/dl (13.5-17.5); LYMPH # 1.5 10^3/uL (1.5-5.0); LYMPH % 17.7 % (24.0-44.0); MEAN CORPUSCULAR HEMOGLOBIN 35.6 pg (27.0-33.0); MEAN CORPUSCULAR VOLUME 104.8 fl (80.0-96.0); MONO # 0.8 10^3/uL (0.0-0.8); MONO % 9.9 % (2.0-8.0); NEUTROPHILS % 59.8 % (36.0-66.0); PLATELET COUNT, AUTOMATED 266 10^3/uL (150-450); RED BLOOD COUNT 3.51 10^6/uL (4.30-6.10); WHITE BLOOD COUNT 8.4 10^3/uL (4.0-10.0)
[2021-12-20 07:08] LABS: BLOOD UREA NITROGEN 22 MG/DL (7-18); CALCIUM LEVEL 8.3 MG/DL (8.8-10.2); CARBON DIOXIDE LEVEL 24 MEQ/L (21-32); CHLORIDE LEVEL 108 MEQ/L (98-107); GLOMERULAR FILTRATION RATE > 60.0 (>35); GLUCOSE, FASTING 88 MG/DL (70-100); POTASSIUM SERUM 4.4 MEQ/L (3.5-5.1); SODIUM LEVEL 139 MEQ/L (136-145)
[2021-12-20] MEDS: ADVAIR HFA 115/21MCG INHALER INH SCH ×2 (07:12→20:58)
[2021-12-20] MEDS: COMBIVENT RESPIMAT 100-20MCG INHALER 4GM INH SCH ×4 (07:13→20:58)
[2021-12-20] MEDS: TIOTROPIUM INHALER/CAPSULE (SPIRIVA) INH SCH (07:13)
[2021-12-20] MEDS: MIRALAX *UNIT DOSE* 17GM PACKET PO SCH (09:00)
[2021-12-20] MEDS: REMEDY PHYTOPLEX Z-GUARD PASTE 113GM TUBE (FROM STOREROOM PRODUCT) TOP SCH ×3 (09:00→21:00)
[2021-12-20] MEDS: ASPIRIN 81MG ENTERIC TABLET PO SCH (09:03)
[2021-12-20] MEDS: DOCUSATE SODIUM 100MG CAPSULE PO SCH ×2 (09:03→21:27)
[2021-12-20] MEDS: FUROSEMIDE 20 MG TAB PO SCH (09:04)
[2021-12-20] MEDS: OMEPRAZOLE 20MG CAP PO SCH (09:04)
[2021-12-20] MEDS: SUCRALFATE 1 GM TAB PO SCH ×4 (09:04→21:27)
[2021-12-20] MEDS: amLODIPine 5 MG TAB PO SCH (09:04)
[2021-12-20] MEDS: **hydrALAZINE HCL** 25 MG TAB PO SCH ×4 (09:05→21:27)
[2021-12-20] MEDS: ACETAMINOPHEN 500 MG TAB PO SCH ×3 (09:05→21:28)
[2021-12-20] MEDS: allopurinoL 100 MG TAB PO SCH (09:05)
[2021-12-20] MEDS: GABAPENTIN 300 MG CAP PO SCH ×3 (09:05→21:27)
[2021-12-20] MEDS: MIRALAX *UNIT DOSE* 17GM PACKET PO PRN (09:08)
[2021-12-20 11:49] VITALS: BP 132/62
[2021-12-20 14:00] VITALS: BP 158/72
[2021-12-20] MEDS ORDERED: FLEET ENEMA PR ONE (16:00)
[2021-12-20] MEDS: RIVAROXABAN 10MG TAB (XARELTO) PO SCH (16:51)
[2021-12-20 20:00] VITALS: BP 147/67
[2021-12-20] MEDS: SENNA 8.6 MG TAB (SENOKOT) PO SCH (21:27)
[2021-12-21 05:02] VITALS: BP 149/68
[2021-12-21] MEDS: COMBIVENT RESPIMAT 100-20MCG INHALER 4GM INH SCH ×4 (07:16→19:43)
[2021-12-21] MEDS: TIOTROPIUM INHALER/CAPSULE (SPIRIVA) INH SCH (07:16)
[2021-12-21] MEDS: ADVAIR HFA 115/21MCG INHALER INH SCH ×2 (07:16→19:43)
[2021-12-21] MEDS: MIRALAX *UNIT DOSE* 17GM PACKET PO SCH (08:33)
[2021-12-21] MEDS: SUCRALFATE 1 GM TAB PO SCH ×4 (08:34→20:44)
[2021-12-21] MEDS: **hydrALAZINE HCL** 25 MG TAB PO SCH ×4 (08:34→20:45)
[2021-12-21] MEDS: ACETAMINOPHEN 500 MG TAB PO SCH ×3 (08:34→20:45)
[2021-12-21] MEDS: amLODIPine 5 MG TAB PO SCH (08:34)
[2021-12-21] MEDS: GABAPENTIN 300 MG CAP PO SCH ×3 (08:34→20:44)
[2021-12-21] MEDS: allopurinoL 100 MG TAB PO SCH (08:34)
[2021-12-21] MEDS: DOCUSATE SODIUM 100MG CAPSULE PO SCH ×2 (08:34→20:44)
[2021-12-21] MEDS: ASPIRIN 81MG ENTERIC TABLET PO SCH (08:34)
[2021-12-21] MEDS: FUROSEMIDE 20 MG TAB PO SCH (08:35)
[2021-12-21] MEDS: OMEPRAZOLE 20MG CAP PO SCH (08:35)
[2021-12-21] MEDS: BISACODYL 5 MG TAB PO SCH (08:35)
[2021-12-21] MEDS: REMEDY PHYTOPLEX Z-GUARD PASTE 113GM TUBE (FROM STOREROOM PRODUCT) TOP SCH ×3 (08:36→20:45)
[2021-12-21 12:10] VITALS: BP 153/67
[2021-12-21 14:00] VITALS: BP 160/72
[2021-12-21 16:35] VITALS: BP 160/72
[2021-12-21] MEDS: RIVAROXABAN 10MG TAB (XARELTO) PO SCH (16:58)
[2021-12-21 20:00] VITALS: BP 150/69
[2021-12-21] MEDS: SENNA 8.6 MG TAB (SENOKOT) PO SCH (20:45)
[2021-12-22] MEDS: **hydrALAZINE HCL** 25 MG TAB PO SCH ×2 (05:44→12:22)
[2021-12-22 06:00] VITALS: BP 168/70
[2021-12-22 06:35] VITALS: BP 160/70
[2021-12-22] MEDS: ADVAIR HFA 115/21MCG INHALER INH SCH ×2 (07:29→19:25)
[2021-12-22] MEDS: TIOTROPIUM INHALER/CAPSULE (SPIRIVA) INH SCH (07:29)
[2021-12-22] MEDS: COMBIVENT RESPIMAT 100-20MCG INHALER 4GM INH SCH ×4 (07:30→19:25)
[2021-12-22] MEDS: OMEPRAZOLE 20MG CAP PO SCH (08:37)
[2021-12-22] MEDS: BISACODYL 5 MG TAB PO SCH (08:37)
[2021-12-22] MEDS: MIRALAX *UNIT DOSE* 17GM PACKET PO SCH (08:37)
[2021-12-22] MEDS: GABAPENTIN 300 MG CAP PO SCH ×3 (08:38→21:47)
[2021-12-22] MEDS: DOCUSATE SODIUM 100MG CAPSULE PO SCH ×2 (08:38→21:47)
[2021-12-22] MEDS: ASPIRIN 81MG ENTERIC TABLET PO SCH (08:38)
[2021-12-22] MEDS: SUCRALFATE 1 GM TAB PO SCH ×4 (08:38→21:47)
[2021-12-22] MEDS: amLODIPine 5 MG TAB PO SCH (08:39)
[2021-12-22] MEDS: FUROSEMIDE 20 MG TAB PO SCH (08:39)
[2021-12-22] MEDS: REMEDY PHYTOPLEX Z-GUARD PASTE 113GM TUBE (FROM STOREROOM PRODUCT) TOP SCH ×3 (08:39→21:00)
[2021-12-22] MEDS: allopurinoL 100 MG TAB PO SCH (08:39)
[2021-12-22] MEDS: ACETAMINOPHEN 500 MG TAB PO SCH ×3 (08:40→21:47)
[2021-12-22 11:45] VITALS: BP 154/67
[2021-12-22 14:00] VITALS: BP 144/66
[2021-12-22] MEDS: **hydrALAZINE** 50 MG TAB PO SCH ×2 (17:01→21:47)
[2021-12-22] MEDS: RIVAROXABAN 10MG TAB (XARELTO) PO SCH (17:49)
[2021-12-22 19:22] VITALS: BP 154/85
[2021-12-22] MEDS: SENNA 8.6 MG TAB (SENOKOT) PO SCH (21:47)
[2021-12-23 05:07] VITALS: BP 162/70
[2021-12-23] MEDS: ADVAIR HFA 115/21MCG INHALER INH SCH ×2 (08:25→19:31)
[2021-12-23] MEDS: TIOTROPIUM INHALER/CAPSULE (SPIRIVA) INH SCH (08:25)
[2021-12-23] MEDS: COMBIVENT RESPIMAT 100-20MCG INHALER 4GM INH SCH ×4 (08:28→19:31)
[2021-12-23 08:34] VITALS: BP 141/65
[2021-12-23] MEDS: MIRALAX *UNIT DOSE* 17GM PACKET PO SCH (08:36)
[2021-12-23] MEDS: SUCRALFATE 1 GM TAB PO SCH ×4 (08:37→20:49)
[2021-12-23] MEDS: OMEPRAZOLE 20MG CAP PO SCH (08:37)
[2021-12-23] MEDS: ASPIRIN 81MG ENTERIC TABLET PO SCH (08:37)
[2021-12-23] MEDS: FUROSEMIDE 20 MG TAB PO SCH (08:37)
[2021-12-23] MEDS: ACETAMINOPHEN 500 MG TAB PO SCH ×3 (08:37→20:49)
[2021-12-23] MEDS: DOCUSATE SODIUM 100MG CAPSULE PO SCH ×2 (08:37→20:49)
[2021-12-23] MEDS: BISACODYL 5 MG TAB PO SCH (08:38)
[2021-12-23] MEDS: **hydrALAZINE** 50 MG TAB PO SCH ×4 (08:38→20:49)
[2021-12-23] MEDS: allopurinoL 100 MG TAB PO SCH (08:38)
[2021-12-23] MEDS: GABAPENTIN 300 MG CAP PO SCH ×3 (08:38→20:49)
[2021-12-23] MEDS: amLODIPine 5 MG TAB PO SCH (08:38)
[2021-12-23] MEDS: REMEDY PHYTOPLEX Z-GUARD PASTE 113GM TUBE (FROM STOREROOM PRODUCT) TOP SCH ×3 (08:39→20:50)
[2021-12-23] MEDS ORDERED: ASPIRIN 81MG ENTERIC TABLET PO SCH (09:00)
[2021-12-23 14:00] VITALS: BP 150/62
[2021-12-23 20:00] VITALS: BP 142/66
[2021-12-23] MEDS: SENNA 8.6 MG TAB (SENOKOT) PO SCH (20:49)
[2021-12-24] MEDS: ALENDRONATE 35MG TABLET PO SCH (04:28)
[2021-12-24 05:39] VITALS: BP 173/79
[2021-12-24 06:16] VITALS: BP 160/78
[2021-12-24] MEDS: TIOTROPIUM INHALER/CAPSULE (SPIRIVA) INH SCH (07:19)
[2021-12-24] MEDS: COMBIVENT RESPIMAT 100-20MCG INHALER 4GM INH SCH ×4 (07:19→19:51)
[2021-12-24] MEDS: ADVAIR HFA 115/21MCG INHALER INH SCH ×2 (07:19→19:51)
[2021-12-24] MEDS: DOCUSATE SODIUM 100MG CAPSULE PO SCH ×2 (08:51→20:44)
[2021-12-24] MEDS: **hydrALAZINE** 50 MG TAB PO SCH ×4 (08:51→20:45)
[2021-12-24] MEDS: SUCRALFATE 1 GM TAB PO SCH ×4 (08:51→20:45)
[2021-12-24] MEDS: FUROSEMIDE 20 MG TAB PO SCH (08:52)
[2021-12-24] MEDS: MIRALAX *UNIT DOSE* 17GM PACKET PO SCH (08:52)
[2021-12-24] MEDS: ASPIRIN 81MG ENTERIC TABLET PO SCH (08:52)
[2021-12-24] MEDS: BISACODYL 5 MG TAB PO SCH (08:52)
[2021-12-24] MEDS: GABAPENTIN 300 MG CAP PO SCH ×3 (08:52→20:44)
[2021-12-24] MEDS: OMEPRAZOLE 20MG CAP PO SCH (08:53)
[2021-12-24] MEDS: amLODIPine 5 MG TAB PO SCH (08:53)
[2021-12-24] MEDS: ACETAMINOPHEN 500 MG TAB PO SCH ×3 (08:53→20:44)
[2021-12-24] MEDS: allopurinoL 100 MG TAB PO SCH (08:53)
[2021-12-24] MEDS: REMEDY PHYTOPLEX Z-GUARD PASTE 113GM TUBE (FROM STOREROOM PRODUCT) TOP SCH ×3 (08:54→20:45)
[2021-12-24 14:00] VITALS: BP 137/65
[2021-12-24 20:00] VITALS: BP 156/70
[2021-12-24] MEDS: SENNA 8.6 MG TAB (SENOKOT) PO SCH (20:45)
[2021-12-25 06:00] VITALS: BP 150/68
[2021-12-25] MEDS: SUCRALFATE 1 GM TAB PO SCH ×2 (07:30→12:21)
[2021-12-25] MEDS: TIOTROPIUM INHALER/CAPSULE (SPIRIVA) INH SCH (07:46)
[2021-12-25] MEDS: ADVAIR HFA 115/21MCG INHALER INH SCH (07:46)
[2021-12-25] MEDS: COMBIVENT RESPIMAT 100-20MCG INHALER 4GM INH SCH ×2 (07:46→11:56)
[2021-12-25] MEDS: MIRALAX *UNIT DOSE* 17GM PACKET PO SCH (09:00)
[2021-12-25] MEDS: REMEDY PHYTOPLEX Z-GUARD PASTE 113GM TUBE (FROM STOREROOM PRODUCT) TOP SCH (09:00)
[2021-12-25] MEDS: DOCUSATE SODIUM 100MG CAPSULE PO SCH (09:00)
[2021-12-25] MEDS: BISACODYL 5 MG TAB PO SCH (09:00)
[2021-12-25] MEDS ORDERED: ALLO10TA PO (09:27)
[2021-12-25] MEDS ORDERED: ASPI-161 PO (09:27)
[2021-12-25] MEDS ORDERED: GABA-282 PO (09:27)
[2021-12-25] MEDS ORDERED: TIOT18INH INH (09:27)
[2021-12-25] MEDS ORDERED: FELO10TA28 PO (09:27)
[2021-12-25] MEDS ORDERED: BUDE10.7 IH (09:27)
[2021-12-25] MEDS ORDERED: ASPI-551 PO (09:27)
[2021-12-25] MEDS ORDERED: HYDR50TA PO (09:27)
[2021-12-25] MEDS ORDERED: LASI40TA9 PO (09:27)
[2021-12-25] MEDS ORDERED: OMEP1CAP73 PO (09:27)
[2021-12-25] MEDS: ASPIRIN 81MG ENTERIC TABLET PO SCH (09:37)
[2021-12-25] MEDS: OMEPRAZOLE 20MG CAP PO SCH (09:38)
[2021-12-25] MEDS: amLODIPine 5 MG TAB PO SCH (09:39)
[2021-12-25] MEDS: FUROSEMIDE 20 MG TAB PO SCH (09:40)
[2021-12-25] MEDS: GABAPENTIN 300 MG CAP PO SCH (09:41)
[2021-12-25] MEDS: ACETAMINOPHEN 500 MG TAB PO SCH (09:41)
[2021-12-25] MEDS: **hydrALAZINE** 50 MG TAB PO SCH ×2 (09:41→12:22)
[2021-12-25] MEDS: allopurinoL 100 MG TAB PO SCH (09:41)
[2021-12-25 12:22] VITALS: BP 136/62
== END 2021-12-25 14:20 | disposition home or self-care (01) | DRG 559 ==
LOC: M PM&R 12:45
PROVIDERS: ADMIT Physical Medicine & Rehabilitation; ATTEND Physical Medicine & Rehabilitation
DX: S72.001D Fracture of unspecified part of neck of right femur, subsequent encounter for closed fracture with routine healing (principal); J96.21 Acute and chronic respiratory failure with hypoxia; I50.32 Chronic diastolic (congestive) heart failure; N17.9 Acute kidney failure, unspecified; K59.00 Constipation, unspecified; Z96.641 Presence of right artificial hip joint; I11.0 Hypertensive heart disease with heart failure; I25.10 Atherosclerotic heart disease of native coronary artery without angina pectoris; K21.9 Gastro-esophageal reflux disease without esophagitis; N40.0 Benign prostatic hyperplasia without lower urinary tract symptoms; J44.9 Chronic obstructive pulmonary disease, unspecified; M10.9 Gout, unspecified; Z95.5 Presence of coronary angioplasty implant and graft; Z90.49 Acquired absence of other specified parts of digestive tract; Z74.09 Other reduced mobility; Z74.1 Need for assistance with personal care; Z87.891 Personal history of nicotine dependence; Z79.82 Long term (current) use of aspirin; Z79.899 Other long term (current) drug therapy; Z88.8 Allergy status to other drugs, medicaments and biological substances; Z85.46 Personal history of malignant neoplasm of prostate

== ENCOUNTER → 2021-12-29 | Outpatient (CLI) | payer MEDICARE, OTHER ==
[~2021-12-29] MED LIST changes: +ACET-683 PO; +ASPI-551 PO; +HYDR50TA PO; +IPRA0.00 NEB; +LASI40TA9 PO; +PERCOCET PO; +TIOT18INH INH
== END ==
LOC: M SOG 13:24
PROVIDERS: ATTEND Orthopaedic Surgery
DX: Z96.641 Presence of right artificial hip joint (principal)

== ENCOUNTER → 2022-01-11 | Outpatient (RCR) | payer MEDICARE, OTHER | LOC: M PT 01-02 07:35 | PROVIDERS: ATTEND Physical Medicine & Rehabilitation | DX: R26.9 Unspecified abnormalities of gait and mobility (principal) ==

== ENCOUNTER 2022-02-06 07:25 | Outpatient (RCR) | payer MEDICARE, OTHER | END 2022-02-11 | LOC: M PT 07:25 | PROVIDERS: ATTEND Physical Medicine & Rehabilitation | DX: R26.9 Unspecified abnormalities of gait and mobility (principal) ==

== ENCOUNTER → 2022-02-09 | Outpatient (CLI) | payer MEDICARE, OTHER | LOC: M SOG 08:16 | PROVIDERS: ATTEND Orthopaedic Surgery | DX: Z96.641 Presence of right artificial hip joint (principal); R52 Pain, unspecified; I73.9 Peripheral vascular disease, unspecified ==

== ENCOUNTER 2022-03-02 13:29 | Inpatient (IN) | payer MEDICARE, OTHER ==
[~2022-03-02] VITALS: Ht 177.8 cm; Wt 81.2 kg
[2022-03-02 19:30] LABS: BASO % 0.4 % (0.0-1.0); EOS # 0.1 10^3/uL (0.0-0.5); EOS % 1.8 % (0.0-3.0); HEMATOCRIT 41.2 % (42.0-52.0); HEMOGLOBIN 14.1 g/dl (13.5-17.5); LYMPH # 1.5 10^3/uL (1.5-5.0); LYMPH % 19.1 % (24.0-44.0); MEAN CORPUSCULAR HEMOGLOBIN 34.9 pg (27.0-33.0); MEAN CORPUSCULAR HGB CONC 34.2 g/dl (32.0-36.5); MONO # 0.9 10^3/uL (0.0-0.8); MONO % 11.2 % (2.0-8.0); NEUTROPHILS # 5.1 10^3/uL (1.5-8.5); PLATELET COUNT, AUTOMATED 146 10^3/uL (150-450); RED BLOOD COUNT 4.04 10^6/uL (4.30-6.10); WHITE BLOOD COUNT 7.6 10^3/uL (4.0-10.0)
[2022-03-02 19:58] LABS: ALBUMIN 2.9 GM/DL (3.2-5.2); BILIRUBIN,DIRECT 0.7 MG/DL (0.0-0.2); BILIRUBIN,TOTAL 1.1 MG/DL (0.2-1.0); TOTAL PROTEIN 8.8 GM/DL (6.4-8.2)
[2022-03-02 20:23] LABS: RSV AMPLIFICATION NEGATIVE (NEGATIVE)
[2022-03-02] MEDS ORDERED: MORPHINE 2 MG/ML 1ML VIAL IV PRN (22:15)
[2022-03-02] MEDS ORDERED: MORPHINE 4 MG/ML 1ML VIAL/SYRINGE IV PRN (23:00)
[2022-03-02] MEDS ORDERED: FURO20TA2 PO (23:11)
[2022-03-02] MEDS ORDERED: ALEN70TA82 PO (23:11)
[2022-03-02] MEDS ORDERED: ALLO100T PO (23:11)
[2022-03-02] MEDS ORDERED: OMEP-173 PO (23:11)
[2022-03-02] MEDS ORDERED: BUDE10.7 INH (23:11)
[2022-03-02] MEDS ORDERED: FELO10TA28 PO (23:11)
[2022-03-02] MEDS ORDERED: ACET-897 PO (23:11)
[2022-03-02] MEDS ORDERED: ASPI81TA26 PO (23:11)
[2022-03-02] MEDS ORDERED: PATIENT COMMENT (23:12)
[2022-03-03] MEDS ORDERED: fentaNYL 100 MCG/2 ML INJECTION IV ONE ×2 (00:30→01:20)
[2022-03-03] MEDS ORDERED: KETOROLAC 30 MG/ML 1ML VIAL IV ONE (01:20)
[2022-03-03] MEDS ORDERED: LIDOCAINE 5% (LIDODERM) PATCH TD ONE (01:30)
[2022-03-03 07:16] LABS: HEMATOCRIT 37.7 % (42.0-52.0); HEMOGLOBIN 12.6 g/dl (13.5-17.5); MEAN CORPUSCULAR HEMOGLOBIN 34.2 pg (27.0-33.0); MEAN CORPUSCULAR HGB CONC 33.4 g/dl (32.0-36.5); MEAN CORPUSCULAR VOLUME 102.4 fl (80.0-96.0); PLATELET COUNT, AUTOMATED 139 10^3/uL (150-450); RED BLOOD COUNT 3.68 10^6/uL (4.30-6.10); WHITE BLOOD COUNT 6.4 10^3/uL (4.0-10.0)
[2022-03-03 07:50] LABS: ALBUMIN 2.4 GM/DL (3.2-5.2); ALT/SGPT 280 U/L (12-78); BILIRUBIN,TOTAL 1.2 MG/DL (0.2-1.0); BLOOD UREA NITROGEN 20 MG/DL (7-18); CALCIUM LEVEL 7.9 MG/DL (8.8-10.2); CARBON DIOXIDE LEVEL 26 MEQ/L (21-32); CHLORIDE LEVEL 108 MEQ/L (98-107); CREATININE FOR GFR 1.19 MG/DL (0.70-1.30); GLOMERULAR FILTRATION RATE > 60.0 (>35); GLUCOSE, FASTING 78 MG/DL (70-100); POTASSIUM SERUM 4.3 MEQ/L (3.5-5.1); SODIUM LEVEL 137 MEQ/L (136-145); TOTAL PROTEIN 7.8 GM/DL (6.4-8.2)
[2022-03-03] MEDS: TIOTROPIUM INHALER/CAPSULE (SPIRIVA) INH SCH (08:08)
[2022-03-03] MEDS ORDERED: ALBUTEROL SULFATE 2.5 MG/0.5 ML INH NEB SOLN NEB PRN (08:20)
[2022-03-03] MEDS ORDERED: HEPARIN SOD (PORCINE) 5000UNITS/ML 1ML VIAL/SYRINGE SC SCH (09:00)
[2022-03-03] MEDS ORDERED: PANTOPRAZOLE 20 MG TAB PO SCH (09:00)
[2022-03-03] MEDS ORDERED: VITMTA PO (10:32)
[2022-03-03] MEDS ORDERED: GABA-1171 PO (10:32)
[2022-03-03] MEDS ORDERED: VITATAB54 PO (10:32)
[2022-03-03] MEDS ORDERED: HOME MED LIST COMPLETE! XX SCH (10:35)
[2022-03-03] MEDS: ASPIRIN 81MG ENTERIC TABLET PO SCH (11:19)
[2022-03-03] MEDS: KETOROLAC 30 MG/ML 1ML VIAL IV SCH ×2 (11:19→21:10)
[2022-03-03] MEDS: allopurinoL 100 MG TAB PO SCH (11:19)
[2022-03-03] MEDS: OMEPRAZOLE 20MG CAP PO SCH (11:20)
[2022-03-03] MEDS: FUROSEMIDE 20 MG TAB PO SCH (11:20)
[2022-03-03] MEDS ORDERED: **NOTE PATIENT COMMENT** MISC XX ONE (13:30)
[2022-03-03] MEDS: HEPARIN SOD (PORCINE) 5000UNITS/ML 1ML VIAL/SYRINGE SC SCH (21:30)
[2022-03-03 22:10] VITALS: BP 116/81
[2022-03-04 06:01] VITALS: BP 128/77
[2022-03-04 06:45] LABS: BASO # 0.1 10^3/uL (0.0-0.2); BASO % 0.8 % (0.0-1.0); EOS # 0.4 10^3/uL (0.0-0.5); EOS % 5.3 % (0.0-3.0); HEMATOCRIT 40.3 % (42.0-52.0); HEMOGLOBIN 13.6 g/dl (13.5-17.5); LYMPH # 1.2 10^3/uL (1.5-5.0); LYMPH % 18.2 % (24.0-44.0); MEAN CORPUSCULAR HEMOGLOBIN 33.9 pg (27.0-33.0); MEAN CORPUSCULAR HGB CONC 33.7 g/dl (32.0-36.5); MEAN CORPUSCULAR VOLUME 100.5 fl (80.0-96.0); MONO # 0.9 10^3/uL (0.0-0.8); MONO % 13.6 % (2.0-8.0); NEUTROPHILS % 61.6 % (36.0-66.0); PLATELET COUNT, AUTOMATED 142 10^3/uL (150-450); RED BLOOD COUNT 4.01 10^6/uL (4.30-6.10); WHITE BLOOD COUNT 6.6 10^3/uL (4.0-10.0)
[2022-03-04 07:16] LABS: BLOOD UREA NITROGEN 22 MG/DL (7-18); CALCIUM LEVEL 8.1 MG/DL (8.8-10.2); CARBON DIOXIDE LEVEL 25 MEQ/L (21-32); CHLORIDE LEVEL 105 MEQ/L (98-107); CREATININE FOR GFR 1.13 MG/DL (0.70-1.30); GLOMERULAR FILTRATION RATE > 60.0 (>35); GLUCOSE, FASTING 67 MG/DL (70-100); POTASSIUM SERUM 4.2 MEQ/L (3.5-5.1); SODIUM LEVEL 136 MEQ/L (136-145)
[2022-03-04] MEDS: TIOTROPIUM INHALER/CAPSULE (SPIRIVA) INH SCH (07:33)
[2022-03-04] MEDS: KETOROLAC 30 MG/ML 1ML VIAL IV SCH ×2 (08:10→21:03)
[2022-03-04] MEDS: HEPARIN SOD (PORCINE) 5000UNITS/ML 1ML VIAL/SYRINGE SC SCH ×2 (08:10→19:52)
[2022-03-04] MEDS: OMEPRAZOLE 20MG CAP PO SCH (08:11)
[2022-03-04] MEDS: FUROSEMIDE 20 MG TAB PO SCH (08:11)
[2022-03-04] MEDS: ASPIRIN 81MG ENTERIC TABLET PO SCH (08:11)
[2022-03-04] MEDS: allopurinoL 100 MG TAB PO SCH (08:11)
[2022-03-04 11:31] LABS: ALBUMIN 2.5 GM/DL (3.2-5.2); ALT/SGPT 284 U/L (12-78); BILIRUBIN,DIRECT 1.2 MG/DL (0.0-0.2); BILIRUBIN,TOTAL 2.1 MG/DL (0.2-1.0); TOTAL PROTEIN 8.1 GM/DL (6.4-8.2)
[2022-03-04 14:00] VITALS: BP 133/70
[2022-03-04] MEDS: oxyCODONE 5MG TAB PO PRN (19:52)
[2022-03-04 19:59] VITALS: BP 137/77
[2022-03-05 04:50] VITALS: BP 135/77
[2022-03-05 06:08] LABS: BASO # 0.1 10^3/uL (0.0-0.2); EOS # 0.6 10^3/uL (0.0-0.5); EOS % 9.3 % (0.0-3.0); HEMATOCRIT 39.1 % (42.0-52.0); HEMOGLOBIN 13.4 g/dl (13.5-17.5); LYMPH # 1.3 10^3/uL (1.5-5.0); LYMPH % 21.5 % (24.0-44.0); MEAN CORPUSCULAR HEMOGLOBIN 34.3 pg (27.0-33.0); MEAN CORPUSCULAR HGB CONC 34.3 g/dl (32.0-36.5); MONO # 0.9 10^3/uL (0.0-0.8); NEUTROPHILS # 3.2 10^3/uL (1.5-8.5); NEUTROPHILS % 52.7 % (36.0-66.0); PLATELET COUNT, AUTOMATED 147 10^3/uL (150-450); RED BLOOD COUNT 3.91 10^6/uL (4.30-6.10)
[2022-03-05 07:20] LABS: ALBUMIN 2.5 GM/DL (3.2-5.2); BILIRUBIN,DIRECT 1.2 MG/DL (0.0-0.2); CALCIUM LEVEL 8.1 MG/DL (8.8-10.2); CREATININE FOR GFR 1.23 MG/DL (0.70-1.30); GLOMERULAR FILTRATION RATE 59.3 (>35); POTASSIUM SERUM 3.8 MEQ/L (3.5-5.1)
[2022-03-05] MEDS: TIOTROPIUM INHALER/CAPSULE (SPIRIVA) INH SCH (08:25)
[2022-03-05] MEDS: allopurinoL 100 MG TAB PO SCH (09:10)
[2022-03-05] MEDS: PIPERACILLIN/TAZOBACTAM SOD 3.375 GM in D5W MINI-BAG PLUS 50 ML IV SCH ×2 (09:10→14:19)
[2022-03-05] MEDS: FUROSEMIDE 20 MG TAB PO SCH (09:10)
[2022-03-05] MEDS: OMEPRAZOLE 20MG CAP PO SCH (09:10)
[2022-03-05 11:06] LABS: HEPATITIS B CORE ANTIBODY IGM NEGATIVE (NEGATIVE); HEPATITIS B SURFACE ANTIGEN NEGATIVE (NEGATIVE); HEPATITIS C VIRUS ABY INDEX 0.2 INDEX (<0.8)
[2022-03-05 11:30] VITALS: BP 161/68
[2022-03-05] MEDS: oxyCODONE 5MG TAB PO PRN ×2 (14:20→20:21)
[2022-03-05] MEDS ORDERED: MIRALAX *UNIT DOSE* 17GM PACKET PO ONE (17:25)
[2022-03-05] MEDS ORDERED: MIRALAX *UNIT DOSE* 17GM PACKET PO PRN (17:25)
[2022-03-05 20:00] VITALS: BP 145/67
[2022-03-05] MEDS: ACETAMINOPHEN TAB 650MG DOSE (2X325MG) PO PRN (20:14)
[2022-03-06 06:00] VITALS: BP 160/74
[2022-03-06 06:22] LABS: BASO % 0.7 % (0.0-1.0); EOS # 0.6 10^3/uL (0.0-0.5); EOS % 10.4 % (0.0-3.0); HEMATOCRIT 39.3 % (42.0-52.0); HEMOGLOBIN 13.1 g/dl (13.5-17.5); LYMPH # 1.3 10^3/uL (1.5-5.0); MEAN CORPUSCULAR HEMOGLOBIN 33.9 pg (27.0-33.0); MEAN CORPUSCULAR HGB CONC 33.3 g/dl (32.0-36.5); MEAN CORPUSCULAR VOLUME 101.6 fl (80.0-96.0); MONO # 0.8 10^3/uL (0.0-0.8); MONO % 14.9 % (2.0-8.0); NEUTROPHILS # 2.8 10^3/uL (1.5-8.5); NEUTROPHILS % 50.6 % (36.0-66.0); PLATELET COUNT, AUTOMATED 151 10^3/uL (150-450); RED BLOOD COUNT 3.87 10^6/uL (4.30-6.10); WHITE BLOOD COUNT 5.6 10^3/uL (4.0-10.0)
[2022-03-06 06:58] LABS: CALCIUM LEVEL 8.1 MG/DL (8.8-10.2); CREATININE FOR GFR 1.26 MG/DL (0.70-1.30); GLOMERULAR FILTRATION RATE 57.6 (>35); POTASSIUM SERUM 3.6 MEQ/L (3.5-5.1)
[2022-03-06] MEDS: FUROSEMIDE 20 MG TAB PO SCH (08:34)
[2022-03-06] MEDS: OMEPRAZOLE 20MG CAP PO SCH (08:34)
[2022-03-06] MEDS: allopurinoL 100 MG TAB PO SCH (08:34)
[2022-03-06] MEDS: oxyCODONE 5MG TAB PO PRN ×2 (08:34→17:29)
[2022-03-06] MEDS: TIOTROPIUM INHALER/CAPSULE (SPIRIVA) INH SCH (08:43)
[2022-03-06 08:44] LABS: ALBUMIN 2.3 GM/DL (3.2-5.2); BILIRUBIN,DIRECT 1.1 MG/DL (0.0-0.2); BILIRUBIN,TOTAL 1.8 MG/DL (0.2-1.0); TOTAL PROTEIN 8.1 GM/DL (6.4-8.2)
[2022-03-06] MEDS: HEPARIN SOD (PORCINE) 5000UNITS/ML 1ML VIAL/SYRINGE SC SCH ×2 (10:01→20:32)
[2022-03-06] MEDS: ASPIRIN 81MG ENTERIC TABLET PO SCH (10:01)
[2022-03-06 14:00] VITALS: BP 140/64
[2022-03-06 19:32] VITALS: BP 156/72
[2022-03-06] MEDS: ACETAMINOPHEN TAB 650MG DOSE (2X325MG) PO PRN (22:25)
[2022-03-07] MEDS: oxyCODONE 5MG TAB PO PRN (02:16)
[2022-03-07 04:13] VITALS: BP 154/65
[2022-03-07] MEDS: TIOTROPIUM INHALER/CAPSULE (SPIRIVA) INH SCH (07:39)
[2022-03-07 08:12] LABS: BASO # 0.1 10^3/uL (0.0-0.2); BASO % 0.9 % (0.0-1.0); EOS # 0.5 10^3/uL (0.0-0.5); EOS % 8.5 % (0.0-3.0); HEMATOCRIT 40.5 % (42.0-52.0); HEMOGLOBIN 13.9 g/dl (13.5-17.5); LYMPH # 1.5 10^3/uL (1.5-5.0); LYMPH % 26.7 % (24.0-44.0); MEAN CORPUSCULAR HEMOGLOBIN 34.3 pg (27.0-33.0); MEAN CORPUSCULAR HGB CONC 34.3 g/dl (32.0-36.5); MONO # 0.9 10^3/uL (0.0-0.8); MONO % 15.3 % (2.0-8.0); NEUTROPHILS # 2.7 10^3/uL (1.5-8.5); NEUTROPHILS % 48.2 % (36.0-66.0); PLATELET COUNT, AUTOMATED 153 10^3/uL (150-450); RED BLOOD COUNT 4.05 10^6/uL (4.30-6.10); WHITE BLOOD COUNT 5.5 10^3/uL (4.0-10.0)
[2022-03-07 08:50] LABS: ALBUMIN 2.5 GM/DL (3.2-5.2); ALT/SGPT 349 U/L (12-78); BILIRUBIN,DIRECT 1.1 MG/DL (0.0-0.2); BILIRUBIN,TOTAL 1.7 MG/DL (0.2-1.0); BLOOD UREA NITROGEN 19 MG/DL (7-18); CALCIUM LEVEL 8.3 MG/DL (8.8-10.2); CARBON DIOXIDE LEVEL 23 MEQ/L (21-32); CHLORIDE LEVEL 103 MEQ/L (98-107); CREATININE FOR GFR 1.06 MG/DL (0.70-1.30); GLOMERULAR FILTRATION RATE > 60.0 (>35); GLUCOSE, FASTING 87 MG/DL (70-100); SODIUM LEVEL 132 MEQ/L (136-145); TOTAL PROTEIN 8.6 GM/DL (6.4-8.2)
[2022-03-07 09:19] VITALS: BP 154/65
[2022-03-07] MEDS: allopurinoL 100 MG TAB PO SCH (09:19)
[2022-03-07] MEDS: OMEPRAZOLE 20MG CAP PO SCH (09:19)
[2022-03-07] MEDS: FUROSEMIDE 20 MG TAB PO SCH (09:19)
[2022-03-07] MEDS: ASPIRIN 81MG ENTERIC TABLET PO SCH (09:19)
[2022-03-07] MEDS: HEPARIN SOD (PORCINE) 5000UNITS/ML 1ML VIAL/SYRINGE SC SCH (09:20)
[2022-03-07 12:00] VITALS: BP 159/73
== END 2022-03-07 13:35 | DRG 559 ==
LOC: M ED 13:29 → M ED INP 21:00 → M MSPAV 03-03 20:58 → M 4MAIN 03-05 10:20 → M MSPAV 03-05 10:39 → M 4MAIN 03-05 11:23
PROVIDERS: ADMIT Family Medicine; ATTEND Internal Medicine Nephrology
DX: M97.01XA Periprosthetic fracture around internal prosthetic right hip joint, initial encounter (principal); U07.1 COVID-19; I50.32 Chronic diastolic (congestive) heart failure; I25.10 Atherosclerotic heart disease of native coronary artery without angina pectoris; Z95.5 Presence of coronary angioplasty implant and graft; N40.0 Benign prostatic hyperplasia without lower urinary tract symptoms; J44.9 Chronic obstructive pulmonary disease, unspecified; I11.0 Hypertensive heart disease with heart failure; E78.5 Hyperlipidemia, unspecified; M10.9 Gout, unspecified; M19.90 Unspecified osteoarthritis, unspecified site; M81.0 Age-related osteoporosis without current pathological fracture; M54.9 Dorsalgia, unspecified; G89.29 Other chronic pain; Z96.643 Presence of artificial hip joint, bilateral; Z98.41 Cataract extraction status, right eye; Z98.42 Cataract extraction status, left eye; Z90.49 Acquired absence of other specified parts of digestive tract; Z87.891 Personal history of nicotine dependence; Z66 Do not resuscitate; W01.0XXA Fall on same level from slipping, tripping and stumbling without subsequent striking against object, initial encounter; Y92.9 Unspecified place or not applicable; R74.01 Elevation of levels of liver transaminase levels; Z79.82 Long term (current) use of aspirin; Z79.899 Other long term (current) drug therapy; Z88.8 Allergy status to other drugs, medicaments and biological substances; I27.20 Pulmonary hypertension, unspecified; K21.9 Gastro-esophageal reflux disease without esophagitis; G47.00 Insomnia, unspecified

== ENCOUNTER 2022-03-06 07:45 | Outpatient (RCR) | payer MEDICARE, OTHER ==
[~2022-03-06 07:45] MED LIST changes: +ACET-897 PO; +ASPI81TA26 PO; +BUDE10.7 INH; +GABA-1171 PO; +PATIENT COMMENT; +VITATAB54 PO
== END 2022-03-14 ==
LOC: M PT 07:45
PROVIDERS: ATTEND Physical Medicine & Rehabilitation
DX: R26.9 Unspecified abnormalities of gait and mobility (principal)

== ENCOUNTER 2022-03-07 12:36 | Inpatient (IN) | payer MEDICARE, OTHER ==
[~2022-03-07] VITALS: Ht 177.8 cm; Wt 80.1 kg
[2022-03-07] MEDS ORDERED: MIRALAX *UNIT DOSE* 17GM PACKET PO PRN (12:40)
[2022-03-07] MEDS ORDERED: SIMETHICONE 80MG CHEW TAB PO PRN (12:40)
[2022-03-07] MEDS ORDERED: ONDANSETRON 4MG TAB PO PRN (12:40)
[2022-03-07] MEDS ORDERED: ACETAMINOPHEN TAB 650MG DOSE (2X325MG) PO PRN (12:40)
[2022-03-07 13:35] VITALS: BP 154/72
[2022-03-07 19:44] VITALS: BP 138/72
[2022-03-07 20:51] LABS: APPEARANCE, URINE MANUAL CLEAR (CLEAR); COLOR, URINE MANUAL YELLOW (YELLOW)
[2022-03-07 20:52] LABS: BILIRUBIN, URINE MANUAL NEGATIVE (NEGATIVE); BLOOD URINE MANUAL NEGATIVE (NEGATIVE); GLUCOSE, URINE (UA) MANUAL NEGATIVE (NEGATIVE); KETONE, URINE MANUAL NEGATIVE (NEGATIVE); LEUKOCYTE ESTERASE, URINE MAN NEGATIVE (NEGATIVE); NITRITE, URINE MANUAL NEGATIVE (NEGATIVE); PROTEIN, URINE MANUAL NEGATIVE (NEGATIVE); UROBILINOGEN, URINE MANUAL 4 MG mg/dl (NORMAL)
[2022-03-07] MEDS: HEPARIN SOD (PORCINE) 5000UNITS/ML 1ML VIAL/SYRINGE SC SCH (21:41)
[2022-03-07] MEDS: GABAPENTIN 100 MG CAP PO SCH (21:41)
[2022-03-07] MEDS: DOCUSATE SODIUM 100MG CAPSULE PO SCH (21:41)
[2022-03-08 05:59] VITALS: BP 142/76
[2022-03-08 06:52] LABS: BASO % 0.7 % (0.0-1.0); EOS # 0.3 10^3/uL (0.0-0.5); EOS % 5.6 % (0.0-3.0); HEMATOCRIT 40.6 % (42.0-52.0); LYMPH # 1.7 10^3/uL (1.5-5.0); LYMPH % 28.3 % (24.0-44.0); MEAN CORPUSCULAR HEMOGLOBIN 34.2 pg (27.0-33.0); MEAN CORPUSCULAR HGB CONC 34.5 g/dl (32.0-36.5); MEAN CORPUSCULAR VOLUME 99.3 fl (80.0-96.0); MONO # 0.9 10^3/uL (0.0-0.8); MONO % 14.6 % (2.0-8.0); NEUTROPHILS % 50.5 % (36.0-66.0); PLATELET COUNT, AUTOMATED 169 10^3/uL (150-450); RED BLOOD COUNT 4.09 10^6/uL (4.30-6.10); WHITE BLOOD COUNT 5.9 10^3/uL (4.0-10.0)
[2022-03-08 07:27] LABS: ALBUMIN 2.5 GM/DL (3.2-5.2); ALT/SGPT 372 U/L (12-78); BLOOD UREA NITROGEN 17 MG/DL (7-18); CALCIUM LEVEL 8.1 MG/DL (8.8-10.2); CARBON DIOXIDE LEVEL 22 MEQ/L (21-32); CHLORIDE LEVEL 105 MEQ/L (98-107); CREATININE FOR GFR 1.05 MG/DL (0.70-1.30); GLOMERULAR FILTRATION RATE > 60.0 (>35); GLUCOSE, FASTING 75 MG/DL (70-100); IRON (FE) 97 UG/DL (65-175); POTASSIUM SERUM 4.1 MEQ/L (3.5-5.1); SODIUM LEVEL 133 MEQ/L (136-145); TOTAL PROTEIN 8.5 GM/DL (6.4-8.2)
[2022-03-08] MEDS: SYMBICORT 160/4.5MCG INHALER 6GM INH SCH ×2 (08:00→20:48)
[2022-03-08] MEDS ORDERED: DOCUSATE SODIUM 100MG CAPSULE PO SCH (09:00)
[2022-03-08] MEDS ORDERED: PANTOPRAZOLE 40MG TAB (PROTONIX) PO SCH (09:00)
[2022-03-08] MEDS ORDERED: MULTIVITAMINS/MINERALS THERAP 1 TAB PO SCH (09:00)
[2022-03-08] MEDS: FUROSEMIDE 20 MG TAB PO SCH (10:29)
[2022-03-08] MEDS: ASPIRIN 81MG ENTERIC TABLET PO SCH (10:29)
[2022-03-08] MEDS: VITAMIN D (CHOLECALCIFEROL) 400 INTERNATIONAL UNITS TAB PO SCH (10:29)
[2022-03-08] MEDS: MULTIVITAMINS/MINERALS THERAP 1 TAB PO SCH (10:30)
[2022-03-08] MEDS: OMEPRAZOLE 20MG CAP PO SCH (10:30)
[2022-03-08] MEDS: METAMUCIL (PSYLLIUM) PACKET PO SCH (10:30)
[2022-03-08] MEDS: allopurinoL 100 MG TAB PO SCH (10:30)
[2022-03-08] MEDS: DOCUSATE SODIUM 100MG CAPSULE PO SCH ×2 (10:30→21:50)
[2022-03-08] MEDS: HEPARIN SOD (PORCINE) 5000UNITS/ML 1ML VIAL/SYRINGE SC SCH ×2 (10:30→21:49)
[2022-03-08] MEDS: GABAPENTIN 100 MG CAP PO SCH ×2 (10:30→21:50)
[2022-03-08] MEDS: LIDOCAINE 5% (LIDODERM) PATCH TD SCH (10:31)
[2022-03-08 14:00] VITALS: BP 153/72
[2022-03-08] MEDS: FLEET OIL RETENTION ENEMA PR PRN (16:27)
[2022-03-08 20:00] VITALS: BP 165/75
[2022-03-08] MEDS: **NOTE PATIENT COMMENT** MISC XX SCH (21:50)
[2022-03-08] MEDS: BISACODYL 5 MG TAB PO PRN (21:50)
[2022-03-09] MEDS: FLEET OIL RETENTION ENEMA PR PRN (05:24)
[2022-03-09 06:00] VITALS: BP 151/70
[2022-03-09] MEDS: SYMBICORT 160/4.5MCG INHALER 6GM INH SCH ×2 (07:10→19:17)
[2022-03-09] MEDS: LIDOCAINE 5% (LIDODERM) PATCH TD SCH (09:00)
[2022-03-09] MEDS ORDERED: LACTULOSE 20 GM/30 ML SYRUP UD PO SCH (09:00)
[2022-03-09] MEDS: HEPARIN SOD (PORCINE) 5000UNITS/ML 1ML VIAL/SYRINGE SC SCH ×2 (09:44→20:20)
[2022-03-09] MEDS: VITAMIN D (CHOLECALCIFEROL) 400 INTERNATIONAL UNITS TAB PO SCH (09:44)
[2022-03-09] MEDS: ASPIRIN 81MG ENTERIC TABLET PO SCH (09:44)
[2022-03-09] MEDS: OMEPRAZOLE 20MG CAP PO SCH (09:45)
[2022-03-09] MEDS: DOCUSATE SODIUM 100MG CAPSULE PO SCH ×2 (09:45→20:20)
[2022-03-09] MEDS: allopurinoL 100 MG TAB PO SCH (09:45)
[2022-03-09] MEDS: MULTIVITAMINS/MINERALS THERAP 1 TAB PO SCH (09:45)
[2022-03-09] MEDS: METAMUCIL (PSYLLIUM) PACKET PO SCH (09:45)
[2022-03-09] MEDS: GABAPENTIN 100 MG CAP PO SCH ×2 (09:45→20:20)
[2022-03-09] MEDS: FUROSEMIDE 20 MG TAB PO SCH (09:45)
[2022-03-09 14:00] VITALS: BP 137/65
[2022-03-09 20:19] VITALS: BP 153/71
[2022-03-09] MEDS: **NOTE PATIENT COMMENT** MISC XX SCH (20:20)
[2022-03-10 05:10] VITALS: BP 154/71
[2022-03-10] MEDS: SYMBICORT 160/4.5MCG INHALER 6GM INH SCH ×2 (07:20→19:51)
[2022-03-10] MEDS: LIDOCAINE 5% (LIDODERM) PATCH TD SCH ×2 (09:00→09:34)
[2022-03-10] MEDS: VITAMIN D (CHOLECALCIFEROL) 400 INTERNATIONAL UNITS TAB PO SCH (09:33)
[2022-03-10] MEDS: GABAPENTIN 100 MG CAP PO SCH ×2 (09:33→20:04)
[2022-03-10] MEDS: DOCUSATE SODIUM 100MG CAPSULE PO SCH ×2 (09:33→20:04)
[2022-03-10] MEDS: allopurinoL 100 MG TAB PO SCH (09:33)
[2022-03-10] MEDS: OMEPRAZOLE 20MG CAP PO SCH (09:34)
[2022-03-10] MEDS: ASPIRIN 81MG ENTERIC TABLET PO SCH (09:34)
[2022-03-10] MEDS: MULTIVITAMINS/MINERALS THERAP 1 TAB PO SCH (09:34)
[2022-03-10] MEDS: FUROSEMIDE 20 MG TAB PO SCH (09:34)
[2022-03-10] MEDS: HEPARIN SOD (PORCINE) 5000UNITS/ML 1ML VIAL/SYRINGE SC SCH ×2 (09:34→20:05)
[2022-03-10] MEDS: METAMUCIL (PSYLLIUM) PACKET PO SCH (09:34)
[2022-03-10 14:00] VITALS: BP 164/57
[2022-03-10 20:00] VITALS: BP 154/67
[2022-03-10] MEDS: **NOTE PATIENT COMMENT** MISC XX SCH (20:05)
[2022-03-11 06:00] VITALS: BP 156/71
[2022-03-11] MEDS: SYMBICORT 160/4.5MCG INHALER 6GM INH SCH ×2 (07:21→19:46)
[2022-03-11] MEDS: LIDOCAINE 5% (LIDODERM) PATCH TD SCH (07:32)
[2022-03-11] MEDS: allopurinoL 100 MG TAB PO SCH (07:37)
[2022-03-11] MEDS: ASPIRIN 81MG ENTERIC TABLET PO SCH (07:37)
[2022-03-11] MEDS: MULTIVITAMINS/MINERALS THERAP 1 TAB PO SCH (07:37)
[2022-03-11] MEDS: DOCUSATE SODIUM 100MG CAPSULE PO SCH ×2 (07:38→20:47)
[2022-03-11] MEDS: METAMUCIL (PSYLLIUM) PACKET PO SCH (07:38)
[2022-03-11] MEDS: FUROSEMIDE 20 MG TAB PO SCH (07:38)
[2022-03-11] MEDS: HEPARIN SOD (PORCINE) 5000UNITS/ML 1ML VIAL/SYRINGE SC SCH ×2 (07:38→20:48)
[2022-03-11] MEDS: VITAMIN D (CHOLECALCIFEROL) 400 INTERNATIONAL UNITS TAB PO SCH (07:38)
[2022-03-11] MEDS: OMEPRAZOLE 20MG CAP PO SCH (07:38)
[2022-03-11] MEDS: GABAPENTIN 100 MG CAP PO SCH ×2 (07:38→20:47)
[2022-03-11 14:00] VITALS: BP 159/70
[2022-03-11 20:00] VITALS: BP 156/71
[2022-03-11] MEDS: **NOTE PATIENT COMMENT** MISC XX SCH (20:48)
[2022-03-12 06:00] VITALS: BP 156/72
[2022-03-12 07:48] LABS: ALBUMIN 2.6 GM/DL (3.2-5.2); ALT/SGPT 521 U/L (12-78); BILIRUBIN,DIRECT 2.4 MG/DL (0.0-0.2); BILIRUBIN,TOTAL 3.2 MG/DL (0.2-1.0); BLOOD UREA NITROGEN 17 MG/DL (7-18); CALCIUM LEVEL 8.1 MG/DL (8.8-10.2); CARBON DIOXIDE LEVEL 22 MEQ/L (21-32); CHLORIDE LEVEL 104 MEQ/L (98-107); CREATININE FOR GFR 1.11 MG/DL (0.70-1.30); GLOMERULAR FILTRATION RATE > 60.0 (>35); GLUCOSE, FASTING 87 MG/DL (70-100); POTASSIUM SERUM 4.3 MEQ/L (3.5-5.1); SODIUM LEVEL 132 MEQ/L (136-145); TOTAL PROTEIN 9.1 GM/DL (6.4-8.2)
[2022-03-12] MEDS: SYMBICORT 160/4.5MCG INHALER 6GM INH SCH ×2 (08:12→20:00)
[2022-03-12] MEDS: LIDOCAINE 5% (LIDODERM) PATCH TD SCH ×2 (09:00→09:46)
[2022-03-12] MEDS: OMEPRAZOLE 20MG CAP PO SCH (09:47)
[2022-03-12] MEDS: DOCUSATE SODIUM 100MG CAPSULE PO SCH ×2 (09:47→21:00)
[2022-03-12] MEDS: FUROSEMIDE 20 MG TAB PO SCH (09:47)
[2022-03-12] MEDS: ASPIRIN 81MG ENTERIC TABLET PO SCH (09:47)
[2022-03-12] MEDS: VITAMIN D (CHOLECALCIFEROL) 400 INTERNATIONAL UNITS TAB PO SCH (09:47)
[2022-03-12] MEDS: GABAPENTIN 100 MG CAP PO SCH ×2 (09:47→21:00)
[2022-03-12] MEDS: allopurinoL 100 MG TAB PO SCH (09:47)
[2022-03-12] MEDS: MULTIVITAMINS/MINERALS THERAP 1 TAB PO SCH (09:47)
[2022-03-12] MEDS: METAMUCIL (PSYLLIUM) PACKET PO SCH (09:47)
[2022-03-12] MEDS: HEPARIN SOD (PORCINE) 5000UNITS/ML 1ML VIAL/SYRINGE SC SCH ×2 (09:48→21:00)
[2022-03-12] MEDS: MIRALAX *UNIT DOSE* 17GM PACKET PO SCH (11:18)
[2022-03-12] MEDS: LACTULOSE 20 GM/30 ML SYRUP UD PO PRN (11:18)
[2022-03-12] MEDS: SODIUM CHLORIDE 1 GM TAB PO SCH ×3 (11:18→21:17)
[2022-03-12 14:00] VITALS: BP 155/70
[2022-03-12 19:21] VITALS: BP 151/68
[2022-03-12] MEDS: **NOTE PATIENT COMMENT** MISC XX SCH (21:00)
[2022-03-12] MEDS: BISACODYL 5 MG TAB PO PRN (21:00)
[2022-03-13 05:22] VITALS: BP 152/70
[2022-03-13] MEDS: SYMBICORT 160/4.5MCG INHALER 6GM INH SCH ×2 (08:19→20:15)
[2022-03-13] MEDS: ASPIRIN 81MG ENTERIC TABLET PO SCH (10:41)
[2022-03-13] MEDS: MIRALAX *UNIT DOSE* 17GM PACKET PO SCH (10:41)
[2022-03-13] MEDS: METAMUCIL (PSYLLIUM) PACKET PO SCH (10:41)
[2022-03-13] MEDS: SODIUM CHLORIDE 1 GM TAB PO SCH ×3 (10:41→20:58)
[2022-03-13] MEDS: allopurinoL 100 MG TAB PO SCH (10:41)
[2022-03-13] MEDS: LACTULOSE 20 GM/30 ML SYRUP UD PO PRN (10:41)
[2022-03-13] MEDS: VITAMIN D (CHOLECALCIFEROL) 400 INTERNATIONAL UNITS TAB PO SCH (10:41)
[2022-03-13] MEDS: DOCUSATE SODIUM 100MG CAPSULE PO SCH ×2 (10:42→20:58)
[2022-03-13] MEDS: OMEPRAZOLE 20MG CAP PO SCH (10:42)
[2022-03-13] MEDS: BISACODYL 5 MG TAB PO PRN ×2 (10:42→20:58)
[2022-03-13] MEDS: MULTIVITAMINS/MINERALS THERAP 1 TAB PO SCH (10:42)
[2022-03-13] MEDS: GABAPENTIN 100 MG CAP PO SCH ×2 (10:42→20:58)
[2022-03-13] MEDS: FUROSEMIDE 20 MG TAB PO SCH (10:42)
[2022-03-13] MEDS: HEPARIN SOD (PORCINE) 5000UNITS/ML 1ML VIAL/SYRINGE SC SCH ×2 (10:43→20:58)
[2022-03-13] MEDS: LIDOCAINE 5% (LIDODERM) PATCH TD SCH (10:43)
[2022-03-13 14:00] VITALS: BP 134/68
[2022-03-13 20:50] VITALS: BP 167/77
[2022-03-13] MEDS: **NOTE PATIENT COMMENT** MISC XX SCH (20:59)
[2022-03-14 04:41] VITALS: BP 130/66
[2022-03-14 05:04] VITALS: BP 165/77
[2022-03-14 07:15] LABS: ALBUMIN 2.2 GM/DL (3.2-5.2); ALT/SGPT 544 U/L (12-78); BILIRUBIN,TOTAL 3.1 MG/DL (0.2-1.0); BLOOD UREA NITROGEN 18 MG/DL (7-18); CALCIUM LEVEL 8.1 MG/DL (8.8-10.2); CARBON DIOXIDE LEVEL 20 MEQ/L (21-32); CHLORIDE LEVEL 105 MEQ/L (98-107); CREATININE FOR GFR 1.01 MG/DL (0.70-1.30); GLOMERULAR FILTRATION RATE > 60.0 (>35); GLUCOSE, FASTING 81 MG/DL (70-100); POTASSIUM SERUM 4.3 MEQ/L (3.5-5.1); SODIUM LEVEL 133 MEQ/L (136-145); TOTAL PROTEIN 8.4 GM/DL (6.4-8.2)
[2022-03-14] MEDS: SYMBICORT 160/4.5MCG INHALER 6GM INH SCH ×2 (07:37→20:14)
[2022-03-14] MEDS: LACTULOSE 20 GM/30 ML SYRUP UD PO PRN (08:32)
[2022-03-14] MEDS: VITAMIN D (CHOLECALCIFEROL) 400 INTERNATIONAL UNITS TAB PO SCH (08:33)
[2022-03-14] MEDS: HEPARIN SOD (PORCINE) 5000UNITS/ML 1ML VIAL/SYRINGE SC SCH ×2 (08:33→20:06)
[2022-03-14] MEDS: GABAPENTIN 100 MG CAP PO SCH ×2 (08:33→20:05)
[2022-03-14] MEDS: SENNA 8.6 MG TAB (SENOKOT) PO SCH ×2 (08:33→20:05)
[2022-03-14] MEDS: LIDOCAINE 5% (LIDODERM) PATCH TD SCH (08:33)
[2022-03-14] MEDS: OMEPRAZOLE 20MG CAP PO SCH (08:33)
[2022-03-14] MEDS: allopurinoL 100 MG TAB PO SCH (08:34)
[2022-03-14] MEDS: MIRALAX *UNIT DOSE* 17GM PACKET PO SCH (08:34)
[2022-03-14] MEDS: SODIUM CHLORIDE 1 GM TAB PO SCH (08:34)
[2022-03-14] MEDS: MULTIVITAMINS/MINERALS THERAP 1 TAB PO SCH (08:34)
[2022-03-14] MEDS: FUROSEMIDE 20 MG TAB PO SCH (08:34)
[2022-03-14] MEDS: ASPIRIN 81MG ENTERIC TABLET PO SCH (08:34)
[2022-03-14] MEDS: METAMUCIL (PSYLLIUM) PACKET PO SCH (08:34)
[2022-03-14 14:00] VITALS: BP_SYST 135; BP_SYST 173; BP_DIAS 78
[2022-03-14] MEDS: BISACODYL 5 MG TAB PO PRN (15:04)
[2022-03-14 20:03] VITALS: BP 141/67
[2022-03-14] MEDS: **NOTE PATIENT COMMENT** MISC XX SCH (20:06)
[2022-03-15 06:00] VITALS: BP 167/77
[2022-03-15] MEDS: LIDOCAINE 5% (LIDODERM) PATCH TD SCH (07:32)
[2022-03-15] MEDS: ASPIRIN 81MG ENTERIC TABLET PO SCH (07:32)
[2022-03-15] MEDS: BISACODYL 5 MG TAB PO PRN (07:32)
[2022-03-15] MEDS: allopurinoL 100 MG TAB PO SCH (07:32)
[2022-03-15] MEDS: VITAMIN D (CHOLECALCIFEROL) 400 INTERNATIONAL UNITS TAB PO SCH (07:32)
[2022-03-15] MEDS: MIRALAX *UNIT DOSE* 17GM PACKET PO SCH (07:32)
[2022-03-15] MEDS: OMEPRAZOLE 20MG CAP PO SCH (07:32)
[2022-03-15] MEDS: FUROSEMIDE 20 MG TAB PO SCH (07:32)
[2022-03-15] MEDS: LACTULOSE 20 GM/30 ML SYRUP UD PO PRN (07:32)
[2022-03-15] MEDS: SENNA 8.6 MG TAB (SENOKOT) PO SCH ×2 (07:32→19:58)
[2022-03-15] MEDS: HEPARIN SOD (PORCINE) 5000UNITS/ML 1ML VIAL/SYRINGE SC SCH ×2 (07:33→19:58)
[2022-03-15] MEDS: METAMUCIL (PSYLLIUM) PACKET PO SCH (07:33)
[2022-03-15] MEDS: GABAPENTIN 100 MG CAP PO SCH ×2 (07:33→19:57)
[2022-03-15] MEDS: MULTIVITAMINS/MINERALS THERAP 1 TAB PO SCH (07:33)
[2022-03-15] MEDS: SYMBICORT 160/4.5MCG INHALER 6GM INH SCH ×2 (07:34→20:24)
[2022-03-15] MEDS: VITAMIN D 1,000 INTERNATIONAL UNITS TABLET PO SCH ×2 (09:04→19:57)
[2022-03-15 11:29] LABS: HEPATITIS B CORE ANTIBODY IGM NEGATIVE (NEGATIVE); HEPATITIS B SURFACE ANTIGEN NEGATIVE (NEGATIVE); HEPATITIS C VIRUS ABY INDEX 0.2 INDEX (<0.8)
[2022-03-15 14:00] VITALS: BP 142/80
[2022-03-15] MEDS: oxyCODONE 5MG TAB PO PRN (19:57)
[2022-03-15] MEDS: **NOTE PATIENT COMMENT** MISC XX SCH (19:58)
[2022-03-15 20:00] VITALS: BP 146/68
[2022-03-16 06:00] VITALS: BP 147/68
[2022-03-16] MEDS: SYMBICORT 160/4.5MCG INHALER 6GM INH SCH ×2 (07:42→20:27)
[2022-03-16 08:17] LABS: ALBUMIN 2.6 GM/DL (3.2-5.2); ALT/SGPT 626 U/L (12-78); BILIRUBIN,TOTAL 3.5 MG/DL (0.2-1.0); BLOOD UREA NITROGEN 16 MG/DL (7-18); CALCIUM LEVEL 8.8 MG/DL (8.8-10.2); CARBON DIOXIDE LEVEL 20 MEQ/L (21-32); CHLORIDE LEVEL 101 MEQ/L (98-107); CREATININE FOR GFR 1.15 MG/DL (0.70-1.30); GLOMERULAR FILTRATION RATE > 60.0 (>35); GLUCOSE, FASTING 104 MG/DL (70-100); POTASSIUM SERUM 4.1 MEQ/L (3.5-5.1); SODIUM LEVEL 130 MEQ/L (136-145); TOTAL PROTEIN 9.1 GM/DL (6.4-8.2)
[2022-03-16] MEDS: METAMUCIL (PSYLLIUM) PACKET PO SCH ×2 (09:00→11:26)
[2022-03-16] MEDS: SENNA 8.6 MG TAB (SENOKOT) PO SCH ×2 (09:00→20:34)
[2022-03-16] MEDS: MIRALAX *UNIT DOSE* 17GM PACKET PO SCH (09:00)
[2022-03-16] MEDS: ASPIRIN 81MG ENTERIC TABLET PO SCH (11:07)
[2022-03-16] MEDS: FUROSEMIDE 20 MG TAB PO SCH (11:07)
[2022-03-16] MEDS: GABAPENTIN 100 MG CAP PO SCH ×2 (11:08→20:34)
[2022-03-16] MEDS: OMEPRAZOLE 20MG CAP PO SCH (11:11)
[2022-03-16] MEDS: MULTIVITAMINS/MINERALS THERAP 1 TAB PO SCH (11:11)
[2022-03-16] MEDS: VITAMIN D 1,000 INTERNATIONAL UNITS TABLET PO SCH ×2 (11:12→20:34)
[2022-03-16] MEDS: allopurinoL 100 MG TAB PO SCH (11:13)
[2022-03-16] MEDS: HEPARIN SOD (PORCINE) 5000UNITS/ML 1ML VIAL/SYRINGE SC SCH ×2 (11:14→20:33)
[2022-03-16] MEDS: LIDOCAINE 5% (LIDODERM) PATCH TD SCH (11:27)
[2022-03-16] MEDS: oxyCODONE 5MG TAB PO PRN (11:27)
[2022-03-16] MEDS: SODIUM CHLORIDE 1 GM TAB PO SCH ×3 (12:14→20:34)
[2022-03-16 14:00] VITALS: BP 142/65
[2022-03-16 20:00] VITALS: BP 139/63
[2022-03-16] MEDS: **NOTE PATIENT COMMENT** MISC XX SCH (20:37)
[2022-03-17 06:00] VITALS: BP 139/65
[2022-03-17] MEDS: SYMBICORT 160/4.5MCG INHALER 6GM INH SCH ×2 (07:36→19:16)
[2022-03-17 07:39] LABS: HEMATOCRIT 38.8 % (42.0-52.0); HEMOGLOBIN 13.4 g/dl (13.5-17.5); MEAN CORPUSCULAR HEMOGLOBIN 34.3 pg (27.0-33.0); MEAN CORPUSCULAR HGB CONC 34.5 g/dl (32.0-36.5); MEAN CORPUSCULAR VOLUME 99.2 fl (80.0-96.0); PLATELET COUNT, AUTOMATED 208 10^3/uL (150-450); RED BLOOD COUNT 3.91 10^6/uL (4.30-6.10); WHITE BLOOD COUNT 6.4 10^3/uL (4.0-10.0)
[2022-03-17 08:08] LABS: ALBUMIN 2.4 GM/DL (3.2-5.2); ALT/SGPT 602 U/L (12-78); BILIRUBIN,DIRECT 2.6 MG/DL (0.0-0.2); BILIRUBIN,TOTAL 3.5 MG/DL (0.2-1.0); BLOOD UREA NITROGEN 18 MG/DL (7-18); CALCIUM LEVEL 8.4 MG/DL (8.8-10.2); CARBON DIOXIDE LEVEL 24 MEQ/L (21-32); CHLORIDE LEVEL 103 MEQ/L (98-107); CREATININE FOR GFR 1.14 MG/DL (0.70-1.30); GLOMERULAR FILTRATION RATE > 60.0 (>35); GLUCOSE, FASTING 90 MG/DL (70-100); POTASSIUM SERUM 4.2 MEQ/L (3.5-5.1); SODIUM LEVEL 132 MEQ/L (136-145); TOTAL PROTEIN 8.8 GM/DL (6.4-8.2)
[2022-03-17] MEDS: MIRALAX *UNIT DOSE* 17GM PACKET PO SCH (08:32)
[2022-03-17] MEDS: FUROSEMIDE 20 MG TAB PO SCH (08:32)
[2022-03-17] MEDS: GABAPENTIN 100 MG CAP PO SCH ×2 (08:32→20:13)
[2022-03-17] MEDS: METAMUCIL (PSYLLIUM) PACKET PO SCH (08:32)
[2022-03-17] MEDS: ASPIRIN 81MG ENTERIC TABLET PO SCH (08:32)
[2022-03-17] MEDS: MULTIVITAMINS/MINERALS THERAP 1 TAB PO SCH (08:33)
[2022-03-17] MEDS: SODIUM CHLORIDE 1 GM TAB PO SCH ×3 (08:33→20:13)
[2022-03-17] MEDS: VITAMIN D 1,000 INTERNATIONAL UNITS TABLET PO SCH ×2 (08:33→20:13)
[2022-03-17] MEDS: OMEPRAZOLE 20MG CAP PO SCH (08:33)
[2022-03-17] MEDS: SENNA 8.6 MG TAB (SENOKOT) PO SCH ×2 (08:33→20:13)
[2022-03-17] MEDS: LIDOCAINE 5% (LIDODERM) PATCH TD SCH (08:34)
[2022-03-17] MEDS: HEPARIN SOD (PORCINE) 5000UNITS/ML 1ML VIAL/SYRINGE SC SCH ×2 (08:34→20:13)
[2022-03-17] MEDS: allopurinoL 100 MG TAB PO SCH (09:00)
[2022-03-17 14:00] VITALS: BP 149/68
[2022-03-17 20:00] VITALS: BP 150/69
[2022-03-17] MEDS: BISACODYL 5 MG TAB PO PRN (20:13)
[2022-03-17] MEDS: **NOTE PATIENT COMMENT** MISC XX SCH (20:17)
[2022-03-18 06:00] VITALS: BP 140/60
[2022-03-18 06:42] LABS: HEMATOCRIT 38.9 % (42.0-52.0); HEMOGLOBIN 13.5 g/dl (13.5-17.5); MEAN CORPUSCULAR HEMOGLOBIN 34.6 pg (27.0-33.0); MEAN CORPUSCULAR HGB CONC 34.7 g/dl (32.0-36.5); MEAN CORPUSCULAR VOLUME 99.7 fl (80.0-96.0); PLATELET COUNT, AUTOMATED 201 10^3/uL (150-450)
[2022-03-18 07:22] LABS: ALBUMIN 2.3 GM/DL (3.2-5.2); BILIRUBIN,DIRECT 2.3 MG/DL (0.0-0.2); BILIRUBIN,TOTAL 3.2 MG/DL (0.2-1.0); TOTAL PROTEIN 8.7 GM/DL (6.4-8.2)
[2022-03-18] MEDS: SYMBICORT 160/4.5MCG INHALER 6GM INH SCH ×2 (07:28→20:12)
[2022-03-18] MEDS: ASPIRIN 81MG ENTERIC TABLET PO SCH (08:46)
[2022-03-18] MEDS: MULTIVITAMINS/MINERALS THERAP 1 TAB PO SCH (08:53)
[2022-03-18] MEDS: allopurinoL 100 MG TAB PO SCH (08:53)
[2022-03-18] MEDS: SODIUM CHLORIDE 1 GM TAB PO SCH ×3 (08:53→20:35)
[2022-03-18] MEDS: SENNA 8.6 MG TAB (SENOKOT) PO SCH ×2 (08:53→20:35)
[2022-03-18] MEDS: GABAPENTIN 100 MG CAP PO SCH ×2 (08:53→20:35)
[2022-03-18] MEDS: MIRALAX *UNIT DOSE* 17GM PACKET PO SCH (08:53)
[2022-03-18] MEDS: OMEPRAZOLE 20MG CAP PO SCH (08:53)
[2022-03-18] MEDS: FUROSEMIDE 20 MG TAB PO SCH (08:53)
[2022-03-18] MEDS: METAMUCIL (PSYLLIUM) PACKET PO SCH (08:53)
[2022-03-18] MEDS: VITAMIN D 1,000 INTERNATIONAL UNITS TABLET PO SCH ×2 (08:54→20:35)
[2022-03-18] MEDS: LIDOCAINE 5% (LIDODERM) PATCH TD SCH (08:54)
[2022-03-18] MEDS: HEPARIN SOD (PORCINE) 5000UNITS/ML 1ML VIAL/SYRINGE SC SCH ×2 (08:54→20:36)
[2022-03-18 14:00] VITALS: BP 145/67
[2022-03-18 20:19] VITALS: BP 149/70
[2022-03-18] MEDS: **NOTE PATIENT COMMENT** MISC XX SCH (20:36)
[2022-03-19 05:53] VITALS: BP 145/67
[2022-03-19 06:33] LABS: BLOOD UREA NITROGEN 15 MG/DL (7-18); CALCIUM LEVEL 7.9 MG/DL (8.8-10.2); CARBON DIOXIDE LEVEL 22 MEQ/L (21-32); CHLORIDE LEVEL 107 MEQ/L (98-107); CREATININE FOR GFR 0.97 MG/DL (0.70-1.30); GLOMERULAR FILTRATION RATE > 60.0 (>35); SODIUM LEVEL 135 MEQ/L (136-145)
[2022-03-19 06:34] LABS: GLUCOSE, FASTING 74 MG/DL (70-100)
[2022-03-19] MEDS: SYMBICORT 160/4.5MCG INHALER 6GM INH SCH ×2 (07:18→20:14)
[2022-03-19] MEDS: METAMUCIL (PSYLLIUM) PACKET PO SCH ×2 (09:00→09:51)
[2022-03-19] MEDS: MIRALAX *UNIT DOSE* 17GM PACKET PO SCH (09:49)
[2022-03-19] MEDS: ASPIRIN 81MG ENTERIC TABLET PO SCH (09:49)
[2022-03-19] MEDS: SODIUM CHLORIDE 1 GM TAB PO SCH ×3 (09:49→20:31)
[2022-03-19] MEDS: VITAMIN D 1,000 INTERNATIONAL UNITS TABLET PO SCH ×2 (09:49→20:30)
[2022-03-19] MEDS: HEPARIN SOD (PORCINE) 5000UNITS/ML 1ML VIAL/SYRINGE SC SCH ×2 (09:49→20:31)
[2022-03-19] MEDS: GABAPENTIN 100 MG CAP PO SCH (09:49)
[2022-03-19] MEDS: OMEPRAZOLE 20MG CAP PO SCH (09:49)
[2022-03-19] MEDS: allopurinoL 100 MG TAB PO SCH (09:49)
[2022-03-19] MEDS: MULTIVITAMINS/MINERALS THERAP 1 TAB PO SCH (09:49)
[2022-03-19] MEDS: SENNA 8.6 MG TAB (SENOKOT) PO SCH ×2 (09:49→20:31)
[2022-03-19] MEDS: LIDOCAINE 5% (LIDODERM) PATCH TD SCH (09:50)
[2022-03-19] MEDS: FUROSEMIDE 20 MG TAB PO SCH (09:50)
[2022-03-19] MEDS ORDERED: SENN18TA PO (11:51)
[2022-03-19] MEDS ORDERED: MIRA1POW3 PO (11:51)
[2022-03-19] MEDS ORDERED: LIDO5TD TD (11:51)
[2022-03-19 14:00] VITALS: BP 152/72
[2022-03-19 20:00] VITALS: BP 148/67
[2022-03-19] MEDS: **NOTE PATIENT COMMENT** MISC XX SCH (20:31)
[2022-03-20 06:00] VITALS: BP 145/70
[2022-03-20] MEDS: SYMBICORT 160/4.5MCG INHALER 6GM INH SCH (07:23)
[2022-03-20 07:31] LABS: ALBUMIN 2.3 GM/DL (3.2-5.2); ALT/SGPT 595 U/L (12-78); BILIRUBIN,TOTAL 3.8 MG/DL (0.2-1.0); BLOOD UREA NITROGEN 14 MG/DL (7-18); CALCIUM LEVEL 8.2 MG/DL (8.8-10.2); CARBON DIOXIDE LEVEL 24 MEQ/L (21-32); CHLORIDE LEVEL 105 MEQ/L (98-107); CREATININE FOR GFR 1.01 MG/DL (0.70-1.30); GLOMERULAR FILTRATION RATE > 60.0 (>35); GLUCOSE, FASTING 82 MG/DL (70-100); SODIUM LEVEL 133 MEQ/L (136-145); TOTAL PROTEIN 8.7 GM/DL (6.4-8.2)
[2022-03-20] MEDS ORDERED: GABAPENTIN 100 MG CAP PO SCH (09:00)
[2022-03-20] MEDS: MIRALAX *UNIT DOSE* 17GM PACKET PO SCH (09:53)
[2022-03-20] MEDS: SODIUM CHLORIDE 1 GM TAB PO SCH (09:53)
[2022-03-20] MEDS: MULTIVITAMINS/MINERALS THERAP 1 TAB PO SCH (09:54)
[2022-03-20] MEDS: OMEPRAZOLE 20MG CAP PO SCH (09:54)
[2022-03-20] MEDS: HEPARIN SOD (PORCINE) 5000UNITS/ML 1ML VIAL/SYRINGE SC SCH (09:54)
[2022-03-20] MEDS: VITAMIN D 1,000 INTERNATIONAL UNITS TABLET PO SCH (09:54)
[2022-03-20] MEDS: SENNA 8.6 MG TAB (SENOKOT) PO SCH (09:54)
[2022-03-20] MEDS: allopurinoL 100 MG TAB PO SCH (09:54)
[2022-03-20] MEDS: ASPIRIN 81MG ENTERIC TABLET PO SCH (09:54)
[2022-03-20] MEDS: FUROSEMIDE 20 MG TAB PO SCH (09:55)
[2022-03-20 09:56] VITALS: BP 145/70
[2022-03-20] MEDS: LIDOCAINE 5% (LIDODERM) PATCH TD SCH (09:57)
== END 2022-03-20 14:30 | disposition home health service (06) | DRG 559 ==
LOC: M PM&R 13:35
PROVIDERS: ADMIT Physical Medicine & Rehabilitation; ATTEND Physical Medicine & Rehabilitation
DX: S72.121D Displaced fracture of lesser trochanter of right femur, subsequent encounter for closed fracture with routine healing (principal); U07.1 COVID-19; E87.1 Hypo-osmolality and hyponatremia; I50.32 Chronic diastolic (congestive) heart failure; J96.11 Chronic respiratory failure with hypoxia; J44.9 Chronic obstructive pulmonary disease, unspecified; I11.0 Hypertensive heart disease with heart failure; I25.10 Atherosclerotic heart disease of native coronary artery without angina pectoris; M19.90 Unspecified osteoarthritis, unspecified site; M54.50 Low back pain, unspecified; Z96.643 Presence of artificial hip joint, bilateral; K80.20 Calculus of gallbladder without cholecystitis without obstruction; E78.5 Hyperlipidemia, unspecified; N40.0 Benign prostatic hyperplasia without lower urinary tract symptoms; M10.9 Gout, unspecified; Z90.49 Acquired absence of other specified parts of digestive tract; Z98.41 Cataract extraction status, right eye; Z98.42 Cataract extraction status, left eye; Z95.5 Presence of coronary angioplasty implant and graft; Z79.82 Long term (current) use of aspirin; Z79.899 Other long term (current) drug therapy; Z88.8 Allergy status to other drugs, medicaments and biological substances; Z66 Do not resuscitate; K59.00 Constipation, unspecified; I27.20 Pulmonary hypertension, unspecified; M81.0 Age-related osteoporosis without current pathological fracture; I36.0 Nonrheumatic tricuspid (valve) stenosis; G47.33 Obstructive sleep apnea (adult) (pediatric); W18.30XD Fall on same level, unspecified, subsequent encounter; Y92.009 Unspecified place in unspecified non-institutional (private) residence as the place of occurrence of the external cause

== ENCOUNTER → 2022-04-12 | Outpatient (CLI) | payer MEDICARE, OTHER ==
[~2022-04-12] MED LIST changes: +LIDO5TD TD; +MIRA1POW3 PO
== END ==
LOC: M SOG 08:03
PROVIDERS: ATTEND Orthopaedic Surgery
DX: Z96.641 Presence of right artificial hip joint (principal)

== ENCOUNTER → 2022-05-04 | Outpatient (CLI) | payer MEDICARE, OTHER ==
[~2022-05-04] MED LIST changes: +BENZ1LOZ2 MT; -SORE15LO MT
== END ==
LOC: M RAD 10:39
PROVIDERS: ATTEND Specialist
DX: D47.2 Monoclonal gammopathy (principal); M47.812 Spondylosis without myelopathy or radiculopathy, cervical region; Z96.643 Presence of artificial hip joint, bilateral; M48.56XA Collapsed vertebra, not elsewhere classified, lumbar region, initial encounter for fracture

== ENCOUNTER → 2022-05-06 | Outpatient (REF) | payer MEDICARE, OTHER | LOC: M LAB REF 14:35 | PROVIDERS: ATTEND Specialist | DX: D47.2 Monoclonal gammopathy (principal) ==

== ENCOUNTER 2022-06-12 08:04 | Outpatient (RCR) | payer MEDICARE, OTHER | END 2022-06-13 23:59 | disposition home or self-care (01) | LOC: M PT 08:04 | PROVIDERS: ATTEND Orthopaedic Surgery | DX: Z47.89 Encounter for other orthopedic aftercare (principal); Z96.641 Presence of right artificial hip joint ==

== ENCOUNTER → 2022-06-12 | Outpatient (CLI) | payer MEDICARE, OTHER | LOC: M SOG 08:03 | PROVIDERS: ATTEND Orthopaedic Surgery | DX: Z96.641 Presence of right artificial hip joint (principal); Z53.9 Procedure and treatment not carried out, unspecified reason ==

== ENCOUNTER → 2022-06-26 | Outpatient (CLI) | payer MEDICARE, OTHER ==
[~2022-06-26] MED LIST changes: +LIDOCAINE 1% MDV 20ML VIAL As Ordered ONE
[2022-06-26 12:51] LABS: BASO # 0.1 10^3/uL (0.0-0.2); BASO % 0.7 % (0.0-1.0); EOS # 0.1 10^3/uL (0.0-0.5); EOS % 0.9 % (0.0-3.0); HEMATOCRIT 40.1 % (42.0-52.0); HEMOGLOBIN 13.6 g/dl (13.5-17.5); LYMPH # 1.3 10^3/uL (1.5-5.0); LYMPH % 17.1 % (24.0-44.0); MEAN CORPUSCULAR HEMOGLOBIN 35.2 pg (27.0-33.0); MEAN CORPUSCULAR HGB CONC 33.9 g/dl (32.0-36.5); MEAN CORPUSCULAR VOLUME 103.9 fl (80.0-96.0); MONO # 0.5 10^3/uL (0.0-0.8); MONO % 6.9 % (2.0-8.0); NEUTROPHILS # 5.4 10^3/uL (1.5-8.5); NEUTROPHILS % 73.9 % (36.0-66.0); PLATELET COUNT, AUTOMATED 139 10^3/uL (150-450); RED BLOOD COUNT 3.86 10^6/uL (4.30-6.10); WHITE BLOOD COUNT 7.4 10^3/uL (4.0-10.0)
[2022-06-26 13:22] VITALS: BP 141/65
== END ==
LOC: M IRPRO 11:55
PROVIDERS: ATTEND Internal Medicine Medical Oncology
DX: R77.1 Abnormality of globulin (principal)

== ENCOUNTER 2022-07-12 07:58 | Outpatient (RCR) | payer MEDICARE, OTHER ==
[~2022-07-12 07:58] MED LIST changes: -LIDOCAINE 1% MDV 20ML VIAL As Ordered ONE
== END 2022-07-14 ==
LOC: M PT 07:58
PROVIDERS: ATTEND Orthopaedic Surgery
DX: R26.89 Other abnormalities of gait and mobility (principal); Z96.641 Presence of right artificial hip joint

== ENCOUNTER → 2022-07-19 | Outpatient (CLI) | payer MEDICARE, OTHER | LOC: M RAD 07:20 | PROVIDERS: ATTEND Internal Medicine Hematology & Oncology | DX: R77.1 Abnormality of globulin (principal); K76.89 Other specified diseases of liver; K80.20 Calculus of gallbladder without cholecystitis without obstruction; R16.1 Splenomegaly, not elsewhere classified; R14.0 Abdominal distension (gaseous); N28.1 Cyst of kidney, acquired ==

== ENCOUNTER → 2022-08-14 | Outpatient (RCR) | payer MEDICARE, OTHER ==
[~2022-08-14] MED LIST changes: +AZAT50TA37; +FELO10TA28
== END ==
LOC: M PT 07-17 07:52
PROVIDERS: ATTEND Orthopaedic Surgery
DX: Z47.89 Encounter for other orthopedic aftercare (principal); Z96.641 Presence of right artificial hip joint

== ENCOUNTER 2022-08-30 08:59 | Outpatient (RCR) | payer MEDICARE, OTHER | END 2022-09-11 | LOC: M PT 08:59 | PROVIDERS: ATTEND Orthopaedic Surgery | DX: Z96.641 Presence of right artificial hip joint (principal) ==

== ENCOUNTER → 2022-10-03 | Outpatient (CLI) | payer MEDICARE, OTHER ==
[~2022-10-03] MED LIST changes: -AZAT50TA37; +AZAT50TA37 PO; +BUME1TAB3 PO; +DILT120C78 PO; +PRED10PA PO; +SPIR-10 PO; +cholecalciferol PO
[2022-10-03 15:00] VITALS: BP 151/70
== END ==
LOC: M IRPRO 12:18
PROVIDERS: ATTEND Internal Medicine Cardiovascular Disease
DX: R18.8 Other ascites (principal); K74.69 Other cirrhosis of liver

== ENCOUNTER → 2022-10-29 | Outpatient (CLI) | payer MEDICARE, OTHER ==
[~2022-10-29] MED LIST changes: +LIDOCAINE 1% MDV 20ML VIAL As Ordered ONE
[2022-10-29 12:10] VITALS: BP 181/82
== END ==
LOC: M IRPRO 11:53
PROVIDERS: ATTEND Internal Medicine Cardiovascular Disease
DX: R18.8 Other ascites (principal)

== ENCOUNTER → 2022-11-13 | Outpatient (REF) | payer MEDICARE, OTHER ==
[~2022-11-13] MED LIST changes: -LIDOCAINE 1% MDV 20ML VIAL As Ordered ONE
[2022-11-13 16:46] LABS: BASO % 0.8 % (0.0-1.0); EOS # 0.2 10^3/uL (0.0-0.5); EOS % 3.5 % (0.0-3.0); HEMATOCRIT 36.2 % (42.0-52.0); HEMOGLOBIN 12.5 g/dl (13.5-17.5); LYMPH # 1.2 10^3/uL (1.5-5.0); LYMPH % 23.1 % (24.0-44.0); MEAN CORPUSCULAR HEMOGLOBIN 37.2 pg (27.0-33.0); MEAN CORPUSCULAR HGB CONC 34.5 g/dl (32.0-36.5); MEAN CORPUSCULAR VOLUME 107.7 fl (80.0-96.0); MONO # 0.6 10^3/uL (0.0-0.8); MONO % 11.9 % (2.0-8.0); NEUTROPHILS # 3.1 10^3/uL (1.5-8.5); NEUTROPHILS % 59.7 % (36.0-66.0); PLATELET COUNT, AUTOMATED 111 10^3/uL (150-450); RED BLOOD COUNT 3.36 10^6/uL (4.30-6.10); WHITE BLOOD COUNT 5.2 10^3/uL (4.0-10.0)
[2022-11-13 17:07] LABS: ALBUMIN 2.6 G/DL (3.2-5.2); ALKALINE PHOSPHATASE 102 U/L (46-116); ALT/SGPT 17 U/L (7.0-40); AST/SGOT 28 U/L (<34); BILIRUBIN,TOTAL 1.1 MG/DL (0.3-1.2); BLOOD UREA NITROGEN 19 MG/DL (9-23); CALCIUM LEVEL 7.8 MG/DL (8.3-10.6); CARBON DIOXIDE LEVEL 26 MMOL/L (20-31); CHLORIDE LEVEL 104 MMOL/L (98-107); CREATININE FOR GFR 0.97 MG/DL (0.70-1.30); GLOMERULAR FILTRATION RATE > 60.0 (>35); GLUCOSE, FASTING 72 MG/DL (74-106); POTASSIUM SERUM 4.5 MMOL/L (3.5-5.1); SODIUM LEVEL 135 MMOL/L (136-145); TOTAL PROTEIN 6.7 G/DL (5.7-8.2)
[2022-11-15 17:08] LABS: PSA TOTAL 1.6 ng/mL (0.0-4.0)
== END ==
LOC: M LAB REF 15:00
PROVIDERS: ATTEND Internal Medicine
DX: M48.46XA Fatigue fracture of vertebra, lumbar region, initial encounter for fracture (principal); N40.1 Benign prostatic hyperplasia with lower urinary tract symptoms; K74.60 Unspecified cirrhosis of liver; Z79.899 Other long term (current) drug therapy

== ENCOUNTER 2023-05-09 08:02 | Outpatient (RCR) | payer MEDICARE, OTHER ==
[~2023-05-09 08:02] MED LIST changes: +SENN-111 PO; -SENN18TA PO
== END 2023-05-14 ==
LOC: M PT 08:02
PROVIDERS: ATTEND Internal Medicine
DX: M62.81 Muscle weakness (generalized) (principal)

== ENCOUNTER 2023-06-11 07:53 | Outpatient (RCR) | payer MEDICARE, OTHER | END 2023-06-13 | LOC: M PT 07:53 | PROVIDERS: ATTEND Internal Medicine | DX: M62.81 Muscle weakness (generalized) (principal) ==

== ENCOUNTER 2023-07-04 07:57 | Outpatient (RCR) | payer MEDICARE, OTHER ==
[~2023-07-04 07:57] MED LIST changes: -BENZ1LOZ2 MT; +SORE15LO MT
== END 2023-07-14 ==
LOC: M PT 07:57
PROVIDERS: ATTEND Internal Medicine
DX: M62.81 Muscle weakness (generalized) (principal)